=== PATIENT | female | born 1985 | race African-American/Black ===

== ENCOUNTER 2023-04-12 20:31 | Emergency (ER) | payer OTHER ==
[2023-04-12 20:39] VITALS: RESP 20; BMI 45.7
[2023-04-12] MEDS ORDERED: traMADol HCL 50 MG TABLET ONE (21:30)
[2023-04-12] MEDS ORDERED: traMADol HCL 50 MG TABLET PO ONE (21:32)
[2023-04-12] MEDS ORDERED: cloNIDine HCL 0.1 MG TABLET PO ONE (22:06)
[2023-04-12] MEDS ORDERED: cloNIDine HCL 0.1 MG TABLET ONE (22:06)
[2023-04-12 22:11] VITALS: TEMP 99
[2023-04-12 22:56] VITALS: BP 149/95; PULSE 90
== END 2023-04-12 23:47 | disposition home or self-care (01) ==
LOC: JERFT 20:31 → JER 20:31 → JERFT 23:47
DX: K08.89 Other specified disorders of teeth and supporting structures (principal); R60.0 Localized edema; I10 Essential (primary) hypertension
CPT/HCPCS: 99283-25

== ENCOUNTER 2023-06-16 00:32 | Inpatient (IN) | payer OTHER ==
[2023-06-16] MEDS ORDERED: FAMOTIDINE 20 MG/50 ML IVPB 20 MG/50 ML MG IVPB ONE ×2 (01:05→01:14)
[2023-06-16] MEDS ORDERED: ACETAMINOPHEN 1000 MG/100 ML BAG IVPB ONE (01:05)
[2023-06-16] MEDS ORDERED: ONDANSETRON 4 MG/2 ML VIAL IVPUSH ONE (01:05)
[2023-06-16] MEDS ORDERED: SODIUM CHLORIDE 1,000 ML IV STA ×2 (01:05→03:59)
[2023-06-16] MEDS ORDERED: ACETAMINOPHEN INJECTION 100 ML IVPB ONE (01:14)
[2023-06-16] MEDS ORDERED: ONDANSETRON 4 MG/2 ML VIAL ONE (01:14)
[2023-06-16 02:08] LABS: CHLORIDE 107 mmol/L (98-107); POTASSIUM 3.2 mmol/L (3.5-5.1); SODIUM 146 mmol/L (136-145)
[2023-06-16 02:09] LABS: INR 1.09 (0.83-1.09); PROTHROMBIN TIME (PATIENT) 12.6 SEC (9.7-13.0)
[2023-06-16 02:11] LABS: ALBUMIN 1.8 g/dl (3.4-5.0); ANION GAP 16 MMOL/L (8-16); BLOOD UREA NITROGEN 51.2 mg/dL (7-18); CO2 22 mmol/L (21-32); GLUCOSE,RANDOM 371 mg/dL (74-106)
[2023-06-16 02:12] LABS: ACTIVATED PTT 29.8 SECONDS (25.2-36.5); LIPASE 140 U/L (73-393)
[2023-06-16 02:14] LABS: SGOT/AST 54 U/L (15-37); SGPT/ALT 33 U/L (13-61)
[2023-06-16 02:15] LABS: BILIRUBIN,TOTAL 0.3 mg/dL (0.2-1)
[2023-06-16 02:16] LABS: TOT PROT 5.5 g/dl (6.4-8.2)
[2023-06-16 02:17] LABS: ALK PHOS 124 U/L (45-117)
[2023-06-16 03:37] LABS: CREATININE 9.6 mg/dL (0.55-1.3)
[2023-06-16] MEDS ORDERED: levETIRAcetam 500 MG/5 ML INJECTION VIAL IVPB ONE ×2 (04:37→04:59)
[2023-06-16] MEDS ORDERED: LORazepam 2 MG/ML SDV VIAL IM ONE (04:43)
[2023-06-16 06:16] LABS: HEMATOCRIT 35.6 % (32.4-45.2); HEMOGLOBIN 11.4 GM/dL (10.7-15.3); MCH 29.6 pg (25.7-33.7); MCHC 32.1 g/dl (32.0-36.0); MEAN PLT VOLUME 9.1 fl (7.5-11.1); PLATELET COUNT 420 10^3/uL (134-434); RBC 3.87 M/mm3 (3.60-5.2); RDW 13.1 % (11.6-15.6); WHITE BLOOD COUNT 10.5 K/mm3 (4.0-10.0)
[2023-06-16 06:36] LABS: CHLORIDE 109 mmol/L (98-107); POTASSIUM 3.1 mmol/L (3.5-5.1); SODIUM 147 mmol/L (136-145)
[2023-06-16 06:38] LABS: CALCIUM 7.6 mg/dL (8.5-10.1)
[2023-06-16 06:39] LABS: ALBUMIN 1.7 g/dl (3.4-5.0); ANION GAP 17 MMOL/L (8-16); BLOOD UREA NITROGEN 54.6 mg/dL (7-18); CO2 21 mmol/L (21-32); GLUCOSE,RANDOM 359 mg/dL (74-106)
[2023-06-16 06:42] LABS: SGOT/AST 50 U/L (15-37); SGPT/ALT 29 U/L (13-61)
[2023-06-16 06:43] LABS: BILIRUBIN,TOTAL 0.3 mg/dL (0.2-1)
[2023-06-16 06:45] LABS: ALK PHOS 117 U/L (45-117)
[2023-06-16 06:45] LABS: BASO % 0.6 % (0-2.0); LYMPH % 12.4 % (8-40); MCH 29.7 pg (25.7-33.7); MCHC 33.2 g/dl (32.0-36.0); MEAN CELL VOLUME 89.5 fl (80-96); MEAN PLT VOLUME 8.5 fl (7.5-11.1); MONO % 2.7 % (3.8-10.2); NEUT % 84.3 % (42.8-82.8); PLATELET COUNT 392 10^3/uL (134-434); RBC 4.02 M/mm3 (3.60-5.2); RDW 13.3 % (11.6-15.6); WHITE BLOOD COUNT 10.4 K/mm3 (4.0-10.0)
[2023-06-16] MEDS ORDERED: CALCIUM GLUCONATE 10% - 1,000 MG/10 ML VIAL IVPB ONE (06:51)
[2023-06-16] MEDS ORDERED: CALCIUM GLUC IN NACL, ISO-OSM 1 GM/50 ML BAG IVPB ONE (07:18)
[2023-06-16] MEDS ORDERED: KCL 10 MEQ IVPB 20 MEQ/200 ML INFUS.BAG IVPB ONE (07:18)
[2023-06-16 07:24] LABS: CREATININE 9.1 mg/dL (0.55-1.3)
[2023-06-16 07:51] LABS: MAGNESIUM 1.8 mg/dL (1.8-2.4)
[2023-06-16 07:53] LABS: VENOUS BASE EXCESS -7.2 mmol/L (-2-2); VENOUS O2 SATURATION 86.3 % (70-80); VENOUS PCO2 32.5 mmHg (38-52); VENOUS PH 7.348 (7.310-7.410)
[2023-06-16 08:51] LABS: ANISOCYTOSIS 0; HELMET CELLS 0; HOWELL-JOLLY BODIES 0; MACROCYTOSIS 0; OVALOCYTE 0; ROULEAU 0; SICKELED CELLS 0; TARGET CELLS 0; TEAR DROP CELLS 0; TOXIC GRANULATION 0
[2023-06-16] MEDS ORDERED: SODIUM CHLORIDE 0.9%/KCL 20 MEQ/1,000 ML INFUS.BAG IV SCH (09:30)
[2023-06-16] MEDS: KCL 10 MEQ IVPB 10 MEQ/100 ML INFUS.BAG IVPB SCH ×3 (09:49→10:19)
[2023-06-16] MEDS ORDERED: KCL 10 MEQ IVPB 10 MEQ/100 ML INFUS.BAG IVPB ONE (10:21)
[2023-06-16 10:31] LABS: CHLORIDE 112 mmol/L (98-107); POTASSIUM 3.2 mmol/L (3.5-5.1); SODIUM 146 mmol/L (136-145)
[2023-06-16 10:32] LABS: CALCIUM 7.4 mg/dL (8.5-10.1)
[2023-06-16 10:33] LABS: ANION GAP 12 MMOL/L (8-16); CO2 22 mmol/L (21-32); GLUCOSE,RANDOM 324 mg/dL (74-106)
[2023-06-16] MEDS ORDERED: LACTATED RINGERS SOLUTION 1000 ML INFUS.BAG IV ONE (10:35)
[2023-06-16 10:40] LABS: CREATININE 9.3 mg/dL (0.55-1.3)
[2023-06-16] MEDS ORDERED: SODIUM CHLORIDE 0.45% 1,000 ML IV SCH (12:15)
[2023-06-16 12:17] LABS: EPI CELLS 16 /uL (0-25.1); HYALINE CASTS 2 /uL (0-3.1); PH,URINE 6.5 (5.0-8.0); URINE APPEARANCE CLEAR; URINE BACTERIA 43 /uL (0-1359); URINE BILIRUBIN NEGATIVE (NEGATIVE); URINE COLOR YELLOW; URINE GLUCOSE (UA) 3+ (NEGATIVE); URINE KETONE 1+ (NEGATIVE); URINE LEUK ESTERASE NEGATIVE (NEGATIVE); URINE NITRITE NEGATIVE (NEGATIVE); URINE PROTEIN 4+ (NEGATIVE); URINE RBC 47 /uL (0-23.9); URINE UROBILINOGEN 0.2 mg/dL (0.2-1.0); URINE WBC 15 /uL (0-25.8)
[2023-06-16 12:27] LABS: PHENCYCLIDINE,URINE NEGATIVE (NEGATIVE)
[2023-06-16 12:29] LABS: URINE BARBITURATES NEGATIVE (NEGATIVE)
[2023-06-16 12:30] LABS: COCAINE, UR NEGATIVE (NEGATIVE); METHADONE, UR NEGATIVE (NEGATIVE); OPIATES, URI NEGATIVE (NEGATIVE); URINE AMPHETAMINES NEGATIVE (NEGATIVE); URINE BENZODIAZEPINES NEGATIVE (NEGATIVE)
[2023-06-16] MEDS ORDERED: LABETALOL HCL 5 MG/1 ML (100MG/20 ML VIAL) IVPUSH ONE (15:06)
[2023-06-16] MEDS ORDERED: LABETALOL HCL 20 MG/4 ML VIAL IVPUSH ONE (16:00)
[2023-06-16] MEDS ORDERED: POTASSIUM CHLORIDE ORAL LIQUID 20 MEQ/15 ML PO ONE (16:52)
[2023-06-16] MEDS ORDERED: INSULIN (NOVOLOG) ASPART 100 UNITS/ML 10ML VIAL ONE (17:20)
[2023-06-16] MEDS: INSULIN SLIDING SCALE (NOVOLOG) 1 VIAL SQ SCH ×2 (17:21→21:29)
[2023-06-16] MEDS: HEPARIN NA (PORCINE) 5,000 UNITS/ML 1ML VIAL SQ SCH (21:28)
[2023-06-16] MEDS: SODIUM CHLORIDE 0.45% 1,000 ML IV SCH (21:31)
[2023-06-16] MEDS ORDERED: ENOXAPARIN NA (PORCINE) 40 MG/0.4 ML DISP.SYRIN SQ SCH (22:00)
[2023-06-16] MEDS ORDERED: levETIRAcetam 500 MG/5 ML INJECTION VIAL IVPB SCH (22:00)
[2023-06-16 22:01] LABS: CHLORIDE 119 mmol/L (98-107); POTASSIUM 4.6 mmol/L (3.5-5.1); SODIUM 148 mmol/L (136-145)
[2023-06-16 22:02] LABS: CALCIUM 7.5 mg/dL (8.5-10.1)
[2023-06-16 22:04] LABS: ANION GAP 15 MMOL/L (8-16); BLOOD UREA NITROGEN 57.2 mg/dL (7-18); CO2 15 mmol/L (21-32); GLUCOSE,RANDOM 203 mg/dL (74-106); MAGNESIUM 1.9 mg/dL (1.8-2.4)
[2023-06-16 22:12] LABS: CREATININE 9.2 mg/dL (0.55-1.3)
[2023-06-17] MEDS: levETIRAcetam 500 MG/5 ML INJECTION VIAL IVPB SCH ×3 (00:05→22:20)
[2023-06-17] MEDS ORDERED: LIDOCAINE 5% TOPICAL PATCH TP ONE (02:00)
[2023-06-17] MEDS: HEPARIN NA (PORCINE) 5,000 UNITS/ML 1ML VIAL SQ SCH ×3 (06:37→22:19)
[2023-06-17] MEDS: INSULIN SLIDING SCALE (NOVOLOG) 1 VIAL SQ SCH ×4 (06:37→22:22)
[2023-06-17 07:47] LABS: BASO % 1.3 % (0-2.0); EOS % 4.1 % (0-4.5); HEMATOCRIT 30.3 % (32.4-45.2); HEMOGLOBIN 9.6 GM/dL (10.7-15.3); LYMPH % 34.2 % (8-40); MCH 29.3 pg (25.7-33.7); MCHC 31.9 g/dl (32.0-36.0); MEAN PLT VOLUME 8.5 fl (7.5-11.1); MONO % 5.4 % (3.8-10.2); PLATELET COUNT 387 10^3/uL (134-434); RBC 3.29 M/mm3 (3.60-5.2); RDW 13.3 % (11.6-15.6)
[2023-06-17 07:59] LABS: CHLORIDE 114 mmol/L (98-107); POTASSIUM 3.2 mmol/L (3.5-5.1); SODIUM 147 mmol/L (136-145)
[2023-06-17 08:07] LABS: HDL CHOLESTEROL 70 mg/dL (40-60)
[2023-06-17 08:09] LABS: BILIRUBIN,TOTAL 0.3 mg/dL (0.2-1); CALCIUM 7.5 mg/dL (8.5-10.1); LDL CHOLESTEROL (ONLY SJRH) 74 mg/dL (5-100); TOT PROT 4.7 g/dl (6.4-8.2)
[2023-06-17 08:11] LABS: ALBUMIN 1.6 g/dl (3.4-5.0); ALK PHOS 100 U/L (45-117); BLOOD UREA NITROGEN 50.8 mg/dL (7-18)
[2023-06-17 08:12] LABS: ANION GAP 11 MMOL/L (8-16); CHOLESTEROL 164 mg/dL (50-200); CO2 23 mmol/L (21-32); GLUCOSE,RANDOM 104 mg/dL (74-106); MAGNESIUM 1.7 mg/dL (1.8-2.4); PHOSPHOROUS 4.8 mg/dL (2.5-4.9); SGOT/AST 53 U/L (15-37)
[2023-06-17 08:16] LABS: SGPT/ALT 28 U/L (13-61)
[2023-06-17] MEDS: hydrALAZINE HCL 20 MG/ML VIAL IVPUSH PRN (11:45)
[2023-06-17] MEDS ORDERED: amLODIPine BESYLATE 5 MG TABLET (FP) PO ONE (12:00)
[2023-06-17] MEDS ORDERED: LIDOCAINE PATCH REMOVAL MC ONE (14:00)
[2023-06-17] MEDS: SODIUM CHLORIDE 0.45% 1,000 ML IV SCH (19:32)
[2023-06-17] MEDS: POTASSIUM CHLORIDE TABS 20 MEQ TABLET.ER (FP) PO SCH (19:58)
[2023-06-17] MEDS: amLODIPine BESYLATE 5 MG TABLET (FP) PO SCH (22:24)
[2023-06-18] MEDS: HEPARIN NA (PORCINE) 5,000 UNITS/ML 1ML VIAL SQ SCH ×3 (05:50→22:06)
[2023-06-18] MEDS: INSULIN SLIDING SCALE (NOVOLOG) 1 VIAL SQ SCH ×4 (07:20→22:06)
[2023-06-18 07:52] LABS: BASO % 0.8 % (0-2.0); EOS % 5.6 % (0-4.5); HEMATOCRIT 28.7 % (32.4-45.2); HEMOGLOBIN 9.3 GM/dL (10.7-15.3); MCH 29.7 pg (25.7-33.7); MCHC 32.6 g/dl (32.0-36.0); MEAN CELL VOLUME 91.2 fl (80-96); MEAN PLT VOLUME 8.4 fl (7.5-11.1); MONO % 6.4 % (3.8-10.2); NEUT % 56.2 % (42.8-82.8); PLATELET COUNT 308 10^3/uL (134-434); RBC 3.15 M/mm3 (3.60-5.2); RDW 12.9 % (11.6-15.6); WHITE BLOOD COUNT 9.5 K/mm3 (4.0-10.0)
[2023-06-18 08:09] LABS: CHLORIDE 112 mmol/L (98-107); POTASSIUM 3.3 mmol/L (3.5-5.1); SODIUM 144 mmol/L (136-145)
[2023-06-18 08:12] LABS: ALBUMIN 1.4 g/dl (3.4-5.0); ANION GAP 11 MMOL/L (8-16); BLOOD UREA NITROGEN 45.7 mg/dL (7-18); CO2 22 mmol/L (21-32); GLUCOSE,RANDOM 127 mg/dL (74-106); MAGNESIUM 1.5 mg/dL (1.8-2.4)
[2023-06-18 08:15] LABS: SGOT/AST 42 U/L (15-37)
[2023-06-18 08:16] LABS: BILIRUBIN,TOTAL 0.2 mg/dL (0.2-1); PHOSPHOROUS 4.2 mg/dL (2.5-4.9); SGPT/ALT 28 U/L (13-61); TOT PROT 4.2 g/dl (6.4-8.2)
[2023-06-18 08:18] LABS: ALK PHOS 90 U/L (45-117)
[2023-06-18 08:25] LABS: CALCIUM 6.8 mg/dL (8.5-10.1); CREATININE 8.7 mg/dL (0.55-1.3)
[2023-06-18] MEDS ORDERED: MAGNESIUM SULF 50% (8.12 MEQ/2 ML-1 GM VIAL) IVPB ONE (10:00)
[2023-06-18] MEDS ORDERED: amLODIPine BESYLATE 5 MG TABLET (FP) PO SCH (10:00)
[2023-06-18] MEDS ORDERED: POTASSIUM CHLORIDE ORAL LIQUID 20 MEQ/15 ML PO ONE (10:27)
[2023-06-18] MEDS: amLODIPine BESYLATE 5 MG TABLET (FP) PO SCH ×2 (10:42→22:07)
[2023-06-18] MEDS: levETIRAcetam 500 MG/5 ML INJECTION VIAL IVPB SCH ×2 (10:42→22:07)
[2023-06-18] MEDS: MAGNESIUM SULF 50% (8.12 MEQ/2 ML-1 GM VIAL) IVPB SCH ×2 (10:42→13:48)
[2023-06-18] MEDS: POTASSIUM CHLORIDE TABS 20 MEQ TABLET.ER (FP) PO SCH (10:45)
[2023-06-18] MEDS ORDERED: INSULIN (NOVOLOG) ASPART 100 UNITS/ML 10ML VIAL ONE (16:36)
[2023-06-18] MEDS: SODIUM CHLORIDE 0.45% 1,000 ML IV SCH (17:01)
[2023-06-18] MEDS: ESCITALOPRAM OXALATE 10 MG TABLET PO SCH (19:07)
[2023-06-18] MEDS: ATORVASTATIN CA 20 MG TABLET (FP) PO SCH (22:07)
[2023-06-19] MEDS: hydrALAZINE HCL 20 MG/ML VIAL IVPUSH PRN (03:15)
[2023-06-19] MEDS: HEPARIN NA (PORCINE) 5,000 UNITS/ML 1ML VIAL SQ SCH ×3 (05:35→22:10)
[2023-06-19 07:08] LABS: HEMATOCRIT 29.3 % (32.4-45.2); HEMOGLOBIN 9.8 GM/dL (10.7-15.3); MCH 29.7 pg (25.7-33.7); MCHC 33.3 g/dl (32.0-36.0); MEAN CELL VOLUME 89.2 fl (80-96); PLATELET COUNT 291 10^3/uL (134-434); RBC 3.29 M/mm3 (3.60-5.2); RDW 13.1 % (11.6-15.6); WHITE BLOOD COUNT 9.3 K/mm3 (4.0-10.0)
[2023-06-19 07:44] LABS: CHLORIDE 112 mmol/L (98-107); POTASSIUM 3.4 mmol/L (3.5-5.1); SODIUM 143 mmol/L (136-145)
[2023-06-19 07:47] LABS: CALCIUM 7.1 mg/dL (8.5-10.1)
[2023-06-19 07:48] LABS: ALBUMIN 1.5 g/dl (3.4-5.0); ANION GAP 11 MMOL/L (8-16); BLOOD UREA NITROGEN 44.5 mg/dL (7-18); CO2 20 mmol/L (21-32); GLUCOSE,RANDOM 142 mg/dL (74-106); MAGNESIUM 2.3 mg/dL (1.8-2.4)
[2023-06-19 07:52] LABS: PHOSPHOROUS 4.6 mg/dL (2.5-4.9); SGOT/AST 34 U/L (15-37); SGPT/ALT 27 U/L (13-61)
[2023-06-19 07:55] LABS: BILIRUBIN,TOTAL 0.2 mg/dL (0.2-1); TOT PROT 4.4 g/dl (6.4-8.2)
[2023-06-19 07:56] LABS: ALK PHOS 97 U/L (45-117)
[2023-06-19 07:59] LABS: CREATININE 8.9 mg/dL (0.55-1.3)
[2023-06-19] MEDS: amLODIPine BESYLATE 5 MG TABLET (FP) PO SCH (10:01)
[2023-06-19] MEDS: DULoxetine HCL 30 MG CAPSULE.DR PO SCH (10:01)
[2023-06-19] MEDS: ESCITALOPRAM OXALATE 10 MG TABLET PO SCH (10:02)
[2023-06-19] MEDS: levETIRAcetam 500 MG/5 ML INJECTION VIAL IVPB SCH ×2 (10:02→22:10)
[2023-06-19] MEDS: POTASSIUM CHLORIDE TABS 20 MEQ TABLET.ER (FP) PO SCH (10:02)
[2023-06-19] MEDS: INSULIN SLIDING SCALE (NOVOLOG) 1 VIAL SQ SCH ×4 (11:45→22:10)
[2023-06-19] MEDS: SODIUM CHLORIDE 0.45% 1,000 ML IV SCH (14:30)
[2023-06-19] MEDS ORDERED: INSULIN (NOVOLOG) ASPART 100 UNITS/ML 10ML VIAL ONE ×2 (17:01→22:03)
[2023-06-19] MEDS: ATORVASTATIN CA 20 MG TABLET (FP) PO SCH (22:08)
[2023-06-20] MEDS: hydrALAZINE HCL 20 MG/ML VIAL IVPUSH PRN ×4 (02:56→22:09)
[2023-06-20] MEDS: HEPARIN NA (PORCINE) 5,000 UNITS/ML 1ML VIAL SQ SCH (05:26)
[2023-06-20] MEDS: INSULIN SLIDING SCALE (NOVOLOG) 1 VIAL SQ SCH ×3 (06:18→17:36)
[2023-06-20] MEDS: INSULIN (LEVEMIR) 100 UNITS/ML UNITS SQ SCH (06:19)
[2023-06-20] MEDS: DULoxetine HCL 30 MG CAPSULE.DR PO SCH (10:04)
[2023-06-20] MEDS: ESCITALOPRAM OXALATE 10 MG TABLET PO SCH (10:05)
[2023-06-20] MEDS: amLODIPine BESYLATE 5 MG TABLET (FP) PO SCH (10:05)
[2023-06-20] MEDS: levETIRAcetam 500 MG/5 ML INJECTION VIAL IVPB SCH ×4 (10:06→21:39)
[2023-06-20] MEDS ORDERED: PROCHLORPERAZINE MALEATE 5 MG TABLET PO PRN ×2 (11:16→15:49)
[2023-06-20] MEDS ORDERED: hydrALAZINE HCL 10 MG TABLET PO PRN (11:26)
[2023-06-20] MEDS ORDERED: levETIRAcetam 500 MG TABLET (FP) PO SCH ×2 (11:30→12:00)
[2023-06-20] MEDS ORDERED: INSULIN (NOVOLOG) ASPART 100 UNITS/ML 10ML VIAL ONE (11:30)
[2023-06-20] MEDS: POLYETHYLENE GLYCOL (HEALTHYLAX) 3350 17 GM PACKET PO SCH ×2 (12:18→21:44)
[2023-06-20] MEDS: DOCUSATE SODIUM 100 MG CAPSULE (FP) PO SCH (12:18)
[2023-06-20] MEDS: SENNOSIDES 8.6MG TABLET (FP) PO SCH ×2 (12:19→21:43)
[2023-06-20] MEDS: SODIUM CHLORIDE 0.45% 1,000 ML IV SCH (13:22)
[2023-06-20] MEDS ORDERED: TRIMETHOBENZAMIDE HCL 200MG/2ML INJ IM PRN (15:04)
[2023-06-20] MEDS ORDERED: ACETAMINOPHEN 1000 MG/100 ML BAG IVPB ONE (20:17)
[2023-06-20] MEDS ORDERED: ONDANSETRON 4 MG/2 ML VIAL IVPUSH ONE (20:21)
[2023-06-20] MEDS: ATORVASTATIN CA 20 MG TABLET (FP) PO SCH (21:43)
[2023-06-21] MEDS ORDERED: INSULIN (NOVOLOG) ASPART 100 UNITS/ML 10ML VIAL ONE (06:38)
[2023-06-21] MEDS: INSULIN SLIDING SCALE (NOVOLOG) 1 VIAL SQ SCH ×3 (06:39→18:27)
[2023-06-21] MEDS: INSULIN (LEVEMIR) 100 UNITS/ML UNITS SQ SCH (06:52)
[2023-06-21] MEDS ORDERED: PANTOPRAZOLE SODIUM 40 MG VIAL IVPUSH SCH ×2 (07:15→10:00)
[2023-06-21] MEDS ORDERED: SODIUM CHLORIDE 250 ML IV PRN (08:19)
[2023-06-21 08:31] LABS: BASO % 0.3 % (0-2.0); HEMATOCRIT 31.9 % (32.4-45.2); HEMOGLOBIN 10.5 GM/dL (10.7-15.3); LYMPH % 9.5 % (8-40); MCH 29.7 pg (25.7-33.7); MCHC 32.9 g/dl (32.0-36.0); MEAN CELL VOLUME 90.4 fl (80-96); MEAN PLT VOLUME 8.2 fl (7.5-11.1); MONO % 4.9 % (3.8-10.2); NEUT % 85.3 % (42.8-82.8); PLATELET COUNT 397 10^3/uL (134-434); RBC 3.53 M/mm3 (3.60-5.2); RDW 13.1 % (11.6-15.6); WHITE BLOOD COUNT 16.2 K/mm3 (4.0-10.0)
[2023-06-21 08:45] LABS: CHLORIDE 107 mmol/L (98-107); POTASSIUM 4.2 mmol/L (3.5-5.1); SODIUM 140 mmol/L (136-145)
[2023-06-21 08:48] LABS: ANION GAP 17 MMOL/L (8-16); BLOOD UREA NITROGEN 56.3 mg/dL (7-18); CO2 16 mmol/L (21-32); GLUCOSE,RANDOM 280 mg/dL (74-106); MAGNESIUM 2.4 mg/dL (1.8-2.4)
[2023-06-21 08:51] LABS: PHOSPHOROUS 8.2 mg/dL (2.5-4.9); SGOT/AST 31 U/L (15-37); SGPT/ALT 28 U/L (13-61)
[2023-06-21 08:52] LABS: BILIRUBIN,TOTAL 0.3 mg/dL (0.2-1); TOT PROT 5.3 g/dl (6.4-8.2)
[2023-06-21 08:54] LABS: ALK PHOS 110 U/L (45-117)
[2023-06-21 08:57] LABS: ALBUMIN 1.8 g/dl (3.4-5.0); CALCIUM 8.4 mg/dL (8.5-10.1); CREATININE 9.9 mg/dL (0.55-1.3)
[2023-06-21] MEDS ORDERED: ACETAMINOPHEN 1000 MG/100 ML BAG IVPB PRN (09:41)
[2023-06-21] MEDS: DULoxetine HCL 30 MG CAPSULE.DR PO SCH (10:00)
[2023-06-21] MEDS: ESCITALOPRAM OXALATE 10 MG TABLET PO SCH (10:00)
[2023-06-21] MEDS ORDERED: METOCLOPRAMIDE HCL INJECTION 10 MG/2 ML VIAL IVPUSH SCH (10:30)
[2023-06-21] MEDS: SODIUM CHLORIDE 0.45% 1,000 ML IV SCH (11:35)
[2023-06-21] MEDS: POLYETHYLENE GLYCOL (HEALTHYLAX) 3350 17 GM PACKET PO SCH (11:35)
[2023-06-21] MEDS: levETIRAcetam 500 MG/5 ML INJECTION VIAL IVPB SCH (11:36)
[2023-06-21] MEDS: SENNOSIDES 8.6MG TABLET (FP) PO SCH (11:37)
[2023-06-21] MEDS: DOCUSATE SODIUM 100 MG CAPSULE (FP) PO SCH (11:37)
[2023-06-21] MEDS ORDERED: MIDAZOLAM HCL 2 MG/2 ML SINGLE DOSE VIAL ONE (13:15)
[2023-06-21] MEDS ORDERED: PROPOFOL 20 ML ONE (13:15)
[2023-06-21] MEDS ORDERED: ceFAZolin SODIUM 1 GM VIAL IVPB ONE (13:35)
[2023-06-21] MEDS ORDERED: LIDOCAINE HCL 1%, 10 MG/ML (20ML VIAL) INF ONE (13:40)
[2023-06-21] MEDS ORDERED: MAG HYDROX/AL HYDROX/SIMETH 30 ML UNIT-DOSE CUP PO PRN ×2 (13:41→15:55)
[2023-06-21] MEDS ORDERED: ONDANSETRON 4 MG/2 ML VIAL ONE (13:45)
[2023-06-21] MEDS ORDERED: SODIUM CHLORIDE 1,000 ML IV SCH (14:15)
[2023-06-21] MEDS ORDERED: PROCHLORPERAZINE MALEATE 5 MG TABLET PO PRN (15:54)
[2023-06-21] MEDS ORDERED: hydrALAZINE HCL 20 MG/ML VIAL IVPUSH PRN (15:58)
[2023-06-21] MEDS ORDERED: amLODIPine BESYLATE 5 MG TABLET (FP) PO ONE (18:26)
[2023-06-21] MEDS: amLODIPine BESYLATE 5 MG TABLET (FP) PO SCH (18:32)
[2023-06-21 21:06] LABS: ATYPICAL pANCA <1:20 titer (Neg:<1:20); C-ANCA <1:20 titer (Neg:<1:20)
[2023-06-21] MEDS: ATORVASTATIN CA 20 MG TABLET (FP) PO SCH (21:30)
[2023-06-21] MEDS: levETIRAcetam 500 MG TABLET (FP) PO SCH (21:30)
[2023-06-21] MEDS: hydrALAZINE HCL 10 MG TABLET PO SCH (21:30)
[2023-06-21] MEDS: HEPARIN NA (PORCINE) 5,000 UNITS/ML 1ML VIAL SQ SCH (21:30)
[2023-06-21] MEDS: ACETAMINOPHEN 1000 MG/100 ML BAG IVPB PRN (21:31)
[2023-06-21] MEDS ORDERED: levETIRAcetam 500 MG/5 ML INJECTION VIAL IVPB SCH (22:00)
[2023-06-22] MEDS: hydrALAZINE HCL 10 MG TABLET PO SCH ×3 (05:37→22:00)
[2023-06-22] MEDS: HEPARIN NA (PORCINE) 5,000 UNITS/ML 1ML VIAL SQ SCH ×2 (05:37→14:26)
[2023-06-22] MEDS: ACETAMINOPHEN 1000 MG/100 ML BAG IVPB PRN (05:40)
[2023-06-22] MEDS: INSULIN (LEVEMIR) 100 UNITS/ML UNITS SQ SCH (06:43)
[2023-06-22] MEDS: INSULIN SLIDING SCALE (NOVOLOG) 1 VIAL SQ SCH ×3 (06:44→18:03)
[2023-06-22 07:54] LABS: CHLORIDE 107 mmol/L (98-107); POTASSIUM 3.5 mmol/L (3.5-5.1); SODIUM 142 mmol/L (136-145)
[2023-06-22 07:58] LABS: CALCIUM 7.6 mg/dL (8.5-10.1); GLUCOSE,RANDOM 165 mg/dL (74-106)
[2023-06-22 07:59] LABS: ALBUMIN 1.6 g/dl (3.4-5.0); ANION GAP 12 MMOL/L (8-16); BLOOD UREA NITROGEN 47.8 mg/dL (7-18); CO2 24 mmol/L (21-32)
[2023-06-22 08:01] LABS: PHOSPHOROUS 5.4 mg/dL (2.5-4.9); SGPT/ALT 19 U/L (13-61)
[2023-06-22 08:02] LABS: SGOT/AST 23 U/L (15-37)
[2023-06-22 08:03] LABS: BILIRUBIN,TOTAL 0.2 mg/dL (0.2-1); TOT PROT 4.4 g/dl (6.4-8.2)
[2023-06-22 08:04] LABS: ALK PHOS 95 U/L (45-117)
[2023-06-22 08:11] LABS: BASO % 0.4 % (0-2.0); CREATININE 8.1 mg/dL (0.55-1.3); EOS % 0.3 % (0-4.5); HEMATOCRIT 30.3 % (32.4-45.2); HEMOGLOBIN 9.5 GM/dL (10.7-15.3); MCH 29.2 pg (25.7-33.7); MCHC 31.4 g/dl (32.0-36.0); MEAN CELL VOLUME 93.1 fl (80-96); MEAN PLT VOLUME 8.3 fl (7.5-11.1); MONO % 6.9 % (3.8-10.2); NEUT % 76.4 % (42.8-82.8); PLATELET COUNT 317 10^3/uL (134-434); RBC 3.26 M/mm3 (3.60-5.2); WHITE BLOOD COUNT 16.9 K/mm3 (4.0-10.0)
[2023-06-22] MEDS: ESCITALOPRAM OXALATE 10 MG TABLET PO SCH (09:54)
[2023-06-22] MEDS: amLODIPine BESYLATE 5 MG TABLET (FP) PO SCH (09:55)
[2023-06-22] MEDS: levETIRAcetam 500 MG TABLET (FP) PO SCH ×2 (09:55→21:44)
[2023-06-22] MEDS: DULoxetine HCL 30 MG CAPSULE.DR PO SCH (09:55)
[2023-06-22] MEDS ORDERED: PANTOPRAZOLE SODIUM 40 MG VIAL IVPB SCH (10:00)
[2023-06-22] MEDS ORDERED: SODIUM CHLORIDE 250 ML IV PRN (11:12)
[2023-06-22] MEDS ORDERED: INSULIN (NOVOLOG) ASPART 100 UNITS/ML 10ML VIAL ONE ×2 (11:49→11:56)
[2023-06-22] MEDS ORDERED: ACETAMINOPHEN 500 MG TABLET (FP) PO PRN (17:18)
[2023-06-22] MEDS: ATORVASTATIN CA 20 MG TABLET (FP) PO SCH (21:59)
[2023-06-23] MEDS: hydrALAZINE HCL 10 MG TABLET PO SCH ×3 (05:22→21:24)
[2023-06-23] MEDS: INSULIN SLIDING SCALE (NOVOLOG) 1 VIAL SQ SCH ×3 (06:13→17:10)
[2023-06-23] MEDS: INSULIN (LEVEMIR) 100 UNITS/ML UNITS SQ SCH (06:14)
[2023-06-23] MEDS: levETIRAcetam 500 MG TABLET (FP) PO SCH ×2 (09:39→21:24)
[2023-06-23 11:11] LABS: BASO % 0.9 % (0-2.0); EOS % 1.2 % (0-4.5); HEMATOCRIT 26.9 % (32.4-45.2); HEMOGLOBIN 8.9 GM/dL (10.7-15.3); LYMPH % 30.6 % (8-40); MCH 29.6 pg (25.7-33.7); MCHC 33.3 g/dl (32.0-36.0); MONO % 9.4 % (3.8-10.2); NEUT % 57.9 % (42.8-82.8); PLATELET COUNT 288 10^3/uL (134-434); RBC 3.02 M/mm3 (3.60-5.2); RDW 13.3 % (11.6-15.6); WHITE BLOOD COUNT 8.9 K/mm3 (4.0-10.0)
[2023-06-23 11:32] LABS: CHLORIDE 107 mmol/L (98-107); POTASSIUM 3.4 mmol/L (3.5-5.1); SODIUM 141 mmol/L (136-145)
[2023-06-23 11:34] LABS: ALBUMIN 1.4 g/dl (3.4-5.0); CALCIUM 7.1 mg/dL (8.5-10.1)
[2023-06-23 11:35] LABS: ANION GAP 10 MMOL/L (8-16); BLOOD UREA NITROGEN 48.4 mg/dL (7-18); CO2 23 mmol/L (21-32); GLUCOSE,RANDOM 203 mg/dL (74-106); MAGNESIUM 2.1 mg/dL (1.8-2.4)
[2023-06-23 11:37] LABS: SGPT/ALT 14 U/L (13-61)
[2023-06-23 11:38] LABS: PHOSPHOROUS 4.6 mg/dL (2.5-4.9); SGOT/AST 21 U/L (15-37)
[2023-06-23 11:39] LABS: BILIRUBIN,TOTAL 0.1 mg/dL (0.2-1); TOT PROT 4.2 g/dl (6.4-8.2)
[2023-06-23 11:40] LABS: ALK PHOS 95 U/L (45-117)
[2023-06-23 11:43] LABS: CREATININE 8.5 mg/dL (0.55-1.3)
[2023-06-23] MEDS ORDERED: HEPARIN NA (PORCINE) 5,000 UNITS/ML 1ML VIAL SQ SCH (14:00)
[2023-06-23] MEDS: ESCITALOPRAM OXALATE 10 MG TABLET PO SCH (14:13)
[2023-06-23] MEDS: amLODIPine BESYLATE 5 MG TABLET (FP) PO SCH (14:13)
[2023-06-23] MEDS: DULoxetine HCL 30 MG CAPSULE.DR PO SCH (14:13)
[2023-06-23] MEDS: PANTOPRAZOLE 40 MG TABLET PO SCH (14:13)
[2023-06-23] MEDS ORDERED: POTASSIUM CHLORIDE ORAL LIQUID 20 MEQ/15 ML PO ONE (16:01)
[2023-06-23] MEDS ORDERED: INSULIN (NOVOLOG) ASPART 100 UNITS/ML 10ML VIAL ONE (17:08)
[2023-06-23] MEDS ORDERED: MAG HYDROX/AL HYDROX/SIMETH 30 ML UNIT-DOSE CUP PO PRN (19:21)
[2023-06-23] MEDS ORDERED: PROCHLORPERAZINE MALEATE 5 MG TABLET PO PRN (19:21)
[2023-06-23] MEDS: HEPARIN NA (PORCINE) 5,000 UNITS/ML 1ML VIAL SQ SCH (21:24)
[2023-06-23] MEDS: ATORVASTATIN CA 20 MG TABLET (FP) PO SCH (21:24)
[2023-06-23 23:50] VITALS: BMI 52.4
[2023-06-24] MEDS: HEPARIN NA (PORCINE) 5,000 UNITS/ML 1ML VIAL SQ SCH ×3 (06:12→22:27)
[2023-06-24] MEDS: hydrALAZINE HCL 10 MG TABLET PO SCH ×3 (06:12→22:29)
[2023-06-24] MEDS: INSULIN (LEVEMIR) 100 UNITS/ML UNITS SQ SCH (06:14)
[2023-06-24] MEDS: INSULIN SLIDING SCALE (NOVOLOG) 1 VIAL SQ SCH ×3 (06:17→16:47)
[2023-06-24] MEDS: DULoxetine HCL 30 MG CAPSULE.DR PO SCH (09:04)
[2023-06-24] MEDS: PANTOPRAZOLE 40 MG TABLET PO SCH (09:04)
[2023-06-24] MEDS: ESCITALOPRAM OXALATE 10 MG TABLET PO SCH (09:04)
[2023-06-24] MEDS: levETIRAcetam 500 MG TABLET (FP) PO SCH ×2 (09:05→22:28)
[2023-06-24] MEDS ORDERED: amLODIPine BESYLATE 5 MG TABLET (FP) PO SCH (10:00)
[2023-06-24 10:26] LABS: HEMATOCRIT 27.4 % (32.4-45.2); HEMOGLOBIN 9.1 GM/dL (10.7-15.3); MCH 29.7 pg (25.7-33.7); MCHC 33.3 g/dl (32.0-36.0); MEAN CELL VOLUME 89.2 fl (80-96); MEAN PLT VOLUME 7.5 fl (7.5-11.1); MONO % 9.1 % (3.8-10.2); NEUT % 60.1 % (42.8-82.8); PLATELET COUNT 269 10^3/uL (134-434); RBC 3.07 M/mm3 (3.60-5.2); RDW 12.8 % (11.6-15.6)
[2023-06-24 10:27] LABS: BASO % 0.8 % (0-2.0)
[2023-06-24 10:53] LABS: POTASSIUM 3.2 mmol/L (3.5-5.1)
[2023-06-24 10:57] LABS: ALBUMIN 1.4 g/dl (3.4-5.0); CALCIUM 7.4 mg/dL (8.5-10.1)
[2023-06-24 11:00] LABS: CREATININE 6.6 mg/dL (0.55-1.3); PHOSPHOROUS 3.5 mg/dL (2.5-4.9)
[2023-06-24 11:02] LABS: BILIRUBIN,TOTAL 0.3 mg/dL (0.2-1); TOT PROT 4.2 g/dl (6.4-8.2)
[2023-06-24] MEDS ORDERED: POTASSIUM CHLORIDE ORAL LIQUID 20 MEQ/15 ML PO ONE (12:59)
[2023-06-24] MEDS ORDERED: POTASSIUM CHLORIDE TABS 10 MEQ TABLET.ER (FP) PO ONE (13:00)
[2023-06-24] MEDS: ATORVASTATIN CA 20 MG TABLET (FP) PO SCH (22:29)
[2023-06-25] MEDS: hydrALAZINE HCL 10 MG TABLET PO SCH ×3 (06:24→21:59)
[2023-06-25] MEDS: INSULIN (LEVEMIR) 100 UNITS/ML UNITS SQ SCH (06:24)
[2023-06-25] MEDS: HEPARIN NA (PORCINE) 5,000 UNITS/ML 1ML VIAL SQ SCH ×3 (06:24→22:00)
[2023-06-25] MEDS: INSULIN SLIDING SCALE (NOVOLOG) 1 VIAL SQ SCH ×3 (06:32→17:01)
[2023-06-25] MEDS: PANTOPRAZOLE 40 MG TABLET PO SCH (10:11)
[2023-06-25] MEDS: ESCITALOPRAM OXALATE 10 MG TABLET PO SCH (10:11)
[2023-06-25] MEDS: levETIRAcetam 500 MG TABLET (FP) PO SCH ×2 (10:11→21:59)
[2023-06-25] MEDS: amLODIPine BESYLATE 5 MG TABLET (FP) PO SCH (10:11)
[2023-06-25] MEDS: DULoxetine HCL 30 MG CAPSULE.DR PO SCH (10:11)
[2023-06-25 11:10] LABS: POTASSIUM 3.7 mmol/L (3.5-5.1)
[2023-06-25 11:13] LABS: CALCIUM 7.6 mg/dL (8.5-10.1)
[2023-06-25 11:14] LABS: BLOOD UREA NITROGEN 37.3 mg/dL (7-18)
[2023-06-25 11:17] LABS: CREATININE 7.2 mg/dL (0.55-1.3)
[2023-06-25] MEDS: ATORVASTATIN CA 20 MG TABLET (FP) PO SCH (21:59)
[2023-06-26] MEDS: hydrALAZINE HCL 10 MG TABLET PO SCH (06:11)
[2023-06-26] MEDS: HEPARIN NA (PORCINE) 5,000 UNITS/ML 1ML VIAL SQ SCH ×3 (06:11→21:42)
[2023-06-26] MEDS: INSULIN (LEVEMIR) 100 UNITS/ML UNITS SQ SCH (06:17)
[2023-06-26] MEDS: INSULIN SLIDING SCALE (NOVOLOG) 1 VIAL SQ SCH ×3 (06:22→16:50)
[2023-06-26] MEDS ORDERED: SODIUM CHLORIDE 250 ML IV PRN (08:35)
[2023-06-26] MEDS ORDERED: EPOETIN ALFA-EPBX 10,000 UNIT/ML VIAL SQ ONE (09:00)
[2023-06-26] MEDS: amLODIPine BESYLATE 5 MG TABLET (FP) PO SCH (09:07)
[2023-06-26] MEDS: ESCITALOPRAM OXALATE 10 MG TABLET PO SCH (09:07)
[2023-06-26] MEDS: levETIRAcetam 500 MG TABLET (FP) PO SCH ×2 (09:08→21:41)
[2023-06-26] MEDS: DULoxetine HCL 30 MG CAPSULE.DR PO SCH (09:08)
[2023-06-26] MEDS: PANTOPRAZOLE 40 MG TABLET PO SCH (09:08)
[2023-06-26 10:35] LABS: HEMATOCRIT 21.4 % (32.4-45.2); HEMOGLOBIN 7.2 GM/dL (10.7-15.3); MCH 29.9 pg (25.7-33.7); MCHC 33.6 g/dl (32.0-36.0); MEAN CELL VOLUME 89.1 fl (80-96); MEAN PLT VOLUME 7.7 fl (7.5-11.1); PLATELET COUNT 229 10^3/uL (134-434); RBC 2.41 M/mm3 (3.60-5.2); RDW 12.6 % (11.6-15.6); WHITE BLOOD COUNT 6.3 K/mm3 (4.0-10.0)
[2023-06-26 10:52] LABS: CHLORIDE 108 mmol/L (98-107); POTASSIUM 3.1 mmol/L (3.5-5.1)
[2023-06-26 10:54] LABS: BLOOD UREA NITROGEN 30.5 mg/dL (7-18); CO2 28 mmol/L (21-32); GLUCOSE,RANDOM 190 mg/dL (74-106)
[2023-06-26 10:57] LABS: CREATININE 5.5 mg/dL (0.55-1.3); SGOT/AST 22 U/L (15-37); SGPT/ALT 15 U/L (13-61)
[2023-06-26 10:59] LABS: BILIRUBIN,TOTAL 0.2 mg/dL (0.2-1); TOT PROT 3.2 g/dl (6.4-8.2)
[2023-06-26 11:00] LABS: ALK PHOS 72 U/L (45-117)
[2023-06-26 11:50] LABS: ALBUMIN 1.1 g/dl (3.4-5.0); ANION GAP 7 MMOL/L (8-16); CALCIUM 6.9 mg/dL (8.5-10.1); SODIUM 143 mmol/L (136-145)
[2023-06-26] MEDS ORDERED: amLODIPine BESYLATE 5 MG TABLET (FP) PO SCH (13:01)
[2023-06-26] MEDS ORDERED: POTASSIUM CHLORIDE ORAL LIQUID 20 MEQ/15 ML PO ONE (13:15)
[2023-06-26] MEDS: ATORVASTATIN CA 20 MG TABLET (FP) PO SCH (21:41)
[2023-06-27] MEDS: HEPARIN NA (PORCINE) 5,000 UNITS/ML 1ML VIAL SQ SCH (06:07)
[2023-06-27] MEDS: INSULIN (LEVEMIR) 100 UNITS/ML UNITS SQ SCH (06:07)
[2023-06-27] MEDS: INSULIN SLIDING SCALE (NOVOLOG) 1 VIAL SQ SCH ×3 (06:07→17:42)
[2023-06-27] MEDS: ESCITALOPRAM OXALATE 10 MG TABLET PO SCH (11:13)
[2023-06-27] MEDS: DULoxetine HCL 30 MG CAPSULE.DR PO SCH (11:14)
[2023-06-27] MEDS: levETIRAcetam 500 MG TABLET (FP) PO SCH ×2 (11:14→21:26)
[2023-06-27] MEDS: PANTOPRAZOLE 40 MG TABLET PO SCH (11:14)
[2023-06-27] MEDS ORDERED: hydrALAZINE HCL 10 MG TABLET PO ONE (15:26)
[2023-06-27] MEDS: DOCUSATE SODIUM 100 MG CAPSULE (FP) PO SCH (15:50)
[2023-06-27] MEDS ORDERED: PNEUMOC 20-VAL CONJ-DIP CRM/PF 0.5 ML SYRINGE IM ONE (17:00)
[2023-06-27 19:07] LABS: HEMATOCRIT 30.6 % (32.4-45.2); HEMOGLOBIN 10.1 GM/dL (10.7-15.3); MCHC 32.9 g/dl (32.0-36.0); MEAN CELL VOLUME 91.2 fl (80-96); MEAN PLT VOLUME 8.3 fl (7.5-11.1); PLATELET COUNT 308 10^3/uL (134-434); RBC 3.36 M/mm3 (3.60-5.2); RDW 12.9 % (11.6-15.6); WHITE BLOOD COUNT 10.6 K/mm3 (4.0-10.0)
[2023-06-27] MEDS ORDERED: hydrALAZINE HCL 20 MG/ML VIAL IVPUSH PRN (19:16)
[2023-06-27 19:31] LABS: POTASSIUM 3.9 mmol/L (3.5-5.1)
[2023-06-27 19:34] LABS: BLOOD UREA NITROGEN 27.9 mg/dL (7-18); MAGNESIUM 1.9 mg/dL (1.8-2.4)
[2023-06-27 19:38] LABS: TOT PROT 4.8 g/dl (6.4-8.2)
[2023-06-27 19:39] LABS: BILIRUBIN,TOTAL 0.2 mg/dL (0.2-1)
[2023-06-27 19:49] LABS: ALBUMIN 1.8 g/dl (3.4-5.0); CALCIUM 8.4 mg/dL (8.5-10.1); CREATININE 6.1 mg/dL (0.55-1.3)
[2023-06-27] MEDS: ATORVASTATIN CA 20 MG TABLET (FP) PO SCH (21:27)
[2023-06-28] MEDS ORDERED: INSULIN (LEVEMIR) 100 UNITS/ML UNITS SQ ONE (06:29)
[2023-06-28] MEDS: INSULIN (LEVEMIR) 100 UNITS/ML UNITS SQ SCH (07:47)
[2023-06-28] MEDS: INSULIN SLIDING SCALE (NOVOLOG) 1 VIAL SQ SCH ×3 (07:48→18:00)
[2023-06-28] MEDS ORDERED: SODIUM CHLORIDE 250 ML IV PRN (07:50)
[2023-06-28] MEDS: DULoxetine HCL 30 MG CAPSULE.DR PO SCH (09:45)
[2023-06-28] MEDS: amLODIPine BESYLATE 10 MG TABLET (FP) PO SCH (09:45)
[2023-06-28] MEDS: ESCITALOPRAM OXALATE 10 MG TABLET PO SCH (09:45)
[2023-06-28] MEDS: PANTOPRAZOLE 40 MG TABLET PO SCH (09:46)
[2023-06-28] MEDS: levETIRAcetam 500 MG TABLET (FP) PO SCH ×2 (09:46→21:17)
[2023-06-28] MEDS: DOCUSATE SODIUM 100 MG CAPSULE (FP) PO SCH (09:46)
[2023-06-28] MEDS ORDERED: hydrALAZINE HCL 20 MG/ML VIAL IVPB PRN (09:55)
[2023-06-28] MEDS ORDERED: ALPRAZolam 0.25 MG TABLET PO ONE (10:01)
[2023-06-28 13:11] LABS: MAGNESIUM 1.8 mg/dL (1.8-2.4)
[2023-06-28 13:15] LABS: PHOSPHOROUS 3.6 mg/dL (2.5-4.9)
[2023-06-28] MEDS: EPOETIN ALFA-EPBX 10,000 UNIT/ML VIAL IVPUSH ONE ×2 (14:10→15:21)
[2023-06-28] MEDS: ACETAMINOPHEN 500 MG TABLET (FP) PO PRN (15:57)
[2023-06-28 21:12] LABS: HEMATOCRIT 26.1 % (32.4-45.2); HEMOGLOBIN 8.6 GM/dL (10.7-15.3); MCH 29.4 pg (25.7-33.7); MCHC 32.9 g/dl (32.0-36.0); MEAN CELL VOLUME 89.2 fl (80-96); MEAN PLT VOLUME 7.9 fl (7.5-11.1); PLATELET COUNT 249 10^3/uL (134-434); RBC 2.92 M/mm3 (3.60-5.2); RDW 13.1 % (11.6-15.6); WHITE BLOOD COUNT 10.2 K/mm3 (4.0-10.0)
[2023-06-28] MEDS: ATORVASTATIN CA 20 MG TABLET (FP) PO SCH (21:17)
[2023-06-28] MEDS: hydrALAZINE HCL 10 MG TABLET PO SCH (21:17)
[2023-06-28 21:28] LABS: POTASSIUM 3.3 mmol/L (3.5-5.1)
[2023-06-28 21:29] LABS: CALCIUM 7.6 mg/dL (8.5-10.1)
[2023-06-28 21:30] LABS: BLOOD UREA NITROGEN 20.4 mg/dL (7-18)
[2023-06-28 21:33] LABS: CREATININE 5.1 mg/dL (0.55-1.3)
[2023-06-29] MEDS: INSULIN (LEVEMIR) 100 UNITS/ML UNITS SQ SCH (06:10)
[2023-06-29] MEDS: INSULIN SLIDING SCALE (NOVOLOG) 1 VIAL SQ SCH ×3 (06:11→16:53)
[2023-06-29] MEDS: hydrALAZINE HCL 10 MG TABLET PO SCH ×3 (06:22→22:49)
[2023-06-29] MEDS: amLODIPine BESYLATE 10 MG TABLET (FP) PO SCH (09:16)
[2023-06-29] MEDS ORDERED: FENTANYL CITRATE/PF 50 MCG/ML VIAL ONE (09:52)
[2023-06-29] MEDS ORDERED: MIDAZOLAM HCL 2 MG/2 ML SINGLE DOSE VIAL ONE (09:52)
[2023-06-29] MEDS ORDERED: FENTANYL CITRATE/PF 50 MCG/ML VIAL IVPUSH ONE (10:22)
[2023-06-29] MEDS ORDERED: MIDAZOLAM HCL 2 MG/2 ML SINGLE DOSE VIAL IVPUSH ONE (10:23)
[2023-06-29 11:09] LABS: HEMATOCRIT 28.1 % (32.4-45.2); HEMOGLOBIN 9.2 GM/dL (10.7-15.3); MCH 29.7 pg (25.7-33.7); MCHC 32.5 g/dl (32.0-36.0); MEAN CELL VOLUME 91.1 fl (80-96); MEAN PLT VOLUME 7.6 fl (7.5-11.1); PLATELET COUNT 279 10^3/uL (134-434); RBC 3.09 M/mm3 (3.60-5.2); RDW 13.4 % (11.6-15.6); WHITE BLOOD COUNT 7.5 K/mm3 (4.0-10.0)
[2023-06-29] MEDS ORDERED: SODIUM CHLORIDE 500 ML IV ONE (11:15)
[2023-06-29 11:32] LABS: POTASSIUM 3.8 mmol/L (3.5-5.1)
[2023-06-29 11:44] LABS: CALCIUM 7.8 mg/dL (8.5-10.1)
[2023-06-29] MEDS: PANTOPRAZOLE 40 MG TABLET PO SCH (11:44)
[2023-06-29] MEDS: levETIRAcetam 500 MG TABLET (FP) PO SCH ×2 (11:44→22:49)
[2023-06-29] MEDS: ESCITALOPRAM OXALATE 10 MG TABLET PO SCH (11:44)
[2023-06-29] MEDS: DULoxetine HCL 30 MG CAPSULE.DR PO SCH (11:44)
[2023-06-29] MEDS: DOCUSATE SODIUM 100 MG CAPSULE (FP) PO SCH (11:44)
[2023-06-29 11:47] LABS: PHOSPHOROUS 3.8 mg/dL (2.5-4.9)
[2023-06-29 11:48] LABS: CREATININE 5.8 mg/dL (0.55-1.3)
[2023-06-29] MEDS: ACETAMINOPHEN 500 MG TABLET (FP) PO PRN ×3 (11:59→22:51)
[2023-06-29 12:02] LABS: MAGNESIUM 1.8 mg/dL (1.8-2.4)
[2023-06-29] MEDS ORDERED: SODIUM CHLORIDE 250 ML IV PRN (16:08)
[2023-06-29] MEDS: ATORVASTATIN CA 20 MG TABLET (FP) PO SCH (22:49)
[2023-06-30] MEDS: hydrALAZINE HCL 10 MG TABLET PO SCH ×3 (06:32→21:54)
[2023-06-30] MEDS: INSULIN (LEVEMIR) 100 UNITS/ML UNITS SQ SCH (06:32)
[2023-06-30] MEDS: INSULIN SLIDING SCALE (NOVOLOG) 1 VIAL SQ SCH ×3 (06:32→17:28)
[2023-06-30] MEDS: ACETAMINOPHEN 500 MG TABLET (FP) PO PRN (08:36)
[2023-06-30 09:51] LABS: HEMATOCRIT 26.6 % (32.4-45.2); HEMOGLOBIN 8.8 GM/dL (10.7-15.3); MCH 29.8 pg (25.7-33.7); MCHC 33.1 g/dl (32.0-36.0); MEAN CELL VOLUME 89.9 fl (80-96); MEAN PLT VOLUME 7.4 fl (7.5-11.1); PLATELET COUNT 298 10^3/uL (134-434); RBC 2.96 M/mm3 (3.60-5.2); WHITE BLOOD COUNT 7.1 K/mm3 (4.0-10.0)
[2023-06-30] MEDS: DOCUSATE SODIUM 100 MG CAPSULE (FP) PO SCH (10:00)
[2023-06-30 10:08] LABS: POTASSIUM 3.8 mmol/L (3.5-5.1)
[2023-06-30] MEDS ORDERED: EPOETIN ALFA-EPBX 10,000 UNIT/ML VIAL SQ ONE (10:15)
[2023-06-30 10:22] LABS: CALCIUM 7.7 mg/dL (8.5-10.1)
[2023-06-30 10:23] LABS: BLOOD UREA NITROGEN 27.6 mg/dL (7-18); MAGNESIUM 1.7 mg/dL (1.8-2.4)
[2023-06-30 10:26] LABS: CREATININE 6.4 mg/dL (0.55-1.3); PHOSPHOROUS 3.7 mg/dL (2.5-4.9)
[2023-06-30] MEDS: PANTOPRAZOLE 40 MG TABLET PO SCH (13:05)
[2023-06-30] MEDS: ESCITALOPRAM OXALATE 10 MG TABLET PO SCH (13:05)
[2023-06-30] MEDS: amLODIPine BESYLATE 10 MG TABLET (FP) PO SCH (13:06)
[2023-06-30] MEDS: levETIRAcetam 500 MG TABLET (FP) PO SCH ×2 (13:06→21:54)
[2023-06-30] MEDS: DULoxetine HCL 30 MG CAPSULE.DR PO SCH (13:06)
[2023-06-30] MEDS ORDERED: MAGNESIUM SULF 50% (8.12 MEQ/2 ML-1 GM VIAL) IVPB ONE (16:01)
[2023-06-30] MEDS: ATORVASTATIN CA 20 MG TABLET (FP) PO SCH (21:54)
[2023-07-01] MEDS: hydrALAZINE HCL 10 MG TABLET PO SCH ×3 (06:47→21:58)
[2023-07-01] MEDS: INSULIN SLIDING SCALE (NOVOLOG) 1 VIAL SQ SCH ×3 (06:49→17:23)
[2023-07-01] MEDS: INSULIN (LEVEMIR) 100 UNITS/ML UNITS SQ SCH (06:53)
[2023-07-01] MEDS ORDERED: INSULIN (NOVOLOG) ASPART 100 UNITS/ML 10ML VIAL ONE (08:08)
[2023-07-01] MEDS ORDERED: INSULIN (LEVEMIR) 100 UNITS/ML UNITS SQ ONE (08:08)
[2023-07-01] MEDS: PANTOPRAZOLE 40 MG TABLET PO SCH (09:52)
[2023-07-01] MEDS: levETIRAcetam 500 MG TABLET (FP) PO SCH ×2 (09:52→21:58)
[2023-07-01] MEDS: DOCUSATE SODIUM 100 MG CAPSULE (FP) PO SCH (09:52)
[2023-07-01] MEDS: DULoxetine HCL 30 MG CAPSULE.DR PO SCH (09:53)
[2023-07-01] MEDS: ESCITALOPRAM OXALATE 10 MG TABLET PO SCH (09:53)
[2023-07-01] MEDS: amLODIPine BESYLATE 10 MG TABLET (FP) PO SCH (09:53)
[2023-07-01 10:13] LABS: HEMATOCRIT 25.9 % (32.4-45.2); HEMOGLOBIN 8.4 GM/dL (10.7-15.3); MCHC 32.4 g/dl (32.0-36.0); MEAN CELL VOLUME 92.8 fl (80-96); MEAN PLT VOLUME 8.1 fl (7.5-11.1); PLATELET COUNT 161 10^3/uL (134-434); RBC 2.79 M/mm3 (3.60-5.2); WHITE BLOOD COUNT 6.9 K/mm3 (4.0-10.0)
[2023-07-01 10:34] LABS: POTASSIUM 3.5 mmol/L (3.5-5.1)
[2023-07-01 10:46] LABS: BLOOD UREA NITROGEN 24.7 mg/dL (7-18); CALCIUM 7.7 mg/dL (8.5-10.1); MAGNESIUM 1.9 mg/dL (1.8-2.4)
[2023-07-01 10:49] LABS: PHOSPHOROUS 3.4 mg/dL (2.5-4.9)
[2023-07-01 10:53] LABS: CREATININE 5.8 mg/dL (0.55-1.3)
[2023-07-01] MEDS: LIDOCAINE 5% TOPICAL PATCH TP SCH (17:23)
[2023-07-01] MEDS: LIDOCAINE PATCH REMOVAL MC SCH (21:58)
[2023-07-01] MEDS: ATORVASTATIN CA 20 MG TABLET (FP) PO SCH (21:58)
[2023-07-02] MEDS: INSULIN SLIDING SCALE (NOVOLOG) 1 VIAL SQ SCH ×3 (06:08→16:57)
[2023-07-02] MEDS: hydrALAZINE HCL 10 MG TABLET PO SCH ×3 (06:08→21:08)
[2023-07-02] MEDS: INSULIN (LEVEMIR) 100 UNITS/ML UNITS SQ SCH (06:09)
[2023-07-02] MEDS: amLODIPine BESYLATE 10 MG TABLET (FP) PO SCH (10:10)
[2023-07-02] MEDS: levETIRAcetam 500 MG TABLET (FP) PO SCH ×2 (10:10→21:08)
[2023-07-02] MEDS: DOCUSATE SODIUM 100 MG CAPSULE (FP) PO SCH (10:10)
[2023-07-02] MEDS: PANTOPRAZOLE 40 MG TABLET PO SCH (10:10)
[2023-07-02] MEDS: ESCITALOPRAM OXALATE 10 MG TABLET PO SCH (10:10)
[2023-07-02] MEDS: DULoxetine HCL 30 MG CAPSULE.DR PO SCH (10:10)
[2023-07-02] MEDS: LIDOCAINE 5% TOPICAL PATCH TP SCH (10:11)
[2023-07-02 10:18] LABS: HEMATOCRIT 27.4 % (32.4-45.2); HEMOGLOBIN 8.9 GM/dL (10.7-15.3); MCH 29.9 pg (25.7-33.7); MCHC 32.6 g/dl (32.0-36.0); MEAN CELL VOLUME 91.7 fl (80-96); PLATELET COUNT 196 10^3/uL (134-434); RBC 2.98 M/mm3 (3.60-5.2); RDW 12.9 % (11.6-15.6); WHITE BLOOD COUNT 7.2 K/mm3 (4.0-10.0)
[2023-07-02 10:25] LABS: POTASSIUM 4.1 mmol/L (3.5-5.1)
[2023-07-02 10:34] LABS: BLOOD UREA NITROGEN 30.6 mg/dL (7-18)
[2023-07-02 10:37] LABS: CREATININE 6.5 mg/dL (0.55-1.3)
[2023-07-02] MEDS ORDERED: CYCLOBENZAPRINE HCL 5 MG TABLET PO ONE (14:51)
[2023-07-02] MEDS: ACETAMINOPHEN 500 MG TABLET (FP) PO PRN (19:44)
[2023-07-02] MEDS ORDERED: SODIUM CHLORIDE 250 ML IV PRN (20:53)
[2023-07-02] MEDS: ATORVASTATIN CA 20 MG TABLET (FP) PO SCH (21:09)
[2023-07-02] MEDS: LIDOCAINE PATCH REMOVAL MC SCH (22:07)
[2023-07-03] MEDS: INSULIN SLIDING SCALE (NOVOLOG) 1 VIAL SQ SCH ×2 (06:11→12:41)
[2023-07-03] MEDS: INSULIN (LEVEMIR) 100 UNITS/ML UNITS SQ SCH (06:11)
[2023-07-03] MEDS: hydrALAZINE HCL 10 MG TABLET PO SCH ×2 (06:13→15:01)
[2023-07-03] MEDS: ESCITALOPRAM OXALATE 10 MG TABLET PO SCH (12:47)
[2023-07-03] MEDS: DULoxetine HCL 30 MG CAPSULE.DR PO SCH (12:47)
[2023-07-03] MEDS: amLODIPine BESYLATE 10 MG TABLET (FP) PO SCH (12:47)
[2023-07-03] MEDS: PANTOPRAZOLE 40 MG TABLET PO SCH (12:48)
[2023-07-03] MEDS: levETIRAcetam 500 MG TABLET (FP) PO SCH (12:48)
[2023-07-03] MEDS: LIDOCAINE 5% TOPICAL PATCH TP SCH (12:48)
[2023-07-03] MEDS: DOCUSATE SODIUM 100 MG CAPSULE (FP) PO SCH (12:48)
[2023-07-03 14:58] VITALS: BP 144/91; PULSE 77; RESP 16; TEMP 97.6
== END 2023-07-03 15:18 | disposition home or self-care (01) | DRG 53 ==
LOC: JER 00:32 → JERBED 09:27 → J4W 14:26 → J6S 06-23 16:20
PROVIDERS: ADMIT Internal Medicine; ATTEND Internal Medicine
PROC: 05HM33Z Insertion of Infusion Device into Right Internal Jugular Vein, Percutaneous Approach (ICD-10-PCS; principal; 2023-06-21 12:00)
PROC: 5A1D70Z Performance of Urinary Filtration, Intermittent, Less than 6 Hours Per Day (ICD-10-PCS; 2023-06-28)
PROC: 0TB03ZX Excision of Right Kidney, Percutaneous Approach, Diagnostic (ICD-10-PCS; 2023-06-29)
PROC: 5A1D70Z Performance of Urinary Filtration, Intermittent, Less than 6 Hours Per Day (ICD-10-PCS; 2023-06-30)
PROC: 5A1D70Z Performance of Urinary Filtration, Intermittent, Less than 6 Hours Per Day (ICD-10-PCS; 2023-07-03)
DX: G40.909 Epilepsy, unspecified, not intractable, without status epilepticus (principal); I10 Essential (primary) hypertension; E11.9 Type 2 diabetes mellitus without complications; M62.82 Rhabdomyolysis; N18.6 End stage renal disease; E66.01 Morbid (severe) obesity due to excess calories; Z68.43 Body mass index [BMI] 50.0-59.9, adult; N17.9 Acute kidney failure, unspecified; I16.0 Hypertensive urgency; E11.10 Type 2 diabetes mellitus with ketoacidosis without coma; I12.0 Hypertensive chronic kidney disease with stage 5 chronic kidney disease or end stage renal disease; E11.22 Type 2 diabetes mellitus with diabetic chronic kidney disease; E87.0 Hyperosmolality and hypernatremia; R11.2 Nausea with vomiting, unspecified; E87.6 Hypokalemia; E86.0 Dehydration; F81.89 Other developmental disorders of scholastic skills; R11.10 Vomiting, unspecified; E11.43 Type 2 diabetes mellitus with diabetic autonomic (poly)neuropathy; K31.84 Gastroparesis; F31.9 Bipolar disorder, unspecified
CPT/HCPCS: 0241U-QW; 36415; 50200; 70450-TC; 71045-TC-FY; 74176-TC; 76000-TC-FY; 76700-TC; 80048; 80053; 80061; 80177; 80307; 81003; 82010; 82550; 82553; 82803; 82962; 83036; 83516; 83520; 83690; 83735; 83930; 83935; 84100; 84443; 84702; 84703; 85025; 85027; 85610; 85730; 86038; 86140; 86160; 86256; 86704; 86803; 87045; 87046; 87086; 87186; 87324; 87340; 87449; 87517; 88300-TC; 88329; 90677; 93005; 93010; 93306-TC; 94760; 99285-25; C1750; J1644; Q5106

== ENCOUNTER 2023-08-07 10:57 | Inpatient (IN) | payer OTHER ==
[2023-08-07 11:37] VITALS: BMI 50.3
[2023-08-07] MEDS ORDERED: ONDANSETRON 4 MG/2 ML VIAL IVPUSH ONE (12:58)
[2023-08-07] MEDS ORDERED: ACETAMINOPHEN 1000 MG/100 ML BAG IVPB ONE (12:58)
[2023-08-07] MEDS ORDERED: ONDANSETRON 4 MG/2 ML VIAL ONE (13:12)
[2023-08-07] MEDS ORDERED: ACETAMINOPHEN INJECTION 100 ML IVPB ONE (13:12)
[2023-08-07] MEDS ORDERED: levETIRAcetam 500 MG/5 ML INJECTION VIAL IVPB ONE ×2 (13:35→13:47)
[2023-08-07 13:44] LABS: BASO % 1.4 % (0-2.0); HEMATOCRIT 31.4 % (32.4-45.2); LYMPH % 10.4 % (8-40); MCH 29.4 pg (25.7-33.7); MCHC 31.9 g/dl (32.0-36.0); MEAN CELL VOLUME 92.1 fl (80-96); MEAN PLT VOLUME 7.7 fl (7.5-11.1); MONO % 1.8 % (3.8-10.2); NEUT % 86.4 % (42.8-82.8); PLATELET COUNT 332 10^3/uL (134-434); RBC 3.41 M/mm3 (3.60-5.2); RDW 14.4 % (11.6-15.6); WHITE BLOOD COUNT 8.1 K/mm3 (4.0-10.0)
[2023-08-07 13:52] LABS: INR 1.07 (0.83-1.09); PROTHROMBIN TIME (PATIENT) 12.4 SEC (9.7-13.0)
[2023-08-07 13:54] LABS: ACTIVATED PTT 29.4 SECONDS (25.2-36.5)
[2023-08-07 14:01] LABS: PHOSPHOROUS 5.1 mg/dL (2.5-4.9)
[2023-08-07 14:12] LABS: CHLORIDE 107 mmol/L (98-107); POTASSIUM 3.9 mmol/L (3.5-5.1); SODIUM 140 mmol/L (136-145)
[2023-08-07 14:15] LABS: ALBUMIN 2.6 g/dl (3.4-5.0); ANION GAP 15 mmol/L (4-13); BLOOD UREA NITROGEN 36.6 mg/dL (7-18); CO2 18 mmol/L (21-32); GLUCOSE,RANDOM 335 mg/dL (74-106); LACTIC ACID 2.8 mmol/L (0.4-2.0); MAGNESIUM 1.6 mg/dL (1.8-2.4)
[2023-08-07 14:18] LABS: SGOT/AST 29 U/L (15-37); SGPT/ALT 25 U/L (13-61)
[2023-08-07 14:20] LABS: BILIRUBIN,TOTAL 0.4 mg/dL (0.2-1); TOT PROT 6.3 g/dl (6.4-8.2)
[2023-08-07 14:21] LABS: ALK PHOS 137 U/L (45-117)
[2023-08-07 14:29] LABS: CALCIUM 8.4 mg/dL (8.5-10.1); CREATININE 8.4 mg/dL (0.55-1.3)
[2023-08-07] MEDS ORDERED: INSULIN (NOVOLOG) ASPART 100 UNITS/ML 10ML VIAL SQ ONE (14:45)
[2023-08-07] MEDS ORDERED: hydrALAZINE HCL 25 MG TABLET (FP) PO ONE (14:46)
[2023-08-07] MEDS ORDERED: hydrALAZINE HCL 25 MG TABLET (FP) ONE ×2 (15:32→22:19)
[2023-08-07] MEDS ORDERED: HYDROmorphone HCl 2 MG/ML VIAL IVPUSH PRN ×2 (17:41→21:41)
[2023-08-07] MEDS ORDERED: ACETAMINOPHEN 1000 MG/100 ML BAG IVPB PRN (17:43)
[2023-08-07] MEDS ORDERED: LABETALOL HCL 5 MG/1 ML (100MG/20 ML VIAL) IVPUSH ONE (17:49)
[2023-08-07] MEDS ORDERED: HYDROmorphone HCl 2 MG/ML VIAL ONE (17:58)
[2023-08-07] MEDS ORDERED: MAGNESIUM SULF 50% (8.12 MEQ/2 ML-1 GM VIAL) IVPB ONE (18:50)
[2023-08-07] MEDS ORDERED: MAGNESIUM SULFATE IN WATER 2 GM/50 ML IVPB IVPB ONE (18:56)
[2023-08-07] MEDS ORDERED: ATORVASTATIN CA 20 MG TABLET (FP) ONE (22:18)
[2023-08-07] MEDS ORDERED: CARVEDILOL 25 MG TABLET (FP) ONE (22:19)
[2023-08-07] MEDS ORDERED: HEPARIN NA (PORCINE) 5,000 UNITS/ML 1ML VIAL ONE (22:19)
[2023-08-07] MEDS: CARVEDILOL 25 MG TABLET (FP) PO SCH (22:28)
[2023-08-07] MEDS: ATORVASTATIN CA 20 MG TABLET (FP) PO SCH (22:28)
[2023-08-07] MEDS: hydrALAZINE HCL 25 MG TABLET (FP) PO SCH (22:28)
[2023-08-07] MEDS: INSULIN SLIDING SCALE (NOVOLOG) 1 VIAL SQ SCH (22:39)
[2023-08-07] MEDS: HEPARIN NA (PORCINE) 5,000 UNITS/ML 1ML VIAL SQ SCH (22:39)
[2023-08-08] MEDS ORDERED: hydrALAZINE HCL 25 MG TABLET (FP) ONE ×2 (06:24→18:19)
[2023-08-08] MEDS ORDERED: HEPARIN NA (PORCINE) 5,000 UNITS/ML 1ML VIAL ONE ×3 (06:24→22:33)
[2023-08-08] MEDS: HEPARIN NA (PORCINE) 5,000 UNITS/ML 1ML VIAL SQ SCH ×3 (06:33→22:50)
[2023-08-08] MEDS: hydrALAZINE HCL 25 MG TABLET (FP) PO SCH ×3 (06:33→23:26)
[2023-08-08] MEDS ORDERED: SODIUM CHLORIDE 250 ML IV PRN (08:11)
[2023-08-08 08:53] LABS: BASO % 0.9 % (0-2.0); EOS % 1.1 % (0-4.5); HEMATOCRIT 26.3 % (32.4-45.2); HEMOGLOBIN 8.4 GM/dL (10.7-15.3); LYMPH % 18.8 % (8-40); MCH 29.2 pg (25.7-33.7); MEAN CELL VOLUME 91.2 fl (80-96); MEAN PLT VOLUME 7.8 fl (7.5-11.1); MONO % 7.5 % (3.8-10.2); NEUT % 71.7 % (42.8-82.8); PLATELET COUNT 268 10^3/uL (134-434); RBC 2.88 M/mm3 (3.60-5.2); RDW 14.4 % (11.6-15.6); WHITE BLOOD COUNT 8.9 K/mm3 (4.0-10.0)
[2023-08-08 09:09] LABS: CHLORIDE 107 mmol/L (98-107); POTASSIUM 3.5 mmol/L (3.5-5.1); SODIUM 140 mmol/L (136-145)
[2023-08-08 09:18] LABS: CALCIUM 8.2 mg/dL (8.5-10.1)
[2023-08-08 09:19] LABS: ALBUMIN 2.2 g/dl (3.4-5.0); BLOOD UREA NITROGEN 43.9 mg/dL (7-18); MAGNESIUM 2.1 mg/dL (1.8-2.4)
[2023-08-08 09:20] LABS: ANION GAP 9 mmol/L (4-13); CO2 24 mmol/L (21-32); GLUCOSE,RANDOM 210 mg/dL (74-106)
[2023-08-08] MEDS: INSULIN (LEVEMIR) 100 UNITS/ML UNITS SQ SCH (09:20)
[2023-08-08] MEDS: INSULIN SLIDING SCALE (NOVOLOG) 1 VIAL SQ SCH ×4 (09:21→22:50)
[2023-08-08 09:22] LABS: PHOSPHOROUS 4.9 mg/dL (2.5-4.9); SGOT/AST 17 U/L (15-37); SGPT/ALT 21 U/L (13-61)
[2023-08-08] MEDS: levETIRAcetam 500 MG/5 ML ORAL SOLUTION (UNIT-DOSE CUPS) PO SCH ×2 (09:22→23:26)
[2023-08-08 09:23] LABS: TOT PROT 5.3 g/dl (6.4-8.2)
[2023-08-08 09:24] LABS: BILIRUBIN,TOTAL 0.2 mg/dL (0.2-1)
[2023-08-08 09:36] LABS: ALK PHOS 102 U/L (45-117); CREATININE 8.9 mg/dL (0.55-1.3)
[2023-08-08] MEDS ORDERED: LOSARTAN POTASSIUM 50 MG TABLET ONE (14:29)
[2023-08-08] MEDS ORDERED: amLODIPine BESYLATE 5 MG TABLET (FP) ONE (14:29)
[2023-08-08] MEDS ORDERED: CARVEDILOL 25 MG TABLET (FP) ONE ×2 (14:29→22:32)
[2023-08-08] MEDS ORDERED: ACETAMINOPHEN 325 MG TABLET (FP) PO PRN ×2 (14:31→16:26)
[2023-08-08] MEDS ORDERED: ACETAMINOPHEN WITH CODEINE 300MG/30MG TABLET PO PRN (14:40)
[2023-08-08] MEDS ORDERED: KETOROLAC TROMETHAMINE 15 MG/ML VIAL IVPUSH PRN (14:41)
[2023-08-08] MEDS: LOSARTAN POTASSIUM 50 MG TABLET PO SCH (17:41)
[2023-08-08] MEDS: CARVEDILOL 25 MG TABLET (FP) PO SCH ×2 (17:41→23:26)
[2023-08-08] MEDS: amLODIPine BESYLATE 10 MG TABLET (FP) PO SCH (17:41)
[2023-08-08] MEDS ORDERED: GABAPENTIN 100 MG CAPSULE ONE ×2 (18:20→22:32)
[2023-08-08] MEDS ORDERED: LIDOCAINE 4% PATCH TP ONE ×2 (18:20→22:32)
[2023-08-08] MEDS: LIDOCAINE 4% PATCH TP SCH (18:41)
[2023-08-08] MEDS: GABAPENTIN 100 MG CAPSULE PO SCH ×2 (18:42→23:26)
[2023-08-08] MEDS ORDERED: KETOROLAC TROMETHAMINE 15 MG/ML VIAL ONE (20:32)
[2023-08-08] MEDS ORDERED: LIDOCAINE PATCH REMOVAL MC SCH (22:00)
[2023-08-08] MEDS ORDERED: ATORVASTATIN CA 20 MG TABLET (FP) ONE (22:32)
[2023-08-08] MEDS: ATORVASTATIN CA 20 MG TABLET (FP) PO SCH (23:26)
[2023-08-09] MEDS ORDERED: HEPARIN NA (PORCINE) 5,000 UNITS/ML 1ML VIAL ONE ×2 (06:07→15:26)
[2023-08-09] MEDS ORDERED: GABAPENTIN 100 MG CAPSULE ONE ×2 (06:07→15:26)
[2023-08-09] MEDS: HEPARIN NA (PORCINE) 5,000 UNITS/ML 1ML VIAL SQ SCH ×2 (06:20→15:32)
[2023-08-09] MEDS: GABAPENTIN 100 MG CAPSULE PO SCH ×2 (06:20→15:32)
[2023-08-09] MEDS: hydrALAZINE HCL 25 MG TABLET (FP) PO SCH ×2 (06:20→15:25)
[2023-08-09] MEDS: INSULIN SLIDING SCALE (NOVOLOG) 1 VIAL SQ SCH ×2 (07:23→12:57)
[2023-08-09] MEDS ORDERED: CARVEDILOL 25 MG TABLET (FP) ONE (10:25)
[2023-08-09] MEDS ORDERED: LOSARTAN POTASSIUM 50 MG TABLET ONE (10:25)
[2023-08-09] MEDS ORDERED: LIDOCAINE 4% PATCH TP ONE (10:25)
[2023-08-09] MEDS ORDERED: amLODIPine BESYLATE 5 MG TABLET (FP) ONE (10:26)
[2023-08-09] MEDS: levETIRAcetam 500 MG/5 ML ORAL SOLUTION (UNIT-DOSE CUPS) PO SCH (10:35)
[2023-08-09] MEDS: amLODIPine BESYLATE 10 MG TABLET (FP) PO SCH (10:35)
[2023-08-09] MEDS: LOSARTAN POTASSIUM 50 MG TABLET PO SCH (10:35)
[2023-08-09] MEDS: LIDOCAINE 4% PATCH TP SCH (10:35)
[2023-08-09] MEDS: CARVEDILOL 25 MG TABLET (FP) PO SCH (10:35)
[2023-08-09] MEDS: INSULIN (LEVEMIR) 100 UNITS/ML UNITS SQ SCH (10:50)
[2023-08-09 11:11] VITALS: RESP 18
[2023-08-09 11:16] VITALS: BP 150/87
[2023-08-09 15:11] VITALS: PULSE 81; TEMP 98.7
== END 2023-08-09 15:54 | disposition home or self-care (01) | DRG 53 ==
LOC: JER 10:57 → JERBED 16:03
PROVIDERS: ADMIT Internal Medicine
PROC: 5A1D70Z Performance of Urinary Filtration, Intermittent, Less than 6 Hours Per Day (ICD-10-PCS; principal; 2023-08-08)
DX: G40.89 Other seizures (principal); E11.43 Type 2 diabetes mellitus with diabetic autonomic (poly)neuropathy; D63.1 Anemia in chronic kidney disease; N18.6 End stage renal disease; Z68.43 Body mass index [BMI] 50.0-59.9, adult; I12.0 Hypertensive chronic kidney disease with stage 5 chronic kidney disease or end stage renal disease; E66.01 Morbid (severe) obesity due to excess calories; I16.0 Hypertensive urgency; R11.10 Vomiting, unspecified; K31.84 Gastroparesis
CPT/HCPCS: 36415; 70450-TC; 71045-TC-FY; 72131-TC; 80053; 80177; 82550; 82553; 82962; 83605; 83735; 84100; 84439; 84443; 84484; 84703; 85025; 85610; 85730; 86803; 87340; 93005; 93010; 99285-25; J1644

== ENCOUNTER 2023-08-24 02:06 | Inpatient (IN) | payer OTHER ==
[2023-08-24 02:23] VITALS: BMI 47.5
[2023-08-24] MEDS ORDERED: ONDANSETRON 4 MG/2 ML VIAL IVPUSH ONE (02:27)
[2023-08-24] MEDS ORDERED: ONDANSETRON 4 MG/2 ML VIAL ONE (02:34)
[2023-08-24 03:00] LABS: BASO % 0.7 % (0-2.0); HEMATOCRIT 37.6 % (32.4-45.2); HEMOGLOBIN 12.2 GM/dL (10.7-15.3); LYMPH % 15.5 % (8-40); MCH 29.4 pg (25.7-33.7); MCHC 32.4 g/dl (32.0-36.0); MEAN CELL VOLUME 90.6 fl (80-96); MEAN PLT VOLUME 8.1 fl (7.5-11.1); NEUT % 77.8 % (42.8-82.8); PLATELET COUNT 256 10^3/uL (134-434); RBC 4.15 M/mm3 (3.60-5.2); RDW 15.7 % (11.6-15.6); WHITE BLOOD COUNT 11.9 K/mm3 (4.0-10.0)
[2023-08-24 03:12] LABS: VENOUS BASE EXCESS -1.3 mmol/L (-2-2); VENOUS O2 SATURATION 48.9 % (70-80); VENOUS PCO2 48.9 mmHg (38-52); VENOUS PH 7.329 (7.310-7.410)
[2023-08-24 03:25] LABS: CHLORIDE 114 mmol/L (98-107); POTASSIUM 3.9 mmol/L (3.5-5.1); SODIUM 146 mmol/L (136-145)
[2023-08-24 03:26] LABS: MAGNESIUM 1.9 mg/dL (1.8-2.4)
[2023-08-24 03:27] LABS: ALBUMIN 2.8 g/dl (3.4-5.0); ANION GAP 8 mmol/L (4-13); BLOOD UREA NITROGEN 27.4 mg/dL (7-18); CALCIUM 8.8 mg/dL (8.5-10.1); CO2 25 mmol/L (21-32); GLUCOSE,RANDOM 254 mg/dL (74-106)
[2023-08-24 03:30] LABS: SGOT/AST 26 U/L (15-37); SGPT/ALT 22 U/L (13-61)
[2023-08-24 03:32] LABS: BILIRUBIN,TOTAL 0.6 mg/dL (0.2-1); PHOSPHOROUS 3.9 mg/dL (2.5-4.9); TOT PROT 6.4 g/dl (6.4-8.2)
[2023-08-24 03:34] LABS: ALK PHOS 129 U/L (45-117)
[2023-08-24 03:48] LABS: CREATININE 10.2 mg/dL (0.55-1.3)
[2023-08-24 05:37] LABS: INR 1.02 (0.83-1.09); PROTHROMBIN TIME (PATIENT) 11.8 SEC (9.7-13.0)
[2023-08-24] MEDS ORDERED: hydrALAZINE HCL 20 MG/ML VIAL IVPUSH ONE (08:00)
[2023-08-24] MEDS ORDERED: hydrALAZINE HCL 20 MG/ML VIAL ONE (08:00)
[2023-08-24] MEDS ORDERED: HEPARIN NA (PORCINE) 5,000 UNITS/ML 1ML VIAL ONE ×2 (08:00→13:44)
[2023-08-24] MEDS: HEPARIN NA (PORCINE) 5,000 UNITS/ML 1ML VIAL SQ SCH ×3 (08:01→21:48)
[2023-08-24] MEDS ORDERED: SODIUM CHLORIDE 250 ML IV PRN ×2 (08:08→08:09)
[2023-08-24] MEDS ORDERED: HEPARIN NA (PORCINE) 5,000 UNITS/ML 1ML VIAL IVPUSH ONE (09:00)
[2023-08-24] MEDS ORDERED: PANTOPRAZOLE 40 MG TABLET PO ONE (09:37)
[2023-08-24] MEDS ORDERED: amLODIPine BESYLATE 5 MG TABLET (FP) ONE (09:38)
[2023-08-24] MEDS ORDERED: LOSARTAN POTASSIUM 50 MG TABLET ONE ×2 (09:38→13:14)
[2023-08-24] MEDS: amLODIPine BESYLATE 10 MG TABLET (FP) PO SCH (09:39)
[2023-08-24] MEDS: PANTOPRAZOLE 40 MG TABLET PO SCH (09:39)
[2023-08-24] MEDS: LOSARTAN POTASSIUM 50 MG TABLET PO SCH (09:39)
[2023-08-24] MEDS ORDERED: ZINC SULFATE 220 MG CAPSULE (FP) ONE (09:52)
[2023-08-24] MEDS ORDERED: CHOLECALCIFEROL (VIT D3) 1,000 UNIT (25 MCG) TABLET ONE (09:52)
[2023-08-24] MEDS ORDERED: ASCORBIC ACID 500 MG TABLET (FP) ONE (09:52)
[2023-08-24] MEDS ORDERED: levETIRAcetam 500 MG TABLET (FP) PO ONE (09:53)
[2023-08-24] MEDS: levETIRAcetam 500 MG TABLET (FP) PO SCH ×2 (09:53→21:48)
[2023-08-24] MEDS: ASCORBIC ACID 500 MG TABLET (FP) PO SCH ×2 (09:54→21:48)
[2023-08-24] MEDS: CHOLECALCIFEROL (VIT D3) 1,000 UNIT (25 MCG) TABLET PO SCH (09:54)
[2023-08-24] MEDS ORDERED: ACETAMINOPHEN INJECTION 100 ML IVPB ONE (09:56)
[2023-08-24] MEDS ORDERED: ZINC SULFATE 220 MG TABLET PO SCH ×2 (10:00)
[2023-08-24] MEDS: ACETAMINOPHEN 1000 MG/100 ML BAG IVPB PRN ×2 (10:04→20:35)
[2023-08-24] MEDS: ZINC SULFATE 220 MG CAPSULE (FP) PO SCH (10:05)
[2023-08-24] MEDS ORDERED: LABETALOL HCL 20 MG/4 ML VIAL IVPUSH ONE ×2 (11:15→13:15)
[2023-08-24] MEDS ORDERED: LABETALOL HCL 20 MG/4 ML VIAL ONE ×2 (11:18→13:01)
[2023-08-24] MEDS ORDERED: LOSARTAN POTASSIUM 50 MG TABLET PO ONE (12:59)
[2023-08-24] MEDS ORDERED: hydrALAZINE HCL 50 MG TABLET (FP) ONE (13:14)
[2023-08-24] MEDS ORDERED: FUROSEMIDE 40 MG TABLET (FP) PO ONE (13:30)
[2023-08-24] MEDS: hydrALAZINE HCL 50 MG TABLET (FP) PO SCH ×2 (13:44→21:48)
[2023-08-24] MEDS ORDERED: hydrALAZINE HCL 25 MG TABLET (FP) PO SCH (14:00)
[2023-08-24] MEDS ORDERED: REMDESIVIR 200 MG in SODIUM CHLORIDE 250 ML IVPB ONE (14:00)
[2023-08-24] MEDS: HEPARIN NA (PORCINE) 5,000 UNITS/ML 1ML VIAL IVPUSH SCH ×3 (17:39→20:45)
[2023-08-24] MEDS: ONDANSETRON 4 MG/2 ML VIAL IVPUSH PRN (20:35)
[2023-08-24] MEDS: ATORVASTATIN CA 20 MG TABLET (FP) PO SCH (21:48)
[2023-08-25] MEDS: hydrALAZINE HCL 50 MG TABLET (FP) PO SCH ×3 (06:40→21:50)
[2023-08-25] MEDS: HEPARIN NA (PORCINE) 5,000 UNITS/ML 1ML VIAL SQ SCH ×3 (06:40→21:50)
[2023-08-25] MEDS: amLODIPine BESYLATE 10 MG TABLET (FP) PO SCH (09:19)
[2023-08-25] MEDS: ASCORBIC ACID 500 MG TABLET (FP) PO SCH ×2 (09:19→21:50)
[2023-08-25] MEDS: levETIRAcetam 500 MG TABLET (FP) PO SCH ×2 (09:20→21:50)
[2023-08-25] MEDS: CHOLECALCIFEROL (VIT D3) 1,000 UNIT (25 MCG) TABLET PO SCH (09:20)
[2023-08-25] MEDS: ZINC SULFATE 220 MG CAPSULE (FP) PO SCH (09:21)
[2023-08-25] MEDS: PANTOPRAZOLE 40 MG TABLET PO SCH (09:21)
[2023-08-25] MEDS: LOSARTAN POTASSIUM 50 MG TABLET PO SCH (09:21)
[2023-08-25] MEDS ORDERED: LOSARTAN POTASSIUM 50 MG TABLET PO SCH (09:24)
[2023-08-25] MEDS: ACETAMINOPHEN 1000 MG/100 ML BAG IVPB PRN (09:30)
[2023-08-25] MEDS: ONDANSETRON 4 MG/2 ML VIAL IVPUSH PRN (09:59)
[2023-08-25] MEDS ORDERED: ACETAMINOPHEN 1000 MG/100 ML BAG IVPB PRN ×2 (10:13→14:53)
[2023-08-25] MEDS ORDERED: LOSARTAN POTASSIUM 50 MG TABLET PO ONE (10:57)
[2023-08-25] MEDS: INSULIN (LEVEMIR) 100 UNITS/ML UNITS SQ SCH (11:31)
[2023-08-25] MEDS ORDERED: SODIUM CHLORIDE 250 ML IV PRN (12:19)
[2023-08-25 13:39] LABS: BASO % 0.9 % (0-2.0); EOS % 1.5 % (0-4.5); HEMOGLOBIN 10.1 GM/dL (10.7-15.3); MCH 29.4 pg (25.7-33.7); MCHC 32.5 g/dl (32.0-36.0); MEAN CELL VOLUME 90.6 fl (80-96); MEAN PLT VOLUME 7.9 fl (7.5-11.1); MONO % 6.7 % (3.8-10.2); NEUT % 66.9 % (42.8-82.8); PLATELET COUNT 144 10^3/uL (134-434); RBC 3.43 M/mm3 (3.60-5.2); RDW 15.5 % (11.6-15.6); WHITE BLOOD COUNT 8.4 K/mm3 (4.0-10.0)
[2023-08-25] MEDS: REMDESIVIR 100 MG in SODIUM CHLORIDE 250 ML IVPB SCH (13:51)
[2023-08-25] MEDS ORDERED: oxyCODONE HCL 5 MG TABLET PO PRN (14:53)
[2023-08-25] MEDS ORDERED: BISACODYL 5 MG TABLET.DR (FP) PO ONE (15:54)
[2023-08-25] MEDS ORDERED: INSULIN SLIDING SCALE (NOVOLOG) 1 VIAL SQ ONE (16:05)
[2023-08-25] MEDS: INSULIN SLIDING SCALE (NOVOLOG) 1 VIAL SQ SCH ×2 (16:27→21:54)
[2023-08-25] MEDS: POLYETHYLENE GLYCOL (HEALTHYLAX) 3350 17 GM PACKET PO SCH ×2 (16:29→21:50)
[2023-08-25] MEDS: ATORVASTATIN CA 20 MG TABLET (FP) PO SCH (21:50)
[2023-08-26] MEDS: HEPARIN NA (PORCINE) 5,000 UNITS/ML 1ML VIAL SQ SCH ×3 (06:29→22:52)
[2023-08-26] MEDS: INSULIN SLIDING SCALE (NOVOLOG) 1 VIAL SQ SCH ×4 (06:29→22:58)
[2023-08-26] MEDS: hydrALAZINE HCL 50 MG TABLET (FP) PO SCH ×3 (06:29→22:52)
[2023-08-26] MEDS: INSULIN (LEVEMIR) 100 UNITS/ML UNITS SQ SCH (06:29)
[2023-08-26 07:55] LABS: BASO % 0.6 % (0-2.0); EOS % 2.4 % (0-4.5); HEMATOCRIT 29.4 % (32.4-45.2); HEMOGLOBIN 9.6 GM/dL (10.7-15.3); LYMPH % 29.3 % (8-40); MCH 30.1 pg (25.7-33.7); MCHC 32.5 g/dl (32.0-36.0); MEAN CELL VOLUME 92.4 fl (80-96); MEAN PLT VOLUME 8.3 fl (7.5-11.1); MONO % 8.4 % (3.8-10.2); NEUT % 59.3 % (42.8-82.8); PLATELET COUNT 143 10^3/uL (134-434); RBC 3.18 M/mm3 (3.60-5.2); RDW 15.2 % (11.6-15.6); WHITE BLOOD COUNT 8.7 K/mm3 (4.0-10.0)
[2023-08-26] MEDS: LOSARTAN POTASSIUM 50 MG TABLET PO SCH (10:35)
[2023-08-26] MEDS: ZINC SULFATE 220 MG CAPSULE (FP) PO SCH (10:35)
[2023-08-26] MEDS: POLYETHYLENE GLYCOL (HEALTHYLAX) 3350 17 GM PACKET PO SCH ×3 (10:36→22:51)
[2023-08-26] MEDS: amLODIPine BESYLATE 10 MG TABLET (FP) PO SCH (10:36)
[2023-08-26] MEDS: levETIRAcetam 500 MG TABLET (FP) PO SCH ×2 (10:36→22:52)
[2023-08-26] MEDS: PANTOPRAZOLE 40 MG TABLET PO SCH (10:36)
[2023-08-26] MEDS: CHOLECALCIFEROL (VIT D3) 1,000 UNIT (25 MCG) TABLET PO SCH (10:36)
[2023-08-26] MEDS: ASCORBIC ACID 500 MG TABLET (FP) PO SCH ×2 (10:36→22:52)
[2023-08-26] MEDS ORDERED: LORazepam 2 MG/ML SDV VIAL IVPB ONE (12:30)
[2023-08-26] MEDS ORDERED: LORazepam 2 MG/ML SDV VIAL IVPUSH ONE (12:44)
[2023-08-26] MEDS: REMDESIVIR 100 MG in SODIUM CHLORIDE 250 ML IVPB SCH (17:48)
[2023-08-26] MEDS: DOCUSATE SODIUM 100 MG CAPSULE (FP) PO SCH (22:51)
[2023-08-26] MEDS: ATORVASTATIN CA 20 MG TABLET (FP) PO SCH (22:52)
[2023-08-26] MEDS: SENNOSIDES 8.6MG TABLET (FP) PO SCH (22:52)
[2023-08-27] MEDS: HEPARIN NA (PORCINE) 5,000 UNITS/ML 1ML VIAL SQ SCH ×3 (06:47→22:46)
[2023-08-27] MEDS: hydrALAZINE HCL 50 MG TABLET (FP) PO SCH ×3 (06:47→22:45)
[2023-08-27] MEDS: INSULIN SLIDING SCALE (NOVOLOG) 1 VIAL SQ SCH ×4 (06:53→23:00)
[2023-08-27] MEDS: INSULIN (LEVEMIR) 100 UNITS/ML UNITS SQ SCH (06:54)
[2023-08-27 08:11] LABS: CHLORIDE 102 mmol/L (98-107); POTASSIUM 3.6 mmol/L (3.5-5.1); SODIUM 138 mmol/L (136-145)
[2023-08-27 08:18] LABS: CALCIUM 7.9 mg/dL (8.5-10.1)
[2023-08-27 08:19] LABS: ANION GAP 7 mmol/L (4-13); BLOOD UREA NITROGEN 25.4 mg/dL (7-18); CO2 28 mmol/L (21-32); GLUCOSE,RANDOM 151 mg/dL (74-106); MAGNESIUM 1.8 mg/dL (1.8-2.4)
[2023-08-27 08:21] LABS: BASO % 0.5 % (0-2.0); EOS % 2.9 % (0-4.5); HEMATOCRIT 29.2 % (32.4-45.2); HEMOGLOBIN 9.3 GM/dL (10.7-15.3); MCH 29.4 pg (25.7-33.7); MCHC 31.8 g/dl (32.0-36.0); MEAN CELL VOLUME 92.6 fl (80-96); MEAN PLT VOLUME 8.4 fl (7.5-11.1); MONO % 8.9 % (3.8-10.2); NEUT % 60.7 % (42.8-82.8); PLATELET COUNT 92 10^3/uL (134-434); RBC 3.16 M/mm3 (3.60-5.2); RDW 15.1 % (11.6-15.6); WHITE BLOOD COUNT 7.3 K/mm3 (4.0-10.0)
[2023-08-27 08:22] LABS: SGOT/AST 23 U/L (15-37); SGPT/ALT 20 U/L (13-61)
[2023-08-27 08:23] LABS: BILIRUBIN,TOTAL 0.3 mg/dL (0.2-1); TOT PROT 4.8 g/dl (6.4-8.2)
[2023-08-27 09:10] LABS: ALBUMIN 2.1 g/dl (3.4-5.0); ALK PHOS 87 U/L (45-117); CREATININE 7.9 mg/dL (0.55-1.3)
[2023-08-27] MEDS: CHOLECALCIFEROL (VIT D3) 1,000 UNIT (25 MCG) TABLET PO SCH (10:18)
[2023-08-27] MEDS: ASCORBIC ACID 500 MG TABLET (FP) PO SCH ×2 (10:18→22:46)
[2023-08-27] MEDS: PANTOPRAZOLE 40 MG TABLET PO SCH (10:18)
[2023-08-27] MEDS: amLODIPine BESYLATE 10 MG TABLET (FP) PO SCH (10:18)
[2023-08-27] MEDS: ZINC SULFATE 220 MG CAPSULE (FP) PO SCH (10:18)
[2023-08-27] MEDS: levETIRAcetam 500 MG TABLET (FP) PO SCH ×2 (10:19→22:46)
[2023-08-27] MEDS: POLYETHYLENE GLYCOL (HEALTHYLAX) 3350 17 GM PACKET PO SCH ×2 (10:19→22:46)
[2023-08-27] MEDS: LOSARTAN POTASSIUM 50 MG TABLET PO SCH (10:19)
[2023-08-27] MEDS: DULoxetine HCL 30 MG CAPSULE.DR PO SCH (13:41)
[2023-08-27] MEDS: BENZTROPINE MESYLATE 1 MG TABLET PO SCH (13:41)
[2023-08-27] MEDS: ESCITALOPRAM OXALATE 10 MG TABLET PO SCH (13:41)
[2023-08-27] MEDS: DOCUSATE SODIUM 100 MG CAPSULE (FP) PO SCH (22:45)
[2023-08-27] MEDS: SENNOSIDES 8.6MG TABLET (FP) PO SCH (22:45)
[2023-08-27] MEDS: ATORVASTATIN CA 20 MG TABLET (FP) PO SCH (22:46)
[2023-08-28] MEDS: HEPARIN NA (PORCINE) 5,000 UNITS/ML 1ML VIAL SQ SCH ×3 (06:43→21:45)
[2023-08-28] MEDS: INSULIN (LEVEMIR) 100 UNITS/ML UNITS SQ SCH (06:43)
[2023-08-28] MEDS: hydrALAZINE HCL 50 MG TABLET (FP) PO SCH ×3 (06:43→21:45)
[2023-08-28] MEDS: INSULIN SLIDING SCALE (NOVOLOG) 1 VIAL SQ SCH ×4 (06:53→21:45)
[2023-08-28 08:46] LABS: BASO % 0.9 % (0-2.0); EOS % 2.6 % (0-4.5); HEMATOCRIT 28.7 % (32.4-45.2); HEMOGLOBIN 9.4 GM/dL (10.7-15.3); MCH 29.8 pg (25.7-33.7); MEAN CELL VOLUME 90.3 fl (80-96); MEAN PLT VOLUME 8.5 fl (7.5-11.1); MONO % 9.1 % (3.8-10.2); NEUT % 63.4 % (42.8-82.8); PLATELET COUNT 99 10^3/uL (134-434); RBC 3.17 M/mm3 (3.60-5.2); RDW 15.7 % (11.6-15.6); WHITE BLOOD COUNT 6.8 K/mm3 (4.0-10.0)
[2023-08-28 09:00] LABS: CHLORIDE 102 mmol/L (98-107); SODIUM 138 mmol/L (136-145)
[2023-08-28 09:11] LABS: ALBUMIN 2.1 g/dl (3.4-5.0); ANION GAP 8 mmol/L (4-13); BLOOD UREA NITROGEN 37.7 mg/dL (7-18); CALCIUM 7.8 mg/dL (8.5-10.1); CO2 27 mmol/L (21-32); GLUCOSE,RANDOM 147 mg/dL (74-106); MAGNESIUM 1.9 mg/dL (1.8-2.4)
[2023-08-28 09:14] LABS: PHOSPHOROUS 4.4 mg/dL (2.5-4.9); SGOT/AST 23 U/L (15-37); SGPT/ALT 27 U/L (13-61)
[2023-08-28 09:16] LABS: BILIRUBIN,TOTAL 0.3 mg/dL (0.2-1); TOT PROT 4.9 g/dl (6.4-8.2)
[2023-08-28 09:17] LABS: ALK PHOS 88 U/L (45-117)
[2023-08-28 09:18] LABS: CREATININE 9.9 mg/dL (0.55-1.3)
[2023-08-28] MEDS: amLODIPine BESYLATE 10 MG TABLET (FP) PO SCH (11:21)
[2023-08-28] MEDS: CHOLECALCIFEROL (VIT D3) 1,000 UNIT (25 MCG) TABLET PO SCH (11:21)
[2023-08-28] MEDS: levETIRAcetam 500 MG TABLET (FP) PO SCH ×2 (11:21→21:45)
[2023-08-28] MEDS: ZINC SULFATE 220 MG CAPSULE (FP) PO SCH (11:21)
[2023-08-28] MEDS: BENZTROPINE MESYLATE 1 MG TABLET PO SCH (11:21)
[2023-08-28] MEDS: ASCORBIC ACID 500 MG TABLET (FP) PO SCH ×2 (11:21→21:45)
[2023-08-28] MEDS: DULoxetine HCL 30 MG CAPSULE.DR PO SCH (11:21)
[2023-08-28] MEDS: ESCITALOPRAM OXALATE 10 MG TABLET PO SCH (11:21)
[2023-08-28] MEDS: LOSARTAN POTASSIUM 50 MG TABLET PO SCH (11:21)
[2023-08-28] MEDS: PANTOPRAZOLE 40 MG TABLET PO SCH (11:22)
[2023-08-28] MEDS: POLYETHYLENE GLYCOL (HEALTHYLAX) 3350 17 GM PACKET PO SCH ×2 (11:53→21:45)
[2023-08-28] MEDS ORDERED: SODIUM CHLORIDE 250 ML IV PRN (13:43)
[2023-08-28 18:34] VITALS: RESP 18
[2023-08-28] MEDS: ATORVASTATIN CA 20 MG TABLET (FP) PO SCH (21:45)
[2023-08-28] MEDS: DOCUSATE SODIUM 100 MG CAPSULE (FP) PO SCH (21:45)
[2023-08-28] MEDS: SENNOSIDES 8.6MG TABLET (FP) PO SCH (21:45)
[2023-08-29] MEDS: INSULIN (LEVEMIR) 100 UNITS/ML UNITS SQ SCH (06:19)
[2023-08-29] MEDS: hydrALAZINE HCL 50 MG TABLET (FP) PO SCH ×2 (06:19→17:17)
[2023-08-29] MEDS: HEPARIN NA (PORCINE) 5,000 UNITS/ML 1ML VIAL SQ SCH ×2 (06:19→15:27)
[2023-08-29] MEDS: INSULIN SLIDING SCALE (NOVOLOG) 1 VIAL SQ SCH ×3 (06:23→17:17)
[2023-08-29 08:38] LABS: BASO % 0.7 % (0-2.0); EOS % 2.4 % (0-4.5); HEMATOCRIT 29.9 % (32.4-45.2); HEMOGLOBIN 9.5 GM/dL (10.7-15.3); MCH 29.5 pg (25.7-33.7); MCHC 31.7 g/dl (32.0-36.0); MEAN PLT VOLUME 8.8 fl (7.5-11.1); MONO % 7.9 % (3.8-10.2); PLATELET COUNT 126 10^3/uL (134-434); RBC 3.22 M/mm3 (3.60-5.2); RDW 16.4 % (11.6-15.6); WHITE BLOOD COUNT 6.8 K/mm3 (4.0-10.0)
[2023-08-29 08:52] LABS: CHLORIDE 102 mmol/L (98-107); POTASSIUM 4.1 mmol/L (3.5-5.1); SODIUM 136 mmol/L (136-145)
[2023-08-29 09:02] LABS: ALBUMIN 2.2 g/dl (3.4-5.0); ANION GAP 11 mmol/L (4-13); BLOOD UREA NITROGEN 47.6 mg/dL (7-18); CALCIUM 8.2 mg/dL (8.5-10.1); CO2 23 mmol/L (21-32); GLUCOSE,RANDOM 175 mg/dL (74-106)
[2023-08-29 09:03] LABS: SGPT/ALT 31 U/L (13-61)
[2023-08-29 09:06] LABS: SGOT/AST 32 U/L (15-37)
[2023-08-29 09:07] LABS: BILIRUBIN,TOTAL 0.5 mg/dL (0.2-1)
[2023-08-29 09:08] LABS: ALK PHOS 90 U/L (45-117)
[2023-08-29 09:12] LABS: CREATININE 11.1 mg/dL (0.55-1.3)
[2023-08-29] MEDS: levETIRAcetam 500 MG TABLET (FP) PO SCH (10:43)
[2023-08-29] MEDS: ZINC SULFATE 220 MG CAPSULE (FP) PO SCH (10:43)
[2023-08-29] MEDS: ESCITALOPRAM OXALATE 10 MG TABLET PO SCH (10:43)
[2023-08-29] MEDS: PANTOPRAZOLE 40 MG TABLET PO SCH (10:43)
[2023-08-29] MEDS: amLODIPine BESYLATE 10 MG TABLET (FP) PO SCH (10:43)
[2023-08-29] MEDS: ASCORBIC ACID 500 MG TABLET (FP) PO SCH (10:43)
[2023-08-29] MEDS: DULoxetine HCL 30 MG CAPSULE.DR PO SCH (10:43)
[2023-08-29] MEDS: LOSARTAN POTASSIUM 50 MG TABLET PO SCH (10:43)
[2023-08-29] MEDS: CHOLECALCIFEROL (VIT D3) 1,000 UNIT (25 MCG) TABLET PO SCH (10:44)
[2023-08-29] MEDS: POLYETHYLENE GLYCOL (HEALTHYLAX) 3350 17 GM PACKET PO SCH (10:44)
[2023-08-29] MEDS: BENZTROPINE MESYLATE 1 MG TABLET PO SCH (10:44)
[2023-08-29 14:09] VITALS: TEMP 98.8
[2023-08-29] MEDS ORDERED: EPOETIN ALFA-EPBX 10,000 UNIT/ML VIAL IVPUSH ONE (14:15)
[2023-08-29 17:06] VITALS: BP 155/107; PULSE 83
== END 2023-08-29 18:25 | disposition home or self-care (01) | DRG 137 ==
LOC: JER 02:06 → JERBED 03:41 → J4S 16:55
PROVIDERS: ADMIT Internal Medicine; ATTEND Internal Medicine
PROC: XW033E5 Introduction of Remdesivir Anti-infective into Peripheral Vein, Percutaneous Approach, New Technology Group 5 (ICD-10-PCS; 2023-08-24)
PROC: 5A1D70Z Performance of Urinary Filtration, Intermittent, Less than 6 Hours Per Day (ICD-10-PCS; principal; 2023-08-29)
DX: U07.1 COVID-19 (principal); J12.82 Pneumonia due to coronavirus disease 2019; E11.22 Type 2 diabetes mellitus with diabetic chronic kidney disease; M62.82 Rhabdomyolysis; N18.6 End stage renal disease; Z68.42 Body mass index [BMI] 45.0-49.9, adult; I12.0 Hypertensive chronic kidney disease with stage 5 chronic kidney disease or end stage renal disease; E66.01 Morbid (severe) obesity due to excess calories; F12.90 Cannabis use, unspecified, uncomplicated; F31.9 Bipolar disorder, unspecified; G40.909 Epilepsy, unspecified, not intractable, without status epilepticus; I16.0 Hypertensive urgency; J45.909 Unspecified asthma, uncomplicated; K21.9 Gastro-esophageal reflux disease without esophagitis; Z99.2 Dependence on renal dialysis
CPT/HCPCS: 0241U-QW; 36415; 71045-TC-FY; 80053; 82010; 82550; 82553; 82803; 82962; 83605; 83735; 84100; 84484; 84703; 85025; 85379; 85610; 85730; 86140; 86850; 86900; 86901; 87040; 93005; 93010; 97116-GP; 97161-GP; 99285-25; J0248; J1644; Q5106

== ENCOUNTER 2023-09-20 12:46 | Inpatient (IN) | payer OTHER ==
[2023-09-20] MEDS ORDERED: LORazepam 2 MG/ML SDV VIAL IM ONE (13:42)
[2023-09-20] MEDS ORDERED: levETIRAcetam 500 MG/5 ML INJECTION VIAL IVPB ONE ×4 (13:46→23:28)
[2023-09-20] MEDS ORDERED: LORazepam 2 MG/ML SDV VIAL IVPUSH ONE (14:05)
[2023-09-20 14:11] LABS: BASO % 0.9 % (0-2.0); EOS % 0.3 % (0-4.5); HEMATOCRIT 36.2 % (32.4-45.2); HEMOGLOBIN 11.4 GM/dL (10.7-15.3); LYMPH % 19.5 % (8-40); MCH 29.4 pg (25.7-33.7); MCHC 31.4 g/dl (32.0-36.0); MEAN CELL VOLUME 93.6 fl (80-96); MEAN PLT VOLUME 8.7 fl (7.5-11.1); MONO % 4.4 % (3.8-10.2); NEUT % 74.9 % (42.8-82.8); PLATELET COUNT 304 10^3/uL (134-434); RBC 3.87 M/mm3 (3.60-5.2); RDW 15.5 % (11.6-15.6); WHITE BLOOD COUNT 6.8 K/mm3 (4.0-10.0)
[2023-09-20 14:17] LABS: INR 1.03 (0.83-1.09)
[2023-09-20 14:47] LABS: CHLORIDE 109 mmol/L (98-107); SODIUM 144 mmol/L (136-145)
[2023-09-20 14:49] LABS: GLUCOSE,RANDOM 239 mg/dL (74-106)
[2023-09-20 14:50] LABS: ANION GAP 10 mmol/L (4-13); BLOOD UREA NITROGEN 44.4 mg/dL (7-18); CO2 25 mmol/L (21-32); LIPASE 201 U/L (73-393); MAGNESIUM 2.2 mg/dL (1.8-2.4)
[2023-09-20 14:52] LABS: SGPT/ALT 25 U/L (13-61)
[2023-09-20 14:53] LABS: PHOSPHOROUS 5.5 mg/dL (2.5-4.9); SGOT/AST 21 U/L (15-37)
[2023-09-20 14:54] LABS: BILIRUBIN,TOTAL 0.4 mg/dL (0.2-1); TOT PROT 6.7 g/dl (6.4-8.2)
[2023-09-20 15:02] LABS: ALK PHOS 108 U/L (45-117)
[2023-09-20 15:05] LABS: CREATININE 11.3 mg/dL (0.55-1.3)
[2023-09-20] MEDS ORDERED: ONDANSETRON 4 MG/2 ML VIAL IVPUSH ONE (18:29)
[2023-09-20] MEDS ORDERED: ACETAMINOPHEN 1000 MG/100 ML BAG IVPB ONE (18:29)
[2023-09-20] MEDS ORDERED: TAMSULOSIN HCL 0.4 MG CAP PO SCH (19:45)
[2023-09-20] MEDS ORDERED: ACETAMINOPHEN INJECTION 100 ML IVPB ONE (20:01)
[2023-09-20] MEDS ORDERED: TAMSULOSIN HCL 0.4 MG CAP ONE (20:02)
[2023-09-20] MEDS ORDERED: ARIPiprazole 5 MG TABLET ONE (20:02)
[2023-09-20] MEDS ORDERED: amLODIPine BESYLATE 10 MG TABLET (FP) ONE (20:02)
[2023-09-20] MEDS ORDERED: LOSARTAN POTASSIUM 50 MG TABLET ONE (20:02)
[2023-09-20] MEDS: ARIPiprazole 10 MG TABLET PO SCH (20:09)
[2023-09-20] MEDS ORDERED: TRIMETHOBENZAMIDE HCL 200MG/2ML INJ IM PRN (20:34)
[2023-09-20 20:42] LABS: CHLORIDE 110 mmol/L (98-107); POTASSIUM 5.1 mmol/L (3.5-5.1); SODIUM 143 mmol/L (136-145)
[2023-09-20 20:45] LABS: ANION GAP 10 mmol/L (4-13); CO2 23 mmol/L (21-32); GLUCOSE,RANDOM 266 mg/dL (74-106)
[2023-09-20 21:26] LABS: CREATININE 12.2 mg/dL (0.55-1.3)
[2023-09-20] MEDS ORDERED: levETIRAcetam 500 MG TABLET (FP) PO SCH (22:00)
[2023-09-20] MEDS ORDERED: ONDANSETRON 4 MG/2 ML VIAL ONE (22:05)
[2023-09-20] MEDS: LOSARTAN POTASSIUM 50 MG TABLET PO SCH (23:25)
[2023-09-20] MEDS: amLODIPine BESYLATE 10 MG TABLET (FP) PO SCH (23:25)
[2023-09-20] MEDS ORDERED: GABAPENTIN 300 MG CAPSULE ONE (23:28)
[2023-09-20] MEDS ORDERED: ATORVASTATIN CA 20 MG TABLET (FP) ONE (23:28)
[2023-09-20] MEDS ORDERED: HEPARIN NA (PORCINE) 5,000 UNITS/ML 1ML VIAL ONE (23:29)
[2023-09-20] MEDS ORDERED: hydrALAZINE HCL 50 MG TABLET (FP) ONE (23:29)
[2023-09-20] MEDS: GABAPENTIN 300 MG CAPSULE PO SCH (23:42)
[2023-09-20] MEDS: ATORVASTATIN CA 20 MG TABLET (FP) PO SCH (23:42)
[2023-09-20] MEDS: HEPARIN NA (PORCINE) 5,000 UNITS/ML 1ML VIAL SQ SCH (23:42)
[2023-09-20] MEDS: levETIRAcetam 500 MG/5 ML INJECTION VIAL IVPB SCH (23:42)
[2023-09-20] MEDS: hydrALAZINE HCL 50 MG TABLET (FP) PO SCH (23:42)
[2023-09-20] MEDS: INSULIN SLIDING SCALE (NOVOLOG) 1 VIAL SQ SCH (23:44)
[2023-09-21] MEDS ORDERED: TRIMETHOBENZAMIDE HCL 200MG/2ML INJ IM PRN
[2023-09-21 00:20] VITALS: BMI 86.5
[2023-09-21] MEDS ORDERED: hydrALAZINE HCL 20 MG/ML VIAL IVPUSH ONE (04:57)
[2023-09-21] MEDS ORDERED: LOSARTAN POTASSIUM 50 MG TABLET PO ONE (05:33)
[2023-09-21] MEDS ORDERED: amLODIPine BESYLATE 10 MG TABLET (FP) PO ONE (05:33)
[2023-09-21] MEDS: POLYETHYLENE GLYCOL (HEALTHYLAX) 3350 17 GM PACKET PO SCH ×3 (05:40→22:13)
[2023-09-21] MEDS: GABAPENTIN 300 MG CAPSULE PO SCH ×3 (05:40→22:12)
[2023-09-21] MEDS ORDERED: INSULIN (NOVOLOG) ASPART 100 UNITS/ML 10ML VIAL SQ ONE (06:03)
[2023-09-21] MEDS: hydrALAZINE HCL 50 MG TABLET (FP) PO SCH ×3 (06:19→22:12)
[2023-09-21] MEDS: INSULIN SLIDING SCALE (NOVOLOG) 1 VIAL SQ SCH ×4 (06:26→22:13)
[2023-09-21] MEDS ORDERED: INSULIN (LEVEMIR) 100 UNITS/ML UNITS SQ SCH (07:00)
[2023-09-21] MEDS ORDERED: SODIUM CHLORIDE 250 ML IV PRN ×2 (07:24→16:31)
[2023-09-21 07:35] LABS: HEMATOCRIT 35.4 % (32.4-45.2); HEMOGLOBIN 11.2 GM/dL (10.7-15.3); MCH 29.3 pg (25.7-33.7); MCHC 31.6 g/dl (32.0-36.0); MEAN CELL VOLUME 92.6 fl (80-96); MEAN PLT VOLUME 8.1 fl (7.5-11.1); PLATELET COUNT 211 10^3/uL (134-434); RBC 3.83 M/mm3 (3.60-5.2); RDW 15.8 % (11.6-15.6); WHITE BLOOD COUNT 8.4 K/mm3 (4.0-10.0)
[2023-09-21 08:15] LABS: ALBUMIN 2.5 g/dl (3.4-5.0); CALCIUM 8.3 mg/dL (8.5-10.1); CO2 23 mmol/L (21-32); GLUCOSE,RANDOM 256 mg/dL (74-106)
[2023-09-21 08:16] LABS: BLOOD UREA NITROGEN 52.9 mg/dL (7-18)
[2023-09-21 08:18] LABS: SGPT/ALT 16 U/L (13-61)
[2023-09-21 08:19] LABS: SGOT/AST 16 U/L (15-37)
[2023-09-21 08:20] LABS: BILIRUBIN,TOTAL 0.5 mg/dL (0.2-1); TOT PROT 5.3 g/dl (6.4-8.2)
[2023-09-21 08:21] LABS: ALK PHOS 92 U/L (45-117)
[2023-09-21 09:14] LABS: ANION GAP 13 mmol/L (4-13); CHLORIDE 110 mmol/L (98-107); POTASSIUM 4.6 mmol/L (3.5-5.1); SODIUM 145 mmol/L (136-145)
[2023-09-21] MEDS: LOSARTAN POTASSIUM 50 MG TABLET PO SCH (12:05)
[2023-09-21] MEDS: ARIPiprazole 10 MG TABLET PO SCH (12:05)
[2023-09-21] MEDS: PANTOPRAZOLE 40 MG TABLET PO SCH (12:06)
[2023-09-21] MEDS: amLODIPine BESYLATE 10 MG TABLET (FP) PO SCH (12:06)
[2023-09-21] MEDS: ESCITALOPRAM OXALATE 10 MG TABLET PO SCH (12:06)
[2023-09-21] MEDS: HEPARIN NA (PORCINE) 5,000 UNITS/ML 1ML VIAL SQ SCH ×2 (12:12→22:11)
[2023-09-21] MEDS: levETIRAcetam 500 MG/5 ML INJECTION VIAL IVPB SCH ×2 (12:13→22:12)
[2023-09-21] MEDS: ATORVASTATIN CA 20 MG TABLET (FP) PO SCH (22:12)
[2023-09-22] MEDS: POLYETHYLENE GLYCOL (HEALTHYLAX) 3350 17 GM PACKET PO SCH ×2 (06:33→13:28)
[2023-09-22] MEDS: hydrALAZINE HCL 50 MG TABLET (FP) PO SCH ×2 (06:33→13:26)
[2023-09-22] MEDS: INSULIN SLIDING SCALE (NOVOLOG) 1 VIAL SQ SCH ×3 (06:33→17:27)
[2023-09-22] MEDS: GABAPENTIN 300 MG CAPSULE PO SCH ×2 (06:33→13:26)
[2023-09-22 08:52] VITALS: RESP 18
[2023-09-22 09:16] LABS: BASO % 0.6 % (0-2.0); EOS % 1.5 % (0-4.5); HEMATOCRIT 30.6 % (32.4-45.2); HEMOGLOBIN 10.2 GM/dL (10.7-15.3); LYMPH % 40.2 % (8-40); MCHC 33.4 g/dl (32.0-36.0); MEAN CELL VOLUME 89.9 fl (80-96); MONO % 9.7 % (3.8-10.2); PLATELET COUNT 137 10^3/uL (134-434); RDW 15.2 % (11.6-15.6)
[2023-09-22 09:27] LABS: CHLORIDE 104 mmol/L (98-107); POTASSIUM 3.6 mmol/L (3.5-5.1); SODIUM 141 mmol/L (136-145)
[2023-09-22 09:29] LABS: ALBUMIN 2.4 g/dl (3.4-5.0); ANION GAP 8 mmol/L (4-13); CALCIUM 7.9 mg/dL (8.5-10.1); CO2 29 mmol/L (21-32); GLUCOSE,RANDOM 95 mg/dL (74-106); MAGNESIUM 1.8 mg/dL (1.8-2.4)
[2023-09-22 09:30] LABS: BLOOD UREA NITROGEN 29.9 mg/dL (7-18)
[2023-09-22 09:32] LABS: PHOSPHOROUS 3.6 mg/dL (2.5-4.9); SGPT/ALT 16 U/L (13-61)
[2023-09-22 09:33] LABS: SGOT/AST 17 U/L (15-37)
[2023-09-22 09:34] LABS: BILIRUBIN,TOTAL 0.4 mg/dL (0.2-1)
[2023-09-22 09:35] LABS: ALK PHOS 79 U/L (45-117)
[2023-09-22 09:42] LABS: CREATININE 9.5 mg/dL (0.55-1.3)
[2023-09-22] MEDS ORDERED: levETIRAcetam 500 MG TABLET (FP) PO SCH (10:00)
[2023-09-22] MEDS: ARIPiprazole 10 MG TABLET PO SCH (13:18)
[2023-09-22] MEDS: LOSARTAN POTASSIUM 50 MG TABLET PO SCH (13:19)
[2023-09-22] MEDS: ESCITALOPRAM OXALATE 10 MG TABLET PO SCH (13:20)
[2023-09-22] MEDS: HEPARIN NA (PORCINE) 5,000 UNITS/ML 1ML VIAL SQ SCH (13:20)
[2023-09-22] MEDS: PANTOPRAZOLE 40 MG TABLET PO SCH (13:20)
[2023-09-22] MEDS: amLODIPine BESYLATE 10 MG TABLET (FP) PO SCH (13:20)
[2023-09-22 14:57] VITALS: BP 139/68; PULSE 101; TEMP 98
== END 2023-09-22 18:31 | disposition home or self-care (01) | DRG 53 ==
LOC: JER 12:46 → JERBED 19:56 → OBSVTOIN 20:13 → J4S 23:58
PROVIDERS: ADMIT Internal Medicine; ATTEND Internal Medicine
PROC: 5A1D70Z Performance of Urinary Filtration, Intermittent, Less than 6 Hours Per Day (ICD-10-PCS; principal; 2023-09-21)
PROC: 5A1D70Z Performance of Urinary Filtration, Intermittent, Less than 6 Hours Per Day (ICD-10-PCS; 2023-09-22)
DX: G40.909 Epilepsy, unspecified, not intractable, without status epilepticus (principal); I12.0 Hypertensive chronic kidney disease with stage 5 chronic kidney disease or end stage renal disease; E11.22 Type 2 diabetes mellitus with diabetic chronic kidney disease; N18.6 End stage renal disease; Z99.2 Dependence on renal dialysis; K21.9 Gastro-esophageal reflux disease without esophagitis; E78.5 Hyperlipidemia, unspecified; E66.01 Morbid (severe) obesity due to excess calories; Z68.41 Body mass index [BMI] 40.0-44.9, adult; E11.65 Type 2 diabetes mellitus with hyperglycemia; K59.00 Constipation, unspecified; E11.43 Type 2 diabetes mellitus with diabetic autonomic (poly)neuropathy; K31.84 Gastroparesis; E11.42 Type 2 diabetes mellitus with diabetic polyneuropathy; F31.9 Bipolar disorder, unspecified; I16.0 Hypertensive urgency; K80.20 Calculus of gallbladder without cholecystitis without obstruction; R16.0 Hepatomegaly, not elsewhere classified; R00.0 Tachycardia, unspecified; Z87.11 Personal history of peptic ulcer disease
CPT/HCPCS: 0241U-QW; 36415; 70450-TC; 71045-TC-FY; 74176-TC; 76705-TC; 80048; 80053; 80177; 82140; 82962; 83605; 83690; 83735; 84100; 84484; 84703; 85025; 85027; 85610; 86704; 86803; 86850; 86900; 86901; 87040; 87340; 87517; 93005; 93010; 99285-25; G0378; J1644

== ENCOUNTER 2023-10-22 15:06 | Inpatient (IN) | payer OTHER ==
[2023-10-22 15:40] VITALS: BMI 45.7
[2023-10-22] MEDS ORDERED: ONDANSETRON 4 MG/2 ML VIAL ONE (15:54)
[2023-10-22] MEDS ORDERED: ONDANSETRON 4 MG/2 ML VIAL IVPUSH ONE (15:59)
[2023-10-22 16:09] LABS: BASO % 1.3 % (0-2.0); EOS % 1.6 % (0-4.5); HEMATOCRIT 38.1 % (32.4-45.2); HEMOGLOBIN 12.6 GM/dL (10.7-15.3); LYMPH % 23.8 % (8-40); MEAN PLT VOLUME 7.8 fl (7.5-11.1); MONO % 5.8 % (3.8-10.2); NEUT % 67.5 % (42.8-82.8); PLATELET COUNT 229 10^3/uL (134-434); RBC 4.19 M/mm3 (3.60-5.2); RDW 16.5 % (11.6-15.6); WHITE BLOOD COUNT 7.7 K/mm3 (4.0-10.0)
[2023-10-22 16:16] LABS: INR 0.97 (0.83-1.09); PROTHROMBIN TIME (PATIENT) 11.2 SEC (9.7-13.0)
[2023-10-22 16:19] LABS: ACTIVATED PTT 31.8 SECONDS (25.2-36.5)
[2023-10-22 16:21] LABS: CHLORIDE 104 mmol/L (98-107); POTASSIUM 3.8 mmol/L (3.5-5.1); SODIUM 142 mmol/L (136-145)
[2023-10-22 16:23] LABS: ALBUMIN 3.5 g/dl (3.4-5.0); ANION GAP 12 mmol/L (4-13); CALCIUM 8.8 mg/dL (8.5-10.1); CO2 26 mmol/L (21-32); GLUCOSE,RANDOM 214 mg/dL (74-106)
[2023-10-22 16:26] LABS: PHOSPHOROUS 4.5 mg/dL (2.5-4.9); SGPT/ALT 20 U/L (13-61)
[2023-10-22 16:27] LABS: SGOT/AST 21 U/L (15-37)
[2023-10-22 16:28] LABS: BILIRUBIN,TOTAL 0.5 mg/dL (0.2-1); TOT PROT 7.5 g/dl (6.4-8.2)
[2023-10-22 16:29] LABS: ALK PHOS 105 U/L (45-117)
[2023-10-22 16:30] LABS: MAGNESIUM 2.1 mg/dL (1.8-2.4)
[2023-10-22 16:36] LABS: CREATININE 11.6 mg/dL (0.55-1.3)
[2023-10-22] MEDS ORDERED: NITROGLYCERIN 2% OINTMENT - 1GM PACKET TD ONE ×2 (17:48→18:00)
[2023-10-22] MEDS ORDERED: SODIUM CHLORIDE 250 ML IV PRN (18:07)
[2023-10-22] MEDS ORDERED: LABETALOL HCL 5 MG/1 ML (100MG/20 ML VIAL) IVPUSH ONE (19:11)
[2023-10-22] MEDS ORDERED: LABETALOL HCL 5 MG/1 ML (100MG/20 ML VIAL) ONE (19:25)
[2023-10-22] MEDS ORDERED: levETIRAcetam 500 MG/5 ML INJECTION VIAL IVPB ONE ×2 (19:27→19:29)
[2023-10-22] MEDS ORDERED: hydrALAZINE HCL 20 MG/ML VIAL IVPUSH PRN ×2 (19:48→20:07)
[2023-10-22] MEDS: hydrALAZINE HCL 20 MG/ML VIAL IVPUSH PRN (21:14)
[2023-10-23] MEDS ORDERED: HEPARIN NA (PORCINE) 5,000 UNITS/ML 1ML VIAL ONE ×2 (00:50→06:14)
[2023-10-23] MEDS: INSULIN ASPART SLIDING SCALE (NOVOLOG) 1 VIAL SQ SCH ×5 (00:55→23:00)
[2023-10-23] MEDS: HEPARIN NA (PORCINE) 5,000 UNITS/ML 1ML VIAL SQ SCH ×4 (00:55→21:50)
[2023-10-23] MEDS ORDERED: ONDANSETRON 4 MG TABLET PO PRN (01:19)
[2023-10-23] MEDS: hydrALAZINE HCL 20 MG/ML VIAL IVPUSH PRN ×2 (03:29→06:25)
[2023-10-23] MEDS ORDERED: levETIRAcetam 500 MG TABLET (FP) PO ONE ×2 (06:13→19:00)
[2023-10-23] MEDS ORDERED: hydrALAZINE HCL 50 MG TABLET (FP) ONE (06:13)
[2023-10-23] MEDS ORDERED: GABAPENTIN 300 MG CAPSULE ONE (06:13)
[2023-10-23] MEDS: hydrALAZINE HCL 50 MG TABLET (FP) PO SCH ×3 (06:25→22:57)
[2023-10-23] MEDS: levETIRAcetam 500 MG TABLET (FP) PO SCH (06:25)
[2023-10-23] MEDS: GABAPENTIN 300 MG CAPSULE PO SCH ×3 (06:25→21:53)
[2023-10-23] MEDS ORDERED: hydrALAZINE HCL 20 MG/ML VIAL IVPUSH PRN (07:49)
[2023-10-23] MEDS: ARIPiprazole 10 MG TABLET PO SCH (09:12)
[2023-10-23] MEDS: TAMSULOSIN HCL 0.4 MG CAP PO SCH (09:12)
[2023-10-23] MEDS: LOSARTAN POTASSIUM 50 MG TABLET PO SCH (09:12)
[2023-10-23] MEDS: ESCITALOPRAM OXALATE 10 MG TABLET PO SCH (09:12)
[2023-10-23] MEDS: amLODIPine BESYLATE 10 MG TABLET (FP) PO SCH (09:13)
[2023-10-23] MEDS: PANTOPRAZOLE 40 MG TABLET PO SCH (09:13)
[2023-10-23] MEDS ORDERED: ONDANSETRON 4 MG/2 ML VIAL IVPUSH PRN (09:28)
[2023-10-23] MEDS ORDERED: TRIMETHOBENZAMIDE HCL 200MG/2ML INJ IM PRN (09:29)
[2023-10-23] MEDS ORDERED: TRIMETHOBENZAMIDE HCL 200MG/2ML INJ IM ONE (09:42)
[2023-10-23 11:39] LABS: HEMATOCRIT 34.5 % (32.4-45.2); HEMOGLOBIN 11.2 GM/dL (10.7-15.3); MCH 29.8 pg (25.7-33.7); MCHC 32.4 g/dl (32.0-36.0); MEAN CELL VOLUME 91.8 fl (80-96); MEAN PLT VOLUME 8.2 fl (7.5-11.1); PLATELET COUNT 167 10^3/uL (134-434); RBC 3.76 M/mm3 (3.60-5.2); WHITE BLOOD COUNT 10.5 K/mm3 (4.0-10.0)
[2023-10-23 11:53] LABS: CHLORIDE 104 mmol/L (98-107); POTASSIUM 4.2 mmol/L (3.5-5.1); SODIUM 141 mmol/L (136-145)
[2023-10-23 11:59] LABS: CALCIUM 8.8 mg/dL (8.5-10.1)
[2023-10-23 12:00] LABS: ALBUMIN 2.9 g/dl (3.4-5.0); ANION GAP 14 mmol/L (4-13); BLOOD UREA NITROGEN 80.2 mg/dL (7-18); CO2 23 mmol/L (21-32); GLUCOSE,RANDOM 291 mg/dL (74-106)
[2023-10-23 12:03] LABS: SGOT/AST 18 U/L (15-37); SGPT/ALT 15 U/L (13-61)
[2023-10-23 12:04] LABS: TOT PROT 6.3 g/dl (6.4-8.2)
[2023-10-23 12:05] LABS: BILIRUBIN,TOTAL 0.4 mg/dL (0.2-1)
[2023-10-23 12:09] LABS: ALK PHOS 92 U/L (45-117)
[2023-10-23 12:10] LABS: CREATININE 13.1 mg/dL (0.55-1.3)
[2023-10-23] MEDS ORDERED: INSULIN (NOVOLOG) ASPART 100 UNITS/ML 10ML VIAL ONE (12:38)
[2023-10-23] MEDS ORDERED: INSULIN (LEVEMIR) 100 UNITS/ML UNITS SQ ONE (12:38)
[2023-10-23] MEDS: INSULIN (LEVEMIR) 100 UNITS/ML UNITS SQ SCH (12:46)
[2023-10-23] MEDS ORDERED: levETIRAcetam 500 MG/5 ML INJECTION VIAL IVPB ONE (18:13)
[2023-10-23] MEDS: ACETAMINOPHEN 500 MG TABLET (FP) PO PRN (18:15)
[2023-10-23] MEDS ORDERED: ATORVASTATIN CA 20 MG TABLET (FP) PO SCH (22:00)
[2023-10-24] MEDS: INSULIN ASPART SLIDING SCALE (NOVOLOG) 1 VIAL SQ SCH ×2 (06:03→10:28)
[2023-10-24] MEDS: levETIRAcetam 500 MG TABLET (FP) PO SCH (06:14)
[2023-10-24] MEDS: hydrALAZINE HCL 50 MG TABLET (FP) PO SCH ×2 (06:14→13:32)
[2023-10-24] MEDS: INSULIN (LEVEMIR) 100 UNITS/ML UNITS SQ SCH (06:14)
[2023-10-24] MEDS: HEPARIN NA (PORCINE) 5,000 UNITS/ML 1ML VIAL SQ SCH ×2 (06:14→13:32)
[2023-10-24] MEDS: GABAPENTIN 300 MG CAPSULE PO SCH ×2 (06:14→13:32)
[2023-10-24 07:38] LABS: CHLORIDE 102 mmol/L (98-107); POTASSIUM 3.6 mmol/L (3.5-5.1); SODIUM 140 mmol/L (136-145)
[2023-10-24 07:40] LABS: ANION GAP 9 mmol/L (4-13); CALCIUM 8.1 mg/dL (8.5-10.1); CO2 29 mmol/L (21-32)
[2023-10-24 07:41] LABS: GLUCOSE,RANDOM 112 mg/dL (74-106); MAGNESIUM 1.9 mg/dL (1.8-2.4)
[2023-10-24 07:44] LABS: PHOSPHOROUS 4.4 mg/dL (2.5-4.9)
[2023-10-24 07:47] LABS: BLOOD UREA NITROGEN 37.7 mg/dL (7-18); CREATININE 9.1 mg/dL (0.55-1.3)
[2023-10-24 08:04] LABS: BASO % 0.6 % (0-2.0); EOS % 1.7 % (0-4.5); HEMATOCRIT 31.3 % (32.4-45.2); HEMOGLOBIN 10.1 GM/dL (10.7-15.3); LYMPH % 35.8 % (8-40); MCH 29.5 pg (25.7-33.7); MCHC 32.4 g/dl (32.0-36.0); MEAN CELL VOLUME 91.2 fl (80-96); MEAN PLT VOLUME 8.4 fl (7.5-11.1); MONO % 7.5 % (3.8-10.2); NEUT % 54.4 % (42.8-82.8); PLATELET COUNT 148 10^3/uL (134-434); RBC 3.43 M/mm3 (3.60-5.2); RDW 16.2 % (11.6-15.6); WHITE BLOOD COUNT 8.6 K/mm3 (4.0-10.0)
[2023-10-24] MEDS: TAMSULOSIN HCL 0.4 MG CAP PO SCH (08:33)
[2023-10-24] MEDS: ACETAMINOPHEN 500 MG TABLET (FP) PO PRN (10:04)
[2023-10-24] MEDS: amLODIPine BESYLATE 10 MG TABLET (FP) PO SCH (10:06)
[2023-10-24] MEDS: PANTOPRAZOLE 40 MG TABLET PO SCH (10:06)
[2023-10-24] MEDS: LOSARTAN POTASSIUM 50 MG TABLET PO SCH (10:06)
[2023-10-24] MEDS: ARIPiprazole 10 MG TABLET PO SCH (10:12)
[2023-10-24] MEDS: ESCITALOPRAM OXALATE 10 MG TABLET PO SCH (10:12)
[2023-10-24 10:34] VITALS: RESP 18
[2023-10-24 15:10] VITALS: BP 123/68; PULSE 84; TEMP 98.2
== END 2023-10-24 16:31 | disposition home or self-care (01) | DRG 425 ==
LOC: JER 15:06 → JERBED 16:43 → J4W 10-23 18:32
PROVIDERS: ADMIT Internal Medicine; ATTEND Internal Medicine
PROC: 5A1D70Z Performance of Urinary Filtration, Intermittent, Less than 6 Hours Per Day (ICD-10-PCS; principal; 2023-10-23)
DX: E87.70 Fluid overload, unspecified (principal); G40.909 Epilepsy, unspecified, not intractable, without status epilepticus; E78.5 Hyperlipidemia, unspecified; J45.909 Unspecified asthma, uncomplicated; G47.30 Sleep apnea, unspecified; I12.0 Hypertensive chronic kidney disease with stage 5 chronic kidney disease or end stage renal disease; E11.22 Type 2 diabetes mellitus with diabetic chronic kidney disease; N18.6 End stage renal disease; I16.0 Hypertensive urgency; K21.9 Gastro-esophageal reflux disease without esophagitis; R11.2 Nausea with vomiting, unspecified; E66.01 Morbid (severe) obesity due to excess calories; Z68.42 Body mass index [BMI] 45.0-49.9, adult; Z99.2 Dependence on renal dialysis
CPT/HCPCS: 0241U-QW; 36415; 70450-TC; 71045-TC-FY; 80048; 80053; 80177; 82962; 83036; 83605; 83690; 83735; 84100; 84484; 84703; 85025; 85027; 85610; 85730; 86704; 86803; 87340; 99285-25; J1644

== ENCOUNTER 2023-10-30 14:47 | Inpatient (IN) | payer OTHER ==
[2023-10-30] MEDS ORDERED: levETIRAcetam 500 MG/5 ML INJECTION VIAL IVPB ONE ×2 (15:08→15:20)
[2023-10-30 15:37] LABS: BASO % 0.8 % (0-2.0); EOS % 0.1 % (0-4.5); HEMATOCRIT 39.8 % (32.4-45.2); HEMOGLOBIN 12.8 GM/dL (10.7-15.3); LYMPH % 10.1 % (8-40); MCH 29.8 pg (25.7-33.7); MCHC 32.1 g/dl (32.0-36.0); MEAN CELL VOLUME 92.9 fl (80-96); MEAN PLT VOLUME 8.6 fl (7.5-11.1); MONO % 2.3 % (3.8-10.2); NEUT % 86.7 % (42.8-82.8); PLATELET COUNT 317 10^3/uL (134-434); RBC 4.29 M/mm3 (3.60-5.2); RDW 15.9 % (11.6-15.6); WHITE BLOOD COUNT 9.6 K/mm3 (4.0-10.0)
[2023-10-30 15:46] LABS: INR 0.97 (0.83-1.09); PROTHROMBIN TIME (PATIENT) 11.3 SEC (9.7-13.0)
[2023-10-30 15:48] LABS: VENOUS BASE EXCESS -5.4 mmol/L (-2-2); VENOUS O2 SATURATION 80.5 % (70-80); VENOUS PCO2 41.3 mmHg (38-52); VENOUS PH 7.313 (7.310-7.410)
[2023-10-30 15:48] LABS: CHLORIDE 103 mmol/L (98-107); SODIUM 136 mmol/L (136-145)
[2023-10-30 15:49] LABS: CALCIUM 8.4 mg/dL (8.5-10.1)
[2023-10-30 15:50] LABS: BLOOD UREA NITROGEN 56.5 mg/dL (7-18); CO2 21 mmol/L (21-32); GLUCOSE,RANDOM 360 mg/dL (74-106)
[2023-10-30 15:53] LABS: SGOT/AST 52 U/L (15-37); SGPT/ALT 33 U/L (13-61)
[2023-10-30 15:55] LABS: BILIRUBIN,TOTAL 0.4 mg/dL (0.2-1)
[2023-10-30 15:56] LABS: ALK PHOS 120 U/L (45-117)
[2023-10-30 15:57] LABS: ALBUMIN 3.5 g/dl (3.4-5.0); ANION GAP 12 mmol/L (4-13); CREATININE 11.3 mg/dL (0.55-1.3); POTASSIUM 6.4 mmol/L (3.5-5.1)
[2023-10-30] MEDS ORDERED: hydrALAZINE HCL 50 MG TABLET (FP) PO ONE (16:48)
[2023-10-30] MEDS ORDERED: LOSARTAN POTASSIUM 50 MG TABLET PO ONE (16:48)
[2023-10-30] MEDS ORDERED: amLODIPine BESYLATE 10 MG TABLET (FP) PO ONE (16:49)
[2023-10-30] MEDS ORDERED: SODIUM CHLORIDE 250 ML IV PRN (17:15)
[2023-10-30] MEDS ORDERED: LOSARTAN POTASSIUM 50 MG TABLET ONE (17:32)
[2023-10-30] MEDS ORDERED: amLODIPine BESYLATE 10 MG TABLET (FP) ONE (17:32)
[2023-10-30] MEDS ORDERED: hydrALAZINE HCL 50 MG TABLET (FP) ONE (17:33)
[2023-10-30] MEDS ORDERED: hydrALAZINE HCL 20 MG/ML VIAL IVPUSH ONE ×2 (19:27→20:24)
[2023-10-30] MEDS: hydrALAZINE HCL 20 MG/ML VIAL IVPUSH PRN (20:30)
[2023-10-30] MEDS ORDERED: ONDANSETRON 4 MG/2 ML VIAL IVPUSH ONE (22:03)
[2023-10-30] MEDS ORDERED: niCARdipine HCL 25 MG/10 ML AMPUL IVPB ONE (22:23)
[2023-10-30] MEDS: NICARDIPINE 25 MG in DEXTROSE 5%-WATER - 240 ML IVPB SCH (23:40)
[2023-10-31] MEDS: levETIRAcetam 500 MG/5 ML INJECTION VIAL IVPB SCH ×3 (00:42→21:33)
[2023-10-31] MEDS: MUPIROCIN 2% TOPICAL OINTMENT FOR DECOLONIZATION NS SCH ×3 (00:42→21:19)
[2023-10-31] MEDS: PANTOPRAZOLE SODIUM 40 MG VIAL IVPUSH SCH ×2 (02:00→09:24)
[2023-10-31] MEDS: ONDANSETRON 4 MG/2 ML VIAL IVPUSH PRN ×2 (06:54→16:16)
[2023-10-31] MEDS: INSULIN ASPART SLIDING SCALE (NOVOLOG) 1 VIAL SQ SCH ×4 (06:55→21:55)
[2023-10-31] MEDS: HEPARIN NA (PORCINE) 5,000 UNITS/ML 1ML VIAL SQ SCH ×3 (06:55→21:10)
[2023-10-31 07:27] LABS: BASO % 0.2 % (0-2.0); HEMATOCRIT 29.9 % (32.4-45.2); HEMOGLOBIN 9.7 GM/dL (10.7-15.3); LYMPH % 10.8 % (8-40); MCH 29.8 pg (25.7-33.7); MCHC 32.3 g/dl (32.0-36.0); MEAN CELL VOLUME 92.3 fl (80-96); MEAN PLT VOLUME 8.7 fl (7.5-11.1); MONO % 6.2 % (3.8-10.2); NEUT % 82.8 % (42.8-82.8); PLATELET COUNT 130 10^3/uL (134-434); RBC 3.24 M/mm3 (3.60-5.2); RDW 16.1 % (11.6-15.6)
[2023-10-31 07:31] LABS: INR 1.16 (0.83-1.09); PROTHROMBIN TIME (PATIENT) 13.4 SEC (9.7-13.0)
[2023-10-31 07:43] LABS: CHLORIDE 101 mmol/L (98-107); POTASSIUM 3.8 mmol/L (3.5-5.1); SODIUM 139 mmol/L (136-145)
[2023-10-31 07:47] LABS: CALCIUM 7.8 mg/dL (8.5-10.1)
[2023-10-31 07:48] LABS: ALBUMIN 2.9 g/dl (3.4-5.0); ANION GAP 11 mmol/L (4-13); BLOOD UREA NITROGEN 41.5 mg/dL (7-18); CO2 27 mmol/L (21-32); GLUCOSE,RANDOM 337 mg/dL (74-106)
[2023-10-31 07:50] LABS: PHOSPHOROUS 4.1 mg/dL (2.5-4.9); SGPT/ALT 21 U/L (13-61)
[2023-10-31 07:51] LABS: SGOT/AST 17 U/L (15-37)
[2023-10-31 07:52] LABS: BILIRUBIN,TOTAL 0.8 mg/dL (0.2-1)
[2023-10-31 07:57] LABS: ALK PHOS 85 U/L (45-117); CREATININE 8.7 mg/dL (0.55-1.3)
[2023-10-31] MEDS ORDERED: PANTOPRAZOLE SODIUM 40 MG VIAL IVPUSH SCH (10:00)
[2023-10-31] MEDS ORDERED: SODIUM CHLORIDE 250 ML IV PRN (15:59)
[2023-10-31] MEDS ORDERED: LANCETS MC SCH (16:30)
[2023-10-31] MEDS: hydrALAZINE HCL 20 MG/ML VIAL IVPUSH PRN (17:27)
[2023-10-31] MEDS ORDERED: MAG HYDROX/AL HYDROX/SIMETH 30 ML UNIT-DOSE CUP PO PRN (20:06)
[2023-10-31] MEDS ORDERED: LIDOCAINE VISCOUS 2% ORAL/TOP 15 ML UNIT-DOSE CUP MM ONE (20:07)
[2023-10-31] MEDS: CHLORHEXIDINE GLUCONATE 4% CLEANSER FOR DECOLONIZATION TP SCH (21:19)
[2023-10-31] MEDS: DOCUSATE SODIUM 100 MG CAPSULE (FP) PO PRN (21:34)
[2023-10-31] MEDS: ATORVASTATIN CA 20 MG TABLET (FP) PO SCH (21:34)
[2023-10-31] MEDS: NICARDIPINE 25 MG in DEXTROSE 5%-WATER - 240 ML IVPB SCH (21:57)
[2023-10-31] MEDS ORDERED: GABAPENTIN 300 MG CAPSULE PO SCH (22:00)
[2023-11-01] MEDS: HEPARIN NA (PORCINE) 5,000 UNITS/ML 1ML VIAL SQ SCH ×3 (05:09→21:09)
[2023-11-01] MEDS ORDERED: niCARdipine HCL 25 MG/10 ML AMPUL IVPB ONE (05:30)
[2023-11-01 06:29] LABS: BASO % 0.7 % (0-2.0); HEMATOCRIT 30.5 % (32.4-45.2); HEMOGLOBIN 9.9 GM/dL (10.7-15.3); LYMPH % 28.9 % (8-40); MCH 29.8 pg (25.7-33.7); MCHC 32.5 g/dl (32.0-36.0); MEAN CELL VOLUME 91.7 fl (80-96); MEAN PLT VOLUME 8.3 fl (7.5-11.1); MONO % 6.9 % (3.8-10.2); NEUT % 62.5 % (42.8-82.8); PLATELET COUNT 147 10^3/uL (134-434); RBC 3.32 M/mm3 (3.60-5.2); WHITE BLOOD COUNT 10.6 K/mm3 (4.0-10.0)
[2023-11-01 06:45] LABS: CHLORIDE 102 mmol/L (98-107); POTASSIUM 3.9 mmol/L (3.5-5.1); SODIUM 139 mmol/L (136-145)
[2023-11-01 06:48] LABS: ALBUMIN 2.6 g/dl (3.4-5.0); ANION GAP 10 mmol/L (4-13); CALCIUM 7.9 mg/dL (8.5-10.1); CO2 27 mmol/L (21-32); GLUCOSE,RANDOM 114 mg/dL (74-106); MAGNESIUM 1.9 mg/dL (1.8-2.4)
[2023-11-01 06:51] LABS: PHOSPHOROUS 4.3 mg/dL (2.5-4.9); SGOT/AST 14 U/L (15-37); SGPT/ALT 16 U/L (13-61)
[2023-11-01 06:53] LABS: BILIRUBIN,TOTAL 0.3 mg/dL (0.2-1); TOT PROT 5.7 g/dl (6.4-8.2)
[2023-11-01 06:54] LABS: ALK PHOS 80 U/L (45-117); CHOLESTEROL 137 mg/dL (50-200)
[2023-11-01] MEDS: INSULIN ASPART SLIDING SCALE (NOVOLOG) 1 VIAL SQ SCH ×4 (06:54→21:02)
[2023-11-01 06:55] LABS: LDL CHOLESTEROL (ONLY SJRH) 63 mg/dL (5-100)
[2023-11-01 06:57] LABS: HDL CHOLESTEROL 50 mg/dL (40-60)
[2023-11-01 06:59] LABS: CREATININE 10.9 mg/dL (0.55-1.3)
[2023-11-01] MEDS: PANTOPRAZOLE SODIUM 40 MG VIAL IVPUSH SCH (09:11)
[2023-11-01] MEDS: levETIRAcetam 500 MG/5 ML INJECTION VIAL IVPB SCH ×2 (09:11→21:07)
[2023-11-01] MEDS: MUPIROCIN 2% TOPICAL OINTMENT FOR DECOLONIZATION NS SCH ×2 (09:12→21:10)
[2023-11-01] MEDS ORDERED: ACETAMINOPHEN 1000 MG/100 ML BAG IVPB PRN (10:13)
[2023-11-01] MEDS: LOSARTAN POTASSIUM 50 MG TABLET PO SCH (11:09)
[2023-11-01] MEDS ORDERED: INSULIN (NOVOLOG) ASPART 100 UNITS/ML 10ML VIAL ONE ×2 (11:55→16:08)
[2023-11-01] MEDS ORDERED: LABETALOL HCL 5 MG/1 ML (100MG/20 ML VIAL) IVPUSH PRN ×2 (12:00→12:39)
[2023-11-01] MEDS: hydrALAZINE HCL 50 MG TABLET (FP) PO SCH ×2 (13:30→21:06)
[2023-11-01] MEDS: hydrALAZINE HCL 20 MG/ML VIAL IVPUSH PRN (20:14)
[2023-11-01] MEDS: DOCUSATE SODIUM 100 MG CAPSULE (FP) PO PRN (20:15)
[2023-11-01] MEDS: CHLORHEXIDINE GLUCONATE 4% CLEANSER FOR DECOLONIZATION TP SCH (21:06)
[2023-11-01] MEDS: ATORVASTATIN CA 20 MG TABLET (FP) PO SCH (21:06)
[2023-11-01] MEDS ORDERED: SIMETHICONE 80 MG TAB.CHEW (FP) PO PRN (21:54)
[2023-11-01] MEDS: NICARDIPINE 25 MG in DEXTROSE 5%-WATER - 240 ML IVPB SCH (21:56)
[2023-11-01] MEDS: POLYETHYLENE GLYCOL (HEALTHYLAX) 3350 17 GM PACKET PO SCH (22:11)
[2023-11-02] MEDS: MELATONIN 5 MG TABLETS PO PRN ×2 (01:04→21:24)
[2023-11-02] MEDS: hydrALAZINE HCL 50 MG TABLET (FP) PO SCH ×3 (05:44→21:22)
[2023-11-02] MEDS: HEPARIN NA (PORCINE) 5,000 UNITS/ML 1ML VIAL SQ SCH ×3 (05:44→21:22)
[2023-11-02] MEDS ORDERED: BISACODYL 10 MG SUPP.RECT PR ONE (06:00)
[2023-11-02] MEDS: INSULIN ASPART SLIDING SCALE (NOVOLOG) 1 VIAL SQ SCH ×4 (06:32→21:32)
[2023-11-02 07:46] LABS: CHLORIDE 100 mmol/L (98-107); POTASSIUM 3.7 mmol/L (3.5-5.1); SODIUM 138 mmol/L (136-145)
[2023-11-02 07:47] LABS: BASO % 0.6 % (0-2.0); EOS % 1.7 % (0-4.5); HEMATOCRIT 32.5 % (32.4-45.2); HEMOGLOBIN 10.5 GM/dL (10.7-15.3); LYMPH % 30.5 % (8-40); MCH 29.6 pg (25.7-33.7); MCHC 32.3 g/dl (32.0-36.0); MEAN CELL VOLUME 91.7 fl (80-96); MEAN PLT VOLUME 8.5 fl (7.5-11.1); MONO % 8.9 % (3.8-10.2); NEUT % 58.3 % (42.8-82.8); PLATELET COUNT 134 10^3/uL (134-434); RBC 3.55 M/mm3 (3.60-5.2); RDW 16.2 % (11.6-15.6); WHITE BLOOD COUNT 8.5 K/mm3 (4.0-10.0)
[2023-11-02 07:53] LABS: CALCIUM 7.8 mg/dL (8.5-10.1)
[2023-11-02 07:54] LABS: ALBUMIN 2.7 g/dl (3.4-5.0); ANION GAP 7 mmol/L (4-13); CO2 31 mmol/L (21-32); GLUCOSE,RANDOM 105 mg/dL (74-106); MAGNESIUM 1.9 mg/dL (1.8-2.4)
[2023-11-02] MEDS: amLODIPine BESYLATE 10 MG TABLET (FP) PO SCH ×2 (07:54→09:17)
[2023-11-02 07:57] LABS: PHOSPHOROUS 3.9 mg/dL (2.5-4.9); SGOT/AST 16 U/L (15-37); SGPT/ALT 16 U/L (13-61); TOT PROT 5.8 g/dl (6.4-8.2)
[2023-11-02 07:58] LABS: BILIRUBIN,TOTAL 0.3 mg/dL (0.2-1)
[2023-11-02 07:59] LABS: ALK PHOS 82 U/L (45-117)
[2023-11-02 08:00] LABS: CREATININE 8.3 mg/dL (0.55-1.3)
[2023-11-02] MEDS: levETIRAcetam 500 MG/5 ML INJECTION VIAL IVPB SCH ×2 (09:23→21:22)
[2023-11-02] MEDS: POLYETHYLENE GLYCOL (HEALTHYLAX) 3350 17 GM PACKET PO SCH ×2 (09:23→21:29)
[2023-11-02] MEDS: LOSARTAN POTASSIUM 50 MG TABLET PO SCH (09:23)
[2023-11-02] MEDS: PANTOPRAZOLE SODIUM 40 MG VIAL IVPUSH SCH (09:23)
[2023-11-02] MEDS: MUPIROCIN 2% TOPICAL OINTMENT FOR DECOLONIZATION NS SCH ×2 (09:23→21:32)
[2023-11-02] MEDS ORDERED: SODIUM CHLORIDE 250 ML IV PRN (15:39)
[2023-11-02] MEDS: ATORVASTATIN CA 20 MG TABLET (FP) PO SCH (21:22)
[2023-11-02] MEDS: CHLORHEXIDINE GLUCONATE 4% CLEANSER FOR DECOLONIZATION TP SCH (21:32)
[2023-11-03 03:38] VITALS: RESP 18
[2023-11-03] MEDS: hydrALAZINE HCL 50 MG TABLET (FP) PO SCH (06:44)
[2023-11-03] MEDS: INSULIN ASPART SLIDING SCALE (NOVOLOG) 1 VIAL SQ SCH ×2 (06:44→13:42)
[2023-11-03] MEDS: HEPARIN NA (PORCINE) 5,000 UNITS/ML 1ML VIAL SQ SCH (06:44)
[2023-11-03 07:17] LABS: BASO % 0.6 % (0-2.0); EOS % 2.2 % (0-4.5); HEMATOCRIT 30.1 % (32.4-45.2); HEMOGLOBIN 9.8 GM/dL (10.7-15.3); LYMPH % 26.9 % (8-40); MCHC 32.5 g/dl (32.0-36.0); MEAN CELL VOLUME 92.2 fl (80-96); MEAN PLT VOLUME 8.4 fl (7.5-11.1); MONO % 9.1 % (3.8-10.2); NEUT % 61.2 % (42.8-82.8); PLATELET COUNT 147 10^3/uL (134-434); RBC 3.26 M/mm3 (3.60-5.2); RDW 15.9 % (11.6-15.6); WHITE BLOOD COUNT 7.6 K/mm3 (4.0-10.0)
[2023-11-03 07:31] LABS: CHLORIDE 98 mmol/L (98-107); SODIUM 135 mmol/L (136-145)
[2023-11-03 07:46] LABS: ALBUMIN 2.7 g/dl (3.4-5.0); ANION GAP 10 mmol/L (4-13); CO2 28 mmol/L (21-32); GLUCOSE,RANDOM 118 mg/dL (74-106)
[2023-11-03 07:47] LABS: CALCIUM 8.3 mg/dL (8.5-10.1); MAGNESIUM 1.8 mg/dL (1.8-2.4)
[2023-11-03 07:49] LABS: PHOSPHOROUS 5.3 mg/dL (2.5-4.9); SGPT/ALT 12 U/L (13-61)
[2023-11-03 07:50] LABS: SGOT/AST 13 U/L (15-37)
[2023-11-03 07:51] LABS: BILIRUBIN,TOTAL 0.3 mg/dL (0.2-1); TOT PROT 5.6 g/dl (6.4-8.2)
[2023-11-03 07:52] LABS: ALK PHOS 82 U/L (45-117)
[2023-11-03 07:57] LABS: CREATININE 10.6 mg/dL (0.55-1.3)
[2023-11-03] MEDS: LOSARTAN POTASSIUM 50 MG TABLET PO SCH (09:53)
[2023-11-03] MEDS: POLYETHYLENE GLYCOL (HEALTHYLAX) 3350 17 GM PACKET PO SCH (09:54)
[2023-11-03] MEDS: levETIRAcetam 500 MG/5 ML INJECTION VIAL IVPB SCH (09:54)
[2023-11-03] MEDS: amLODIPine BESYLATE 10 MG TABLET (FP) PO SCH (09:58)
[2023-11-03] MEDS: MUPIROCIN 2% TOPICAL OINTMENT FOR DECOLONIZATION NS SCH (09:58)
[2023-11-03] MEDS ORDERED: ARIPiprazole 10 MG TABLET PO SCH (10:00)
[2023-11-03] MEDS ORDERED: PANTOPRAZOLE 40 MG TABLET PO SCH (10:00)
[2023-11-03] MEDS ORDERED: LABETALOL HCL 5 MG/1 ML (100MG/20 ML VIAL) IVPUSH PRN (12:24)
[2023-11-03] MEDS ORDERED: MAG HYDROX/AL HYDROX/SIMETH 30 ML UNIT-DOSE CUP PO PRN (12:24)
[2023-11-03] MEDS ORDERED: MELATONIN 5 MG TABLETS PO PRN (12:24)
[2023-11-03] MEDS ORDERED: SIMETHICONE 80 MG TAB.CHEW (FP) PO PRN (12:24)
[2023-11-03] MEDS ORDERED: ONDANSETRON 4 MG/2 ML VIAL IVPUSH PRN (12:24)
[2023-11-03] MEDS ORDERED: DOCUSATE SODIUM 100 MG CAPSULE (FP) PO PRN (12:24)
[2023-11-03] MEDS ORDERED: hydrALAZINE HCL 50 MG TABLET (FP) PO SCH (14:00)
[2023-11-03] MEDS ORDERED: HEPARIN NA (PORCINE) 5,000 UNITS/ML 1ML VIAL SQ SCH (14:00)
[2023-11-03] MEDS ORDERED: levETIRAcetam 500 MG TABLET (FP) PO SCH (15:00)
[2023-11-03 16:05] VITALS: TEMP 98.2
[2023-11-03] MEDS ORDERED: INSULIN ASPART SLIDING SCALE (NOVOLOG) 1 VIAL SQ SCH (16:30)
[2023-11-03 18:35] VITALS: BP 158/105; PULSE 80
[2023-11-03] MEDS ORDERED: POLYETHYLENE GLYCOL (HEALTHYLAX) 3350 17 GM PACKET PO SCH (22:00)
[2023-11-03] MEDS ORDERED: ATORVASTATIN CA 20 MG TABLET (FP) PO SCH (22:00)
[2023-11-03] MEDS ORDERED: levETIRAcetam 500 MG/5 ML INJECTION VIAL IVPB SCH (22:00)
[2023-11-03 23:27] VITALS: BMI 44.0
[2023-11-04] MEDS ORDERED: amLODIPine BESYLATE 10 MG TABLET (FP) PO SCH (10:00)
[2023-11-04] MEDS ORDERED: LOSARTAN POTASSIUM 50 MG TABLET PO SCH (10:00)
== END 2023-11-03 21:40 | disposition home or self-care (01) | DRG 199 ==
LOC: JER 14:47 → JERBED 16:17 → JICU 22:10 → J4W 11-02 14:25
PROVIDERS: ADMIT Internal Medicine Pulmonary Disease; ATTEND Internal Medicine
PROC: 5A1D70Z Performance of Urinary Filtration, Intermittent, Less than 6 Hours Per Day (ICD-10-PCS; principal; 2023-10-30)
PROC: 5A1D70Z Performance of Urinary Filtration, Intermittent, Less than 6 Hours Per Day (ICD-10-PCS; 2023-11-01)
PROC: 5A1D70Z Performance of Urinary Filtration, Intermittent, Less than 6 Hours Per Day (ICD-10-PCS; 2023-11-03)
DX: I16.1 Hypertensive emergency (principal); G40.909 Epilepsy, unspecified, not intractable, without status epilepticus; E78.00 Pure hypercholesterolemia, unspecified; I12.0 Hypertensive chronic kidney disease with stage 5 chronic kidney disease or end stage renal disease; E11.22 Type 2 diabetes mellitus with diabetic chronic kidney disease; N18.6 End stage renal disease; K21.9 Gastro-esophageal reflux disease without esophagitis; G47.33 Obstructive sleep apnea (adult) (pediatric); F31.9 Bipolar disorder, unspecified; E66.01 Morbid (severe) obesity due to excess calories; Z68.41 Body mass index [BMI] 40.0-44.9, adult; Z87.11 Personal history of peptic ulcer disease; Z99.2 Dependence on renal dialysis
CPT/HCPCS: 36415; 70450-TC; 71045-TC-FY; 74018-TC-FY; 80053; 80061; 80177; 82010; 82803; 82962; 83690; 83735; 84100; 84132; 84703; 85025; 85610; 87635; 93005; 93010; 93971; 94660; 99285-25; J1644

== ENCOUNTER 2023-12-21 17:42 | Inpatient (IN) | payer OTHER ==
[2023-12-21] MEDS ORDERED: levETIRAcetam 500 MG/5 ML INJECTION VIAL IVPB ONE (18:17)
[2023-12-21] MEDS: levETIRAcetam 500 MG/5 ML INJECTION VIAL IVPB ONE (18:28)
[2023-12-21 18:35] LABS: VENOUS BASE EXCESS -3.6 mmol/L (-2-2); VENOUS O2 SATURATION 22.3 % (70-80); VENOUS PCO2 46.1 mmHg (38-52); VENOUS PH 7.311 (7.310-7.410)
[2023-12-21 18:40] VITALS: BMI 38.7
[2023-12-21 18:40] LABS: BASO % 0.5 % (0-2.0); EOS % 0.5 % (0-4.5); HEMATOCRIT 39.4 % (32.4-45.2); HEMOGLOBIN 12.6 GM/dL (10.7-15.3); LYMPH % 11.5 % (8-40); MCH 30.2 pg (25.7-33.7); MCHC 31.9 g/dl (32.0-36.0); MEAN CELL VOLUME 94.7 fl (80-96); MEAN PLT VOLUME 8.5 fl (7.5-11.1); MONO % 5.2 % (3.8-10.2); NEUT % 82.3 % (42.8-82.8); PLATELET COUNT 255 10^3/uL (134-434); RBC 4.16 M/mm3 (3.60-5.2); RDW 19.2 % (11.6-15.6); WHITE BLOOD COUNT 8.4 K/mm3 (4.0-10.0)
[2023-12-21] MEDS ORDERED: LABETALOL HCL 5 MG/1 ML (100MG/20 ML VIAL) ONE (18:41)
[2023-12-21 18:56] LABS: INR 0.97 (0.83-1.09); PROTHROMBIN TIME (PATIENT) 11.3 SEC (9.7-13.0)
[2023-12-21] MEDS: LABETALOL HCL 5 MG/1 ML (100MG/20 ML VIAL) IVPUSH ONE (18:56)
[2023-12-21 18:59] LABS: ACTIVATED PTT 29.1 SECONDS (25.2-36.5); CHLORIDE 107 mmol/L (98-107); SODIUM 139 mmol/L (136-145)
[2023-12-21] MEDS ORDERED: NICARDIPINE 25 MG in DEXTROSE 5%-WATER - 240 ML IVPB SCH (19:00)
[2023-12-21 19:01] LABS: CALCIUM 7.8 mg/dL (8.5-10.1)
[2023-12-21 19:02] LABS: ALBUMIN 3.3 g/dl (3.4-5.0); BLOOD UREA NITROGEN 37.4 mg/dL (7-18); CO2 24 mmol/L (21-32); GLUCOSE,RANDOM 304 mg/dL (74-106)
[2023-12-21 19:05] LABS: PHOSPHOROUS 5.5 mg/dL (2.5-4.9); SGOT/AST 69 U/L (15-37); SGPT/ALT 46 U/L (13-61)
[2023-12-21 19:06] LABS: TOT PROT 7.5 g/dl (6.4-8.2)
[2023-12-21 19:07] LABS: BILIRUBIN,TOTAL 0.7 mg/dL (0.2-1)
[2023-12-21 19:08] LABS: ALK PHOS 129 U/L (45-117)
[2023-12-21 19:26] LABS: ANION GAP 8 mmol/L (4-13); POTASSIUM 6.2 mmol/L (3.5-5.1)
[2023-12-21] MEDS: ONDANSETRON 4 MG/2 ML VIAL IVPUSH ONE (19:54)
[2023-12-21] MEDS: FAMOTIDINE 20 MG/50 ML IVPB 20 MG/50 ML MG IVPB ONE (19:54)
[2023-12-21] MEDS ORDERED: FAMOTIDINE 20 MG/50 ML IVPB 20 MG/50 ML MG IVPB ONE (19:56)
[2023-12-21] MEDS ORDERED: ONDANSETRON 4 MG/2 ML VIAL ONE (19:56)
[2023-12-21 20:27] LABS: CHLORIDE 108 mmol/L (98-107); POTASSIUM 5.2 mmol/L (3.5-5.1); SODIUM 140 mmol/L (136-145)
[2023-12-21 20:29] LABS: ANION GAP 10 mmol/L (4-13); BLOOD UREA NITROGEN 37.4 mg/dL (7-18); CALCIUM 7.9 mg/dL (8.5-10.1); CO2 22 mmol/L (21-32); GLUCOSE,RANDOM 309 mg/dL (74-106)
[2023-12-21 20:31] LABS: CHLORIDE 106 mmol/L (98-107); POTASSIUM 4.3 mmol/L (3.5-5.1); SODIUM 140 mmol/L (136-145)
[2023-12-21 20:34] LABS: CREATININE 8.8 mg/dL (0.55-1.3)
[2023-12-21 20:34] LABS: ALBUMIN 3.5 g/dl (3.4-5.0); ANION GAP 11 mmol/L (4-13); CALCIUM 7.9 mg/dL (8.5-10.1); CO2 22 mmol/L (21-32); GLUCOSE,RANDOM 309 mg/dL (74-106)
[2023-12-21 20:35] LABS: BLOOD UREA NITROGEN 36.3 mg/dL (7-18)
[2023-12-21 20:37] LABS: SGPT/ALT 44 U/L (13-61)
[2023-12-21 20:38] LABS: SGOT/AST 26 U/L (15-37)
[2023-12-21 20:39] LABS: BILIRUBIN,TOTAL 0.6 mg/dL (0.2-1); TOT PROT 7.6 g/dl (6.4-8.2)
[2023-12-21 20:40] LABS: ALK PHOS 138 U/L (45-117)
[2023-12-21 21:05] LABS: CREATININE 8.9 mg/dL (0.55-1.3)
[2023-12-21] MEDS: LORazepam 2 MG/ML SDV VIAL IVPUSH ONE (21:40)
[2023-12-21] MEDS ORDERED: ACETAMINOPHEN INJECTION 100 ML IVPB ONE (23:20)
[2023-12-21] MEDS: ACETAMINOPHEN 1000 MG/100 ML BAG IVPB ONE (23:25)
[2023-12-22] MEDS: LABETALOL HCL 5 MG/1 ML (100MG/20 ML VIAL) IVPUSH ONE (01:15)
[2023-12-22] MEDS ORDERED: levETIRAcetam 500 MG/5 ML INJECTION VIAL IVPB ONE (01:21)
[2023-12-22] MEDS: levETIRAcetam 500 MG/5 ML INJECTION VIAL IVPB SCH ×3 (02:51→22:14)
[2023-12-22] MEDS: levETIRAcetam 500 MG TABLET (FP) PO SCH (03:20)
[2023-12-22] MEDS: INSULIN REGULAR HUMAN 100 UNITS/ML *VIAL IVPUSH ONE (05:31)
[2023-12-22] MEDS ORDERED: HEPARIN NA (PORCINE) 5,000 UNITS/ML 1ML VIAL ONE (06:03)
[2023-12-22] MEDS ORDERED: hydrALAZINE HCL 50 MG TABLET (FP) ONE (06:03)
[2023-12-22] MEDS: hydrALAZINE HCL 50 MG TABLET (FP) PO SCH (06:07)
[2023-12-22] MEDS: HEPARIN NA (PORCINE) 5,000 UNITS/ML 1ML VIAL SQ SCH (06:16)
[2023-12-22] MEDS ORDERED: TAMSULOSIN HCL 0.4 MG CAP ONE (07:34)
[2023-12-22] MEDS ORDERED: INSULIN (LEVEMIR) 100 UNITS/ML UNITS SQ ONE (07:34)
[2023-12-22] MEDS: INSULIN ASPART SLIDING SCALE (NOVOLOG) 1 VIAL SQ SCH (07:37)
[2023-12-22] MEDS: INSULIN (LEVEMIR) 100 UNITS/ML UNITS SQ SCH (07:38)
[2023-12-22] MEDS: TAMSULOSIN HCL 0.4 MG CAP PO SCH (07:38)
[2023-12-22 08:16] LABS: HEMATOCRIT 37.1 % (32.4-45.2); HEMOGLOBIN 11.8 GM/dL (10.7-15.3); MCH 30.5 pg (25.7-33.7); MCHC 31.9 g/dl (32.0-36.0); MEAN CELL VOLUME 95.7 fl (80-96); MEAN PLT VOLUME 8.3 fl (7.5-11.1); PLATELET COUNT 220 10^3/uL (134-434); RBC 3.87 M/mm3 (3.60-5.2); RDW 19.1 % (11.6-15.6); WHITE BLOOD COUNT 10.8 K/mm3 (4.0-10.0)
[2023-12-22 08:41] LABS: CHLORIDE 108 mmol/L (98-107); POTASSIUM 4.3 mmol/L (3.5-5.1); SODIUM 142 mmol/L (136-145)
[2023-12-22 08:44] LABS: ALBUMIN 3.1 g/dl (3.4-5.0); CALCIUM 7.9 mg/dL (8.5-10.1)
[2023-12-22 08:45] LABS: ANION GAP 12 mmol/L (4-13); BLOOD UREA NITROGEN 49.9 mg/dL (7-18); CO2 22 mmol/L (21-32); GLUCOSE,RANDOM 259 mg/dL (74-106); MAGNESIUM 1.9 mg/dL (1.8-2.4)
[2023-12-22 08:47] LABS: PHOSPHOROUS 6.1 mg/dL (2.5-4.9)
[2023-12-22 08:48] LABS: SGOT/AST 20 U/L (15-37); SGPT/ALT 31 U/L (13-61)
[2023-12-22 08:49] LABS: BILIRUBIN,TOTAL 0.7 mg/dL (0.2-1); TOT PROT 6.7 g/dl (6.4-8.2)
[2023-12-22 08:50] LABS: ALK PHOS 115 U/L (45-117)
[2023-12-22 08:52] LABS: CREATININE 10.1 mg/dL (0.55-1.3)
[2023-12-22] MEDS ORDERED: levETIRAcetam 500 MG/5 ML INJECTION VIAL IVPB SCH (10:00)
[2023-12-22] MEDS: ESCITALOPRAM OXALATE 10 MG TABLET PO SCH (10:38)
[2023-12-22] MEDS: amLODIPine BESYLATE 10 MG TABLET (FP) PO SCH (10:38)
[2023-12-22] MEDS: LOSARTAN POTASSIUM 50 MG TABLET PO SCH (10:38)
[2023-12-22] MEDS: ARIPiprazole 10 MG TABLET PO SCH (10:38)
[2023-12-22] MEDS ORDERED: SODIUM CHLORIDE 250 ML IV PRN (13:28)
[2023-12-22] MEDS ORDERED: ATORVASTATIN CA 20 MG TABLET (FP) PO SCH (22:00)
[2023-12-22] MEDS ORDERED: levETIRAcetam 500 MG TABLET (FP) PO SCH (22:00)
[2023-12-23] MEDS: ONDANSETRON 4 MG/2 ML VIAL IVPUSH PRN ×2 (08:02→16:40)
[2023-12-23] MEDS ORDERED: LABETALOL HCL 20 MG/4 ML VIAL ONE (08:49)
[2023-12-23] MEDS: LABETALOL HCL 20 MG/4 ML VIAL IVPUSH ONE ×2 (08:56→12:26)
[2023-12-23] MEDS: ONDANSETRON 4 MG/2 ML VIAL IVPUSH ONE ×2 (09:58→22:05)
[2023-12-23 10:20] LABS: HEMATOCRIT 37.2 % (32.4-45.2); HEMOGLOBIN 11.8 GM/dL (10.7-15.3); MCH 30.2 pg (25.7-33.7); MCHC 31.7 g/dl (32.0-36.0); MEAN CELL VOLUME 95.2 fl (80-96); MEAN PLT VOLUME 8.5 fl (7.5-11.1); PLATELET COUNT 191 10^3/uL (134-434); RBC 3.91 M/mm3 (3.60-5.2); RDW 18.9 % (11.6-15.6); WHITE BLOOD COUNT 12.5 K/mm3 (4.0-10.0)
[2023-12-23 10:27] LABS: CHLORIDE 102 mmol/L (98-107); POTASSIUM 3.7 mmol/L (3.5-5.1); SODIUM 142 mmol/L (136-145)
[2023-12-23 10:29] LABS: BLOOD UREA NITROGEN 37.7 mg/dL (7-18)
[2023-12-23 10:30] LABS: ANION GAP 13 mmol/L (4-13); CO2 27 mmol/L (21-32); MAGNESIUM 1.8 mg/dL (1.8-2.4)
[2023-12-23 10:32] LABS: PHOSPHOROUS 4.8 mg/dL (2.5-4.9)
[2023-12-23 10:38] LABS: CREATININE 9.2 mg/dL (0.55-1.3); GLUCOSE,RANDOM 256 mg/dL (74-106)
[2023-12-23] MEDS ORDERED: NICARDIPINE 25 MG in DEXTROSE 5%-WATER - 240 ML IVPB SCH (11:15)
[2023-12-23] MEDS: cloNIDine-TTS 0.1 MG/24 HRS PATCH.TDWK TD SCH (13:09)
[2023-12-23] MEDS ORDERED: LIDOCAINE 5% TOPICAL PATCH TP SCH (16:00)
[2023-12-23] MEDS ORDERED: LIDOCAINE 4% PATCH TP SCH (16:21)
[2023-12-23] MEDS: LIDOCAINE 4% PATCH TP SCH (16:37)
[2023-12-23] MEDS: ACETAMINOPHEN 1000 MG/100 ML BAG IVPB ONE (19:48)
[2023-12-23 21:52] LABS: HEMATOCRIT 36.1 % (32.4-45.2); HEMOGLOBIN 11.6 GM/dL (10.7-15.3); MCHC 32.2 g/dl (32.0-36.0); MEAN CELL VOLUME 93.1 fl (80-96); MEAN PLT VOLUME 8.2 fl (7.5-11.1); PLATELET COUNT 200 10^3/uL (134-434); RBC 3.87 M/mm3 (3.60-5.2); RDW 18.4 % (11.6-15.6); WHITE BLOOD COUNT 14.1 K/mm3 (4.0-10.0)
[2023-12-23] MEDS: MAGNESIUM SULFATE IN WATER 2 GM/50 ML IVPB IVPB ONE (22:03)
[2023-12-23] MEDS: PANTOPRAZOLE SODIUM 40 MG VIAL IVPUSH SCH (22:05)
[2023-12-23 22:17] LABS: CHLORIDE 98 mmol/L (98-107); POTASSIUM 3.7 mmol/L (3.5-5.1); SODIUM 139 mmol/L (136-145)
[2023-12-23 22:19] LABS: ANION GAP 12 mmol/L (4-13); CO2 29 mmol/L (21-32); GLUCOSE,RANDOM 273 mg/dL (74-106)
[2023-12-23 22:20] LABS: ALBUMIN 3.3 g/dl (3.4-5.0)
[2023-12-23 22:23] LABS: BILIRUBIN,DIRECT 0.2 mg/dL (0.0-0.2)
[2023-12-23 22:25] LABS: BILIRUBIN,TOTAL 0.7 mg/dL (0.2-1); TOT PROT 6.9 g/dl (6.4-8.2)
[2023-12-23 22:35] LABS: CREATININE 10.6 mg/dL (0.55-1.3)
[2023-12-23] MEDS: LIDOCAINE PATCH REMOVAL MC SCH (22:35)
[2023-12-23 22:43] LABS: ANISOCYTOSIS 1+; MACROCYTOSIS 0
[2023-12-24 01:56] LABS: METHADONE, UR NEGATIVE (NEGATIVE); URINE AMPHETAMINES NEGATIVE (NEGATIVE)
[2023-12-24 01:57] LABS: COCAINE, UR NEGATIVE (NEGATIVE); OPIATES, URI NEGATIVE (NEGATIVE); PHENCYCLIDINE,URINE NEGATIVE (NEGATIVE); URINE BARBITURATES NEGATIVE (NEGATIVE)
[2023-12-24 02:00] LABS: EPI CELLS 27 /uL (0-25.1); HYALINE CASTS 0 /uL (0-3.1); URINE APPEARANCE Error; URINE BACTERIA 48 /uL (0-1359); URINE BILIRUBIN NEGATIVE (NEGATIVE); URINE COLOR YELLOW; URINE GLUCOSE (UA) 2+ (NEGATIVE); URINE KETONE NEGATIVE (NEGATIVE); URINE LEUK ESTERASE NEGATIVE (NEGATIVE); URINE NITRITE NEGATIVE (NEGATIVE); URINE PROTEIN 4+ (NEGATIVE); URINE RBC 64 /uL (0-23.9); URINE UROBILINOGEN 0.2 mg/dL (0.2-1.0)
[2023-12-24 02:13] LABS: URINE BENZODIAZEPINES NEGATIVE (NEGATIVE)
[2023-12-24 08:39] LABS: URINE WBC 80 /uL (0-25.8)
[2023-12-24 09:59] LABS: BASO % 0.3 % (0-2.0); EOS % 0.1 % (0-4.5); HEMATOCRIT 36.9 % (32.4-45.2); LYMPH % 11.6 % (8-40); MCH 30.6 pg (25.7-33.7); MCHC 32.5 g/dl (32.0-36.0); MEAN CELL VOLUME 94.3 fl (80-96); MEAN PLT VOLUME 8.7 fl (7.5-11.1); MONO % 7.2 % (3.8-10.2); NEUT % 80.8 % (42.8-82.8); PLATELET COUNT 206 10^3/uL (134-434); RBC 3.92 M/mm3 (3.60-5.2); RDW 18.7 % (11.6-15.6); WHITE BLOOD COUNT 14.8 K/mm3 (4.0-10.0)
[2023-12-24 10:19] LABS: CHLORIDE 96 mmol/L (98-107); POTASSIUM 3.9 mmol/L (3.5-5.1); SODIUM 139 mmol/L (136-145)
[2023-12-24 10:23] LABS: ALBUMIN 3.2 g/dl (3.4-5.0); ANION GAP 12 mmol/L (4-13); BLOOD UREA NITROGEN 51.1 mg/dL (7-18); CALCIUM 8.2 mg/dL (8.5-10.1); CO2 31 mmol/L (21-32); GLUCOSE,RANDOM 189 mg/dL (74-106); MAGNESIUM 2.6 mg/dL (1.8-2.4)
[2023-12-24 10:26] LABS: SGOT/AST 12 U/L (15-37); SGPT/ALT 22 U/L (13-61)
[2023-12-24 10:27] LABS: PHOSPHOROUS 6.3 mg/dL (2.5-4.9)
[2023-12-24 10:28] LABS: BILIRUBIN,TOTAL 0.6 mg/dL (0.2-1)
[2023-12-24 10:29] LABS: ALK PHOS 110 U/L (45-117)
[2023-12-24 10:32] LABS: CREATININE 11.5 mg/dL (0.55-1.3)
[2023-12-24] MEDS: INSULIN (LEVEMIR) 100 UNITS/ML UNITS SQ SCH (10:58)
[2023-12-24] MEDS ORDERED: SODIUM CHLORIDE 250 ML IV PRN (12:46)
[2023-12-24] MEDS: oxyCODONE HCL 5 MG TABLET PO PRN (14:11)
[2023-12-24] MEDS: TOPIRAMATE 25 MG TABLET PO SCH (21:45)
[2023-12-25 09:16] LABS: HEMATOCRIT 29.6 % (32.4-45.2); HEMOGLOBIN 10.1 GM/dL (10.7-15.3); MCH 31.6 pg (25.7-33.7); MEAN CELL VOLUME 92.8 fl (80-96); MEAN PLT VOLUME 8.7 fl (7.5-11.1); PLATELET COUNT 174 10^3/uL (134-434); RBC 3.19 M/mm3 (3.60-5.2); RDW 18.3 % (11.6-15.6); WHITE BLOOD COUNT 9.1 K/mm3 (4.0-10.0)
[2023-12-25 09:24] LABS: CHLORIDE 95 mmol/L (98-107); POTASSIUM 3.6 mmol/L (3.5-5.1); SODIUM 135 mmol/L (136-145)
[2023-12-25 09:40] LABS: GLUCOSE,RANDOM 129 mg/dL (74-106)
[2023-12-25 09:43] LABS: ANION GAP 14 mmol/L (4-13); BLOOD UREA NITROGEN 60.4 mg/dL (7-18); CO2 25 mmol/L (21-32); MAGNESIUM 2.3 mg/dL (1.8-2.4)
[2023-12-25 09:46] LABS: PHOSPHOROUS 6.8 mg/dL (2.5-4.9)
[2023-12-25 09:48] LABS: CALCIUM 6.8 mg/dL (8.5-10.1)
[2023-12-25] MEDS: PANTOPRAZOLE 40 MG TABLET PO SCH (12:43)
[2023-12-25] MEDS: ARIPiprazole 15 MG TABLET PO SCH (12:45)
[2023-12-26 06:45] LABS: HEMATOCRIT 32.6 % (32.4-45.2); HEMOGLOBIN 10.5 GM/dL (10.7-15.3); MCH 30.4 pg (25.7-33.7); MCHC 32.1 g/dl (32.0-36.0); MEAN CELL VOLUME 94.8 fl (80-96); MEAN PLT VOLUME 8.6 fl (7.5-11.1); PLATELET COUNT 190 10^3/uL (134-434); RBC 3.45 M/mm3 (3.60-5.2); RDW 17.9 % (11.6-15.6); WHITE BLOOD COUNT 6.8 K/mm3 (4.0-10.0)
[2023-12-26 06:55] LABS: CHLORIDE 97 mmol/L (98-107); POTASSIUM 4.1 mmol/L (3.5-5.1); SODIUM 138 mmol/L (136-145)
[2023-12-26 07:03] LABS: ANION GAP 11 mmol/L (4-13); BLOOD UREA NITROGEN 56.7 mg/dL (7-18); CALCIUM 7.3 mg/dL (8.5-10.1); CO2 30 mmol/L (21-32); GLUCOSE,RANDOM 158 mg/dL (74-106); MAGNESIUM 2.4 mg/dL (1.8-2.4)
[2023-12-26 07:05] LABS: PHOSPHOROUS 5.9 mg/dL (2.5-4.9)
[2023-12-26 07:06] LABS: SGOT/AST 10 U/L (15-37); SGPT/ALT 16 U/L (13-61)
[2023-12-26 07:07] LABS: BILIRUBIN,TOTAL 0.2 mg/dL (0.2-1); TOT PROT 5.6 g/dl (6.4-8.2)
[2023-12-26 07:08] LABS: ALK PHOS 86 U/L (45-117)
[2023-12-26 07:17] LABS: ALBUMIN 2.5 g/dl (3.4-5.0); CREATININE 12.6 mg/dL (0.55-1.3)
[2023-12-27] MEDS: MELATONIN 5 MG TABLETS PO PRN (03:28)
[2023-12-27 06:41] LABS: HEMATOCRIT 30.1 % (32.4-45.2); HEMOGLOBIN 9.8 GM/dL (10.7-15.3); MCH 30.5 pg (25.7-33.7); MCHC 32.5 g/dl (32.0-36.0); MEAN CELL VOLUME 93.8 fl (80-96); MEAN PLT VOLUME 8.8 fl (7.5-11.1); PLATELET COUNT 190 10^3/uL (134-434); RDW 17.3 % (11.6-15.6); WHITE BLOOD COUNT 4.6 K/mm3 (4.0-10.0)
[2023-12-27 07:03] LABS: CHLORIDE 97 mmol/L (98-107); SODIUM 135 mmol/L (136-145)
[2023-12-27 07:13] LABS: ALBUMIN 2.5 g/dl (3.4-5.0); ANION GAP 12 mmol/L (4-13); BLOOD UREA NITROGEN 71.7 mg/dL (7-18); CO2 26 mmol/L (21-32); GLUCOSE,RANDOM 189 mg/dL (74-106); SGPT/ALT 17 U/L (13-61)
[2023-12-27 07:15] LABS: BILIRUBIN,TOTAL 0.2 mg/dL (0.2-1); TOT PROT 5.3 g/dl (6.4-8.2)
[2023-12-27 07:16] LABS: ALK PHOS 81 U/L (45-117)
[2023-12-27 07:19] LABS: SGOT/AST 15 U/L (15-37)
[2023-12-27 07:29] LABS: CALCIUM 6.9 mg/dL (8.5-10.1); CREATININE 14.7 mg/dL (0.55-1.3)
[2023-12-27] MEDS ORDERED: SODIUM CHLORIDE 250 ML IV PRN ×2 (12:27→16:48)
[2023-12-27] MEDS ORDERED: LIDOCAINE HCL 1%, 10 MG/ML (20ML VIAL) ONE (13:18)
[2023-12-27] MEDS ORDERED: HEPARIN NA (PORCINE) 5,000 UNITS/ML 1ML VIAL ONE (13:18)
[2023-12-27] MEDS ORDERED: PROPOFOL 20 ML ONE (15:41)
[2023-12-27] MEDS ORDERED: LIDOCAINE HCL/PF 2% SDV 5ML VIAL ONE (15:42)
[2023-12-27] MEDS: ceFAZolin SODIUM 1 GM VIAL IVPB ONE (16:08)
[2023-12-27] MEDS: HEPARIN NA (PORCINE) 5,000 UNITS/ML 1ML VIAL SQ ONE ×2 (16:13)
[2023-12-27] MEDS: HEPARIN NA (PORCINE) 1,000 UNITS/ML 10ML M-D VIAL SQ ONE ×2 (16:13)
[2023-12-27] MEDS: LIDOCAINE HCL 1%, 10 MG/ML (20ML VIAL) INF ONE ×2 (16:13)
[2023-12-27] MEDS ORDERED: ONDANSETRON 4 MG/2 ML VIAL IVPUSH PRN (16:34)
[2023-12-27] MEDS ORDERED: LACTATED RINGERS SOLUTION 1,000 ML IV SCH (16:45)
[2023-12-27] MEDS ORDERED: MELATONIN 5 MG TABLETS PO PRN (16:48)
[2023-12-27 17:53] VITALS: RESP 18
[2023-12-27] MEDS: LIDOCAINE PATCH REMOVAL MC SCH (22:06)
[2023-12-27] MEDS: TOPIRAMATE 25 MG TABLET PO SCH (22:06)
[2023-12-27] MEDS: hydrALAZINE HCL 50 MG TABLET (FP) PO SCH (22:06)
[2023-12-28] MEDS: INSULIN (LEVEMIR) 100 UNITS/ML UNITS SQ SCH (06:23)
[2023-12-28] MEDS: INSULIN ASPART SLIDING SCALE (NOVOLOG) 1 VIAL SQ SCH (06:23)
[2023-12-28 08:48] VITALS: TEMP 98.1
[2023-12-28] MEDS: TAMSULOSIN HCL 0.4 MG CAP PO SCH (08:49)
[2023-12-28] MEDS: LIDOCAINE 4% PATCH TP SCH (09:42)
[2023-12-28] MEDS: oxyCODONE HCL 5 MG TABLET PO PRN (09:42)
[2023-12-28] MEDS ORDERED: HEPARIN NA (PORCINE) 5,000 UNITS/ML 1ML VIAL IVPUSH ONE ×2 (12:27→14:00)
[2023-12-28] MEDS ORDERED: EPOETIN ALFA-EPBX 10,000 UNIT/ML VIAL IVPUSH ONE (12:27)
[2023-12-28 13:55] LABS: HEMATOCRIT 30.8 % (32.4-45.2); HEMOGLOBIN 9.9 GM/dL (10.7-15.3); MCH 30.3 pg (25.7-33.7); MCHC 32.2 g/dl (32.0-36.0); MEAN CELL VOLUME 94.3 fl (80-96); MEAN PLT VOLUME 8.5 fl (7.5-11.1); PLATELET COUNT 216 10^3/uL (134-434); RBC 3.27 M/mm3 (3.60-5.2); RDW 17.7 % (11.6-15.6); WHITE BLOOD COUNT 5.2 K/mm3 (4.0-10.0)
[2023-12-28 14:05] LABS: CHLORIDE 96 mmol/L (98-107); SODIUM 132 mmol/L (136-145)
[2023-12-28 14:07] LABS: BLOOD UREA NITROGEN 83.3 mg/dL (7-18); GLUCOSE,RANDOM 197 mg/dL (74-106)
[2023-12-28 14:08] LABS: ANION GAP 13 mmol/L (4-13); CALCIUM 7.1 mg/dL (8.5-10.1); CO2 23 mmol/L (21-32)
[2023-12-28 14:11] LABS: CREATININE 15.7 mg/dL (0.55-1.3)
[2023-12-28] MEDS: EPOETIN ALFA-EPBX 10,000 UNIT/ML VIAL IVPUSH ONE (15:04)
[2023-12-28] MEDS: ARIPiprazole 15 MG TABLET PO SCH (16:30)
[2023-12-28] MEDS: PANTOPRAZOLE 40 MG TABLET PO SCH (16:31)
[2023-12-28] MEDS: LOSARTAN POTASSIUM 50 MG TABLET PO SCH (16:31)
[2023-12-28] MEDS: ESCITALOPRAM OXALATE 10 MG TABLET PO SCH (16:32)
[2023-12-28] MEDS: amLODIPine BESYLATE 10 MG TABLET (FP) PO SCH (16:32)
[2023-12-28 17:45] VITALS: BP 171/105; PULSE 72
[2023-12-29] MEDS ORDERED: levETIRAcetam 500 MG/5 ML INJECTION VIAL IVPB SCH (12:00)
[2023-12-30] MEDS ORDERED: cloNIDine-TTS 0.1 MG/24 HRS PATCH.TDWK TD SCH ×2 (10:00→13:00)
== END 2023-12-28 17:37 | disposition home or self-care (01) | DRG 951 ==
LOC: JER 17:42 → OBSVTOIN 22:30 → JERBED 22:30 → J4W 12-22 18:46
PROVIDERS: ADMIT Internal Medicine; ATTEND Internal Medicine
PROC: 05PY33Z Removal of Infusion Device from Upper Vein, Percutaneous Approach (ICD-10-PCS; 2023-12-27)
PROC: 05HY33Z Insertion of Infusion Device into Upper Vein, Percutaneous Approach (ICD-10-PCS; principal; 2023-12-27 15:30)
PROC: 5A1D70Z Performance of Urinary Filtration, Intermittent, Less than 6 Hours Per Day (ICD-10-PCS; 2023-12-28)
DX: G40.909 Epilepsy, unspecified, not intractable, without status epilepticus (principal); I47.20 Ventricular tachycardia, unspecified; T82.868A Thrombosis due to vascular prosthetic devices, implants and grafts, initial encounter; K52.9 Noninfective gastroenteritis and colitis, unspecified; Y83.9 Surgical procedure, unspecified as the cause of abnormal reaction of the patient, or of later complication, without mention of misadventure at the time of the procedure; I31.39 Other pericardial effusion (noninflammatory); E11.22 Type 2 diabetes mellitus with diabetic chronic kidney disease; N18.6 End stage renal disease; I12.0 Hypertensive chronic kidney disease with stage 5 chronic kidney disease or end stage renal disease; E83.39 Other disorders of phosphorus metabolism; E87.5 Hyperkalemia; E78.5 Hyperlipidemia, unspecified; I16.1 Hypertensive emergency; Z99.2 Dependence on renal dialysis; I16.0 Hypertensive urgency; E66.01 Morbid (severe) obesity due to excess calories; Z68.42 Body mass index [BMI] 45.0-49.9, adult; K21.9 Gastro-esophageal reflux disease without esophagitis; N17.9 Acute kidney failure, unspecified; E11.42 Type 2 diabetes mellitus with diabetic polyneuropathy; E11.65 Type 2 diabetes mellitus with hyperglycemia; G20.C Parkinsonism, unspecified; F17.210 Nicotine dependence, cigarettes, uncomplicated; F31.9 Bipolar disorder, unspecified; F32.A Depression, unspecified; G43.909 Migraine, unspecified, not intractable, without status migrainosus; J45.909 Unspecified asthma, uncomplicated
CPT/HCPCS: 0241U-QW; 36415; 70450-TC; 71045-TC-FY; 71111-TC-FY; 72125-TC; 73030-TC-LT-FY; 73030-TC-RT-FY; 74019-TC-FY; 74176-TC; 76000-TC-FY; 76705-TC; 80048; 80053; 80076; 80177; 80307; 81003; 82010; 82550; 82553; 82803; 82962; 83036; 83605; 83690; 83735; 84100; 84443; 84484; 84703; 85025; 85027; 85610; 85730; 87086; 87340; 93005; 93010; 93306-TC; 94760; 97116-GP; 97161-GP; 99285-25; C1750; J0131; J1644; Q5106

== ENCOUNTER 2024-01-01 20:45 | Inpatient (IN) | payer OTHER ==
[2024-01-01 21:10] VITALS: BMI 36.6
[2024-01-02] MEDS ORDERED: levETIRAcetam 500 MG TABLET (FP) PO PRN (05:30)
[2024-01-02] MEDS: LOSARTAN POTASSIUM 50 MG TABLET PO ONE (05:40)
[2024-01-02] MEDS: INSULIN ASPART SLIDING SCALE (NOVOLOG) 1 VIAL SQ SCH (07:20)
[2024-01-02 08:54] LABS: BASO % 0.2 % (0-2.0); EOS % 4.1 % (0-4.5); HEMATOCRIT 34.9 % (32.4-45.2); LYMPH % 20.1 % (8-40); MCH 29.8 pg (25.7-33.7); MCHC 31.6 g/dl (32.0-36.0); MEAN CELL VOLUME 94.2 fl (80-96); MEAN PLT VOLUME 7.9 fl (7.5-11.1); NEUT % 69.6 % (42.8-82.8); PLATELET COUNT 345 10^3/uL (134-434); RDW 17.1 % (11.6-15.6); WHITE BLOOD COUNT 8.2 K/mm3 (4.0-10.0)
[2024-01-02 08:58] LABS: INR 0.98 (0.83-1.09); PROTHROMBIN TIME (PATIENT) 11.4 SEC (9.7-13.0)
[2024-01-02 09:01] LABS: ACTIVATED PTT 28.7 SECONDS (25.2-36.5)
[2024-01-02] MEDS: amLODIPine BESYLATE 10 MG TABLET (FP) PO SCH (09:08)
[2024-01-02] MEDS: levETIRAcetam 500 MG TABLET (FP) PO SCH (09:09)
[2024-01-02] MEDS: LOSARTAN POTASSIUM 50 MG TABLET PO SCH (09:09)
[2024-01-02 09:11] LABS: CHLORIDE 107 mmol/L (98-107); POTASSIUM 4.9 mmol/L (3.5-5.1); SODIUM 141 mmol/L (136-145)
[2024-01-02 09:17] LABS: ALBUMIN 3.1 g/dl (3.4-5.0); ANION GAP 12 mmol/L (4-13); CALCIUM 8.5 mg/dL (8.5-10.1); CO2 22 mmol/L (21-32); GLUCOSE,RANDOM 137 mg/dL (74-106); MAGNESIUM 2.4 mg/dL (1.8-2.4)
[2024-01-02 09:19] LABS: SGPT/ALT 8 U/L (13-61)
[2024-01-02 09:20] LABS: SGOT/AST 12 U/L (15-37)
[2024-01-02 09:21] LABS: BILIRUBIN,TOTAL 0.3 mg/dL (0.2-1); TOT PROT 6.8 g/dl (6.4-8.2)
[2024-01-02 09:22] LABS: ALK PHOS 94 U/L (45-117); CREATININE 17.7 mg/dL (0.55-1.3)
[2024-01-02] MEDS: cloNIDine-TTS 0.1 MG/24 HRS PATCH.TDWK TD SCH (12:25)
[2024-01-02] MEDS: hydrALAZINE HCL 50 MG TABLET (FP) PO SCH (13:57)
[2024-01-02] MEDS ORDERED: FENTANYL CITRATE/PF 50 MCG/ML VIAL ONE (15:18)
[2024-01-02] MEDS: FENTANYL CITRATE/PF 50 MCG/ML VIAL IVPUSH ONE (15:24)
[2024-01-02] MEDS: hydrALAZINE HCL 50 MG TABLET (FP) PO ONE (17:33)
[2024-01-02] MEDS ORDERED: SODIUM CHLORIDE 250 ML IV PRN (17:47)
[2024-01-02] MEDS: HEPARIN NA (PORCINE) 5,000 UNITS/ML 1ML VIAL IVPUSH ONE (18:00)
[2024-01-02] MEDS: ATORVASTATIN CA 20 MG TABLET (FP) PO SCH (22:08)
[2024-01-03] MEDS: INSULIN (LEVEMIR) 100 UNITS/ML UNITS SQ SCH (06:13)
[2024-01-03 08:10] VITALS: BP 169/96; PULSE 89; RESP 16; TEMP 98.2
[2024-01-03 10:20] LABS: HEMOGLOBIN 10.8 GM/dL (10.7-15.3); MCHC 31.7 g/dl (32.0-36.0); MEAN CELL VOLUME 94.7 fl (80-96); MEAN PLT VOLUME 7.5 fl (7.5-11.1); PLATELET COUNT 132 10^3/uL (134-434); RBC 3.59 M/mm3 (3.60-5.2); RDW 17.5 % (11.6-15.6); WHITE BLOOD COUNT 9.1 K/mm3 (4.0-10.0)
[2024-01-03 10:27] LABS: CHLORIDE 102 mmol/L (98-107); POTASSIUM 4.7 mmol/L (3.5-5.1); SODIUM 140 mmol/L (136-145)
[2024-01-03 10:31] LABS: ALBUMIN 2.7 g/dl (3.4-5.0); ANION GAP 8 mmol/L (4-13); CALCIUM 7.7 mg/dL (8.5-10.1); CO2 30 mmol/L (21-32); GLUCOSE,RANDOM 163 mg/dL (74-106); MAGNESIUM 2.1 mg/dL (1.8-2.4)
[2024-01-03 10:34] LABS: SGOT/AST 7 U/L (15-37)
[2024-01-03 10:35] LABS: SGPT/ALT < 6 U/L (13-61)
[2024-01-03 10:36] LABS: BILIRUBIN,TOTAL 0.3 mg/dL (0.2-1); TOT PROT 6.1 g/dl (6.4-8.2)
[2024-01-03 10:37] LABS: ALK PHOS 82 U/L (45-117)
[2024-01-03 10:38] LABS: BLOOD UREA NITROGEN 45.7 mg/dL (7-18); CREATININE 12.8 mg/dL (0.55-1.3)
== END 2024-01-03 11:51 | disposition home or self-care (01) | DRG 466 ==
LOC: JER 20:45 → JERBED 21:32 → J6S 01-02 02:56
PROVIDERS: ADMIT Internal Medicine; ATTEND Internal Medicine
PROC: 0JH63XZ Insertion of Tunneled Vascular Access Device into Chest Subcutaneous Tissue and Fascia, Percutaneous Approach (ICD-10-PCS; principal; 2024-01-02)
PROC: 05HM33Z Insertion of Infusion Device into Right Internal Jugular Vein, Percutaneous Approach (ICD-10-PCS; 2024-01-02)
PROC: B513ZZA Fluoroscopy of Right Jugular Veins, Guidance (ICD-10-PCS; 2024-01-02)
PROC: 0JPT3XZ Removal of Tunneled Vascular Access Device from Trunk Subcutaneous Tissue and Fascia, Percutaneous Approach (ICD-10-PCS; 2024-01-02)
PROC: 5A1D70Z Performance of Urinary Filtration, Intermittent, Less than 6 Hours Per Day (ICD-10-PCS; 2024-01-02)
DX: T82.898A Other specified complication of vascular prosthetic devices, implants and grafts, initial encounter (principal); I12.0 Hypertensive chronic kidney disease with stage 5 chronic kidney disease or end stage renal disease; E11.22 Type 2 diabetes mellitus with diabetic chronic kidney disease; G40.909 Epilepsy, unspecified, not intractable, without status epilepticus; I16.0 Hypertensive urgency; N18.6 End stage renal disease; Z99.2 Dependence on renal dialysis; E11.65 Type 2 diabetes mellitus with hyperglycemia; F31.9 Bipolar disorder, unspecified; K21.9 Gastro-esophageal reflux disease without esophagitis; E66.9 Obesity, unspecified; Z68.36 Body mass index [BMI] 36.0-36.9, adult; Y83.8 Other surgical procedures as the cause of abnormal reaction of the patient, or of later complication, without mention of misadventure at the time of the procedure
CPT/HCPCS: 36415; 36558; 71045-TC-FY; 76937; 80053; 82962; 83735; 84100; 84703; 85025; 85027; 85610; 85730; 86850; 86900; 86901; 93005; 93010; 99283-25; 99285-25; J1644

== ENCOUNTER 2024-01-07 14:01 | Emergency (ER) | payer OTHER ==
[2024-01-07 14:27] VITALS: RESP 19; TEMP 98.5; BMI 43.1
[2024-01-07] MEDS ORDERED: ALBUTEROL SO4 2.5/IPRATROPIUM 0.5 INH SOL 3 ML VIAL.NEB. NEB ONE (15:09)
[2024-01-07] MEDS ORDERED: ACETAMINOPHEN 325 MG TABLET (FP) ONE (15:10)
[2024-01-07] MEDS: ACETAMINOPHEN 325 MG TABLET (FP) PO ONE (15:36)
[2024-01-07] MEDS: ALBUTEROL SO4 2.5/IPRATROPIUM 0.5 INH SOL 3 ML VIAL.NEB. NEB ONE (15:37)
[2024-01-07 15:57] LABS: BASO % 0.6 % (0-2.0); EOS % 4.3 % (0-4.5); HEMATOCRIT 31.2 % (32.4-45.2); HEMOGLOBIN 9.9 GM/dL (10.7-15.3); MCH 30.5 pg (25.7-33.7); MCHC 31.8 g/dl (32.0-36.0); MEAN CELL VOLUME 95.8 fl (80-96); MEAN PLT VOLUME 7.5 fl (7.5-11.1); MONO % 9.7 % (3.8-10.2); NEUT % 67.4 % (42.8-82.8); PLATELET COUNT 172 10^3/uL (134-434); RBC 3.25 M/mm3 (3.60-5.2); RDW 18.4 % (11.6-15.6); WHITE BLOOD COUNT 6.3 K/mm3 (4.0-10.0)
[2024-01-07 16:03] LABS: CHLORIDE 110 mmol/L (98-107); POTASSIUM 5.7 mmol/L (3.5-5.1); SODIUM 140 mmol/L (136-145)
[2024-01-07 16:05] LABS: CALCIUM 8.3 mg/dL (8.5-10.1)
[2024-01-07 16:06] LABS: ALBUMIN 2.8 g/dl (3.4-5.0); ANION GAP 8 mmol/L (4-13); BLOOD UREA NITROGEN 52.1 mg/dL (7-18); CO2 23 mmol/L (21-32); GLUCOSE,RANDOM 199 mg/dL (74-106)
[2024-01-07 16:10] LABS: SGOT/AST 23 U/L (15-37); SGPT/ALT 13 U/L (13-61)
[2024-01-07 16:11] LABS: BILIRUBIN,TOTAL 0.4 mg/dL (0.2-1); TOT PROT 6.6 g/dl (6.4-8.2)
[2024-01-07 16:12] LABS: ALK PHOS 91 U/L (45-117)
[2024-01-07 16:18] LABS: CREATININE 12.8 mg/dL (0.55-1.3)
[2024-01-07 19:17] VITALS: BP 133/78; PULSE 75
== END 2024-01-07 19:00 | disposition home or self-care (01) ==
LOC: JER 14:01
PROC: 3E0F7GC Introduction of Other Therapeutic Substance into Respiratory Tract, Via Natural or Artificial Opening (ICD-10-PCS; principal; 2024-01-07)
DX: R05.9 Cough, unspecified (principal); M79.10 Myalgia, unspecified site; R11.0 Nausea; R53.81 Other malaise; J45.21 Mild intermittent asthma with (acute) exacerbation; Z20.822 Contact with and (suspected) exposure to COVID-19
CPT/HCPCS: 0241U-QW; 36415; 71046-TC-FY; 80053; 83735; 84703; 85025; 93005; 93010; 99285-25

== ENCOUNTER 2024-01-11 17:07 | Inpatient (IN) | payer OTHER ==
[2024-01-11 18:46] LABS: INR 1.01 (0.83-1.09); PROTHROMBIN TIME (PATIENT) 11.7 SEC (9.7-13.0)
[2024-01-11 18:48] LABS: ACTIVATED PTT 29.4 SECONDS (25.2-36.5)
[2024-01-11 18:49] LABS: BASO % 0.6 % (0-2.0); EOS % 6.6 % (0-4.5); HEMATOCRIT 32.5 % (32.4-45.2); HEMOGLOBIN 10.6 GM/dL (10.7-15.3); MCH 30.7 pg (25.7-33.7); MCHC 32.7 g/dl (32.0-36.0); MEAN PLT VOLUME 7.8 fl (7.5-11.1); MONO % 8.3 % (3.8-10.2); NEUT % 53.5 % (42.8-82.8); PLATELET COUNT 272 10^3/uL (134-434); RBC 3.46 M/mm3 (3.60-5.2); WHITE BLOOD COUNT 4.8 K/mm3 (4.0-10.0)
[2024-01-11 18:59] LABS: CHLORIDE 108 mmol/L (98-107); POTASSIUM 4.8 mmol/L (3.5-5.1); SODIUM 140 mmol/L (136-145)
[2024-01-11 19:01] LABS: CALCIUM 7.9 mg/dL (8.5-10.1)
[2024-01-11 19:02] LABS: ANION GAP 9 mmol/L (4-13); BLOOD UREA NITROGEN 47.5 mg/dL (7-18); CO2 24 mmol/L (21-32); GLUCOSE,RANDOM 157 mg/dL (74-106)
[2024-01-11 19:05] LABS: SGOT/AST 19 U/L (15-37); SGPT/ALT 21 U/L (13-61)
[2024-01-11 19:06] LABS: BILIRUBIN,TOTAL 0.3 mg/dL (0.2-1); TOT PROT 6.8 g/dl (6.4-8.2)
[2024-01-11 19:08] LABS: ALK PHOS 100 U/L (45-117)
[2024-01-11 19:18] LABS: VENOUS BASE EXCESS -2.4 mmol/L (-2-2); VENOUS O2 SATURATION 78.7 % (70-80); VENOUS PH 7.378 (7.310-7.410)
[2024-01-11 19:18] LABS: CREATININE 12.4 mg/dL (0.55-1.3)
[2024-01-11] MEDS ORDERED: hydrALAZINE HCL 50 MG TABLET (FP) ONE (19:40)
[2024-01-11] MEDS: hydrALAZINE HCL 50 MG TABLET (FP) PO ONE (19:47)
[2024-01-12] MEDS ORDERED: ALBUTEROL SO4 2.5/IPRATROPIUM 0.5 INH SOL 3 ML VIAL.NEB. NEB ONE (01:37)
[2024-01-12] MEDS ORDERED: levETIRAcetam 500 MG TABLET (FP) PO SCH (02:15)
[2024-01-12] MEDS ORDERED: CLONIDINE TD SCH (02:15)
[2024-01-12 02:32] LABS: ARTERIAL BLD GAS O2 SATURATION 98.1 % (95-98); ARTERIAL BLOOD GAS BASE EXCESS -3.2 mmol/L (-2-2); ARTERIAL BLOOD GAS PO2 107.1 mmHg (80-100); ARTERIAL BLOOD GAS pH 7.423 (7.350-7.450)
[2024-01-12] MEDS ORDERED: methylPREDNISolone NA SUCC 125 MG/2 ML VIAL ONE (02:33)
[2024-01-12] MEDS: methylPREDNISolone NA SUCC 125 MG/2 ML VIAL IVPUSH ONE (02:52)
[2024-01-12] MEDS: levETIRAcetam 500 MG TABLET (FP) PO ONE (02:52)
[2024-01-12] MEDS: BUDESONIDE/FORMETEROL FUMARATE 160/4.5 mcg INHALER IH ONE ×2 (03:05→19:52)
[2024-01-12] MEDS: methylPREDNISolone NA SUCC 125 MG/2 ML VIAL IM ONE (03:06)
[2024-01-12] MEDS ORDERED: hydrALAZINE HCL 50 MG TABLET (FP) ONE (06:11)
[2024-01-12] MEDS ORDERED: HEPARIN NA (PORCINE) 5,000 UNITS/ML 1ML VIAL ONE (06:12)
[2024-01-12] MEDS: HEPARIN NA (PORCINE) 5,000 UNITS/ML 1ML VIAL SQ SCH (06:25)
[2024-01-12] MEDS: hydrALAZINE HCL 50 MG TABLET (FP) PO SCH (06:25)
[2024-01-12 07:40] LABS: BASO % 0.5 % (0-2.0); EOS % 0.3 % (0-4.5); HEMATOCRIT 33.4 % (32.4-45.2); HEMOGLOBIN 10.6 GM/dL (10.7-15.3); LYMPH % 11.1 % (8-40); MCH 30.2 pg (25.7-33.7); MCHC 31.8 g/dl (32.0-36.0); MEAN CELL VOLUME 94.9 fl (80-96); MEAN PLT VOLUME 7.9 fl (7.5-11.1); MONO % 1.6 % (3.8-10.2); NEUT % 86.5 % (42.8-82.8); PLATELET COUNT 305 10^3/uL (134-434); RBC 3.52 M/mm3 (3.60-5.2); RDW 18.3 % (11.6-15.6); WHITE BLOOD COUNT 5.5 K/mm3 (4.0-10.0)
[2024-01-12] MEDS ORDERED: ALBUTEROL SO4 2.5/IPRATROPIUM 0.5 INH SOL 3 ML VIAL.NEB. NEB SCH (08:00)
[2024-01-12 08:01] LABS: CHLORIDE 108 mmol/L (98-107); POTASSIUM 5.1 mmol/L (3.5-5.1); SODIUM 139 mmol/L (136-145)
[2024-01-12 08:02] LABS: CALCIUM 7.9 mg/dL (8.5-10.1)
[2024-01-12 08:03] LABS: ANION GAP 12 mmol/L (4-13); CO2 19 mmol/L (21-32); GLUCOSE,RANDOM 211 mg/dL (74-106); MAGNESIUM 1.9 mg/dL (1.8-2.4)
[2024-01-12 08:05] LABS: SGOT/AST 17 U/L (15-37); SGPT/ALT 18 U/L (13-61)
[2024-01-12 08:06] LABS: PHOSPHOROUS 4.8 mg/dL (2.5-4.9)
[2024-01-12 08:07] LABS: BILIRUBIN,TOTAL 0.4 mg/dL (0.2-1); TOT PROT 6.7 g/dl (6.4-8.2)
[2024-01-12 08:08] LABS: ALK PHOS 93 U/L (45-117)
[2024-01-12] MEDS: INSULIN ASPART SLIDING SCALE (NOVOLOG) 1 VIAL SQ SCH (08:33)
[2024-01-12] MEDS: TAMSULOSIN HCL 0.4 MG CAP PO SCH (08:36)
[2024-01-12] MEDS: PANTOPRAZOLE 40 MG TABLET PO SCH (09:00)
[2024-01-12] MEDS: TOPIRAMATE 25 MG TABLET PO SCH (09:00)
[2024-01-12] MEDS: ARIPiprazole 15 MG TABLET PO SCH (09:00)
[2024-01-12] MEDS: methylPREDNISolone NA SUCC 40 MG/1 ML VIAL IVPUSH SCH ×2 (09:00→21:15)
[2024-01-12] MEDS: ESCITALOPRAM OXALATE 10 MG TABLET PO SCH (09:00)
[2024-01-12] MEDS: levETIRAcetam 500 MG TABLET (FP) PO SCH (09:00)
[2024-01-12] MEDS: ALBUTEROL SO4 2.5/IPRATROPIUM 0.5 INH SOL 3 ML VIAL.NEB. NEB SCH (09:00)
[2024-01-12] MEDS: amLODIPine BESYLATE 10 MG TABLET (FP) PO SCH (09:00)
[2024-01-12] MEDS: LOSARTAN POTASSIUM 50 MG TABLET PO SCH (09:00)
[2024-01-12] MEDS ORDERED: ALBUTEROL SO4 2.5/IPRATROPIUM 0.5 INH SOL 3 ML VIAL.NEB. NEB PRN (15:03)
[2024-01-12] MEDS: ATORVASTATIN CA 20 MG TABLET (FP) PO SCH (21:15)
[2024-01-12] MEDS: MONTELUKAST NA 10 MG TABLET PO SCH (21:15)
[2024-01-13 07:25] LABS: BASO % 0.2 % (0-2.0); EOS % 0.2 % (0-4.5); HEMATOCRIT 31.6 % (32.4-45.2); HEMOGLOBIN 10.1 GM/dL (10.7-15.3); LYMPH % 18.7 % (8-40); MCH 30.3 pg (25.7-33.7); MCHC 31.9 g/dl (32.0-36.0); MEAN CELL VOLUME 95.1 fl (80-96); MEAN PLT VOLUME 8.4 fl (7.5-11.1); MONO % 4.7 % (3.8-10.2); NEUT % 76.2 % (42.8-82.8); PLATELET COUNT 173 10^3/uL (134-434); RBC 3.33 M/mm3 (3.60-5.2); RDW 18.5 % (11.6-15.6); WHITE BLOOD COUNT 6.6 K/mm3 (4.0-10.0)
[2024-01-13 07:39] LABS: CHLORIDE 99 mmol/L (98-107); SODIUM 136 mmol/L (136-145)
[2024-01-13 07:46] LABS: ANION GAP 14 mmol/L (4-13); BLOOD UREA NITROGEN 53.7 mg/dL (7-18); CALCIUM 7.7 mg/dL (8.5-10.1); CO2 23 mmol/L (21-32); GLUCOSE,RANDOM 357 mg/dL (74-106); MAGNESIUM 1.9 mg/dL (1.8-2.4)
[2024-01-13 07:47] LABS: ALBUMIN 2.8 g/dl (3.4-5.0)
[2024-01-13 07:50] LABS: SGOT/AST 18 U/L (15-37)
[2024-01-13 07:51] LABS: BILIRUBIN,TOTAL 0.3 mg/dL (0.2-1); SGPT/ALT 18 U/L (13-61)
[2024-01-13 07:52] LABS: TOT PROT 6.3 g/dl (6.4-8.2)
[2024-01-13 07:53] LABS: ALK PHOS 88 U/L (45-117); CREATININE 10.9 mg/dL (0.55-1.3)
[2024-01-13] MEDS: SODIUM ZIRCONIUM CYCLOSILICATE (LOKELMA) 5 GM PACKET PO ONE (08:43)
[2024-01-13] MEDS: predniSONE 20 MG TABLET (UD) PO SCH (09:07)
[2024-01-13] MEDS: LORATADINE 10 MG TABLET PO SCH (09:09)
[2024-01-13] MEDS: ALBUTEROL SO4 2.5/IPRATROPIUM 0.5 INH SOL 3 ML VIAL.NEB. NEB SCH (11:53)
[2024-01-13] MEDS: guaiFENesin/D-METHORPHAN HB 10 ML UNIT-DOSE CUPS PO PRN (14:58)
[2024-01-13] MEDS: TRIMETHOBENZAMIDE HCL 200MG/2ML INJ IM PRN (15:00)
[2024-01-13] MEDS: BUDESONIDE/FORMETEROL FUMARATE 160/4.5 mcg INHALER IH ONE (18:00)
[2024-01-13] MEDS: ONDANSETRON 4 MG/2 ML VIAL IVPUSH ONE (18:15)
[2024-01-13] MEDS: hydrALAZINE HCL 20 MG/ML VIAL IVPB PRN (19:30)
[2024-01-13] MEDS: INSULIN (LEVEMIR) 100 UNITS/ML UNITS SQ SCH (21:50)
[2024-01-14] MEDS: METOCLOPRAMIDE HCL INJECTION 10 MG/2 ML VIAL IVPUSH ONE (03:23)
[2024-01-14] MEDS: PROCHLORPERAZINE INJECTION 10 MG/2 ML VIAL IVPB ONE (05:06)
[2024-01-14] MEDS ORDERED: METOCLOPRAMIDE HCL INJECTION 10 MG/2 ML VIAL IVPUSH PRN ×2 (07:42→07:45)
[2024-01-14 09:53] LABS: BASO % 0.4 % (0-2.0); HEMATOCRIT 31.1 % (32.4-45.2); HEMOGLOBIN 10.2 GM/dL (10.7-15.3); LYMPH % 14.7 % (8-40); MCH 30.7 pg (25.7-33.7); MCHC 32.8 g/dl (32.0-36.0); MEAN CELL VOLUME 93.5 fl (80-96); MEAN PLT VOLUME 7.8 fl (7.5-11.1); MONO % 7.7 % (3.8-10.2); NEUT % 77.2 % (42.8-82.8); PLATELET COUNT 233 10^3/uL (134-434); RBC 3.33 M/mm3 (3.60-5.2); RDW 18.8 % (11.6-15.6); WHITE BLOOD COUNT 8.8 K/mm3 (4.0-10.0)
[2024-01-14 09:57] LABS: CHLORIDE 102 mmol/L (98-107); POTASSIUM 4.9 mmol/L (3.5-5.1); SODIUM 138 mmol/L (136-145)
[2024-01-14 10:00] LABS: ALBUMIN 2.9 g/dl (3.4-5.0); ANION GAP 12 mmol/L (4-13); BLOOD UREA NITROGEN 61.1 mg/dL (7-18); CO2 24 mmol/L (21-32); GLUCOSE,RANDOM 233 mg/dL (74-106)
[2024-01-14 10:03] LABS: SGOT/AST 21 U/L (15-37); SGPT/ALT 18 U/L (13-61)
[2024-01-14 10:05] LABS: BILIRUBIN,TOTAL 0.6 mg/dL (0.2-1); TOT PROT 6.4 g/dl (6.4-8.2)
[2024-01-14 10:06] LABS: ALK PHOS 85 U/L (45-117)
[2024-01-14 10:12] LABS: CREATININE 13.9 mg/dL (0.55-1.3)
[2024-01-14] MEDS: levETIRAcetam 500 MG/5 ML INJECTION VIAL IVPB SCH (10:44)
[2024-01-14] MEDS: cloNIDine-TTS 0.1 MG/24 HRS PATCH.TDWK TD SCH (13:04)
[2024-01-14] MEDS: BUDESONIDE/FORMETEROL FUMARATE 80/4.5 mcg INHALER IH SCH (13:42)
[2024-01-14 14:56] VITALS: BMI 44.8
[2024-01-14] MEDS ORDERED: SODIUM CHLORIDE 250 ML IV PRN (15:14)
[2024-01-14 18:45] LABS: OPIATES, URI NEGATIVE (NEGATIVE); PHENCYCLIDINE,URINE NEGATIVE (NEGATIVE); URINE BARBITURATES NEGATIVE (NEGATIVE); URINE BENZODIAZEPINES NEGATIVE (NEGATIVE)
[2024-01-14 18:46] LABS: METHADONE, UR NEGATIVE (NEGATIVE)
[2024-01-14 18:50] LABS: COCAINE, UR NEGATIVE (NEGATIVE); URINE AMPHETAMINES NEGATIVE (NEGATIVE)
[2024-01-14] MEDS: ACETAMINOPHEN 1000 MG/100 ML BAG IVPB ONE (23:46)
[2024-01-15 07:45] LABS: BASO % 0.4 % (0-2.0); EOS % 0.1 % (0-4.5); HEMATOCRIT 30.7 % (32.4-45.2); HEMOGLOBIN 10.2 GM/dL (10.7-15.3); LYMPH % 15.8 % (8-40); MCHC 33.2 g/dl (32.0-36.0); MEAN CELL VOLUME 93.3 fl (80-96); MEAN PLT VOLUME 7.8 fl (7.5-11.1); MONO % 8.8 % (3.8-10.2); NEUT % 74.9 % (42.8-82.8); PLATELET COUNT 237 10^3/uL (134-434); RBC 3.29 M/mm3 (3.60-5.2); RDW 18.3 % (11.6-15.6); WHITE BLOOD COUNT 10.4 K/mm3 (4.0-10.0)
[2024-01-15 07:48] LABS: CHLORIDE 97 mmol/L (98-107); POTASSIUM 4.6 mmol/L (3.5-5.1); SODIUM 133 mmol/L (136-145)
[2024-01-15 07:54] LABS: CALCIUM 7.8 mg/dL (8.5-10.1); GLUCOSE,RANDOM 240 mg/dL (74-106)
[2024-01-15 07:55] LABS: ALBUMIN 2.9 g/dl (3.4-5.0); ANION GAP 13 mmol/L (4-13); BLOOD UREA NITROGEN 71.5 mg/dL (7-18); CO2 23 mmol/L (21-32); MAGNESIUM 1.9 mg/dL (1.8-2.4)
[2024-01-15 07:56] LABS: SGOT/AST 15 U/L (15-37)
[2024-01-15 07:57] LABS: PHOSPHOROUS 5.4 mg/dL (2.5-4.9); SGPT/ALT 12 U/L (13-61)
[2024-01-15 07:58] LABS: BILIRUBIN,TOTAL 0.3 mg/dL (0.2-1)
[2024-01-15 07:59] LABS: ALK PHOS 82 U/L (45-117)
[2024-01-15 08:04] LABS: CREATININE 15.2 mg/dL (0.55-1.3)
[2024-01-15] MEDS ORDERED: SODIUM CHLORIDE 250 ML IV PRN (13:29)
[2024-01-15] MEDS: HEPARIN NA (PORCINE) 5,000 UNITS/ML 1ML VIAL IVPUSH ONE (17:37)
[2024-01-15] MEDS: HEPARIN NA (PORCINE) 5,000 UNITS/ML 1ML VIAL IVPUSH SCH (17:37)
[2024-01-15] MEDS: predniSONE 20 MG TABLET (UD) PO SCH (18:32)
[2024-01-15 19:50] VITALS: BP 167/102; PULSE 102; RESP 19; TEMP 98.5
== END 2024-01-15 17:30 | disposition home or self-care (01) | DRG 141 ==
LOC: JER 17:07 → JERBED 01-12 00:38 → OBSVTOIN 01-12 00:38 → UNDOADMOB 01-12 00:38 → INTOOBSV 01-12 00:38 → J4W 01-12 13:56 → JERBED 01-12 13:56 → J4W 01-14 11:45 → OBSVTOIN 01-14 11:45
PROVIDERS: ADMIT Internal Medicine; ATTEND Nurse Practitioner Acute Care
PROC: 5A1D70Z Performance of Urinary Filtration, Intermittent, Less than 6 Hours Per Day (ICD-10-PCS; principal; 2024-01-15)
DX: J45.901 Unspecified asthma with (acute) exacerbation (principal); U07.1 COVID-19; I67.4 Hypertensive encephalopathy; E11.22 Type 2 diabetes mellitus with diabetic chronic kidney disease; E66.01 Morbid (severe) obesity due to excess calories; E87.5 Hyperkalemia; I12.0 Hypertensive chronic kidney disease with stage 5 chronic kidney disease or end stage renal disease; N18.6 End stage renal disease; Z68.42 Body mass index [BMI] 45.0-49.9, adult; E78.5 Hyperlipidemia, unspecified; F12.90 Cannabis use, unspecified, uncomplicated; F17.210 Nicotine dependence, cigarettes, uncomplicated; F31.9 Bipolar disorder, unspecified; G40.909 Epilepsy, unspecified, not intractable, without status epilepticus; I16.1 Hypertensive emergency; K21.9 Gastro-esophageal reflux disease without esophagitis; Z99.2 Dependence on renal dialysis
CPT/HCPCS: 36415; 36600; 70450-TC; 71045-TC-FY; 80053; 80177; 80307; 82803; 82962; 83735; 84100; 84484; 84703; 85025; 85610; 85730; 93005; 93010; 94640; 99285-25; J0131; J1644; J2997

== ENCOUNTER 2024-01-17 18:36 | Inpatient (IN) | payer OTHER ==
[2024-01-17] MEDS ORDERED: hydrALAZINE HCL 50 MG TABLET (FP) ONE (20:16)
[2024-01-17] MEDS: hydrALAZINE HCL 50 MG TABLET (FP) PO ONE (20:23)
[2024-01-17 20:24] LABS: BASO % 0.7 % (0-2.0); EOS % 0.2 % (0-4.5); HEMATOCRIT 39.6 % (32.4-45.2); HEMOGLOBIN 12.8 GM/dL (10.7-15.3); LYMPH % 18.5 % (8-40); MCH 30.5 pg (25.7-33.7); MCHC 32.5 g/dl (32.0-36.0); MEAN CELL VOLUME 93.8 fl (80-96); MEAN PLT VOLUME 7.6 fl (7.5-11.1); MONO % 7.5 % (3.8-10.2); NEUT % 73.1 % (42.8-82.8); PLATELET COUNT 209 10^3/uL (134-434); RBC 4.22 M/mm3 (3.60-5.2); RDW 18.9 % (11.6-15.6); WHITE BLOOD COUNT 10.3 K/mm3 (4.0-10.0)
[2024-01-17 20:33] LABS: INR 0.96 (0.83-1.09); PROTHROMBIN TIME (PATIENT) 11.1 SEC (9.7-13.0)
[2024-01-17 20:52] LABS: CHLORIDE 104 mmol/L (98-107); SODIUM 141 mmol/L (136-145)
[2024-01-17 20:54] LABS: ANION GAP 10 mmol/L (4-13); CALCIUM 8.4 mg/dL (8.5-10.1); CO2 27 mmol/L (21-32); GLUCOSE,RANDOM 161 mg/dL (74-106); MAGNESIUM 2.2 mg/dL (1.8-2.4)
[2024-01-17 20:55] LABS: ALBUMIN 3.3 g/dl (3.4-5.0)
[2024-01-17 20:57] LABS: SGPT/ALT 19 U/L (13-61)
[2024-01-17 20:58] LABS: SGOT/AST 13 U/L (15-37)
[2024-01-17 20:59] LABS: BILIRUBIN,TOTAL 0.4 mg/dL (0.2-1); TOT PROT 6.8 g/dl (6.4-8.2)
[2024-01-17 21:00] LABS: ALK PHOS 95 U/L (45-117)
[2024-01-17 21:01] LABS: BLOOD UREA NITROGEN 41.4 mg/dL (7-18)
[2024-01-17] MEDS ORDERED: hydrALAZINE HCL 20 MG/ML VIAL ONE (22:32)
[2024-01-17] MEDS: hydrALAZINE HCL 20 MG/ML VIAL IVPUSH ONE (22:38)
[2024-01-17] MEDS ORDERED: levETIRAcetam 500 MG TABLET (FP) PO SCH (23:45)
[2024-01-18] MEDS: hydrALAZINE HCL 50 MG TABLET (FP) PO SCH ×3 (05:30→20:41)
[2024-01-18] MEDS: INSULIN ASPART SLIDING SCALE (NOVOLOG) 1 VIAL SQ SCH ×2 (06:04→21:59)
[2024-01-18] MEDS: ACETAMINOPHEN 325 MG TABLET (FP) PO ONE (06:17)
[2024-01-18] MEDS: TAMSULOSIN HCL 0.4 MG CAP PO SCH (08:26)
[2024-01-18] MEDS: LORATADINE 10 MG TABLET PO SCH (09:26)
[2024-01-18] MEDS: amLODIPine BESYLATE 10 MG TABLET (FP) PO SCH (09:26)
[2024-01-18] MEDS: LOSARTAN POTASSIUM 50 MG TABLET PO SCH (09:26)
[2024-01-18] MEDS: levETIRAcetam 500 MG TABLET (FP) PO SCH ×2 (09:26→23:19)
[2024-01-18] MEDS: ESCITALOPRAM OXALATE 10 MG TABLET PO SCH (09:26)
[2024-01-18] MEDS: TOPIRAMATE 25 MG TABLET PO SCH ×2 (09:26→23:23)
[2024-01-18] MEDS: PANTOPRAZOLE 40 MG TABLET PO SCH (09:26)
[2024-01-18 10:03] LABS: BASO % 0.6 % (0-2.0); HEMATOCRIT 40.4 % (32.4-45.2); LYMPH % 26.4 % (8-40); MCH 30.4 pg (25.7-33.7); MCHC 32.2 g/dl (32.0-36.0); MEAN CELL VOLUME 94.5 fl (80-96); MEAN PLT VOLUME 7.8 fl (7.5-11.1); MONO % 9.1 % (3.8-10.2); NEUT % 62.9 % (42.8-82.8); PLATELET COUNT 207 10^3/uL (134-434); RBC 4.27 M/mm3 (3.60-5.2); RDW 19.2 % (11.6-15.6); WHITE BLOOD COUNT 8.6 K/mm3 (4.0-10.0)
[2024-01-18 10:22] LABS: CHLORIDE 105 mmol/L (98-107); POTASSIUM 4.2 mmol/L (3.5-5.1); SODIUM 140 mmol/L (136-145)
[2024-01-18 10:30] LABS: CALCIUM 8.2 mg/dL (8.5-10.1)
[2024-01-18 10:31] LABS: ALBUMIN 3.1 g/dl (3.4-5.0); ANION GAP 7 mmol/L (4-13); BLOOD UREA NITROGEN 49.1 mg/dL (7-18); CO2 28 mmol/L (21-32); GLUCOSE,RANDOM 133 mg/dL (74-106); MAGNESIUM 2.1 mg/dL (1.8-2.4)
[2024-01-18 10:34] LABS: PHOSPHOROUS 5.3 mg/dL (2.5-4.9); SGOT/AST 16 U/L (15-37); SGPT/ALT 16 U/L (13-61)
[2024-01-18 10:35] LABS: TOT PROT 6.5 g/dl (6.4-8.2)
[2024-01-18 10:36] LABS: BILIRUBIN,TOTAL 0.4 mg/dL (0.2-1)
[2024-01-18 10:37] LABS: ALK PHOS 103 U/L (45-117)
[2024-01-18 10:43] LABS: CREATININE 12.2 mg/dL (0.55-1.3)
[2024-01-18] MEDS: ARIPiprazole 15 MG TABLET PO SCH (11:31)
[2024-01-18] MEDS ORDERED: LABETALOL HCL 20 MG/4 ML VIAL IVPUSH PRN ×3 (11:57→18:56)
[2024-01-18] MEDS ORDERED: MAG HYDROX/AL HYDROX/SIMETH 30 ML UNIT-DOSE CUP PO PRN ×2 (12:00→18:56)
[2024-01-18] MEDS ORDERED: LIDOCAINE HCL 1%, 10 MG/ML (20ML VIAL) ONE (14:35)
[2024-01-18] MEDS ORDERED: HEPARIN NA (PORCINE) 5,000 UNITS/ML 1ML VIAL ONE (14:36)
[2024-01-18] MEDS ORDERED: ACETAMINOPHEN 325 MG TABLET (FP) PO PRN (14:37)
[2024-01-18] MEDS: ACETAMINOPHEN 325 MG TABLET (FP) PO PRN ×2 (15:52→23:41)
[2024-01-18] MEDS ORDERED: SODIUM CHLORIDE 250 ML IV PRN ×2 (16:51→18:56)
[2024-01-18] MEDS ORDERED: ONDANSETRON 4 MG/2 ML VIAL IVPUSH PRN (17:56)
[2024-01-18] MEDS ORDERED: PROMETHAZINE HCL 25 MG/1 ML VIAL IVPB PRN ×2 (17:56→18:56)
[2024-01-18] MEDS ORDERED: SODIUM CHLORIDE 1,000 ML IV SCH ×2 (18:00→18:56)
[2024-01-18] MEDS: ceFAZolin SODIUM 1 GM VIAL IVPB ONE (18:25)
[2024-01-18] MEDS: LIDOCAINE HCL 1%, 10 MG/ML (20ML VIAL) INF ONE (18:32)
[2024-01-18] MEDS ORDERED: hydrALAZINE HCL 20 MG/ML VIAL ONE (20:13)
[2024-01-18] MEDS: hydrALAZINE HCL 20 MG/ML VIAL IVPUSH ONE ×2 (20:17→21:35)
[2024-01-18] MEDS ORDERED: ATORVASTATIN CA 20 MG TABLET (FP) PO SCH (22:00)
[2024-01-18] MEDS ORDERED: MONTELUKAST NA 10 MG TABLET PO SCH (22:00)
[2024-01-18] MEDS ORDERED: MUPIROCIN 2% TOPICAL OINTMENT FOR DECOLONIZATION NS SCH ×2 (22:00)
[2024-01-18] MEDS ORDERED: levETIRAcetam 500 MG TABLET (FP) PO SCH (22:00)
[2024-01-18] MEDS ORDERED: CHLORHEXIDINE GLUCONATE 4% CLEANSER FOR DECOLONIZATION TP SCH ×2 (22:00)
[2024-01-18] MEDS: ONDANSETRON 4 MG/2 ML VIAL IVPUSH PRN (22:10)
[2024-01-18] MEDS: NICARDIPINE 25 MG in DEXTROSE 5%-WATER - 240 ML IVPB SCH (23:03)
[2024-01-18] MEDS: ATORVASTATIN CA 20 MG TABLET (FP) PO SCH (23:19)
[2024-01-18] MEDS: MONTELUKAST NA 10 MG TABLET PO SCH (23:19)
[2024-01-19] MEDS ORDERED: LABETALOL HCL 20 MG/4 ML VIAL IVPUSH PRN (01:15)
[2024-01-19] MEDS ORDERED: MAG HYDROX/AL HYDROX/SIMETH 30 ML UNIT-DOSE CUP PO PRN (01:15)
[2024-01-19] MEDS: hydrALAZINE HCL 50 MG TABLET (FP) PO SCH (05:53)
[2024-01-19] MEDS: ACETAMINOPHEN 325 MG TABLET (FP) PO PRN (05:54)
[2024-01-19] MEDS: INSULIN ASPART SLIDING SCALE (NOVOLOG) 1 VIAL SQ SCH (06:30)
[2024-01-19 06:53] LABS: BASO % 0.5 % (0-2.0); EOS % 1.2 % (0-4.5); HEMATOCRIT 37.9 % (32.4-45.2); HEMOGLOBIN 11.8 GM/dL (10.7-15.3); LYMPH % 27.2 % (8-40); MCH 29.5 pg (25.7-33.7); MCHC 31.2 g/dl (32.0-36.0); MEAN CELL VOLUME 94.7 fl (80-96); MEAN PLT VOLUME 8.3 fl (7.5-11.1); MONO % 8.3 % (3.8-10.2); NEUT % 62.8 % (42.8-82.8); PLATELET COUNT 226 10^3/uL (134-434); RDW 18.8 % (11.6-15.6)
[2024-01-19 06:59] LABS: CHLORIDE 103 mmol/L (98-107); POTASSIUM 4.2 mmol/L (3.5-5.1); SODIUM 138 mmol/L (136-145)
[2024-01-19 07:02] LABS: CALCIUM 7.6 mg/dL (8.5-10.1)
[2024-01-19 07:03] LABS: ANION GAP 9 mmol/L (4-13); BLOOD UREA NITROGEN 54.2 mg/dL (7-18); CO2 27 mmol/L (21-32); GLUCOSE,RANDOM 143 mg/dL (74-106); MAGNESIUM 1.9 mg/dL (1.8-2.4)
[2024-01-19 07:06] LABS: PHOSPHOROUS 5.8 mg/dL (2.5-4.9); SGOT/AST 13 U/L (15-37); SGPT/ALT 12 U/L (13-61)
[2024-01-19 07:07] LABS: BILIRUBIN,TOTAL 0.4 mg/dL (0.2-1)
[2024-01-19 07:09] LABS: ALK PHOS 81 U/L (45-117); CREATININE 13.9 mg/dL (0.55-1.3)
[2024-01-19] MEDS ORDERED: TAMSULOSIN HCL 0.4 MG CAP PO SCH (08:30)
[2024-01-19] MEDS: HEPARIN NA (PORCINE) 5,000 UNITS/ML 1ML VIAL SQ SCH (09:27)
[2024-01-19] MEDS: amLODIPine BESYLATE 10 MG TABLET (FP) PO SCH (09:28)
[2024-01-19] MEDS: levETIRAcetam 500 MG TABLET (FP) PO SCH ×2 (09:28→11:11)
[2024-01-19] MEDS: LOSARTAN POTASSIUM 50 MG TABLET PO SCH (09:28)
[2024-01-19] MEDS: TAMSULOSIN HCL 0.4 MG CAP PO SCH (09:28)
[2024-01-19] MEDS: ESCITALOPRAM OXALATE 10 MG TABLET PO SCH (09:28)
[2024-01-19] MEDS: PANTOPRAZOLE 40 MG TABLET PO SCH (09:29)
[2024-01-19] MEDS: ARIPiprazole 15 MG TABLET PO SCH (09:29)
[2024-01-19] MEDS: LORATADINE 10 MG TABLET PO SCH (09:29)
[2024-01-19] MEDS: TOPIRAMATE 25 MG TABLET PO SCH (09:29)
[2024-01-19] MEDS: MUPIROCIN 2% TOPICAL OINTMENT FOR DECOLONIZATION NS SCH (09:30)
[2024-01-19] MEDS ORDERED: ARIPiprazole 15 MG TABLET PO SCH (10:00)
[2024-01-19] MEDS ORDERED: ESCITALOPRAM OXALATE 10 MG TABLET PO SCH (10:00)
[2024-01-19] MEDS ORDERED: LOSARTAN POTASSIUM 50 MG TABLET PO SCH (10:00)
[2024-01-19] MEDS ORDERED: LORATADINE 10 MG TABLET PO SCH (10:00)
[2024-01-19] MEDS ORDERED: amLODIPine BESYLATE 10 MG TABLET (FP) PO SCH (10:00)
[2024-01-19] MEDS ORDERED: PANTOPRAZOLE 40 MG TABLET PO SCH (10:00)
[2024-01-19] MEDS ORDERED: INSULIN (NOVOLOG) ASPART 100 UNITS/ML 10ML VIAL ONE ×3 (11:08→15:35)
[2024-01-19] MEDS ORDERED: levETIRAcetam 500 MG TABLET (FP) PO SCH ×2 (12:00)
[2024-01-19] MEDS: LABETALOL HCL 5 MG/1 ML (100MG/20 ML VIAL) IVPUSH PRN (12:57)
[2024-01-19] MEDS ORDERED: cloNIDine-TTS 0.1 MG/24 HRS PATCH.TDWK TD SCH (13:30)
[2024-01-19] MEDS: NICARDIPINE 25 MG in DEXTROSE 5%-WATER - 240 ML IVPB SCH (13:40)
[2024-01-19] MEDS: LIDOCAINE 4% PATCH TP ONE (14:50)
[2024-01-19] MEDS: cloNIDine-TTS 0.3 MG /24 HRS PATCH.TDWK TD SCH (15:23)
[2024-01-19] MEDS ORDERED: HEPARIN NA (PORCINE) 5,000 UNITS/ML 1ML VIAL IVPUSH ONE ×2 (16:51)
[2024-01-19] MEDS ORDERED: HEPARIN NA (PORCINE) 5,000 UNITS/ML 1ML VIAL IVPUSH SCH ×2 (17:00)
[2024-01-19] MEDS: ATORVASTATIN CA 20 MG TABLET (FP) PO SCH (21:46)
[2024-01-19] MEDS: MONTELUKAST NA 10 MG TABLET PO SCH (21:47)
[2024-01-19] MEDS: CHLORHEXIDINE GLUCONATE 4% CLEANSER FOR DECOLONIZATION TP SCH (21:54)
[2024-01-19] MEDS: LIDOCAINE PATCH REMOVAL MC SCH (21:56)
[2024-01-20] MEDS ORDERED: INSULIN (NOVOLOG) ASPART 100 UNITS/ML 10ML VIAL ONE (06:16)
[2024-01-20 08:59] LABS: HEMATOCRIT 32.3 % (32.4-45.2); HEMOGLOBIN 10.5 GM/dL (10.7-15.3); MCH 30.3 pg (25.7-33.7); MCHC 32.4 g/dl (32.0-36.0); MEAN CELL VOLUME 93.6 fl (80-96); MEAN PLT VOLUME 8.1 fl (7.5-11.1); PLATELET COUNT 173 10^3/uL (134-434); RBC 3.45 M/mm3 (3.60-5.2); RDW 18.8 % (11.6-15.6); WHITE BLOOD COUNT 6.9 K/mm3 (4.0-10.0)
[2024-01-20 09:25] LABS: CHLORIDE 104 mmol/L (98-107); POTASSIUM 3.9 mmol/L (3.5-5.1); SODIUM 134 mmol/L (136-145)
[2024-01-20 09:27] LABS: ANION GAP 9 mmol/L (4-13); BLOOD UREA NITROGEN 59.3 mg/dL (7-18); CO2 22 mmol/L (21-32); GLUCOSE,RANDOM 177 mg/dL (74-106)
[2024-01-20 09:35] LABS: CALCIUM 6.8 mg/dL (8.5-10.1); CREATININE 15.2 mg/dL (0.55-1.3)
[2024-01-20] MEDS ORDERED: LIDOCAINE HCL 1%, 10 MG/ML (20ML VIAL) ONE (12:49)
[2024-01-20] MEDS ORDERED: MIDAZOLAM HCL 2 MG/2 ML SINGLE DOSE VIAL ONE ×2 (16:56→17:00)
[2024-01-20] MEDS ORDERED: FENTANYL CITRATE/PF 50 MCG/ML VIAL ONE (16:56)
[2024-01-20] MEDS ORDERED: ceFAZolin SODIUM 1 GM VIAL ONE (17:02)
[2024-01-20] MEDS: LIDOCAINE HCL 1%, 10 MG/ML (50 mL VIAL) INF ONE (18:37)
[2024-01-20] MEDS: HEPARIN NA (PORCINE) 1,000 UNITS/ML 10ML M-D VIAL SQ ONE (18:41)
[2024-01-20] MEDS ORDERED: BACITRACIN ZINC 15 GM TUBE TOPICAL OINTMENT ONE (18:43)
[2024-01-20] MEDS: ceFAZolin SODIUM 1 GM VIAL IVPB ONE (18:47)
[2024-01-20] MEDS: HEPARIN NA (PORCINE) 5,000 UNITS/ML 1ML VIAL SQ ONE (18:47)
[2024-01-20] MEDS: FENTANYL CITRATE/PF 50 MCG/ML VIAL IVPUSH ONE (20:02)
[2024-01-20] MEDS ORDERED: SODIUM CHLORIDE 250 ML IV PRN ×2 (20:28→20:30)
[2024-01-20] MEDS: HEPARIN NA (PORCINE) 5,000 UNITS/ML 1ML VIAL IVPUSH ONE (20:41)
[2024-01-20] MEDS: HEPARIN NA (PORCINE) 5,000 UNITS/ML 1ML VIAL IVPUSH SCH (20:41)
[2024-01-20] MEDS: oxyCODONE HCL 5 MG TABLET PO PRN (23:10)
[2024-01-21 06:54] LABS: CHLORIDE 102 mmol/L (98-107); SODIUM 140 mmol/L (136-145)
[2024-01-21 06:56] LABS: ALBUMIN 2.5 g/dl (3.4-5.0); ANION GAP 11 mmol/L (4-13); CALCIUM 7.5 mg/dL (8.5-10.1); CO2 27 mmol/L (21-32); GLUCOSE,RANDOM 126 mg/dL (74-106)
[2024-01-21 06:57] LABS: BLOOD UREA NITROGEN 39.8 mg/dL (7-18)
[2024-01-21 06:59] LABS: PHOSPHOROUS 4.9 mg/dL (2.5-4.9)
[2024-01-21 07:00] LABS: SGOT/AST 9 U/L (15-37)
[2024-01-21 07:01] LABS: BILIRUBIN,TOTAL 0.4 mg/dL (0.2-1); TOT PROT 5.4 g/dl (6.4-8.2)
[2024-01-21 07:02] LABS: ALK PHOS 71 U/L (45-117)
[2024-01-21 07:30] LABS: CREATININE 11.3 mg/dL (0.55-1.3); SGPT/ALT < 6 U/L (13-61)
[2024-01-21] MEDS: oxyCODONE HCL 5 MG TABLET PO ONE (07:39)
[2024-01-21] MEDS: ACETAMINOPHEN 325 MG TABLET (FP) PO PRN (09:26)
[2024-01-21] MEDS ORDERED: MAG HYDROX/AL HYDROX/SIMETH 30 ML UNIT-DOSE CUP PO PRN ×2 (09:33→22:47)
[2024-01-21] MEDS ORDERED: SODIUM CHLORIDE 250 ML IV PRN ×2 (09:33)
[2024-01-21] MEDS ORDERED: cloNIDine-TTS 0.1 MG/24 HRS PATCH.TDWK TD SCH (10:00)
[2024-01-21] MEDS: ARIPiprazole 15 MG TABLET PO SCH (10:23)
[2024-01-21] MEDS: HEPARIN NA (PORCINE) 5,000 UNITS/ML 1ML VIAL SQ SCH (10:23)
[2024-01-21] MEDS: LORATADINE 10 MG TABLET PO SCH (10:24)
[2024-01-21] MEDS: amLODIPine BESYLATE 10 MG TABLET (FP) PO SCH (10:24)
[2024-01-21] MEDS: ESCITALOPRAM OXALATE 10 MG TABLET PO SCH (10:24)
[2024-01-21] MEDS: LOSARTAN POTASSIUM 50 MG TABLET PO SCH (10:24)
[2024-01-21] MEDS: levETIRAcetam 500 MG TABLET (FP) PO SCH (10:24)
[2024-01-21] MEDS: MUPIROCIN 2% TOPICAL OINTMENT FOR DECOLONIZATION NS SCH (10:25)
[2024-01-21] MEDS: TOPIRAMATE 25 MG TABLET PO SCH (10:25)
[2024-01-21] MEDS: NICARDIPINE 25 MG in DEXTROSE 5%-WATER - 240 ML IVPB SCH (10:25)
[2024-01-21] MEDS: PANTOPRAZOLE 40 MG TABLET PO SCH (10:25)
[2024-01-21] MEDS ORDERED: INSULIN (NOVOLOG) ASPART 100 UNITS/ML 10ML VIAL ONE (11:56)
[2024-01-21] MEDS: INSULIN ASPART SLIDING SCALE (NOVOLOG) 1 VIAL SQ SCH (11:59)
[2024-01-21] MEDS: HYDROmorphone HCl 2 MG/ML VIAL IVPUSH STA (11:59)
[2024-01-21] MEDS: LABETALOL HCL 5 MG/1 ML (100MG/20 ML VIAL) IVPUSH PRN (12:03)
[2024-01-21] MEDS: hydrALAZINE HCL 50 MG TABLET (FP) PO SCH (15:23)
[2024-01-21] MEDS: cloNIDine-TTS 0.3 MG /24 HRS PATCH.TDWK TD STA (20:03)
[2024-01-21] MEDS: MONTELUKAST NA 10 MG TABLET PO SCH (21:40)
[2024-01-21] MEDS: ATORVASTATIN CA 20 MG TABLET (FP) PO SCH (21:40)
[2024-01-21] MEDS: LIDOCAINE PATCH REMOVAL MC SCH (21:41)
[2024-01-21] MEDS: CHLORHEXIDINE GLUCONATE 4% CLEANSER FOR DECOLONIZATION TP SCH (21:42)
[2024-01-21] MEDS ORDERED: ACETAMINOPHEN 325 MG TABLET (FP) PO PRN (22:47)
[2024-01-22] MEDS: oxyCODONE HCL 5 MG TABLET PO PRN ×2 (01:00→22:49)
[2024-01-22] MEDS: hydrALAZINE HCL 50 MG TABLET (FP) PO SCH ×2 (05:54→22:27)
[2024-01-22] MEDS: INSULIN ASPART SLIDING SCALE (NOVOLOG) 1 VIAL SQ SCH ×2 (06:04→17:34)
[2024-01-22] MEDS ORDERED: TAMSULOSIN HCL 0.4 MG CAP PO SCH (08:30)
[2024-01-22 08:42] LABS: BASO % 0.6 % (0-2.0); EOS % 3.1 % (0-4.5); HEMOGLOBIN 10.1 GM/dL (10.7-15.3); LYMPH % 24.7 % (8-40); MCHC 31.7 g/dl (32.0-36.0); MEAN CELL VOLUME 94.6 fl (80-96); MEAN PLT VOLUME 8.4 fl (7.5-11.1); MONO % 15.5 % (3.8-10.2); NEUT % 56.1 % (42.8-82.8); PLATELET COUNT 181 10^3/uL (134-434); RBC 3.38 M/mm3 (3.60-5.2); RDW 18.2 % (11.6-15.6); WHITE BLOOD COUNT 5.7 K/mm3 (4.0-10.0)
[2024-01-22] MEDS: EPOETIN ALFA-EPBX 10,000 UNIT/ML VIAL SQ ONE (09:36)
[2024-01-22] MEDS: HEPARIN NA (PORCINE) 5,000 UNITS/ML 1ML VIAL IVPUSH SCH (09:36)
[2024-01-22] MEDS: amLODIPine BESYLATE 10 MG TABLET (FP) PO SCH (09:38)
[2024-01-22] MEDS: HEPARIN NA (PORCINE) 5,000 UNITS/ML 1ML VIAL IVPUSH ONE (09:38)
[2024-01-22] MEDS: ESCITALOPRAM OXALATE 10 MG TABLET PO SCH (09:38)
[2024-01-22] MEDS: LORATADINE 10 MG TABLET PO SCH (09:39)
[2024-01-22] MEDS: TOPIRAMATE 25 MG TABLET PO SCH ×2 (09:40→22:28)
[2024-01-22] MEDS: PANTOPRAZOLE 40 MG TABLET PO SCH (09:40)
[2024-01-22] MEDS: levETIRAcetam 500 MG TABLET (FP) PO SCH ×3 (09:40→22:28)
[2024-01-22] MEDS: LOSARTAN POTASSIUM 50 MG TABLET PO SCH (09:40)
[2024-01-22] MEDS: ARIPiprazole 15 MG TABLET PO SCH (09:44)
[2024-01-22] MEDS: TAMSULOSIN HCL 0.4 MG CAP PO SCH (09:45)
[2024-01-22] MEDS: HEPARIN NA (PORCINE) 5,000 UNITS/ML 1ML VIAL SQ SCH ×2 (09:47→22:27)
[2024-01-22 09:58] LABS: ALBUMIN 2.3 g/dl (3.4-5.0); ALK PHOS 64 U/L (45-117); ANION GAP 12 mmol/L (4-13); BILIRUBIN,TOTAL 0.4 mg/dL (0.2-1); BLOOD UREA NITROGEN 44.5 mg/dL (7-18); CALCIUM 7.9 mg/dL (8.5-10.1); CHLORIDE 101 mmol/L (98-107); CO2 26 mmol/L (21-32); CREATININE 12.5 mg/dL (0.55-1.3); GLUCOSE,RANDOM 146 mg/dL (74-106); PHOSPHOROUS 5.8 mg/dL (2.5-4.9); POTASSIUM 4.1 mmol/L (3.5-5.1); SGOT/AST 9 U/L (15-37); SGPT/ALT < 6 U/L (13-61); SODIUM 139 mmol/L (136-145); TOT PROT 5.2 g/dl (6.4-8.2)
[2024-01-22] MEDS ORDERED: MUPIROCIN 2% TOPICAL OINTMENT FOR DECOLONIZATION NS SCH (10:00)
[2024-01-22] MEDS ORDERED: POVIDONE-IODINE OINTMENT 10% - 28.4 GM TUBE ONE (11:54)
[2024-01-22] MEDS ORDERED: HEPARIN NA (PORCINE) 5,000 UNITS/ML 1ML VIAL ONE (11:54)
[2024-01-22] MEDS ORDERED: PAPAVERINE HCL 30 MG/1 ML 10 ML VIAL NR ONE (11:54)
[2024-01-22] MEDS ORDERED: LIDOCAINE HCL 1%, 10 MG/ML (20ML VIAL) ONE (11:54)
[2024-01-22] MEDS ORDERED: levETIRAcetam 500 MG TABLET (FP) PO SCH (12:00)
[2024-01-22] MEDS ORDERED: LIDOCAINE HCL/PF 2% SDV 5ML VIAL ONE (12:40)
[2024-01-22] MEDS ORDERED: FENTANYL CITRATE/PF 50 MCG/ML VIAL ONE (12:41)
[2024-01-22] MEDS ORDERED: PROPOFOL 20 ML ONE (12:41)
[2024-01-22] MEDS ORDERED: MIDAZOLAM HCL 2 MG/2 ML SINGLE DOSE VIAL ONE (12:41)
[2024-01-22] MEDS ORDERED: SODIUM CHLORIDE 250 ML IV PRN ×2 (13:00→15:19)
[2024-01-22] MEDS ORDERED: ceFAZolin SODIUM 1 GM VIAL ONE (13:11)
[2024-01-22] MEDS ORDERED: DEXAMETHASONE SOD PHOSPHATE 4 MG/1 ML VIAL ONE (13:11)
[2024-01-22] MEDS: ceFAZolin SODIUM 1 GM VIAL IVPB ONE (13:15)
[2024-01-22] MEDS: POVIDONE-IODINE OINTMENT 10% - 28.4 GM TUBE TP ONE (13:58)
[2024-01-22] MEDS ORDERED: ONDANSETRON 4 MG/2 ML VIAL ONE (14:36)
[2024-01-22] MEDS ORDERED: KETOROLAC TROMETHAMINE 30 MG/1 ML VIAL ONE (14:36)
[2024-01-22] MEDS ORDERED: ONDANSETRON 4 MG/2 ML VIAL IVPUSH PRN ×2 (14:52→15:19)
[2024-01-22] MEDS ORDERED: PROMETHAZINE HCL 25 MG/1 ML VIAL IVPB PRN ×2 (14:52→15:19)
[2024-01-22] MEDS: ACETAMINOPHEN 1000 MG/100 ML BAG IVPB ONE (15:13)
[2024-01-22] MEDS ORDERED: MAG HYDROX/AL HYDROX/SIMETH 30 ML UNIT-DOSE CUP PO PRN (15:19)
[2024-01-22] MEDS ORDERED: ACETAMINOPHEN 325 MG TABLET (FP) PO PRN (15:19)
[2024-01-22] MEDS ORDERED: CHLORHEXIDINE GLUCONATE 4% CLEANSER FOR DECOLONIZATION TP SCH (22:00)
[2024-01-22] MEDS ORDERED: ATORVASTATIN CA 20 MG TABLET (FP) PO SCH (22:00)
[2024-01-22] MEDS ORDERED: MONTELUKAST NA 10 MG TABLET PO SCH (22:00)
[2024-01-22] MEDS ORDERED: LIDOCAINE PATCH REMOVAL MC SCH (22:00)
[2024-01-22] MEDS: ATORVASTATIN CA 20 MG TABLET (FP) PO SCH (22:28)
[2024-01-22] MEDS: MONTELUKAST NA 10 MG TABLET PO SCH (22:28)
[2024-01-23] MEDS: ACETAMINOPHEN 1000 MG/100 ML BAG IVPB ONE (07:24)
[2024-01-23] MEDS: LACTATED RINGERS SOLUTION 1,000 ML IV SCH (07:24)
[2024-01-23 09:31] LABS: EOS % 0.5 % (0-4.5); MCH 29.8 pg (25.7-33.7); MCHC 31.4 g/dl (32.0-36.0); MEAN CELL VOLUME 94.8 fl (80-96); MEAN PLT VOLUME 8.9 fl (7.5-11.1); MONO % 13.8 % (3.8-10.2); NEUT % 62.7 % (42.8-82.8); PLATELET COUNT 202 10^3/uL (134-434); WHITE BLOOD COUNT 8.2 K/mm3 (4.0-10.0)
[2024-01-23] MEDS: LOSARTAN POTASSIUM 50 MG TABLET PO SCH (09:54)
[2024-01-23] MEDS: TAMSULOSIN HCL 0.4 MG CAP PO SCH (09:54)
[2024-01-23] MEDS: PANTOPRAZOLE 40 MG TABLET PO SCH (09:55)
[2024-01-23] MEDS: ESCITALOPRAM OXALATE 10 MG TABLET PO SCH (09:55)
[2024-01-23] MEDS: LORATADINE 10 MG TABLET PO SCH (09:56)
[2024-01-23 09:57] LABS: CHLORIDE 97 mmol/L (98-107); POTASSIUM 4.3 mmol/L (3.5-5.1); SODIUM 137 mmol/L (136-145)
[2024-01-23] MEDS: amLODIPine BESYLATE 10 MG TABLET (FP) PO SCH (09:58)
[2024-01-23 10:02] VITALS: BP 141/82; PULSE 70; RESP 20; TEMP 98.5
[2024-01-23 10:04] LABS: ANION GAP 10 mmol/L (4-13); CO2 30 mmol/L (21-32); MAGNESIUM 2.1 mg/dL (1.8-2.4)
[2024-01-23 10:07] LABS: ALBUMIN 2.7 g/dl (3.4-5.0); BLOOD UREA NITROGEN 31.6 mg/dL (7-18); CALCIUM 8.4 mg/dL (8.5-10.1); GLUCOSE,RANDOM 166 mg/dL (74-106); SGOT/AST 10 U/L (15-37)
[2024-01-23 10:10] LABS: ALK PHOS 79 U/L (45-117); BILIRUBIN,TOTAL 0.2 mg/dL (0.2-1); TOT PROT 6.3 g/dl (6.4-8.2)
[2024-01-23 10:25] LABS: CREATININE 9.7 mg/dL (0.55-1.3); SGPT/ALT < 6 U/L (13-61)
[2024-01-23] MEDS: ARIPiprazole 15 MG TABLET PO SCH (10:42)
[2024-01-23 14:19] VITALS: BMI 43.0
[2024-01-24] MEDS ORDERED: levETIRAcetam 500 MG TABLET (FP) PO SCH (12:00)
[2024-01-26] MEDS ORDERED: cloNIDine-TTS 0.3 MG /24 HRS PATCH.TDWK TD SCH ×3 (15:00)
== END 2024-01-23 13:47 | disposition home or self-care (01) | DRG 180 ==
LOC: JER 18:36 → JERBED 22:06 → J5S 01-18 00:54 → UNDODISOB 01-18 12:24 → OBSVTOIN 01-18 22:02 → JICU 01-18 22:10 → J5S 01-21 22:43
PROVIDERS: ADMIT Internal Medicine Pulmonary Disease; ATTEND Internal Medicine
PROC: 05HD33Z Insertion of Infusion Device into Right Cephalic Vein, Percutaneous Approach (ICD-10-PCS; 2024-01-18)
PROC: 05HY33Z Insertion of Infusion Device into Upper Vein, Percutaneous Approach (ICD-10-PCS; 2024-01-18)
PROC: 05PYX3Z Removal of Infusion Device from Upper Vein, External Approach (ICD-10-PCS; 2024-01-18)
PROC: 05HY33Z Insertion of Infusion Device into Upper Vein, Percutaneous Approach (ICD-10-PCS; 2024-01-18)
PROC: 05PYX3Z Removal of Infusion Device from Upper Vein, External Approach (ICD-10-PCS; 2024-01-20)
PROC: 05HY33Z Insertion of Infusion Device into Upper Vein, Percutaneous Approach (ICD-10-PCS; 2024-01-20)
PROC: 3E03317 Introduction of Other Thrombolytic into Peripheral Vein, Percutaneous Approach (ICD-10-PCS; 2024-01-20)
PROC: 5A1D70Z Performance of Urinary Filtration, Intermittent, Less than 6 Hours Per Day (ICD-10-PCS; 2024-01-22)
PROC: 031809D Bypass Left Brachial Artery to Upper Arm Vein with Autologous Venous Tissue, Open Approach (ICD-10-PCS; principal; 2024-01-22 13:00)
DX: I16.0 Hypertensive urgency (principal); T82.41XA Breakdown (mechanical) of vascular dialysis catheter, initial encounter; I12.0 Hypertensive chronic kidney disease with stage 5 chronic kidney disease or end stage renal disease; N18.6 End stage renal disease; E66.01 Morbid (severe) obesity due to excess calories; Z68.41 Body mass index [BMI] 40.0-44.9, adult; E11.9 Type 2 diabetes mellitus without complications; E78.5 Hyperlipidemia, unspecified; G47.33 Obstructive sleep apnea (adult) (pediatric); J45.909 Unspecified asthma, uncomplicated; Y83.9 Surgical procedure, unspecified as the cause of abnormal reaction of the patient, or of later complication, without mention of misadventure at the time of the procedure; Z99.2 Dependence on renal dialysis
CPT/HCPCS: 36415; 71045-TC-FY; 76000-TC-FY; 80048; 80053; 82962; 83735; 84100; 84703; 85025; 85027; 85610; 85730; 86850; 86900; 86901; 87086; 87340; 93005; 93010; 94660; 94760; 97116-GP; 97161-GP; 99285-25; C1750; C1769; G0378; J0131; J1644; J2997; Q5106

== ENCOUNTER 2024-02-13 03:41 | Emergency (ER) | payer OTHER ==
[2024-02-13 03:51] VITALS: RESP 18; BMI 42.7
[2024-02-13] MEDS ORDERED: ACETAMINOPHEN INJECTION 100 ML IVPB ONE ×2 (04:48→10:02)
[2024-02-13] MEDS ORDERED: ONDANSETRON 4 MG/2 ML VIAL ONE ×2 (04:48→10:02)
[2024-02-13] MEDS: ONDANSETRON 4 MG/2 ML VIAL IVPUSH ONE ×2 (05:01→10:07)
[2024-02-13] MEDS: SODIUM CHLORIDE 0.9% 500 ML INFUS.BAG IV ONE (05:02)
[2024-02-13] MEDS: ACETAMINOPHEN 1000 MG/100 ML BAG IVPB ONE ×2 (05:02→10:07)
[2024-02-13] MEDS: SODIUM CHLORIDE 0.9% 1000 ML INFUS.BAG IV ONE (05:02)
[2024-02-13 05:46] LABS: CHLORIDE 99 mmol/L (98-107); POTASSIUM 3.9 mmol/L (3.5-5.1); SODIUM 138 mmol/L (136-145)
[2024-02-13 05:48] LABS: CALCIUM 8.5 mg/dL (8.5-10.1)
[2024-02-13 05:49] LABS: ALBUMIN 3.6 g/dl (3.4-5.0); ANION GAP 10 mmol/L (4-13); BLOOD UREA NITROGEN 35.1 mg/dL (7-18); CO2 29 mmol/L (21-32); GLUCOSE,RANDOM 165 mg/dL (74-106)
[2024-02-13 05:52] LABS: SGOT/AST 17 U/L (15-37); SGPT/ALT 17 U/L (13-61)
[2024-02-13 05:53] LABS: BILIRUBIN,TOTAL 0.7 mg/dL (0.2-1); TOT PROT 7.6 g/dl (6.4-8.2)
[2024-02-13 05:54] LABS: ALK PHOS 138 U/L (45-117)
[2024-02-13] MEDS ORDERED: LABETALOL HCL 20 MG/4 ML VIAL ONE (05:54)
[2024-02-13] MEDS: LABETALOL HCL 5 MG/1 ML (100MG/20 ML VIAL) IVPUSH ONE (06:02)
[2024-02-13 06:18] LABS: HEMATOCRIT 46.4 % (32.4-45.2); HEMOGLOBIN 14.7 GM/dL (10.7-15.3); MCH 29.7 pg (25.7-33.7); MCHC 31.6 g/dl (32.0-36.0); MEAN CELL VOLUME 94.1 fl (80-96); MEAN PLT VOLUME 7.9 fl (7.5-11.1); PLATELET COUNT 286 10^3/uL (134-434); RBC 4.93 M/mm3 (3.60-5.2); RDW 19.2 % (11.6-15.6)
[2024-02-13 06:20] LABS: CREATININE 9.1 mg/dL (0.55-1.3)
[2024-02-13 13:13] VITALS: BP 170/94; PULSE 105; TEMP 98.4
== END 2024-02-13 13:36 | disposition home or self-care (01) ==
LOC: JER 03:41
PROC: 3E030NZ Introduction of Analgesics, Hypnotics, Sedatives into Peripheral Vein, Open Approach (ICD-10-PCS; principal; 2024-02-13)
PROC: 3E030GC Introduction of Other Therapeutic Substance into Peripheral Vein, Open Approach (ICD-10-PCS; 2024-02-13)
PROC: 3E030GC Introduction of Other Therapeutic Substance into Peripheral Vein, Open Approach (ICD-10-PCS; 2024-02-13)
PROC: 3E030GC Introduction of Other Therapeutic Substance into Peripheral Vein, Open Approach (ICD-10-PCS; 2024-02-13)
PROC: 3E030GC Introduction of Other Therapeutic Substance into Peripheral Vein, Open Approach (ICD-10-PCS; 2024-02-13)
DX: R11.2 Nausea with vomiting, unspecified (principal); R10.84 Generalized abdominal pain; R07.9 Chest pain, unspecified; R06.02 Shortness of breath; R00.0 Tachycardia, unspecified
CPT/HCPCS: 36415; 73502-TC-RT-FY; 73552-TC-RT-FY; 74176-TC; 80053; 82010; 83690; 83735; 84484; 84702; 85027; 93005; 93010; 99285-25; J0131

== ENCOUNTER 2024-04-03 11:52 | Inpatient (IN) | payer OTHER ==
[2024-04-03] MEDS ORDERED: ONDANSETRON 4 MG/2 ML VIAL ONE (12:47)
[2024-04-03] MEDS ORDERED: FAMOTIDINE 20 MG/50 ML IVPB 20 MG/50 ML MG IVPB ONE (12:47)
[2024-04-03] MEDS: ONDANSETRON 4 MG/2 ML VIAL IVPUSH ONE ×2 (12:54→16:35)
[2024-04-03] MEDS: FAMOTIDINE 20 MG/50 ML IVPB 20 MG/50 ML MG IVPB ONE (12:54)
[2024-04-03 12:58] LABS: INR 0.84 (0.83-1.09); PROTHROMBIN TIME (PATIENT) 9.7 SEC (9.7-13.0)
[2024-04-03 13:00] LABS: BASO % 0.8 % (0-2.0); EOS % 1.5 % (0-4.5); HEMATOCRIT 45.8 % (32.4-45.2); HEMOGLOBIN 14.8 GM/dL (10.7-15.3); LYMPH % 18.7 % (8-40); MCH 29.4 pg (25.7-33.7); MCHC 32.3 g/dl (32.0-36.0); MEAN PLT VOLUME 7.7 fl (7.5-11.1); MONO % 5.4 % (3.8-10.2); NEUT % 73.6 % (42.8-82.8); PLATELET COUNT 212 10^3/uL (134-434); RBC 5.03 M/mm3 (3.60-5.2); RDW 17.2 % (11.6-15.6); WHITE BLOOD COUNT 13.2 K/mm3 (4.0-10.0)
[2024-04-03 13:01] LABS: ACTIVATED PTT 22.9 SECONDS (25.2-36.5)
[2024-04-03 13:11] LABS: CHLORIDE 105 mmol/L (98-107); POTASSIUM 5.8 mmol/L (3.5-5.1); SODIUM 138 mmol/L (136-145)
[2024-04-03 13:12] LABS: CALCIUM 9.3 mg/dL (8.5-10.1)
[2024-04-03 13:13] LABS: ALBUMIN 4.3 g/dl (3.4-5.0); ANION GAP 12 mmol/L (4-13); BLOOD UREA NITROGEN 56.5 mg/dL (7-18); CO2 21 mmol/L (21-32); GLUCOSE,RANDOM 164 mg/dL (74-106)
[2024-04-03 13:16] LABS: SGOT/AST 29 U/L (15-37); SGPT/ALT 41 U/L (13-61)
[2024-04-03 13:17] LABS: BILIRUBIN,TOTAL 0.6 mg/dL (0.2-1)
[2024-04-03 13:18] LABS: TOT PROT 8.3 g/dl (6.4-8.2)
[2024-04-03 13:21] LABS: N-TERMINAL BNP 5990.1 pg/ml (5-125)
[2024-04-03 13:22] LABS: ALK PHOS 121 U/L (45-117); CREATININE 12.4 mg/dL (0.55-1.3)
[2024-04-03] MEDS ORDERED: SODIUM CHLORIDE 250 ML IV PRN ×2 (13:42→13:51)
[2024-04-03] MEDS ORDERED: amLODIPine BESYLATE 5 MG TABLET (FP) ONE (15:38)
[2024-04-03] MEDS ORDERED: LABETALOL HCL 5 MG/1 ML (100MG/20 ML VIAL) ONE (15:38)
[2024-04-03] MEDS ORDERED: METOCLOPRAMIDE HCL INJECTION 10 MG/2 ML VIAL ONE (15:38)
[2024-04-03] MEDS ORDERED: ACETAMINOPHEN INJECTION 100 ML IVPB ONE (15:39)
[2024-04-03] MEDS: LABETALOL HCL 5 MG/1 ML (100MG/20 ML VIAL) IVPUSH ONE ×2 (15:52→16:35)
[2024-04-03] MEDS: ACETAMINOPHEN 1000 MG/100 ML BAG IVPB ONE (15:52)
[2024-04-03] MEDS: METOCLOPRAMIDE HCL INJECTION 10 MG/2 ML VIAL IVPUSH ONE (15:52)
[2024-04-03] MEDS: amLODIPine BESYLATE 5 MG TABLET (FP) PO ONE (15:52)
[2024-04-03] MEDS: hydrALAZINE HCL 20 MG/ML VIAL IVPUSH ONE (15:56)
[2024-04-03] MEDS ORDERED: MAG HYDROX/AL HYDROX/SIMETH 30 ML UNIT-DOSE CUP PO PRN (18:37)
[2024-04-03 20:37] LABS: CHLORIDE 108 mmol/L (98-107); POTASSIUM 5.1 mmol/L (3.5-5.1); SODIUM 140 mmol/L (136-145)
[2024-04-03 20:38] LABS: CALCIUM 8.4 mg/dL (8.5-10.1)
[2024-04-03 20:39] LABS: ANION GAP 15 mmol/L (4-13); BLOOD UREA NITROGEN 58.9 mg/dL (7-18); CO2 17 mmol/L (21-32); GLUCOSE,RANDOM 230 mg/dL (74-106); MAGNESIUM 1.9 mg/dL (1.8-2.4)
[2024-04-03 20:42] LABS: PHOSPHOROUS 4.3 mg/dL (2.5-4.9)
[2024-04-03 20:45] LABS: CREATININE 12.5 mg/dL (0.55-1.3)
[2024-04-03] MEDS: TRIMETHOBENZAMIDE HCL 200MG/2ML INJ IM PRN (21:23)
[2024-04-03] MEDS: hydrALAZINE HCL 50 MG TABLET (FP) PO SCH (21:56)
[2024-04-03] MEDS: HEPARIN NA (PORCINE) 5,000 UNITS/ML 1ML VIAL SQ SCH (21:58)
[2024-04-03] MEDS: INSULIN ASPART SLIDING SCALE (NOVOLOG) 1 VIAL SQ SCH (21:59)
[2024-04-03] MEDS ORDERED: CHLORHEXIDINE GLUCONATE 4% CLEANSER FOR DECOLONIZATION TP SCH (22:00)
[2024-04-03] MEDS: ATORVASTATIN CA 20 MG TABLET (FP) PO SCH (22:00)
[2024-04-03] MEDS ORDERED: hydrALAZINE HCL 50 MG TABLET (FP) PO SCH (22:00)
[2024-04-03] MEDS ORDERED: MUPIROCIN 2% TOPICAL OINTMENT FOR DECOLONIZATION NS SCH (22:00)
[2024-04-03] MEDS ORDERED: levETIRAcetam 500 MG TABLET (FP) PO SCH (22:00)
[2024-04-03] MEDS: SODIUM ZIRCONIUM CYCLOSILICATE (LOKELMA) 5 GM PACKET PO SCH (22:03)
[2024-04-03] MEDS: MONTELUKAST NA 10 MG TABLET PO SCH (22:03)
[2024-04-03] MEDS: PANTOPRAZOLE SODIUM 40 MG VIAL IVPUSH ONE (22:04)
[2024-04-03] MEDS: TOPIRAMATE 25 MG TABLET PO SCH (22:04)
[2024-04-03] MEDS: GABAPENTIN 300 MG CAPSULE PO SCH (22:21)
[2024-04-03] MEDS: levETIRAcetam 500 MG/5 ML INJECTION VIAL IVPB SCH (22:46)
[2024-04-04] MEDS ORDERED: MAG HYDROX/AL HYDROX/SIMETH 30 ML UNIT-DOSE CUP PO PRN (04:39)
[2024-04-04] MEDS ORDERED: TRIMETHOBENZAMIDE HCL 200MG/2ML INJ IM PRN (04:39)
[2024-04-04] MEDS ORDERED: SODIUM CHLORIDE 250 ML IV PRN (04:39)
[2024-04-04] MEDS: MUPIROCIN 2% TOPICAL OINTMENT FOR DECOLONIZATION NS SCH ×2 (05:23→09:45)
[2024-04-04] MEDS: CHLORHEXIDINE GLUCONATE 4% CLEANSER FOR DECOLONIZATION TP SCH ×2 (05:24→21:49)
[2024-04-04] MEDS: hydrALAZINE HCL 50 MG TABLET (FP) PO SCH (05:57)
[2024-04-04] MEDS: HEPARIN NA (PORCINE) 5,000 UNITS/ML 1ML VIAL SQ SCH (05:59)
[2024-04-04] MEDS: INSULIN ASPART SLIDING SCALE (NOVOLOG) 1 VIAL SQ SCH (06:02)
[2024-04-04 06:59] LABS: BASO % 0.7 % (0-2.0); EOS % 1.3 % (0-4.5); HEMATOCRIT 38.5 % (32.4-45.2); HEMOGLOBIN 12.6 GM/dL (10.7-15.3); LYMPH % 25.2 % (8-40); MCH 29.8 pg (25.7-33.7); MCHC 32.8 g/dl (32.0-36.0); MEAN CELL VOLUME 90.8 fl (80-96); MEAN PLT VOLUME 7.4 fl (7.5-11.1); MONO % 8.8 % (3.8-10.2); PLATELET COUNT 192 10^3/uL (134-434); RBC 4.24 M/mm3 (3.60-5.2); WHITE BLOOD COUNT 11.1 K/mm3 (4.0-10.0)
[2024-04-04 07:17] LABS: CHLORIDE 109 mmol/L (98-107); POTASSIUM 4.7 mmol/L (3.5-5.1); SODIUM 141 mmol/L (136-145)
[2024-04-04 07:20] LABS: CALCIUM 8.5 mg/dL (8.5-10.1)
[2024-04-04 07:21] LABS: ALBUMIN 3.5 g/dl (3.4-5.0); ANION GAP 9 mmol/L (4-13); BLOOD UREA NITROGEN 64.8 mg/dL (7-18); CO2 23 mmol/L (21-32); GLUCOSE,RANDOM 96 mg/dL (74-106); MAGNESIUM 2.1 mg/dL (1.8-2.4)
[2024-04-04 07:23] LABS: SGPT/ALT 30 U/L (13-61)
[2024-04-04 07:24] LABS: PHOSPHOROUS 5.3 mg/dL (2.5-4.9); SGOT/AST 17 U/L (15-37)
[2024-04-04 07:25] LABS: TOT PROT 6.6 g/dl (6.4-8.2)
[2024-04-04 07:31] LABS: ALK PHOS 89 U/L (45-117); CREATININE 13.4 mg/dL (0.55-1.3)
[2024-04-04] MEDS ORDERED: levETIRAcetam 500 MG TABLET (FP) PO ONE (09:00)
[2024-04-04] MEDS: METOCLOPRAMIDE HCL 10 MG TABLET (FP) PO SCH (09:23)
[2024-04-04] MEDS: GABAPENTIN 300 MG CAPSULE PO SCH (09:23)
[2024-04-04] MEDS: SODIUM ZIRCONIUM CYCLOSILICATE (LOKELMA) 5 GM PACKET PO SCH (09:23)
[2024-04-04] MEDS: TOPIRAMATE 25 MG TABLET PO SCH (09:24)
[2024-04-04] MEDS: amLODIPine BESYLATE 10 MG TABLET (FP) PO SCH (09:24)
[2024-04-04] MEDS: ESCITALOPRAM OXALATE 20 MG TABLET PO SCH (09:25)
[2024-04-04] MEDS: ACETAMINOPHEN 325 MG TABLET (FP) PO PRN (09:43)
[2024-04-04] MEDS ORDERED: TOPIRAMATE 25 MG TABLET PO SCH (10:00)
[2024-04-04] MEDS ORDERED: amLODIPine BESYLATE 5 MG TABLET (FP) PO SCH (10:00)
[2024-04-04] MEDS ORDERED: ESCITALOPRAM OXALATE 20 MG TABLET PO SCH (10:00)
[2024-04-04] MEDS: MONTELUKAST NA 10 MG TABLET PO SCH (21:22)
[2024-04-04] MEDS: cloNIDine-TTS 0.1 MG/24 HRS PATCH.TDWK TD SCH (21:22)
[2024-04-04] MEDS: ATORVASTATIN CA 20 MG TABLET (FP) PO SCH (21:23)
[2024-04-04] MEDS: levETIRAcetam 250 MG TABLET PO ONE (23:44)
[2024-04-04] MEDS: levETIRAcetam 500 MG TABLET (FP) PO ONE (23:44)
[2024-04-05] MEDS: METOCLOPRAMIDE HCL 10 MG TABLET (FP) PO SCH (06:16)
[2024-04-05] MEDS ORDERED: cloNIDine-TTS 0.1 MG/24 HRS PATCH.TDWK TD SCH (07:00)
[2024-04-05] MEDS: levETIRAcetam 500 MG TABLET (FP) PO SCH (10:00)
[2024-04-05 13:17] LABS: BASO % 0.6 % (0-2.0); EOS % 4.7 % (0-4.5); HEMATOCRIT 37.3 % (32.4-45.2); HEMOGLOBIN 12.2 GM/dL (10.7-15.3); LYMPH % 33.4 % (8-40); MCH 29.9 pg (25.7-33.7); MCHC 32.7 g/dl (32.0-36.0); MEAN CELL VOLUME 91.3 fl (80-96); MEAN PLT VOLUME 7.8 fl (7.5-11.1); MONO % 8.6 % (3.8-10.2); NEUT % 52.7 % (42.8-82.8); PLATELET COUNT 153 10^3/uL (134-434); RBC 4.09 M/mm3 (3.60-5.2); WHITE BLOOD COUNT 6.8 K/mm3 (4.0-10.0)
[2024-04-05 13:37] LABS: CHLORIDE 103 mmol/L (98-107); POTASSIUM 4.7 mmol/L (3.5-5.1); SODIUM 143 mmol/L (136-145)
[2024-04-05 13:39] LABS: CALCIUM 7.8 mg/dL (8.5-10.1)
[2024-04-05 13:40] LABS: ALBUMIN 2.8 g/dl (3.4-5.0); ANION GAP 11 mmol/L (4-13); CO2 28 mmol/L (21-32); GLUCOSE,RANDOM 112 mg/dL (74-106)
[2024-04-05 13:42] LABS: PHOSPHOROUS 4.3 mg/dL (2.5-4.9); SGPT/ALT 17 U/L (13-61)
[2024-04-05 13:43] LABS: SGOT/AST 12 U/L (15-37)
[2024-04-05 13:44] LABS: BILIRUBIN,TOTAL 0.4 mg/dL (0.2-1); TOT PROT 5.9 g/dl (6.4-8.2)
[2024-04-05 13:45] LABS: ALK PHOS 74 U/L (45-117); BLOOD UREA NITROGEN 35.1 mg/dL (7-18); CREATININE 9.8 mg/dL (0.55-1.3)
[2024-04-05] MEDS ORDERED: SODIUM CHLORIDE 250 ML IV PRN (15:09)
[2024-04-07 07:52] LABS: CHLORIDE 100 mmol/L (98-107); POTASSIUM 4.5 mmol/L (3.5-5.1); SODIUM 137 mmol/L (136-145)
[2024-04-07 07:56] LABS: ALBUMIN 2.9 g/dl (3.4-5.0); ANION GAP 7 mmol/L (4-13); BLOOD UREA NITROGEN 35.6 mg/dL (7-18); CALCIUM 7.5 mg/dL (8.5-10.1); CO2 29 mmol/L (21-32); GLUCOSE,RANDOM 127 mg/dL (74-106); MAGNESIUM 1.8 mg/dL (1.8-2.4)
[2024-04-07 07:59] LABS: SGOT/AST 23 U/L (15-37); SGPT/ALT 27 U/L (13-61)
[2024-04-07 08:01] LABS: BILIRUBIN,TOTAL 0.3 mg/dL (0.2-1); TOT PROT 5.6 g/dl (6.4-8.2)
[2024-04-07 08:02] LABS: ALK PHOS 76 U/L (45-117)
[2024-04-07 08:07] LABS: BASO % 0.6 % (0-2.0); EOS % 6.2 % (0-4.5); HEMATOCRIT 34.9 % (32.4-45.2); HEMOGLOBIN 11.5 GM/dL (10.7-15.3); LYMPH % 41.3 % (8-40); MCH 29.8 pg (25.7-33.7); MEAN CELL VOLUME 90.3 fl (80-96); MEAN PLT VOLUME 7.8 fl (7.5-11.1); MONO % 8.6 % (3.8-10.2); NEUT % 43.3 % (42.8-82.8); PLATELET COUNT 122 10^3/uL (134-434); RBC 3.86 M/mm3 (3.60-5.2); RDW 16.3 % (11.6-15.6); WHITE BLOOD COUNT 5.7 K/mm3 (4.0-10.0)
[2024-04-07 08:09] LABS: CREATININE 9.4 mg/dL (0.55-1.3)
[2024-04-07] MEDS ORDERED: cloNIDine-TTS 0.1 MG/24 HRS PATCH.TDWK TD SCH ×2 (10:00)
[2024-04-08 07:04] LABS: CHLORIDE 99 mmol/L (98-107); POTASSIUM 4.8 mmol/L (3.5-5.1); SODIUM 136 mmol/L (136-145)
[2024-04-08 07:06] LABS: CALCIUM 7.7 mg/dL (8.5-10.1); GLUCOSE,RANDOM 164 mg/dL (74-106)
[2024-04-08 07:07] LABS: ANION GAP 8 mmol/L (4-13); BLOOD UREA NITROGEN 52.1 mg/dL (7-18); CO2 29 mmol/L (21-32)
[2024-04-08 07:08] LABS: MAGNESIUM 1.8 mg/dL (1.8-2.4)
[2024-04-08 07:10] LABS: PHOSPHOROUS 5.4 mg/dL (2.5-4.9); SGOT/AST 24 U/L (15-37); SGPT/ALT 31 U/L (13-61)
[2024-04-08 07:11] LABS: BILIRUBIN,TOTAL 0.3 mg/dL (0.2-1)
[2024-04-08 07:13] LABS: ALK PHOS 83 U/L (45-117)
[2024-04-08 07:17] LABS: CREATININE 11.5 mg/dL (0.55-1.3)
[2024-04-08 07:57] LABS: BASO % 0.4 % (0-2.0); EOS % 6.1 % (0-4.5); HEMATOCRIT 34.9 % (32.4-45.2); HEMOGLOBIN 11.2 GM/dL (10.7-15.3); LYMPH % 41.5 % (8-40); MCH 29.4 pg (25.7-33.7); MCHC 32.2 g/dl (32.0-36.0); MEAN CELL VOLUME 91.4 fl (80-96); MEAN PLT VOLUME 8.2 fl (7.5-11.1); MONO % 7.2 % (3.8-10.2); NEUT % 44.8 % (42.8-82.8); PLATELET COUNT 140 10^3/uL (134-434); RBC 3.82 M/mm3 (3.60-5.2); RDW 16.4 % (11.6-15.6); WHITE BLOOD COUNT 6.4 K/mm3 (4.0-10.0)
[2024-04-08] MEDS ORDERED: SODIUM CHLORIDE 250 ML IV PRN (11:46)
[2024-04-08] MEDS: POLYETHYLENE GLYCOL (HEALTHYLAX) 3350 17 GM PACKET PO PRN (21:04)
[2024-04-09 07:32] LABS: BASO % 0.4 % (0-2.0); EOS % 3.2 % (0-4.5); HEMATOCRIT 32.9 % (32.4-45.2); HEMOGLOBIN 10.9 GM/dL (10.7-15.3); LYMPH % 25.6 % (8-40); MCH 29.7 pg (25.7-33.7); MCHC 33.1 g/dl (32.0-36.0); MEAN CELL VOLUME 89.7 fl (80-96); MEAN PLT VOLUME 8.4 fl (7.5-11.1); MONO % 5.5 % (3.8-10.2); NEUT % 65.3 % (42.8-82.8); PLATELET COUNT 153 10^3/uL (134-434); RBC 3.67 M/mm3 (3.60-5.2); RDW 16.1 % (11.6-15.6); WHITE BLOOD COUNT 8.9 K/mm3 (4.0-10.0)
[2024-04-09 07:40] LABS: CHLORIDE 97 mmol/L (98-107); POTASSIUM 4.8 mmol/L (3.5-5.1); SODIUM 133 mmol/L (136-145)
[2024-04-09 07:44] LABS: ALBUMIN 2.8 g/dl (3.4-5.0); BLOOD UREA NITROGEN 69.8 mg/dL (7-18); GLUCOSE,RANDOM 137 mg/dL (74-106)
[2024-04-09 07:46] LABS: ANION GAP 10 mmol/L (4-13); CALCIUM 7.9 mg/dL (8.5-10.1); CO2 26 mmol/L (21-32); SGOT/AST 24 U/L (15-37); SGPT/ALT 34 U/L (13-61)
[2024-04-09 07:49] LABS: ALK PHOS 73 U/L (45-117); BILIRUBIN,TOTAL 0.3 mg/dL (0.2-1); TOT PROT 5.6 g/dl (6.4-8.2)
[2024-04-09 08:00] LABS: CREATININE 12.9 mg/dL (0.55-1.3)
[2024-04-09] MEDS: HEPARIN NA (PORCINE) 5,000 UNITS/ML 1ML VIAL IVPUSH ONE (08:30)
[2024-04-09] MEDS ORDERED: TRIMETHOBENZAMIDE HCL 200MG/2ML INJ IM PRN ×2 (09:57→18:44)
[2024-04-09] MEDS ORDERED: ACETAMINOPHEN 325 MG TABLET (FP) PO PRN ×2 (09:57→18:44)
[2024-04-09] MEDS: SODIUM ZIRCONIUM CYCLOSILICATE (LOKELMA) 5 GM PACKET PO SCH (12:56)
[2024-04-09] MEDS: TOPIRAMATE 25 MG TABLET PO SCH ×2 (12:58→22:05)
[2024-04-09] MEDS: GABAPENTIN 300 MG CAPSULE PO SCH ×2 (12:59→22:05)
[2024-04-09] MEDS: ESCITALOPRAM OXALATE 20 MG TABLET PO SCH (12:59)
[2024-04-09] MEDS: INSULIN ASPART SLIDING SCALE (NOVOLOG) 1 VIAL SQ SCH ×2 (13:02→22:06)
[2024-04-09] MEDS: amLODIPine BESYLATE 10 MG TABLET (FP) PO SCH (13:02)
[2024-04-09] MEDS ORDERED: hydrALAZINE HCL 50 MG TABLET (FP) PO SCH ×2 (14:00)
[2024-04-09] MEDS: HEPARIN NA (PORCINE) 5,000 UNITS/ML 1ML VIAL SQ SCH (15:38)
[2024-04-09] MEDS ORDERED: LIDOCAINE HCL 1%, 10 MG/ML (20ML VIAL) ONE (16:09)
[2024-04-09] MEDS ORDERED: HEPARIN NA (PORCINE) 5,000 UNITS/ML 1ML VIAL ONE (16:09)
[2024-04-09] MEDS: ceFAZolin SODIUM 1 GM VIAL IVPB ONE ×2 (17:21→17:35)
[2024-04-09] MEDS ORDERED: FENTANYL CITRATE/PF 50 MCG/ML VIAL ONE (17:21)
[2024-04-09] MEDS ORDERED: PROPOFOL 20 ML ONE (17:21)
[2024-04-09] MEDS ORDERED: SUCCINYLCHOLINE CHLORIDE 200 MG/10 ML SYRINGE ONE (17:21)
[2024-04-09] MEDS ORDERED: MIDAZOLAM HCL 2 MG/2 ML SINGLE DOSE VIAL ONE (17:21)
[2024-04-09] MEDS: LIDOCAINE HCL 1%, 10 MG/ML (20ML VIAL) INF ONE ×2 (17:31)
[2024-04-09] MEDS ORDERED: levETIRAcetam 500 MG/5 ML INJECTION VIAL IVPB ONE (18:44)
[2024-04-09] MEDS ORDERED: POLYETHYLENE GLYCOL (HEALTHYLAX) 3350 17 GM PACKET PO PRN (18:44)
[2024-04-09] MEDS: LACTATED RINGERS SOLUTION 1,000 ML IV SCH ×2 (20:36→20:42)
[2024-04-09] MEDS: levETIRAcetam 500 MG/5 ML INJECTION VIAL IVPB ONE (20:42)
[2024-04-09] MEDS ORDERED: ATORVASTATIN CA 20 MG TABLET (FP) PO SCH (22:00)
[2024-04-09] MEDS ORDERED: MONTELUKAST NA 10 MG TABLET PO SCH (22:00)
[2024-04-09] MEDS: levETIRAcetam 500 MG TABLET (FP) PO SCH (22:06)
[2024-04-09] MEDS: MONTELUKAST NA 10 MG TABLET PO SCH (22:06)
[2024-04-09] MEDS: ATORVASTATIN CA 20 MG TABLET (FP) PO SCH (22:06)
[2024-04-10] MEDS: METOCLOPRAMIDE HCL 10 MG TABLET (FP) PO SCH (06:20)
[2024-04-10 09:48] LABS: HEMATOCRIT 31.2 % (32.4-45.2); HEMOGLOBIN 10.2 GM/dL (10.7-15.3); MCH 29.3 pg (25.7-33.7); MCHC 32.6 g/dl (32.0-36.0); MEAN CELL VOLUME 89.9 fl (80-96); MEAN PLT VOLUME 8.1 fl (7.5-11.1); PLATELET COUNT 157 10^3/uL (134-434); RBC 3.47 M/mm3 (3.60-5.2); RDW 16.5 % (11.6-15.6); WHITE BLOOD COUNT 8.5 K/mm3 (4.0-10.0)
[2024-04-10] MEDS: LOSARTAN POTASSIUM 50 MG TABLET PO SCH (09:50)
[2024-04-10] MEDS: ESCITALOPRAM OXALATE 20 MG TABLET PO SCH (09:50)
[2024-04-10] MEDS: amLODIPine BESYLATE 10 MG TABLET (FP) PO SCH (09:50)
[2024-04-10 10:14] LABS: CHLORIDE 94 mmol/L (98-107); POTASSIUM 4.6 mmol/L (3.5-5.1); SODIUM 131 mmol/L (136-145)
[2024-04-10 10:19] LABS: GLUCOSE,RANDOM 333 mg/dL (74-106)
[2024-04-10 10:20] LABS: ALBUMIN 3.1 g/dl (3.4-5.0); ANION GAP 10 mmol/L (4-13); BLOOD UREA NITROGEN 60.6 mg/dL (7-18); CO2 28 mmol/L (21-32)
[2024-04-10 10:23] LABS: SGPT/ALT 30 U/L (13-61)
[2024-04-10 10:24] LABS: BILIRUBIN,TOTAL 0.3 mg/dL (0.2-1); SGOT/AST 18 U/L (15-37); TOT PROT 6.3 g/dl (6.4-8.2)
[2024-04-10 10:26] LABS: ALK PHOS 83 U/L (45-117)
[2024-04-10 10:30] LABS: CREATININE 10.5 mg/dL (0.55-1.3)
[2024-04-10 10:37] VITALS: BP 130/65; PULSE 92; RESP 22; TEMP 98.8
[2024-04-10] MEDS: SODIUM ZIRCONIUM CYCLOSILICATE (LOKELMA) 5 GM PACKET PO SCH (12:05)
[2024-04-10] MEDS: INSULIN (LEVEMIR) 100 UNITS/ML UNITS SQ ONE (12:16)
[2024-04-10 13:39] VITALS: BMI 44.4
[2024-04-10] MEDS ORDERED: HEPARIN NA (PORCINE) 5,000 UNITS/ML 1ML VIAL SQ SCH (14:00)
[2024-04-11] MEDS ORDERED: cloNIDine-TTS 0.1 MG/24 HRS PATCH.TDWK TD SCH ×2 (20:00)
== END 2024-04-10 14:14 | disposition home health service (06) | DRG 182 ==
LOC: JER 11:52 → JERBED 14:56 → OBSVTOIN 18:21 → J8W 19:45 → JICU 04-04 00:32 → J2W 04-04 20:16 → J4W 04-08 16:29
PROVIDERS: ADMIT Internal Medicine; ATTEND Internal Medicine
PROC: 05HN33Z Insertion of Infusion Device into Left Internal Jugular Vein, Percutaneous Approach (ICD-10-PCS; 2024-04-04)
PROC: B544ZZA Ultrasonography of Left Jugular Veins, Guidance (ICD-10-PCS; 2024-04-04)
PROC: 05HY33Z Insertion of Infusion Device into Upper Vein, Percutaneous Approach (ICD-10-PCS; 2024-04-09)
PROC: B51WZZZ Fluoroscopy of Dialysis Shunt/Fistula (ICD-10-PCS; 2024-04-09)
PROC: 5A1D70Z Performance of Urinary Filtration, Intermittent, Less than 6 Hours Per Day (ICD-10-PCS; 2024-04-09)
PROC: 05LY0ZZ Occlusion of Upper Vein, Open Approach (ICD-10-PCS; principal; 2024-04-09 17:30)
PROC: 05PYX3Z Removal of Infusion Device from Upper Vein, External Approach (ICD-10-PCS; 2024-04-09 17:30)
DX: I16.1 Hypertensive emergency (principal); N18.6 End stage renal disease; Z68.41 Body mass index [BMI] 40.0-44.9, adult; E11.9 Type 2 diabetes mellitus without complications; E66.01 Morbid (severe) obesity due to excess calories; F31.9 Bipolar disorder, unspecified; G40.909 Epilepsy, unspecified, not intractable, without status epilepticus; G47.33 Obstructive sleep apnea (adult) (pediatric); J45.909 Unspecified asthma, uncomplicated; R11.2 Nausea with vomiting, unspecified; I12.0 Hypertensive chronic kidney disease with stage 5 chronic kidney disease or end stage renal disease; I16.0 Hypertensive urgency; T82.590A Other mechanical complication of surgically created arteriovenous fistula, initial encounter; T82.49XA Other complication of vascular dialysis catheter, initial encounter; Y83.9 Surgical procedure, unspecified as the cause of abnormal reaction of the patient, or of later complication, without mention of misadventure at the time of the procedure; Z99.2 Dependence on renal dialysis
CPT/HCPCS: 0241U-QW; 36415; 70450-TC; 71045-TC-FY; 72100-TC-FY; 76000-TC-FY; 80048; 80053; 82962; 83036; 83690; 83735; 83880; 84100; 84484; 84703; 85025; 85027; 85610; 85730; 86803; 87340; 93005; 93010; 93990-TC; 94660; 94760; 97116-GP; 97162-GP; 99285-25; C1750; G0378; J0131; J1644

== ENCOUNTER 2024-05-07 09:14 | Inpatient (IN) | payer OTHER ==
[2024-05-07 10:33] VITALS: BMI 45.7
[2024-05-07 10:55] LABS: VENOUS BASE EXCESS 0.4 mmol/L (-2-2); VENOUS O2 SATURATION 75.1 % (70-80); VENOUS PCO2 25.2 mmHg (38-52); VENOUS PH 7.544 (7.310-7.410)
[2024-05-07 11:12] LABS: CHLORIDE 108 mmol/L (98-107); POTASSIUM 3.7 mmol/L (3.5-5.1); SODIUM 143 mmol/L (136-145)
[2024-05-07 11:15] LABS: CALCIUM 10.3 mg/dL (8.5-10.1); MAGNESIUM 2.1 mg/dL (1.8-2.4)
[2024-05-07 11:16] LABS: ALBUMIN 4.1 g/dl (3.4-5.0); ANION GAP 14 mmol/L (4-13); CO2 21 mmol/L (21-32); GLUCOSE,RANDOM 269 mg/dL (74-106); INR 0.96 (0.83-1.09)
[2024-05-07 11:16] LABS: BASO % 0.5 % (0-2.0); EOS % 0.5 % (0-4.5); HEMATOCRIT 38.2 % (32.4-45.2); HEMOGLOBIN 12.2 GM/dL (10.7-15.3); LYMPH % 12.7 % (8-40); MCH 29.5 pg (25.7-33.7); MCHC 31.8 g/dl (32.0-36.0); MEAN CELL VOLUME 92.7 fl (80-96); MEAN PLT VOLUME 7.1 fl (7.5-11.1); MONO % 3.7 % (3.8-10.2); NEUT % 82.6 % (42.8-82.8); PLATELET COUNT 382 10^3/uL (134-434); RBC 4.13 M/mm3 (3.60-5.2); RDW 18.2 % (11.6-15.6); WHITE BLOOD COUNT 9.6 K/mm3 (4.0-10.0)
[2024-05-07 11:18] LABS: ACTIVATED PTT 29.7 SECONDS (25.2-36.5); SGOT/AST 18 U/L (15-37); SGPT/ALT 19 U/L (13-61)
[2024-05-07 11:19] LABS: PHOSPHOROUS 1.7 mg/dL (2.5-4.9); TOT PROT 7.8 g/dl (6.4-8.2)
[2024-05-07 11:22] LABS: ALK PHOS 111 U/L (45-117)
[2024-05-07 11:23] LABS: CREATININE 9.2 mg/dL (0.55-1.3)
[2024-05-07 11:23] LABS: LACTIC ACID 2.6 mmol/L (0.4-2.0)
[2024-05-07] MEDS ORDERED: MORPHINE SULFATE 2 MG/ML SYRINGE ONE ×4 (11:58→19:04)
[2024-05-07] MEDS ORDERED: ONDANSETRON *ODT* 4 MG TABLET ONE (11:59)
[2024-05-07] MEDS ORDERED: INSULIN REGULAR HUMAN 100 UNITS/ML *VIAL ONE (12:00)
[2024-05-07] MEDS: INSULIN REGULAR HUMAN 100 UNITS/ML *VIAL SQ ONE (12:29)
[2024-05-07] MEDS: ONDANSETRON 4 MG TABLET PO ONE (12:29)
[2024-05-07] MEDS: SODIUM CHLORIDE 1,000 ML IV STA ×2 (15:52→18:22)
[2024-05-07] MEDS: INSULIN REGULAR HUMAN 100 UNITS/ML *VIAL IVPUSH ONE ×2 (16:27→17:57)
[2024-05-07] MEDS ORDERED: ONDANSETRON 4 MG/2 ML VIAL ONE (18:15)
[2024-05-07] MEDS: ONDANSETRON 4 MG/2 ML VIAL IVPUSH ONE (18:22)
[2024-05-07] MEDS: morphine SULFATE 4 MG/ML VIAL IVPUSH ONE (19:12)
[2024-05-07] MEDS ORDERED: PATIENT'S OWN MEDICATION (NON-FORMULARY) (Linaclotide [Linzess] 290 MCG Capsule) PO PRN (22:25)
[2024-05-07] MEDS ORDERED: POLYETHYLENE GLYCOL (HEALTHYLAX) 3350 17 GM PACKET PO PRN (22:25)
[2024-05-07] MEDS ORDERED: TRIMETHOBENZAMIDE HCL 200MG/2ML INJ IM PRN (22:29)
[2024-05-07] MEDS: TOPIRAMATE 25 MG TABLET PO SCH (23:29)
[2024-05-07] MEDS: GABAPENTIN 300 MG CAPSULE PO SCH (23:29)
[2024-05-07] MEDS: PRAMIPEXOLE DIHYDROCHLORIDE 0.25 MG TABLET PO SCH (23:31)
[2024-05-07] MEDS: LOSARTAN POTASSIUM 50 MG TABLET PO ONE (23:32)
[2024-05-07] MEDS: levETIRAcetam 500 MG TABLET (FP) PO SCH (23:32)
[2024-05-07] MEDS: hydrALAZINE HCL 50 MG TABLET (FP) PO SCH (23:32)
[2024-05-08] MEDS: cloNIDine-TTS 0.1 MG/24 HRS PATCH.TDWK TD SCH (00:46)
[2024-05-08] MEDS: amLODIPine BESYLATE 10 MG TABLET (FP) PO ONE (05:00)
[2024-05-08] MEDS: HEPARIN NA (PORCINE) 5,000 UNITS/ML 1ML VIAL SQ SCH (06:07)
[2024-05-08] MEDS: INSULIN ASPART SLIDING SCALE (NOVOLOG) 1 VIAL SQ SCH (06:14)
[2024-05-08 10:24] LABS: BASO % 0.7 % (0-2.0); EOS % 2.7 % (0-4.5); HEMATOCRIT 30.2 % (32.4-45.2); HEMOGLOBIN 9.8 GM/dL (10.7-15.3); LYMPH % 27.8 % (8-40); MCH 30.4 pg (25.7-33.7); MCHC 32.6 g/dl (32.0-36.0); MEAN CELL VOLUME 93.1 fl (80-96); MEAN PLT VOLUME 6.8 fl (7.5-11.1); MONO % 8.3 % (3.8-10.2); NEUT % 60.5 % (42.8-82.8); PLATELET COUNT 278 10^3/uL (134-434); RBC 3.24 M/mm3 (3.60-5.2); RDW 18.8 % (11.6-15.6); WHITE BLOOD COUNT 9.7 K/mm3 (4.0-10.0)
[2024-05-08 10:39] LABS: CHLORIDE 110 mmol/L (98-107); POTASSIUM 3.4 mmol/L (3.5-5.1); SODIUM 144 mmol/L (136-145)
[2024-05-08 10:41] LABS: ANION GAP 8 mmol/L (4-13); CO2 26 mmol/L (21-32); GLUCOSE,RANDOM 89 mg/dL (74-106)
[2024-05-08 10:42] LABS: ALBUMIN 2.9 g/dl (3.4-5.0); BLOOD UREA NITROGEN 34.1 mg/dL (7-18); CALCIUM 8.3 mg/dL (8.5-10.1); MAGNESIUM 2.1 mg/dL (1.8-2.4)
[2024-05-08 10:43] LABS: SGPT/ALT 12 U/L (13-61)
[2024-05-08 10:45] LABS: SGOT/AST 15 U/L (15-37)
[2024-05-08 10:46] LABS: BILIRUBIN,TOTAL 0.7 mg/dL (0.2-1)
[2024-05-08 10:50] LABS: CREATININE 10.5 mg/dL (0.55-1.3)
[2024-05-08 10:56] LABS: ALK PHOS 79 U/L (45-117)
[2024-05-08] MEDS ORDERED: SODIUM CHLORIDE 250 ML IV PRN (11:12)
[2024-05-08] MEDS: ESCITALOPRAM OXALATE 10 MG TABLET PO SCH (12:12)
[2024-05-08] MEDS: PANTOPRAZOLE SODIUM 40 MG VIAL IVPUSH SCH (13:35)
[2024-05-08] MEDS: POLYETHYLENE GLYCOL (HEALTHYLAX) 3350 17 GM PACKET PO SCH (13:53)
[2024-05-08] MEDS: EPOETIN ALFA-EPBX 10,000 UNIT/ML VIAL IVPUSH ONE (17:09)
[2024-05-08] MEDS: amLODIPine BESYLATE 10 MG TABLET (FP) PO SCH (18:17)
[2024-05-08] MEDS: LOSARTAN POTASSIUM 50 MG TABLET PO SCH (18:17)
[2024-05-08] MEDS: ATORVASTATIN CA 20 MG TABLET (FP) PO SCH (21:14)
[2024-05-08] MEDS: MONTELUKAST NA 10 MG TABLET PO SCH (21:15)
[2024-05-08 23:57] LABS: METHADONE, UR NEGATIVE (NEGATIVE); PHENCYCLIDINE,URINE NEGATIVE (NEGATIVE)
[2024-05-08 23:59] LABS: URINE AMPHETAMINES NEGATIVE (NEGATIVE); URINE BARBITURATES NEGATIVE (NEGATIVE); URINE BENZODIAZEPINES NEGATIVE (NEGATIVE)
[2024-05-09 00:07] LABS: COCAINE, UR NEGATIVE (NEGATIVE); OPIATES, URI POSITIVE (NEGATIVE)
[2024-05-09] MEDS: MELATONIN 5 MG TABLETS PO ONE (00:14)
[2024-05-09] MEDS: FAMOTIDINE 10 MG TABLET PO SCH (09:37)
[2024-05-09 11:57] LABS: CHLORIDE 102 mmol/L (98-107); POTASSIUM 3.8 mmol/L (3.5-5.1); SODIUM 137 mmol/L (136-145)
[2024-05-09 12:18] LABS: ANION GAP 8 mmol/L (4-13); BLOOD UREA NITROGEN 30.2 mg/dL (7-18); CALCIUM 8.2 mg/dL (8.5-10.1); CO2 27 mmol/L (21-32); GLUCOSE,RANDOM 129 mg/dL (74-106)
[2024-05-09 12:20] LABS: MAGNESIUM 1.9 mg/dL (1.8-2.4)
[2024-05-09 12:22] LABS: PHOSPHOROUS 3.8 mg/dL (2.5-4.9)
[2024-05-09 12:28] LABS: CREATININE 9.5 mg/dL (0.55-1.3)
[2024-05-09 15:44] VITALS: RESP 18
[2024-05-09] MEDS: LIDOCAINE HCL 1%, 10 MG/ML (20ML VIAL) SQ ONE (16:25)
[2024-05-10] MEDS ORDERED: SODIUM CHLORIDE 250 ML IV PRN (08:42)
[2024-05-10] MEDS: HEPARIN NA (PORCINE) 5,000 UNITS/ML 1ML VIAL IVPUSH ONE (09:20)
[2024-05-10 10:08] LABS: HEMATOCRIT 28.7 % (32.4-45.2); HEMOGLOBIN 9.5 GM/dL (10.7-15.3); MCH 30.6 pg (25.7-33.7); MCHC 33.2 g/dl (32.0-36.0); MEAN CELL VOLUME 92.3 fl (80-96); MEAN PLT VOLUME 7.4 fl (7.5-11.1); PLATELET COUNT 165 10^3/uL (134-434); RBC 3.11 M/mm3 (3.60-5.2); RDW 18.1 % (11.6-15.6); WHITE BLOOD COUNT 2.9 K/mm3 (4.0-10.0)
[2024-05-10] MEDS: HEPARIN NA (PORCINE) 5,000 UNITS/ML 1ML VIAL IVPUSH SCH (10:15)
[2024-05-10] MEDS: EPOETIN ALFA-EPBX 10,000 UNIT/ML VIAL IVPUSH ONE (11:02)
[2024-05-10 12:17] LABS: ALBUMIN 2.9 g/dl (3.4-5.0); ANION GAP 11 mmol/L (4-13); BILIRUBIN,TOTAL 0.3 mg/dL (0.2-1); BLOOD UREA NITROGEN 41.5 mg/dL (7-18); CALCIUM 7.8 mg/dL (8.5-10.1); CHLORIDE 104 mmol/L (98-107); CO2 24 mmol/L (21-32); CREATININE 9.9 mg/dL (0.55-1.3); GLUCOSE,RANDOM 126 mg/dL (74-106); POTASSIUM 3.7 mmol/L (3.5-5.1); SGOT/AST 12 U/L (15-37); SGPT/ALT 13 U/L (13-61); SODIUM 139 mmol/L (136-145)
[2024-05-10 12:18] LABS: ALK PHOS 83 U/L (45-117)
[2024-05-10 12:21] LABS: TOT PROT 5.5 g/dl (6.4-8.2)
[2024-05-10 14:31] VITALS: BP 151/90; PULSE 84; TEMP 99.1
== END 2024-05-10 16:36 | disposition home or self-care (01) | DRG 470 ==
LOC: JER 09:14 → JERBED 18:56 → J5S 23:09
PROVIDERS: ADMIT Internal Medicine
PROC: 5A1D70Z Performance of Urinary Filtration, Intermittent, Less than 6 Hours Per Day (ICD-10-PCS; 2024-05-08)
PROC: 05PYX3Z Removal of Infusion Device from Upper Vein, External Approach (ICD-10-PCS; principal; 2024-05-09)
PROC: 5A1D70Z Performance of Urinary Filtration, Intermittent, Less than 6 Hours Per Day (ICD-10-PCS; 2024-05-10)
DX: I12.0 Hypertensive chronic kidney disease with stage 5 chronic kidney disease or end stage renal disease (principal); N18.6 End stage renal disease; E10.22 Type 1 diabetes mellitus with diabetic chronic kidney disease; R11.2 Nausea with vomiting, unspecified; E10.40 Type 1 diabetes mellitus with diabetic neuropathy, unspecified; G40.909 Epilepsy, unspecified, not intractable, without status epilepticus; E78.5 Hyperlipidemia, unspecified; K59.00 Constipation, unspecified; K80.20 Calculus of gallbladder without cholecystitis without obstruction; K44.9 Diaphragmatic hernia without obstruction or gangrene; K21.9 Gastro-esophageal reflux disease without esophagitis; E66.01 Morbid (severe) obesity due to excess calories; G47.33 Obstructive sleep apnea (adult) (pediatric); Z68.42 Body mass index [BMI] 45.0-49.9, adult; F31.89 Other bipolar disorder; J45.909 Unspecified asthma, uncomplicated; Z99.2 Dependence on renal dialysis; E10.43 Type 1 diabetes mellitus with diabetic autonomic (poly)neuropathy; K31.84 Gastroparesis
CPT/HCPCS: 36415; 71045-TC-FY; 74176-TC; 76705-TC; 80048; 80053; 80307; 82010; 82803; 82962; 83036; 83605; 83690; 83735; 84100; 84484; 84703; 85025; 85027; 85610; 85730; 86705; 86803; 87340; 93005; 93010; 99285-25; J1644; Q5106

== ENCOUNTER 2024-06-03 16:22 | Emergency (ER) | payer OTHER ==
[2024-06-03 16:52] VITALS: BP 127/80; PULSE 69; RESP 18; BMI 41.1
[2024-06-03 16:56] VITALS: TEMP 98.6
== END 2024-06-03 17:52 | disposition home or self-care (01) ==
LOC: JER 16:22
DX: I12.0 Hypertensive chronic kidney disease with stage 5 chronic kidney disease or end stage renal disease (principal); N18.6 End stage renal disease; Z99.2 Dependence on renal dialysis; Z00.01 Encounter for general adult medical examination with abnormal findings
CPT/HCPCS: 82962; 99283-25

== ENCOUNTER 2024-07-09 12:21 | Inpatient (IN) | payer OTHER ==
[2024-07-09 12:29] VITALS: BMI 43.9
[2024-07-09] MEDS ORDERED: ACETAMINOPHEN INJECTION 100 ML ONE (12:57)
[2024-07-09] MEDS ORDERED: ONDANSETRON 4 MG/2 ML VIAL ONE (12:57)
[2024-07-09] MEDS: ONDANSETRON 4 MG/2 ML VIAL IVPB ONE (13:49)
[2024-07-09] MEDS: ACETAMINOPHEN 1000 MG/100 ML BAG IVPB ONE (13:51)
[2024-07-09] MEDS ORDERED: METOCLOPRAMIDE HCL INJECTION 10 MG/2 ML VIAL ONE (14:02)
[2024-07-09] MEDS: METOCLOPRAMIDE HCL INJECTION 10 MG/2 ML VIAL IVPB ONE (14:10)
[2024-07-09 14:42] LABS: BASO % 0.2 % (0-2.0); HEMATOCRIT 47.7 % (32.4-45.2); HEMOGLOBIN 15.5 GM/dL (10.7-15.3); MCH 32.1 pg (25.7-33.7); MCHC 32.5 g/dl (32.0-36.0); MEAN CELL VOLUME 98.7 fl (80-96); MEAN PLT VOLUME 8.6 fl (7.5-11.1); MONO % 5.4 % (3.8-10.2); NEUT % 83.4 % (42.8-82.8); PLATELET COUNT 205 10^3/uL (134-434); RBC 4.83 M/mm3 (3.60-5.2); RDW 14.9 % (11.6-15.6); WHITE BLOOD COUNT 9.7 K/mm3 (4.0-10.0)
[2024-07-09] MEDS ORDERED: MORPHINE SULFATE 2 MG/ML SYRINGE ONE (14:54)
[2024-07-09 14:56] LABS: CHLORIDE 96 mmol/L (98-107); POTASSIUM 4.1 mmol/L (3.5-5.1); SODIUM 137 mmol/L (136-145)
[2024-07-09 14:59] LABS: ALBUMIN 4.2 g/dl (3.4-5.0); ANION GAP 22 mmol/L (4-13); CALCIUM 9.1 mg/dL (8.5-10.1); CO2 19 mmol/L (21-32)
[2024-07-09] MEDS: morphine CARPU-JECT 4 MG/1 ML DISP.SYRIN IVPUSH ONE (14:59)
[2024-07-09 15:00] LABS: BLOOD UREA NITROGEN 48.2 mg/dL (7-18); GLUCOSE,RANDOM 330 mg/dL (74-106)
[2024-07-09 15:02] LABS: SGOT/AST 26 U/L (15-37); SGPT/ALT 53 U/L (13-61)
[2024-07-09 15:04] LABS: TOT PROT 7.8 g/dl (6.4-8.2)
[2024-07-09 15:05] LABS: ALK PHOS 121 U/L (45-117)
[2024-07-09 15:08] LABS: CREATININE 10.8 mg/dL (0.55-1.3)
[2024-07-09 15:14] LABS: BILIRUBIN,TOTAL 0.7 mg/dL (0.2-1)
[2024-07-09] MEDS: SODIUM CHLORIDE 0.9% 500 ML INFUS.BAG IV ONE (15:38)
[2024-07-09] MEDS: INSULIN (NOVOLOG) ASPART 100 UNITS/ML 10ML VIAL SQ ONE (15:39)
[2024-07-09 15:44] LABS: VENOUS BASE EXCESS -1.9 mmol/L (-2-2); VENOUS O2 SATURATION 87.8 % (70-80); VENOUS PCO2 32.5 mmHg (38-52); VENOUS PH 7.433 (7.310-7.410)
[2024-07-09 16:12] LABS: MAGNESIUM 2.2 mg/dL (1.8-2.4)
[2024-07-09 16:15] LABS: PHOSPHOROUS 4.6 mg/dL (2.5-4.9)
[2024-07-09 16:22] LABS: LACTIC ACID 2.5 mmol/L (0.4-2.0)
[2024-07-09 16:44] LABS: HIV INTERPRETATION NEGATIVE (NEGATIVE)
[2024-07-09] MEDS ORDERED: SODIUM CHLORIDE 250 ML IV PRN (16:58)
[2024-07-09] MEDS ORDERED: PATIENT'S OWN MEDICATION (NON-FORMULARY) (Linaclotide [Linzess] 290 MCG Capsule) PO PRN (18:22)
[2024-07-09] MEDS ORDERED: ACETAMINOPHEN 325 MG TABLET (FP) ONE (18:30)
[2024-07-09] MEDS: ACETAMINOPHEN 325 MG TABLET (FP) PO ONE (18:41)
[2024-07-09 19:32] LABS: LACTIC ACID 3.2 mmol/L (0.4-2.0)
[2024-07-09] MEDS ORDERED: TRIMETHOBENZAMIDE HCL 200MG/2ML INJ IM PRN (20:03)
[2024-07-09] MEDS ORDERED: ACETAMINOPHEN 1000 MG/100 ML BAG IVPB PRN (20:04)
[2024-07-09] MEDS: SODIUM CHLORIDE 0.45%/POT 20 MEQ/1,000 ML INFUS.BAG IV SCH (20:04)
[2024-07-09 20:33] LABS: HEMOGLOBIN 12.9 GM/dL (10.7-15.3); MCH 31.6 pg (25.7-33.7); MCHC 32.2 g/dl (32.0-36.0); MEAN CELL VOLUME 98.1 fl (80-96); MEAN PLT VOLUME 7.5 fl (7.5-11.1); PLATELET COUNT 159 10^3/uL (134-434); RBC 4.08 M/mm3 (3.60-5.2); WHITE BLOOD COUNT 10.9 K/mm3 (4.0-10.0)
[2024-07-09 20:52] LABS: CHLORIDE 99 mmol/L (98-107); POTASSIUM 4.2 mmol/L (3.5-5.1); SODIUM 136 mmol/L (136-145)
[2024-07-09 20:53] LABS: CALCIUM 7.9 mg/dL (8.5-10.1)
[2024-07-09 20:54] LABS: ANION GAP 13 mmol/L (4-13); BLOOD UREA NITROGEN 53.4 mg/dL (7-18); CO2 24 mmol/L (21-32); GLUCOSE,RANDOM 197 mg/dL (74-106)
[2024-07-09 21:13] LABS: CREATININE 11.2 mg/dL (0.55-1.3)
[2024-07-09] MEDS ORDERED: GABAPENTIN 300 MG CAPSULE ONE (21:43)
[2024-07-09] MEDS: GABAPENTIN 300 MG CAPSULE PO SCH (21:48)
[2024-07-09] MEDS: PANTOPRAZOLE SODIUM 40 MG VIAL IVPUSH SCH (22:54)
[2024-07-09] MEDS: KETOROLAC TROMETHAMINE 15 MG/ML VIAL IVPUSH ONE (22:54)
[2024-07-09] MEDS: hydrALAZINE HCL 50 MG TABLET (FP) PO SCH (23:02)
[2024-07-09] MEDS: MELATONIN 5 MG TABLETS PO PRN (23:02)
[2024-07-09] MEDS: CHLORHEXIDINE GLUCONATE 4% CLEANSER FOR DECOLONIZATION TP SCH (23:17)
[2024-07-09] MEDS: HEPARIN NA (PORCINE) 5,000 UNITS/ML 1ML VIAL SQ SCH (23:17)
[2024-07-09] MEDS: levETIRAcetam 500 MG TABLET (FP) PO SCH (23:17)
[2024-07-09] MEDS: ATORVASTATIN CA 20 MG TABLET (FP) PO SCH (23:17)
[2024-07-09] MEDS: MUPIROCIN 2% TOPICAL OINTMENT FOR DECOLONIZATION NS SCH (23:18)
[2024-07-09] MEDS: INSULIN ASPART SLIDING SCALE (NOVOLOG) 1 VIAL SQ SCH (23:18)
[2024-07-10] MEDS: LACTATED RINGERS SOLUTION 1,000 ML/1,000 ML INFUS.BAG IV SCH (06:53)
[2024-07-10 08:25] LABS: CHLORIDE 102 mmol/L (98-107); POTASSIUM 4.4 mmol/L (3.5-5.1); SODIUM 137 mmol/L (136-145)
[2024-07-10 08:33] LABS: BLOOD UREA NITROGEN 55.8 mg/dL (7-18); GLUCOSE,RANDOM 101 mg/dL (74-106); PHOSPHOROUS 5.1 mg/dL (2.5-4.9)
[2024-07-10 08:35] LABS: ANION GAP 13 mmol/L (4-13); BILIRUBIN,TOTAL 0.4 mg/dL (0.2-1); CALCIUM 7.8 mg/dL (8.5-10.1); CO2 23 mmol/L (21-32); MAGNESIUM 2.1 mg/dL (1.8-2.4)
[2024-07-10 08:36] LABS: SGPT/ALT 33 U/L (13-61)
[2024-07-10 08:37] LABS: BASO % 0.9 % (0-2.0); EOS % 1.5 % (0-4.5); HEMATOCRIT 38.7 % (32.4-45.2); HEMOGLOBIN 12.5 GM/dL (10.7-15.3); LYMPH % 28.9 % (8-40); MCH 31.9 pg (25.7-33.7); MCHC 32.2 g/dl (32.0-36.0); MEAN PLT VOLUME 8.5 fl (7.5-11.1); MONO % 6.2 % (3.8-10.2); NEUT % 62.5 % (42.8-82.8); PLATELET COUNT 132 10^3/uL (134-434); RBC 3.91 M/mm3 (3.60-5.2); RDW 15.1 % (11.6-15.6); SGOT/AST 20 U/L (15-37); WHITE BLOOD COUNT 9.7 K/mm3 (4.0-10.0)
[2024-07-10 08:56] LABS: ALBUMIN 3.2 g/dl (3.4-5.0); ALK PHOS 84 U/L (45-117); CREATININE 11.9 mg/dL (0.55-1.3); TOT PROT 5.7 g/dl (6.4-8.2)
[2024-07-10] MEDS: INSULIN DRIP - PLEASE ORDER UNDER SETS NR ONE (10:04)
[2024-07-10] MEDS: KETOROLAC TROMETHAMINE 30 MG/1 ML VIAL IM ONE (10:04)
[2024-07-10] MEDS: ESCITALOPRAM OXALATE 20 MG TABLET PO SCH (10:55)
[2024-07-10] MEDS: LOSARTAN POTASSIUM 50 MG TABLET PO SCH (16:30)
[2024-07-10] MEDS: KETOROLAC TROMETHAMINE 15 MG/ML VIAL IVPUSH ONE (16:33)
[2024-07-10] MEDS ORDERED: PATIENT'S OWN MEDICATION (NON-FORMULARY) (Linaclotide [Linzess] 290 MCG) PO PRN (20:33)
[2024-07-10] MEDS ORDERED: TRIMETHOBENZAMIDE HCL 200MG/2ML INJ IM PRN (20:33)
[2024-07-10] MEDS ORDERED: INSULIN (LEVEMIR) 100 UNITS/ML UNITS SQ SCH (22:00)
[2024-07-10] MEDS: GABAPENTIN 300 MG CAPSULE PO SCH (22:47)
[2024-07-10] MEDS: PANTOPRAZOLE SODIUM 40 MG VIAL IVPUSH SCH (22:47)
[2024-07-10] MEDS: hydrALAZINE HCL 50 MG TABLET (FP) PO SCH (22:47)
[2024-07-10] MEDS: ATORVASTATIN CA 20 MG TABLET (FP) PO SCH (22:47)
[2024-07-10] MEDS: levETIRAcetam 500 MG TABLET (FP) PO SCH (22:47)
[2024-07-10] MEDS: INSULIN ASPART SLIDING SCALE (NOVOLOG) 1 VIAL SQ SCH (22:48)
[2024-07-10] MEDS: LIDOCAINE PATCH REMOVAL MC SCH (22:48)
[2024-07-10] MEDS: HEPARIN NA (PORCINE) 5,000 UNITS/ML 1ML VIAL SQ SCH (22:49)
[2024-07-10] MEDS: INSULIN (LEVEMIR) 100 UNITS/ML UNITS SQ SCH (22:50)
[2024-07-11] MEDS: MELATONIN 5 MG TABLETS PO PRN (03:26)
[2024-07-11 04:29] VITALS: RESP 18
[2024-07-11] MEDS: MUPIROCIN 2% TOPICAL OINTMENT FOR DECOLONIZATION NS SCH (08:14)
[2024-07-11] MEDS: CHLORHEXIDINE GLUCONATE 4% CLEANSER FOR DECOLONIZATION TP SCH (08:14)
[2024-07-11 09:25] VITALS: TEMP 97.8
[2024-07-11] MEDS ORDERED: ESCITALOPRAM OXALATE 10 MG TABLET ONE (09:57)
[2024-07-11] MEDS: LIDOCAINE 5% TOPICAL PATCH TP SCH (10:32)
[2024-07-11] MEDS: LOSARTAN POTASSIUM 50 MG TABLET PO SCH (10:34)
[2024-07-11] MEDS: ESCITALOPRAM OXALATE 20 MG TABLET PO SCH (10:34)
[2024-07-11 11:31] LABS: HEMATOCRIT 40.3 % (32.4-45.2); HEMOGLOBIN 13.1 GM/dL (10.7-15.3); MCHC 32.4 g/dl (32.0-36.0); MEAN CELL VOLUME 98.7 fl (80-96); MEAN PLT VOLUME 8.8 fl (7.5-11.1); PLATELET COUNT 135 10^3/uL (134-434); RBC 4.08 M/mm3 (3.60-5.2); RDW 14.6 % (11.6-15.6); WHITE BLOOD COUNT 5.3 K/mm3 (4.0-10.0)
[2024-07-11 11:56] LABS: CHLORIDE 99 mmol/L (98-107); POTASSIUM 3.7 mmol/L (3.5-5.1); SODIUM 138 mmol/L (136-145)
[2024-07-11 12:01] LABS: ALBUMIN 3.2 g/dl (3.4-5.0); CALCIUM 7.5 mg/dL (8.5-10.1)
[2024-07-11 12:02] LABS: ANION GAP 9 mmol/L (4-13); CO2 30 mmol/L (21-32); GLUCOSE,RANDOM 125 mg/dL (74-106)
[2024-07-11 12:05] LABS: PHOSPHOROUS 4.2 mg/dL (2.5-4.9); SGOT/AST 27 U/L (15-37); SGPT/ALT 38 U/L (13-61)
[2024-07-11 12:06] LABS: BILIRUBIN,TOTAL 0.4 mg/dL (0.2-1); TOT PROT 5.9 g/dl (6.4-8.2)
[2024-07-11 12:07] LABS: ALK PHOS 89 U/L (45-117)
[2024-07-11 12:13] LABS: CREATININE 8.7 mg/dL (0.55-1.3)
[2024-07-11 15:01] VITALS: BP 134/74; PULSE 74
== END 2024-07-11 15:56 | disposition home or self-care (01) | DRG 420 ==
LOC: JER 12:21 → JERBED 17:36 → JICU 22:31 → J6S 07-10 20:33
PROVIDERS: ADMIT Internal Medicine Pulmonary Disease; ATTEND Internal Medicine
PROC: 5A1D70Z Performance of Urinary Filtration, Intermittent, Less than 6 Hours Per Day (ICD-10-PCS; principal; 2024-07-09)
DX: E11.10 Type 2 diabetes mellitus with ketoacidosis without coma (principal); I12.0 Hypertensive chronic kidney disease with stage 5 chronic kidney disease or end stage renal disease; K31.84 Gastroparesis; N18.6 End stage renal disease; Z68.41 Body mass index [BMI] 40.0-44.9, adult; E66.9 Obesity, unspecified; E11.22 Type 2 diabetes mellitus with diabetic chronic kidney disease; Z99.2 Dependence on renal dialysis; Z79.4 Long term (current) use of insulin; F31.9 Bipolar disorder, unspecified; G40.909 Epilepsy, unspecified, not intractable, without status epilepticus; I16.0 Hypertensive urgency; E11.43 Type 2 diabetes mellitus with diabetic autonomic (poly)neuropathy; E11.40 Type 2 diabetes mellitus with diabetic neuropathy, unspecified
CPT/HCPCS: 0241U-QW; 36415; 71045-TC-FY; 80048; 80053; 80307; 82010; 82803; 82962; 83605; 83690; 83735; 84100; 84484; 84703; 85025; 85027; 86803; 87040; 87340; 87389; 93005; 93010; 99285-25; J0131; J1644; J3480

== ENCOUNTER 2024-07-29 11:46 | Observation (INO) | payer OTHER ==
[2024-07-29] MEDS ORDERED: ACETAMINOPHEN INJECTION 100 ML ONE (13:54)
[2024-07-29] MEDS ORDERED: METOCLOPRAMIDE HCL INJECTION 10 MG/2 ML VIAL ONE (13:54)
[2024-07-29] MEDS: ACETAMINOPHEN 1000 MG/100 ML BAG IVPB ONE (14:01)
[2024-07-29] MEDS: METOCLOPRAMIDE HCL INJECTION 10 MG/2 ML VIAL IVPUSH ONE (14:02)
[2024-07-29 14:08] LABS: BASO % 0.5 % (0-2.0); HEMATOCRIT 36.7 % (32.4-45.2); LYMPH % 12.1 % (8-40); MCH 31.4 pg (25.7-33.7); MCHC 32.6 g/dl (32.0-36.0); MEAN CELL VOLUME 96.2 fl (80-96); MEAN PLT VOLUME 7.9 fl (7.5-11.1); MONO % 6.5 % (3.8-10.2); NEUT % 80.9 % (42.8-82.8); PLATELET COUNT 252 10^3/uL (134-434); RBC 3.81 M/mm3 (3.60-5.2); RDW 14.6 % (11.6-15.6); VENOUS BASE EXCESS -2.9 mmol/L (-2-2); VENOUS O2 SATURATION 49.8 % (70-80); VENOUS PCO2 39.6 mmHg (38-52); VENOUS PH 7.366 (7.310-7.410); WHITE BLOOD COUNT 9.1 K/mm3 (4.0-10.0)
[2024-07-29] MEDS ORDERED: PIPERACILLIN/TAZOB 2.25 GM 2.25 GM/50 ML BAG IVPB ONE (14:10)
[2024-07-29 14:11] LABS: EPI CELLS >36 /uL (0-25.1); HYALINE CASTS 8 /uL (0-3.1); URINE APPEARANCE CLOUDY; URINE BACTERIA 1349 /uL (0-1359); URINE BILIRUBIN NEGATIVE (NEGATIVE); URINE COLOR YELLOW; URINE GLUCOSE (UA) 1+ (NEGATIVE); URINE KETONE TRACE (NEGATIVE); URINE LEUK ESTERASE NEGATIVE (NEGATIVE); URINE NITRITE NEGATIVE (NEGATIVE); URINE PROTEIN 4+ (NEGATIVE); URINE RBC 95 /uL (0-23.9); URINE WBC 41 /uL (0-25.8)
[2024-07-29] MEDS ORDERED: MAG HYDROX/AL HYDROX/SIMETH 30 ML UNIT-DOSE CUP ONE (14:12)
[2024-07-29 14:13] LABS: INR 1.04 (0.83-1.09); PROTHROMBIN TIME (PATIENT) 11.7 SEC (9.7-13.0)
[2024-07-29] MEDS ORDERED: MAG HYDROX/AL HYDROX/SIMETH 30 ML UNIT-DOSE CUP PO ONE (14:15)
[2024-07-29 14:16] LABS: ACTIVATED PTT 28.5 SECONDS (25.2-36.5)
[2024-07-29] MEDS ORDERED: SODIUM CHLORIDE 250 ML IV PRN (14:17)
[2024-07-29] MEDS: PIPERACILLIN/TAZOB 2.25 GM 2.25 GM in DEXTROSE 5%-WATER - 50 ML IVPB ONE (14:18)
[2024-07-29 14:28] LABS: CHLORIDE 105 mmol/L (98-107); POTASSIUM 4.3 mmol/L (3.5-5.1); SODIUM 142 mmol/L (136-145)
[2024-07-29 14:30] LABS: ANION GAP 14 mmol/L (4-13); BLOOD UREA NITROGEN 66.6 mg/dL (7-18); CALCIUM 8.4 mg/dL (8.5-10.1); CO2 23 mmol/L (21-32)
[2024-07-29 14:31] LABS: ALBUMIN 3.7 g/dl (3.4-5.0); GLUCOSE,RANDOM 227 mg/dL (74-106); MAGNESIUM 2.3 mg/dL (1.8-2.4)
[2024-07-29 14:33] LABS: SGPT/ALT 44 U/L (13-61)
[2024-07-29 14:34] LABS: SGOT/AST 13 U/L (15-37)
[2024-07-29 14:35] LABS: BILIRUBIN,TOTAL 0.5 mg/dL (0.2-1)
[2024-07-29 14:36] LABS: ALK PHOS 121 U/L (45-117)
[2024-07-29 14:38] LABS: CREATININE 13.4 mg/dL (0.55-1.3)
[2024-07-29] MEDS ORDERED: ALBUTEROL SO4 0.083% IH SOL 2.5 MG/3 ML VIAL.NEB. NEB PRN (14:47)
[2024-07-29] MEDS ORDERED: ONDANSETRON 4 MG TABLET PO PRN (14:47)
[2024-07-29] MEDS ORDERED: ONDANSETRON 4 MG/2 ML VIAL IVPUSH PRN (15:18)
[2024-07-29] MEDS ORDERED: MORPHINE SULFATE 2 MG/ML SYRINGE IVPUSH PRN (15:24)
[2024-07-29] MEDS: HEPARIN NA (PORCINE) 5,000 UNITS/ML 1ML VIAL IVPUSH ONE (15:35)
[2024-07-29] MEDS: ACETAMINOPHEN 500 MG TABLET (FP) PO PRN (16:12)
[2024-07-29] MEDS: VANCOMYCIN 1,000 MG in DEXTROSE 5%-WATER - 250 ML IVPB ONE (16:33)
[2024-07-29] MEDS ORDERED: PIPERACILLIN/TAZOB 4.5 GM 4.5 GM in DEXTROSE 5%-WATER 100 ML IVPB SCH (20:00)
[2024-07-29 20:12] VITALS: BMI 40.4
[2024-07-29] MEDS ORDERED: INSULIN (LEVEMIR) 100 UNITS/ML UNITS SQ SCH (22:00)
[2024-07-29] MEDS: ATORVASTATIN CA 20 MG TABLET (FP) PO SCH (22:41)
[2024-07-29] MEDS: hydrALAZINE HCL 50 MG TABLET (FP) PO SCH (22:41)
[2024-07-29] MEDS: MONTELUKAST NA 10 MG TABLET PO SCH (22:41)
[2024-07-29] MEDS: HEPARIN NA (PORCINE) 5,000 UNITS/ML 1ML VIAL SQ SCH (22:42)
[2024-07-29] MEDS: INSULIN (LEVEMIR) 100 UNITS/ML UNITS SQ SCH (22:42)
[2024-07-29] MEDS: PRAMIPEXOLE DIHYDROCHLORIDE 0.5 MG TABLET PO SCH (22:42)
[2024-07-29] MEDS: levETIRAcetam 500 MG TABLET (FP) PO SCH (22:42)
[2024-07-29] MEDS: LIDOCAINE PATCH REMOVAL MC SCH (22:44)
[2024-07-29] MEDS: PIPERACILLIN/TAZOB 4.5 GM 4.5 GM in DEXTROSE 5%-WATER 100 ML IVPB SCH (22:58)
[2024-07-30] MEDS: LIDOCAINE 5% TOPICAL PATCH TP SCH (00:21)
[2024-07-30] MEDS: PANTOPRAZOLE 40 MG TABLET PO SCH (10:01)
[2024-07-30] MEDS: TOPIRAMATE 25 MG TABLET PO SCH (10:01)
[2024-07-30] MEDS: ESCITALOPRAM OXALATE 10 MG TABLET PO SCH (10:01)
[2024-07-30] MEDS: LOSARTAN POTASSIUM 50 MG TABLET PO SCH (10:01)
[2024-07-30] MEDS: ARIPiprazole 2 MG TABLET PO SCH (10:02)
[2024-07-30 12:09] LABS: BASO % 0.6 % (0-2.0); EOS % 1.6 % (0-4.5); HEMATOCRIT 33.6 % (32.4-45.2); HEMOGLOBIN 11.1 GM/dL (10.7-15.3); LYMPH % 30.7 % (8-40); MCH 31.9 pg (25.7-33.7); MCHC 33.2 g/dl (32.0-36.0); MEAN CELL VOLUME 96.1 fl (80-96); MONO % 10.1 % (3.8-10.2); PLATELET COUNT 205 10^3/uL (134-434); RBC 3.49 M/mm3 (3.60-5.2); RDW 14.5 % (11.6-15.6); WHITE BLOOD COUNT 5.6 K/mm3 (4.0-10.0)
[2024-07-30 12:28] LABS: CHLORIDE 101 mmol/L (98-107); POTASSIUM 3.9 mmol/L (3.5-5.1); SODIUM 139 mmol/L (136-145)
[2024-07-30 12:32] LABS: CALCIUM 7.9 mg/dL (8.5-10.1); GLUCOSE,RANDOM 72 mg/dL (74-106)
[2024-07-30 12:34] LABS: ANION GAP 6 mmol/L (4-13); CO2 32 mmol/L (21-32)
[2024-07-30 12:35] LABS: BLOOD UREA NITROGEN 34.8 mg/dL (7-18)
[2024-07-30 12:36] LABS: CREATININE 9.3 mg/dL (0.55-1.3)
[2024-07-30] MEDS ORDERED: SODIUM CHLORIDE 250 ML IV PRN (14:47)
[2024-07-30] MEDS: PIPERACILLIN/TAZOB 2.25 GM 2.25 GM in DEXTROSE 5%-WATER - 50 ML IVPB SCH ×2 (16:51→17:51)
[2024-07-30] MEDS: POLYETHYLENE GLYCOL (HEALTHYLAX) 3350 17 GM PACKET PO SCH (21:27)
[2024-07-30] MEDS ORDERED: PIPERACILLIN/TAZOB 4.5 GM 4.5 GM in DEXTROSE 5%-WATER 100 ML IVPB SCH (22:00)
[2024-07-31 08:57] LABS: BASO % 0.7 % (0-2.0); HEMATOCRIT 34.7 % (32.4-45.2); HEMOGLOBIN 11.2 GM/dL (10.7-15.3); LYMPH % 39.8 % (8-40); MCH 31.5 pg (25.7-33.7); MCHC 32.4 g/dl (32.0-36.0); MEAN CELL VOLUME 97.2 fl (80-96); MEAN PLT VOLUME 8.1 fl (7.5-11.1); MONO % 9.4 % (3.8-10.2); NEUT % 47.1 % (42.8-82.8); PLATELET COUNT 182 10^3/uL (134-434); RBC 3.57 M/mm3 (3.60-5.2); RDW 14.5 % (11.6-15.6); WHITE BLOOD COUNT 5.7 K/mm3 (4.0-10.0)
[2024-07-31 09:13] LABS: CHLORIDE 98 mmol/L (98-107); POTASSIUM 3.8 mmol/L (3.5-5.1); SODIUM 136 mmol/L (136-145)
[2024-07-31 09:32] LABS: ANION GAP 9 mmol/L (4-13); BLOOD UREA NITROGEN 44.2 mg/dL (7-18); CALCIUM 7.2 mg/dL (8.5-10.1); CO2 29 mmol/L (21-32); GLUCOSE,RANDOM 80 mg/dL (74-106)
[2024-07-31 09:35] LABS: SGOT/AST 14 U/L (15-37); SGPT/ALT 27 U/L (13-61)
[2024-07-31 09:36] LABS: BILIRUBIN,TOTAL 0.4 mg/dL (0.2-1); TOT PROT 5.6 g/dl (6.4-8.2)
[2024-07-31 09:38] LABS: ALK PHOS 91 U/L (45-117)
[2024-07-31 09:40] LABS: ALBUMIN 2.9 g/dl (3.4-5.0); CREATININE 11.1 mg/dL (0.55-1.3)
[2024-07-31] MEDS ORDERED: CEFTRIAXONE 1 GM in DEXTROSE 5%-WATER - 50 ML IVPB SCH (10:00)
[2024-07-31] MEDS ORDERED: AZITHROMYCIN IVPB 250 MG in DEXTROSE 5%-WATER - 250 ML IVPB SCH (10:00)
[2024-07-31] MEDS ORDERED: PIPERACILLIN/TAZOBACTAM 2.25 GM VIAL IVPB ONE ×2 (10:49→18:26)
[2024-07-31] MEDS: HEPARIN NA (PORCINE) 5,000 UNITS/ML 1ML VIAL IVPUSH ONE (14:35)
[2024-07-31 14:52] VITALS: RESP 18
[2024-07-31] MEDS: hydrALAZINE HCL 20 MG/ML VIAL IVPUSH PRN (18:33)
[2024-07-31] MEDS: SENNOSIDES 8.8 MG/5 ML SYRUP PO SCH (21:12)
[2024-08-01 08:44] LABS: BASO % 0.7 % (0-2.0); EOS % 2.6 % (0-4.5); HEMATOCRIT 33.2 % (32.4-45.2); HEMOGLOBIN 11.1 GM/dL (10.7-15.3); LYMPH % 34.6 % (8-40); MCHC 33.3 g/dl (32.0-36.0); MEAN CELL VOLUME 96.1 fl (80-96); MEAN PLT VOLUME 7.9 fl (7.5-11.1); MONO % 11.8 % (3.8-10.2); NEUT % 50.3 % (42.8-82.8); PLATELET COUNT 164 10^3/uL (134-434); RBC 3.45 M/mm3 (3.60-5.2); RDW 14.5 % (11.6-15.6); WHITE BLOOD COUNT 5.2 K/mm3 (4.0-10.0)
[2024-08-01 09:13] LABS: CHLORIDE 100 mmol/L (98-107); POTASSIUM 3.9 mmol/L (3.5-5.1); SODIUM 139 mmol/L (136-145)
[2024-08-01 09:18] LABS: CALCIUM 7.1 mg/dL (8.5-10.1)
[2024-08-01 09:19] LABS: ALBUMIN 2.7 g/dl (3.4-5.0); ANION GAP 5 mmol/L (4-13); BLOOD UREA NITROGEN 30.6 mg/dL (7-18); CO2 34 mmol/L (21-32); GLUCOSE,RANDOM 81 mg/dL (74-106); MAGNESIUM 1.8 mg/dL (1.8-2.4)
[2024-08-01 09:22] LABS: CREATININE 8.6 mg/dL (0.55-1.3); SGOT/AST 11 U/L (15-37); SGPT/ALT 23 U/L (13-61)
[2024-08-01 09:24] LABS: BILIRUBIN,TOTAL 0.5 mg/dL (0.2-1); TOT PROT 5.3 g/dl (6.4-8.2)
[2024-08-01 09:25] LABS: ALK PHOS 86 U/L (45-117)
[2024-08-01] MEDS: BISACODYL 5 MG TABLET.DR (FP) PO PRN (10:41)
[2024-08-01] MEDS: ONDANSETRON *ODT* 4 MG TABLET SL PRN (10:42)
[2024-08-01] MEDS ORDERED: SODIUM CHLORIDE 250 ML IV PRN (10:58)
[2024-08-01 15:00] VITALS: BP 134/73; PULSE 69; TEMP 98.4
[2024-08-02] MEDS ORDERED: HEPARIN NA (PORCINE) 5,000 UNITS/ML 1ML VIAL IVPUSH ONE (10:58)
[2024-08-02] MEDS ORDERED: HEPARIN NA (PORCINE) 5,000 UNITS/ML 1ML VIAL IVPUSH SCH (11:00)
== END 2024-08-01 18:33 | disposition home or self-care (01) ==
LOC: JER 11:46 → JERBED 14:55 → J4S 18:27
PROVIDERS: ADMIT Internal Medicine; ATTEND Internal Medicine
PROC: 3E033NZ Introduction of Analgesics, Hypnotics, Sedatives into Peripheral Vein, Percutaneous Approach (ICD-10-PCS; principal; 2024-07-29)
PROC: 3E03329 Introduction of Other Anti-infective into Peripheral Vein, Percutaneous Approach (ICD-10-PCS; 2024-07-29)
PROC: 3E0233Z Introduction of Anti-inflammatory into Muscle, Percutaneous Approach (ICD-10-PCS; 2024-07-29)
PROC: 3E033GC Introduction of Other Therapeutic Substance into Peripheral Vein, Percutaneous Approach (ICD-10-PCS; 2024-07-29)
PROC: 3E013VG Introduction of Insulin into Subcutaneous Tissue, Percutaneous Approach (ICD-10-PCS; 2024-07-29)
PROC: 3E023GC Introduction of Other Therapeutic Substance into Muscle, Percutaneous Approach (ICD-10-PCS; 2024-07-29)
DX: J18.9 Pneumonia, unspecified organism (principal); J45.909 Unspecified asthma, uncomplicated; I12.9 Hypertensive chronic kidney disease with stage 1 through stage 4 chronic kidney disease, or unspecified chronic kidney disease; I45.81 Long QT syndrome; E11.22 Type 2 diabetes mellitus with diabetic chronic kidney disease; G40.909 Epilepsy, unspecified, not intractable, without status epilepticus; Z99.2 Dependence on renal dialysis; F31.9 Bipolar disorder, unspecified; K80.20 Calculus of gallbladder without cholecystitis without obstruction; R10.9 Unspecified abdominal pain; G89.29 Other chronic pain; E66.9 Obesity, unspecified; Z91.013 Allergy to seafood; Z91.030 Bee allergy status; Z87.891 Personal history of nicotine dependence
CPT/HCPCS: 0241U-QW; 36415; 71045-TC-FY; 71250-TC; 74176-TC; 80048; 80053; 81003; 82010; 82803; 82962; 83735; 84443; 84484; 84703; 85025; 85610; 85730; 86704; 87086; 87340; 87517; 93005; 93010; 96365; 96366; 96367; 96372; 96375; 96376; 99285-25; G0378; J0131; J1644; Q0162; Q9963

== ENCOUNTER 2024-08-14 11:43 | Observation (INO) | payer OTHER ==
[2024-08-14 13:34] LABS: VENOUS BASE EXCESS -7.4 mmol/L (-2-2); VENOUS O2 SATURATION 71.7 % (70-80); VENOUS PCO2 35.7 mmHg (38-52); VENOUS PH 7.317 (7.310-7.410)
[2024-08-14 13:43] LABS: BASO % 0.6 % (0-2.0); HEMATOCRIT 41.1 % (32.4-45.2); HEMOGLOBIN 13.3 GM/dL (10.7-15.3); LYMPH % 7.4 % (8-40); MCH 31.3 pg (25.7-33.7); MCHC 32.3 g/dl (32.0-36.0); MEAN CELL VOLUME 96.7 fl (80-96); MEAN PLT VOLUME 8.5 fl (7.5-11.1); MONO % 4.8 % (3.8-10.2); NEUT % 87.2 % (42.8-82.8); PLATELET COUNT 207 10^3/uL (134-434); RBC 4.25 M/mm3 (3.60-5.2); RDW 15.8 % (11.6-15.6); WHITE BLOOD COUNT 10.5 K/mm3 (4.0-10.0)
[2024-08-14] MEDS ORDERED: METOCLOPRAMIDE HCL INJECTION 10 MG/2 ML VIAL ONE (13:53)
[2024-08-14] MEDS ORDERED: ACETAMINOPHEN INJECTION 100 ML ONE (13:53)
[2024-08-14 13:57] LABS: INR 1.01 (0.83-1.09); PROTHROMBIN TIME (PATIENT) 11.6 SEC (9.7-13.0)
[2024-08-14] MEDS: ACETAMINOPHEN 1000 MG/100 ML BAG IVPB ONE (14:02)
[2024-08-14] MEDS: METOCLOPRAMIDE HCL INJECTION 10 MG/2 ML VIAL IVPB ONE (14:02)
[2024-08-14 14:03] LABS: CHLORIDE 109 mmol/L (98-107); POTASSIUM 4.3 mmol/L (3.5-5.1); SODIUM 141 mmol/L (136-145)
[2024-08-14 14:05] LABS: BLOOD UREA NITROGEN 51.4 mg/dL (7-18)
[2024-08-14 14:06] LABS: ALBUMIN 4.1 g/dl (3.4-5.0); ANION GAP 12 mmol/L (4-13); CALCIUM 9.5 mg/dL (8.5-10.1); CO2 20 mmol/L (21-32); GLUCOSE,RANDOM 298 mg/dL (74-106); MAGNESIUM 2.4 mg/dL (1.8-2.4)
[2024-08-14 14:09] LABS: PHOSPHOROUS 3.9 mg/dL (2.5-4.9); SGOT/AST 26 U/L (15-37); SGPT/ALT 54 U/L (13-61)
[2024-08-14 14:10] LABS: BILIRUBIN,TOTAL 0.6 mg/dL (0.2-1); CREATININE 11.6 mg/dL (0.55-1.3); TOT PROT 7.6 g/dl (6.4-8.2)
[2024-08-14 14:21] LABS: ALK PHOS 136 U/L (45-117)
[2024-08-14] MEDS ORDERED: FAMOTIDINE 10 MG/ML VIAL IVPB ONE (14:22)
[2024-08-14] MEDS: FAMOTIDINE 20 MG/50 ML IVPB 20 MG/50 ML MG IVPB ONE (14:29)
[2024-08-14] MEDS: LACTATED RINGERS SOLUTION 1000 ML INFUS.BAG IV ONE (14:29)
[2024-08-14] MEDS ORDERED: MORPHINE SULFATE 2 MG/ML SYRINGE ONE (18:22)
[2024-08-14] MEDS: morphine CARPU-JECT 2 MG/1 ML DISP.SYRIN IVPUSH ONE (18:35)
[2024-08-14 20:56] VITALS: BMI 40.4
[2024-08-14] MEDS: LOSARTAN POTASSIUM 50 MG TABLET PO SCH (22:15)
[2024-08-14] MEDS: hydrALAZINE HCL 50 MG TABLET (FP) PO SCH (22:15)
[2024-08-15] MEDS: HEPARIN NA (PORCINE) 5,000 UNITS/ML 1ML VIAL SQ SCH (00:06)
[2024-08-15] MEDS: levETIRAcetam 500 MG TABLET (FP) PO SCH (00:47)
[2024-08-15] MEDS: CEFTRIAXONE 1 GM in DEXTROSE 5%-WATER - 50 ML IVPB SCH (01:57)
[2024-08-15] MEDS ORDERED: hydrALAZINE HCL 20 MG/ML VIAL IVPUSH ONE (02:21)
[2024-08-15] MEDS: hydrALAZINE HCL 20 MG/ML VIAL IVPB ONE (03:12)
[2024-08-15] MEDS: PANTOPRAZOLE 40 MG TABLET PO SCH (06:29)
[2024-08-15] MEDS ORDERED: INSULIN ASPART SLIDING SCALE (NOVOLOG) 1 VIAL SQ SCH (07:00)
[2024-08-15] MEDS: INSULIN ASPART SLIDING SCALE (NOVOLOG) 1 VIAL SQ SCH (07:03)
[2024-08-15 07:32] LABS: CHLORIDE 112 mmol/L (98-107); POTASSIUM 3.9 mmol/L (3.5-5.1); SODIUM 141 mmol/L (136-145)
[2024-08-15 07:34] LABS: ANION GAP 10 mmol/L (4-13); BLOOD UREA NITROGEN 59.2 mg/dL (7-18); CO2 18 mmol/L (21-32); GLUCOSE,RANDOM 125 mg/dL (74-106)
[2024-08-15 07:48] LABS: CALCIUM 7.8 mg/dL (8.5-10.1); CREATININE 12.2 mg/dL (0.55-1.3)
[2024-08-15] MEDS ORDERED: SODIUM CHLORIDE 250 ML IV PRN (08:38)
[2024-08-15] MEDS: ESCITALOPRAM OXALATE 10 MG TABLET PO SCH (09:49)
[2024-08-15] MEDS: TOPIRAMATE 25 MG TABLET PO SCH (09:49)
[2024-08-15] MEDS: FOLIC ACID 1 MG TABLET (FP) PO SCH (09:49)
[2024-08-15] MEDS: ARIPiprazole 2 MG TABLET PO SCH (09:50)
[2024-08-15 10:51] LABS: GAMMA GLUTAMYL TRANSPEPTIDASE 51 U/L (5-85)
[2024-08-15 10:54] LABS: EOS % 1.7 % (0-4.5); HEMATOCRIT 33.7 % (32.4-45.2); HEMOGLOBIN 11.1 GM/dL (10.7-15.3); MCH 31.7 pg (25.7-33.7); MCHC 33.1 g/dl (32.0-36.0); MEAN CELL VOLUME 95.8 fl (80-96); MEAN PLT VOLUME 8.6 fl (7.5-11.1); MONO % 7.2 % (3.8-10.2); NEUT % 64.1 % (42.8-82.8); PLATELET COUNT 152 10^3/uL (134-434); RBC 3.51 M/mm3 (3.60-5.2); WHITE BLOOD COUNT 7.8 K/mm3 (4.0-10.0)
[2024-08-15] MEDS ORDERED: ACETAMINOPHEN 325 MG TABLET (FP) PO PRN (12:40)
[2024-08-15 14:18] LABS: EPI CELLS >36 /uL (0-25.1); HYALINE CASTS 2 /uL (0-3.1); PH,URINE 5.5 (5.0-8.0); URINE APPEARANCE CLOUDY; URINE BACTERIA 61 /uL (0-1359); URINE BILIRUBIN NEGATIVE (NEGATIVE); URINE COLOR YELLOW; URINE GLUCOSE (UA) TRACE (NEGATIVE); URINE KETONE TRACE (NEGATIVE); URINE LEUK ESTERASE NEGATIVE (NEGATIVE); URINE NITRITE NEGATIVE (NEGATIVE); URINE PROTEIN 3+ (NEGATIVE); URINE RBC 10 /uL (0-23.9); URINE UROBILINOGEN 0.2 mg/dL (0.2-1.0)
[2024-08-15 14:43] LABS: URINE WBC 63.2 /uL (0-25.8)
[2024-08-15 14:44] LABS: COCAINE, UR NEGATIVE (NEGATIVE); METHADONE, UR NEGATIVE (NEGATIVE); URINE BARBITURATES NEGATIVE (NEGATIVE); URINE BENZODIAZEPINES NEGATIVE (NEGATIVE)
[2024-08-15 14:45] LABS: PHENCYCLIDINE,URINE NEGATIVE (NEGATIVE)
[2024-08-15 14:46] LABS: OPIATES, URI POSITIVE (NEGATIVE); URINE AMPHETAMINES NEGATIVE (NEGATIVE)
[2024-08-15] MEDS ORDERED: FLUCONAZOLE 150 MG TABLET PO ONE (15:40)
[2024-08-15] MEDS: ATORVASTATIN CA 20 MG TABLET (FP) PO SCH (22:13)
[2024-08-15] MEDS: MONTELUKAST NA 10 MG TABLET PO SCH (22:13)
[2024-08-15] MEDS: PRAMIPEXOLE DIHYDROCHLORIDE 0.5 MG TABLET PO SCH (22:13)
[2024-08-15] MEDS: INSULIN (LEVEMIR) 100 UNITS/ML UNITS SQ SCH (22:13)
[2024-08-15] MEDS: FLUCONAZOLE 150 MG TABLET PO ONE (23:06)
[2024-08-16 09:19] LABS: BASO % 0.9 % (0-2.0); EOS % 3.3 % (0-4.5); HEMATOCRIT 34.6 % (32.4-45.2); HEMOGLOBIN 11.5 GM/dL (10.7-15.3); LYMPH % 27.6 % (8-40); MCH 31.8 pg (25.7-33.7); MCHC 33.4 g/dl (32.0-36.0); MEAN CELL VOLUME 95.3 fl (80-96); MEAN PLT VOLUME 8.5 fl (7.5-11.1); MONO % 10.4 % (3.8-10.2); NEUT % 57.8 % (42.8-82.8); PLATELET COUNT 130 10^3/uL (134-434); RBC 3.63 M/mm3 (3.60-5.2); RDW 15.6 % (11.6-15.6); WHITE BLOOD COUNT 5.8 K/mm3 (4.0-10.0)
[2024-08-16 09:47] LABS: CHLORIDE 104 mmol/L (98-107); POTASSIUM 3.3 mmol/L (3.5-5.1); SODIUM 139 mmol/L (136-145)
[2024-08-16 10:07] LABS: ANION GAP 6 mmol/L (4-13); CALCIUM 7.7 mg/dL (8.5-10.1); CO2 29 mmol/L (21-32)
[2024-08-16 10:08] LABS: GLUCOSE,RANDOM 84 mg/dL (74-106)
[2024-08-16 10:11] LABS: SGOT/AST 15 U/L (15-37); SGPT/ALT 27 U/L (13-61)
[2024-08-16 10:12] LABS: BILIRUBIN,TOTAL 0.4 mg/dL (0.2-1)
[2024-08-16 10:18] LABS: ALK PHOS 101 U/L (45-117); BLOOD UREA NITROGEN 34.2 mg/dL (7-18); CREATININE 9.5 mg/dL (0.55-1.3); TOT PROT 5.6 g/dl (6.4-8.2)
[2024-08-16] MEDS: cloNIDine-TTS 0.1 MG/24 HRS PATCH.TDWK TD SCH ×2 (12:01→17:26)
[2024-08-16] MEDS: POTASSIUM CHLORIDE ORAL LIQUID 20 MEQ/15 ML PO ONE ×2 (17:25→17:27)
[2024-08-17 09:19] LABS: CHLORIDE 103 mmol/L (98-107); POTASSIUM 3.7 mmol/L (3.5-5.1); SODIUM 138 mmol/L (136-145)
[2024-08-17 09:20] LABS: ANION GAP 9 mmol/L (4-13); BLOOD UREA NITROGEN 53.2 mg/dL (7-18); CALCIUM 7.6 mg/dL (8.5-10.1); CO2 26 mmol/L (21-32); GLUCOSE,RANDOM 131 mg/dL (74-106); MAGNESIUM 1.9 mg/dL (1.8-2.4)
[2024-08-17 09:25] LABS: PHOSPHOROUS 4.9 mg/dL (2.5-4.9)
[2024-08-17 09:30] LABS: CREATININE 11.8 mg/dL (0.55-1.3)
[2024-08-17] MEDS: HEPARIN NA (PORCINE) 5,000 UNITS/ML 1ML VIAL IVPUSH ONE (09:50)
[2024-08-17] MEDS ORDERED: SODIUM CHLORIDE 250 ML IV PRN (09:59)
[2024-08-17] MEDS: HEPARIN NA (PORCINE) 5,000 UNITS/ML 1ML VIAL IVPUSH SCH (10:00)
[2024-08-17 10:13] LABS: HEMATOCRIT 35.1 % (32.4-45.2); HEMOGLOBIN 11.5 GM/dL (10.7-15.3); MCH 31.7 pg (25.7-33.7); MCHC 32.7 g/dl (32.0-36.0); MEAN CELL VOLUME 96.8 fl (80-96); MEAN PLT VOLUME 8.5 fl (7.5-11.1); PLATELET COUNT 126 10^3/uL (134-434); RBC 3.62 M/mm3 (3.60-5.2); RDW 15.1 % (11.6-15.6); WHITE BLOOD COUNT 5.2 K/mm3 (4.0-10.0)
[2024-08-17] MEDS: POLYETHYLENE GLYCOL (HEALTHYLAX) 3350 17 GM PACKET PO SCH (15:23)
[2024-08-17] MEDS: VANCOMYCIN ORAL SOLUTION 125 MG/2.5 ML PO ONE (18:10)
[2024-08-17] MEDS: VANCOMYCIN 250 MG/5 ML ORAL SOLUTION (RESTRICTED TO ID ONLY) PO SCH (18:11)
[2024-08-19 09:56] LABS: BASO % 0.9 % (0-2.0); EOS % 2.5 % (0-4.5); HEMATOCRIT 36.3 % (32.4-45.2); HEMOGLOBIN 12.2 GM/dL (10.7-15.3); LYMPH % 31.6 % (8-40); MCHC 33.5 g/dl (32.0-36.0); MEAN CELL VOLUME 95.5 fl (80-96); MONO % 9.9 % (3.8-10.2); NEUT % 55.1 % (42.8-82.8); PLATELET COUNT 135 10^3/uL (134-434); RDW 15.5 % (11.6-15.6)
[2024-08-19 10:12] LABS: CHLORIDE 99 mmol/L (98-107); POTASSIUM 5.5 mmol/L (3.5-5.1); SODIUM 135 mmol/L (136-145)
[2024-08-19 10:14] LABS: CALCIUM 7.6 mg/dL (8.5-10.1)
[2024-08-19 10:15] LABS: ANION GAP 8 mmol/L (4-13); BLOOD UREA NITROGEN 61.6 mg/dL (7-18); CO2 28 mmol/L (21-32); GLUCOSE,RANDOM 102 mg/dL (74-106)
[2024-08-19] MEDS ORDERED: SODIUM CHLORIDE 250 ML IV PRN (12:57)
[2024-08-20 01:58] VITALS: RESP 18
[2024-08-20 15:35] VITALS: TEMP 98.1
[2024-08-20 15:53] VITALS: BP 120/61; PULSE 62
== END 2024-08-20 16:54 | disposition home or self-care (01) ==
LOC: JER 11:43 → JERBED 14:50 → J7W 19:32
PROVIDERS: ADMIT Internal Medicine; ATTEND Nurse Practitioner Acute Care
PROC: 3E033NZ Introduction of Analgesics, Hypnotics, Sedatives into Peripheral Vein, Percutaneous Approach (ICD-10-PCS; principal; 2024-08-14)
PROC: 3E013VG Introduction of Insulin into Subcutaneous Tissue, Percutaneous Approach (ICD-10-PCS; 2024-08-14)
PROC: 3E03329 Introduction of Other Anti-infective into Peripheral Vein, Percutaneous Approach (ICD-10-PCS; 2024-08-14)
PROC: 3E033GC Introduction of Other Therapeutic Substance into Peripheral Vein, Percutaneous Approach (ICD-10-PCS; 2024-08-14)
DX: E11.22 Type 2 diabetes mellitus with diabetic chronic kidney disease (principal); I12.0 Hypertensive chronic kidney disease with stage 5 chronic kidney disease or end stage renal disease; N18.6 End stage renal disease; Z99.2 Dependence on renal dialysis; Z91.158 Patient's noncompliance with renal dialysis for other reason; G47.33 Obstructive sleep apnea (adult) (pediatric); Z87.891 Personal history of nicotine dependence; J45.909 Unspecified asthma, uncomplicated; J44.9 Chronic obstructive pulmonary disease, unspecified; F31.9 Bipolar disorder, unspecified; Z29.89 Encounter for other specified prophylactic measures; E66.01 Morbid (severe) obesity due to excess calories; R56.9 Unspecified convulsions; Z91.013 Allergy to seafood
CPT/HCPCS: 0241U-QW; 36415; 70450-TC; 71045-TC-FY; 71250-TC; 74176-TC; 76705-TC; 80048; 80053; 80307; 81003; 82607; 82746; 82803; 82962; 82977; 83690; 83735; 84100; 84443; 84484; 84703; 85025; 85027; 85610; 85730; 86850; 86900; 86901; 87040; 87045; 87046; 87086; 87205; 87324; 87449; 87493; 93005; 93010; 96365; 96367; 96372; 96375; 96376; 99285-25; G0378; J0131; J1644

== ENCOUNTER 2024-08-25 17:54 | Inpatient (IN) | payer OTHER ==
[2024-08-25] MEDS ORDERED: MIDAZOLAM HCL 5 MG/1 ML Single Dose Vial ONE (18:11)
[2024-08-25] MEDS ORDERED: METOCLOPRAMIDE HCL INJECTION 10 MG/2 ML VIAL ONE ×2 (18:22→19:24)
[2024-08-25 19:14] LABS: BASO % 0.5 % (0-2.0); EOS % 0.2 % (0-4.5); HEMATOCRIT 45.2 % (32.4-45.2); HEMOGLOBIN 14.3 GM/dL (10.7-15.3); LYMPH % 10.4 % (8-40); MCH 31.2 pg (25.7-33.7); MCHC 31.6 g/dl (32.0-36.0); MEAN CELL VOLUME 98.9 fl (80-96); MEAN PLT VOLUME 9.1 fl (7.5-11.1); MONO % 2.1 % (3.8-10.2); NEUT % 86.8 % (42.8-82.8); PLATELET COUNT 214 10^3/uL (134-434); RBC 4.57 M/mm3 (3.60-5.2); RDW 15.7 % (11.6-15.6); WHITE BLOOD COUNT 9.2 K/mm3 (4.0-10.0)
[2024-08-25] MEDS: MIDAZOLAM HCL 5 MG/1 ML Single Dose Vial IM ONE (19:20)
[2024-08-25] MEDS: METOCLOPRAMIDE HCL INJECTION 10 MG/2 ML VIAL IVPUSH ONE (19:21)
[2024-08-25] MEDS ORDERED: levETIRAcetam 500 MG/5 ML INJECTION VIAL IVPB ONE (19:24)
[2024-08-25 19:29] LABS: VENOUS O2 SATURATION 61.1 % (70-80); VENOUS PCO2 36.4 mmHg (38-52); VENOUS PH 7.264 (7.310-7.410)
[2024-08-25 19:34] LABS: CHLORIDE 104 mmol/L (98-107); SODIUM 134 mmol/L (136-145)
[2024-08-25] MEDS: levETIRAcetam 500 MG/5 ML INJECTION VIAL IVPB ONE (19:34)
[2024-08-25] MEDS: METOCLOPRAMIDE HCL INJECTION 10 MG/2 ML VIAL IVPB ONE (19:35)
[2024-08-25] MEDS ORDERED: niCARdipine HCL 25 MG/10 ML AMPUL IVPB ONE (19:35)
[2024-08-25 19:36] LABS: INR 0.99 (0.83-1.09); PROTHROMBIN TIME (PATIENT) 11.2 SEC (9.7-13.0)
[2024-08-25 19:37] LABS: BLOOD UREA NITROGEN 51.3 mg/dL (7-18); CALCIUM 8.4 mg/dL (8.5-10.1); CO2 22 mmol/L (21-32)
[2024-08-25 19:38] LABS: GLUCOSE,RANDOM 242 mg/dL (74-106)
[2024-08-25 19:39] LABS: ACTIVATED PTT 31.3 SECONDS (25.2-36.5); ANION GAP 9 mmol/L (4-13); POTASSIUM 8.1 mmol/L (3.5-5.1)
[2024-08-25 19:40] LABS: ALBUMIN 4.3 g/dl (3.4-5.0); SGPT/ALT 188 U/L (13-61)
[2024-08-25 19:41] LABS: SGOT/AST 162 U/L (15-37)
[2024-08-25 19:42] LABS: BILIRUBIN,TOTAL 0.7 mg/dL (0.2-1)
[2024-08-25] MEDS: NICARDIPINE 25 MG in DEXTROSE 5%-WATER - 240 ML IVPB SCH (19:52)
[2024-08-25 20:00] LABS: PHOSPHOROUS 4.8 mg/dL (2.5-4.9)
[2024-08-25 20:14] LABS: ALK PHOS 201 U/L (45-117); TOT PROT 8.3 g/dl (6.4-8.2)
[2024-08-25] MEDS ORDERED: PIPERACILLIN/TAZOB 4.5 GM 4.5 GM/100 ML BAG IVPB ONE (22:10)
[2024-08-25] MEDS: PIPERACILLIN/TAZOB 4.5 GM 4.5 GM in DEXTROSE 5%-WATER 100 ML IVPB ONE (22:19)
[2024-08-25] MEDS ORDERED: VANCOMYCIN 1 GRAM (PRE-DOCKED) 1,000 MG/250 ML BAG IVPB ONE ×2 (22:30→22:35)
[2024-08-25] MEDS: VANCOMYCIN 1,000 MG in DEXTROSE 5%-WATER - 250 ML IVPB ONE (22:54)
[2024-08-25 23:10] LABS: CHLORIDE 106 mmol/L (98-107); POTASSIUM 5.5 mmol/L (3.5-5.1); SODIUM 137 mmol/L (136-145)
[2024-08-25 23:12] LABS: CALCIUM 8.2 mg/dL (8.5-10.1)
[2024-08-25 23:13] LABS: ANION GAP 9 mmol/L (4-13); CO2 22 mmol/L (21-32); GLUCOSE,RANDOM 261 mg/dL (74-106)
[2024-08-25 23:31] LABS: CREATININE 12.1 mg/dL (0.55-1.3)
[2024-08-25] MEDS ORDERED: TRIMETHOBENZAMIDE HCL 200MG/2ML INJ IM ONE (23:46)
[2024-08-25] MEDS: TRIMETHOBENZAMIDE HCL 200MG/2ML INJ IM ONE (23:57)
[2024-08-26 02:23] VITALS: BMI 41.7
[2024-08-26] MEDS ORDERED: PATIENT'S OWN MEDICATION (NON-FORMULARY) (Linaclotide [Linzess] 290 MCG Capsule) PO PRN (04:16)
[2024-08-26] MEDS ORDERED: ALBUTEROL SO4 0.083% IH SOL 2.5 MG/3 ML VIAL.NEB. NEB PRN (04:23)
[2024-08-26] MEDS ORDERED: TRIMETHOBENZAMIDE HCL 200MG/2ML INJ IM PRN (04:38)
[2024-08-26] MEDS: HEPARIN NA (PORCINE) 5,000 UNITS/ML 1ML VIAL SQ SCH (06:18)
[2024-08-26] MEDS: hydrALAZINE HCL 50 MG TABLET (FP) PO SCH (06:18)
[2024-08-26] MEDS: INSULIN ASPART SLIDING SCALE (NOVOLOG) 1 VIAL SQ SCH (06:24)
[2024-08-26] MEDS ORDERED: levETIRAcetam 500 MG/5 ML INJECTION VIAL IVPB SCH ×2 (09:00→10:00)
[2024-08-26] MEDS ORDERED: levETIRAcetam 500 MG TABLET (FP) PO SCH (10:00)
[2024-08-26 10:22] LABS: HEMATOCRIT 38.4 % (32.4-45.2); HEMOGLOBIN 12.3 GM/dL (10.7-15.3); MCH 31.1 pg (25.7-33.7); MCHC 31.9 g/dl (32.0-36.0); MEAN CELL VOLUME 97.2 fl (80-96); MEAN PLT VOLUME 8.9 fl (7.5-11.1); PLATELET COUNT 187 10^3/uL (134-434); RBC 3.95 M/mm3 (3.60-5.2); RDW 15.6 % (11.6-15.6); WHITE BLOOD COUNT 11.6 K/mm3 (4.0-10.0)
[2024-08-26] MEDS ORDERED: SODIUM CHLORIDE 250 ML IV PRN (10:40)
[2024-08-26 10:55] LABS: CHLORIDE 109 mmol/L (98-107); POTASSIUM 4.9 mmol/L (3.5-5.1); SODIUM 141 mmol/L (136-145)
[2024-08-26 10:57] LABS: CALCIUM 7.9 mg/dL (8.5-10.1)
[2024-08-26 10:58] LABS: ANION GAP 10 mmol/L (4-13); BLOOD UREA NITROGEN 60.3 mg/dL (7-18); CO2 22 mmol/L (21-32); GLUCOSE,RANDOM 183 mg/dL (74-106); MAGNESIUM 2.1 mg/dL (1.8-2.4)
[2024-08-26 10:59] LABS: ALBUMIN 3.3 g/dl (3.4-5.0)
[2024-08-26 11:01] LABS: PHOSPHOROUS 4.4 mg/dL (2.5-4.9); SGOT/AST 37 U/L (15-37); SGPT/ALT 100 U/L (13-61)
[2024-08-26 11:02] LABS: BILIRUBIN,TOTAL 0.7 mg/dL (0.2-1); CREATININE 13.3 mg/dL (0.55-1.3); TOT PROT 6.3 g/dl (6.4-8.2)
[2024-08-26] MEDS: POLYETHYLENE GLYCOL (HEALTHYLAX) 3350 17 GM PACKET PO SCH (11:02)
[2024-08-26 11:10] LABS: ALK PHOS 135 U/L (45-117)
[2024-08-26] MEDS: LOSARTAN POTASSIUM 50 MG TABLET PO SCH (11:17)
[2024-08-26] MEDS: TOPIRAMATE 25 MG TABLET PO SCH (11:17)
[2024-08-26] MEDS: PANTOPRAZOLE 40 MG TABLET PO SCH (11:18)
[2024-08-26] MEDS: FOLIC ACID 1 MG TABLET (FP) PO SCH (11:18)
[2024-08-26] MEDS: ESCITALOPRAM OXALATE 10 MG TABLET PO SCH (11:18)
[2024-08-26] MEDS: levETIRAcetam 500 MG/5 ML INJECTION VIAL IVPB SCH (11:22)
[2024-08-26] MEDS ORDERED: PIPERACILLIN/TAZOB 2.25 GM 2.25 GM in DEXTROSE 5%-WATER - 50 ML IVPB SCH (12:00)
[2024-08-26] MEDS: ARIPiprazole 2 MG TABLET PO SCH (12:20)
[2024-08-26] MEDS: PIPERACILLIN/TAZOB 2.25 GM 2.25 GM in DEXTROSE 5%-WATER - 50 ML IVPB ONE (14:24)
[2024-08-26] MEDS: VANCOMYCIN/WATER FOR INJ (PEG) 1,000 MG/200 ML BAG IVPB ONE (15:41)
[2024-08-26] MEDS: PRAMIPEXOLE DIHYDROCHLORIDE 0.5 MG TABLET PO SCH (21:47)
[2024-08-26] MEDS: PIPERACILLIN/TAZOB 2.25 GM 2.25 GM/50 ML BAG IVPB SCH (21:51)
[2024-08-26] MEDS: PIPERACILLIN/TAZOB 2.25 GM 2.25 GM in DEXTROSE 5%-WATER - 50 ML IVPB SCH (22:52)
[2024-08-27 08:35] LABS: BASO % 0.9 % (0-2.0); HEMATOCRIT 34.4 % (32.4-45.2); MCHC 32.1 g/dl (32.0-36.0); MEAN CELL VOLUME 96.7 fl (80-96); MEAN PLT VOLUME 8.5 fl (7.5-11.1); MONO % 7.1 % (3.8-10.2); PLATELET COUNT 115 10^3/uL (134-434); RBC 3.55 M/mm3 (3.60-5.2); RDW 15.9 % (11.6-15.6); WHITE BLOOD COUNT 7.5 K/mm3 (4.0-10.0)
[2024-08-27 08:49] LABS: CHLORIDE 103 mmol/L (98-107); SODIUM 141 mmol/L (136-145)
[2024-08-27 08:51] LABS: ALBUMIN 2.9 g/dl (3.4-5.0); ANION GAP 10 mmol/L (4-13); CALCIUM 7.5 mg/dL (8.5-10.1); CO2 28 mmol/L (21-32); GAMMA GLUTAMYL TRANSPEPTIDASE 68 U/L (5-85); GLUCOSE,RANDOM 118 mg/dL (74-106); MAGNESIUM 1.8 mg/dL (1.8-2.4)
[2024-08-27 08:53] LABS: BLOOD UREA NITROGEN 32.2 mg/dL (7-18)
[2024-08-27 08:54] LABS: PHOSPHOROUS 3.6 mg/dL (2.5-4.9); SGOT/AST 25 U/L (15-37); SGPT/ALT 69 U/L (13-61)
[2024-08-27 08:55] LABS: BILIRUBIN,TOTAL 0.6 mg/dL (0.2-1)
[2024-08-27 08:56] LABS: TOT PROT 5.6 g/dl (6.4-8.2)
[2024-08-27 08:57] LABS: CREATININE 9.6 mg/dL (0.55-1.3)
[2024-08-27 09:00] LABS: ALK PHOS 102 U/L (45-117)
[2024-08-27] MEDS ORDERED: SODIUM CHLORIDE 250 ML IV PRN ×2 (14:22)
[2024-08-27] MEDS: PIPERACILLIN/TAZOB 2.25 GM 2.25 GM in DEXTROSE 5%-WATER - 50 ML IVPB SCH (17:08)
[2024-08-27] MEDS: PIPERACILLIN/TAZOB 2.25 GM 2.25 GM/50 ML BAG IVPB SCH (17:31)
[2024-08-28 06:32] LABS: BASO % 0.8 % (0-2.0); HEMATOCRIT 35.1 % (32.4-45.2); HEMOGLOBIN 11.2 GM/dL (10.7-15.3); LYMPH % 35.1 % (8-40); MCHC 32.1 g/dl (32.0-36.0); MEAN CELL VOLUME 96.5 fl (80-96); MEAN PLT VOLUME 8.7 fl (7.5-11.1); MONO % 9.9 % (3.8-10.2); NEUT % 51.2 % (42.8-82.8); PLATELET COUNT 119 10^3/uL (134-434); RBC 3.63 M/mm3 (3.60-5.2); RDW 15.2 % (11.6-15.6); WHITE BLOOD COUNT 6.7 K/mm3 (4.0-10.0)
[2024-08-28] MEDS: HEPARIN NA (PORCINE) 5,000 UNITS/ML 1ML VIAL IVPUSH ONE (13:48)
[2024-08-28 14:14] LABS: HEMATOCRIT 35.6 % (32.4-45.2); HEMOGLOBIN 11.3 GM/dL (10.7-15.3); MCH 30.9 pg (25.7-33.7); MCHC 31.9 g/dl (32.0-36.0); MEAN CELL VOLUME 96.8 fl (80-96); MEAN PLT VOLUME 8.6 fl (7.5-11.1); PLATELET COUNT 125 10^3/uL (134-434); RBC 3.68 M/mm3 (3.60-5.2); RDW 15.1 % (11.6-15.6); WHITE BLOOD COUNT 6.4 K/mm3 (4.0-10.0)
[2024-08-28] MEDS: HEPARIN NA (PORCINE) 5,000 UNITS/ML 1ML VIAL IVPUSH SCH (14:14)
[2024-08-28 17:09] VITALS: RESP 18
[2024-08-28 19:22] VITALS: PULSE 70
[2024-08-28 19:25] VITALS: BP 122/61; TEMP 99
[2024-08-30] MEDS ORDERED: cloNIDine-TTS 0.1 MG/24 HRS PATCH.TDWK TD SCH (07:00)
== END 2024-08-28 22:00 | disposition home or self-care (01) | DRG 137 ==
LOC: JER 17:54 → JERBED 22:08 → J4S 08-26 00:22
PROVIDERS: ADMIT Internal Medicine; ATTEND Internal Medicine
PROC: 5A1D70Z Performance of Urinary Filtration, Intermittent, Less than 6 Hours Per Day (ICD-10-PCS; principal; 2024-08-28)
DX: J69.0 Pneumonitis due to inhalation of food and vomit (principal); J96.01 Acute respiratory failure with hypoxia; N18.6 End stage renal disease; E11.43 Type 2 diabetes mellitus with diabetic autonomic (poly)neuropathy; E87.3 Alkalosis; E87.20 Acidosis, unspecified; R56.9 Unspecified convulsions; E78.5 Hyperlipidemia, unspecified; F31.9 Bipolar disorder, unspecified; I12.9 Hypertensive chronic kidney disease with stage 1 through stage 4 chronic kidney disease, or unspecified chronic kidney disease; I16.0 Hypertensive urgency; J45.909 Unspecified asthma, uncomplicated; R11.2 Nausea with vomiting, unspecified; Z99.2 Dependence on renal dialysis
CPT/HCPCS: 0241U-QW; 36415; 70450-TC; 71045-TC-FY; 71250-TC; 74176-TC; 76705-TC; 80048; 80053; 80177; 80201; 82010; 82550; 82803; 82962; 82977; 83605; 83735; 84100; 84484; 84703; 85025; 85027; 85379; 85610; 85730; 86850; 86900; 86901; 87040; 87070; 87186; 87205; 93005; 93010; 94761; 97116-GP; 97161-GP; 99285-25; J1644

== ENCOUNTER 2024-09-18 15:06 | Observation (INO) | payer OTHER ==
[2024-09-18] MEDS ORDERED: LOSARTAN POTASSIUM 50 MG TABLET ONE (16:19)
[2024-09-18] MEDS ORDERED: ONDANSETRON 4 MG/2 ML VIAL ONE (16:19)
[2024-09-18] MEDS: LOSARTAN POTASSIUM 50 MG TABLET PO ONE (16:42)
[2024-09-18] MEDS: ONDANSETRON 4 MG/2 ML VIAL IVPUSH ONE (17:01)
[2024-09-18 17:04] LABS: BASO % 0.8 % (0-2.0); EOS % 5.4 % (0-4.5); HEMATOCRIT 41.6 % (32.4-45.2); HEMOGLOBIN 13.3 GM/dL (10.7-15.3); LYMPH % 23.3 % (8-40); MCH 30.6 pg (25.7-33.7); MEAN CELL VOLUME 95.8 fl (80-96); MEAN PLT VOLUME 8.3 fl (7.5-11.1); MONO % 7.8 % (3.8-10.2); NEUT % 62.7 % (42.8-82.8); PLATELET COUNT 221 10^3/uL (134-434); RBC 4.35 M/mm3 (3.60-5.2); RDW 15.5 % (11.6-15.6); WHITE BLOOD COUNT 8.3 K/mm3 (4.0-10.0)
[2024-09-18 17:11] LABS: INR 0.9 (0.83-1.09); PROTHROMBIN TIME (PATIENT) 10.2 SEC (9.7-13.0)
[2024-09-18 17:14] LABS: ACTIVATED PTT 28.3 SECONDS (25.2-36.5)
[2024-09-18 17:23] LABS: CHLORIDE 101 mmol/L (98-107); POTASSIUM 7.1 mmol/L (3.5-5.1); SODIUM 135 mmol/L (136-145)
[2024-09-18 17:25] LABS: ANION GAP 6 mmol/L (4-13); BLOOD UREA NITROGEN 44.6 mg/dL (7-18); CO2 28 mmol/L (21-32); GLUCOSE,RANDOM 96 mg/dL (74-106); MAGNESIUM 2.4 mg/dL (1.8-2.4)
[2024-09-18 17:26] LABS: ALBUMIN 3.4 g/dl (3.4-5.0)
[2024-09-18 17:29] LABS: PHOSPHOROUS 2.7 mg/dL (2.5-4.9); SGOT/AST 81 U/L (15-37)
[2024-09-18 17:30] LABS: BILIRUBIN,TOTAL 0.4 mg/dL (0.2-1); CREATININE 11.2 mg/dL (0.55-1.3); SGPT/ALT 34 U/L (13-61); TOT PROT 7.8 g/dl (6.4-8.2)
[2024-09-18 17:31] LABS: ALK PHOS 125 U/L (45-117)
[2024-09-18 18:36] LABS: CHLORIDE 102 mmol/L (98-107); SODIUM 140 mmol/L (136-145)
[2024-09-18 18:38] LABS: ALBUMIN 3.5 g/dl (3.4-5.0); ANION GAP 8 mmol/L (4-13); BLOOD UREA NITROGEN 43.9 mg/dL (7-18); CO2 29 mmol/L (21-32)
[2024-09-18 18:39] LABS: GLUCOSE,RANDOM 75 mg/dL (74-106)
[2024-09-18 18:42] LABS: SGOT/AST 23 U/L (15-37); SGPT/ALT 26 U/L (13-61)
[2024-09-18 18:43] LABS: BILIRUBIN,TOTAL 0.5 mg/dL (0.2-1); CREATININE 11.2 mg/dL (0.55-1.3); TOT PROT 6.9 g/dl (6.4-8.2)
[2024-09-18 18:44] LABS: ALK PHOS 122 U/L (45-117)
[2024-09-18] MEDS ORDERED: morphine SULFATE 4 MG/ML VIAL ONE (19:50)
[2024-09-18] MEDS: morphine CARPU-JECT 4 MG/1 ML DISP.SYRIN IVPUSH ONE (20:00)
[2024-09-18] MEDS: METOPROLOL TARTRATE 50 MG TABLET (FP) PO ONE (21:35)
[2024-09-18 22:33] VITALS: RESP 18
[2024-09-18] MEDS: hydrALAZINE HCL 50 MG TABLET (FP) PO ONE (22:55)
[2024-09-18] MEDS: HEPARIN NA (PORCINE) 5,000 UNITS/ML 1ML VIAL SQ SCH (22:56)
[2024-09-18] MEDS: levETIRAcetam 500 MG TABLET (FP) PO ONE (22:56)
[2024-09-18] MEDS ORDERED: ONDANSETRON 4 MG TABLET PO PRN (23:42)
[2024-09-18] MEDS ORDERED: PATIENT'S OWN MEDICATION (NON-FORMULARY) (Linaclotide [Linzess] 290 MCG Capsule) PO PRN (23:42)
[2024-09-19] MEDS ORDERED: LIDOCAINE 5% TOPICAL PATCH TP PRN (00:27)
[2024-09-19] MEDS ORDERED: ACETAMINOPHEN 325 MG TABLET (FP) PO PRN ×2 (00:28→01:40)
[2024-09-19] MEDS: hydrALAZINE HCL 50 MG TABLET (FP) PO SCH (05:31)
[2024-09-19] MEDS: INSULIN ASPART SLIDING SCALE (NOVOLOG) 1 VIAL SQ SCH (06:11)
[2024-09-19] MEDS: METOCLOPRAMIDE HCL 10 MG TABLET (FP) PO PRN (06:14)
[2024-09-19] MEDS ORDERED: METOCLOPRAMIDE HCL 10 MG TABLET (FP) PO SCH (07:00)
[2024-09-19] MEDS: levETIRAcetam 500 MG TABLET (FP) PO SCH (09:14)
[2024-09-19] MEDS: LOSARTAN POTASSIUM 50 MG TABLET PO SCH (09:14)
[2024-09-19] MEDS: ESCITALOPRAM OXALATE 10 MG TABLET PO SCH (09:14)
[2024-09-19] MEDS: TOPIRAMATE 25 MG TABLET PO SCH (09:14)
[2024-09-19] MEDS: FOLIC ACID 1 MG TABLET (FP) PO SCH (09:14)
[2024-09-19] MEDS: PANTOPRAZOLE 40 MG TABLET PO SCH (09:14)
[2024-09-19] MEDS: POLYETHYLENE GLYCOL (HEALTHYLAX) 3350 17 GM PACKET PO SCH (09:17)
[2024-09-19 09:20] LABS: HEMATOCRIT 37.3 % (32.4-45.2); HEMOGLOBIN 12.1 GM/dL (10.7-15.3); MCH 30.9 pg (25.7-33.7); MCHC 32.4 g/dl (32.0-36.0); MEAN CELL VOLUME 95.4 fl (80-96); MEAN PLT VOLUME 8.2 fl (7.5-11.1); PLATELET COUNT 190 10^3/uL (134-434); RBC 3.91 M/mm3 (3.60-5.2); WHITE BLOOD COUNT 7.3 K/mm3 (4.0-10.0)
[2024-09-19 09:32] LABS: CHLORIDE 98 mmol/L (98-107); SODIUM 135 mmol/L (136-145)
[2024-09-19 09:40] LABS: ANION GAP 9 mmol/L (4-13); BLOOD UREA NITROGEN 51.6 mg/dL (7-18); CALCIUM 7.6 mg/dL (8.5-10.1); CO2 27 mmol/L (21-32); GLUCOSE,RANDOM 119 mg/dL (74-106)
[2024-09-19 09:44] LABS: PHOSPHOROUS 3.3 mg/dL (2.5-4.9); SGOT/AST 17 U/L (15-37); SGPT/ALT 23 U/L (13-61)
[2024-09-19 09:46] LABS: BILIRUBIN,TOTAL 0.4 mg/dL (0.2-1); TOT PROT 5.9 g/dl (6.4-8.2)
[2024-09-19 09:47] LABS: ALK PHOS 104 U/L (45-117)
[2024-09-19 09:51] LABS: CREATININE 12.6 mg/dL (0.55-1.3)
[2024-09-19] MEDS: HEPARIN NA (PORCINE) 5,000 UNITS/ML 1ML VIAL IVPUSH ONE (10:00)
[2024-09-19] MEDS: HEPARIN NA (PORCINE) 5,000 UNITS/ML 1ML VIAL IVPUSH SCH (11:00)
[2024-09-19 13:10] VITALS: BMI 43.4
[2024-09-19] MEDS ORDERED: SODIUM CHLORIDE 250 ML IV PRN (14:00)
[2024-09-19] MEDS: ARIPiprazole 2 MG TABLET PO SCH (21:31)
[2024-09-19] MEDS: INSULIN (LEVEMIR) 100 UNITS/ML UNITS SQ SCH (21:32)
[2024-09-19] MEDS: PRAMIPEXOLE DIHYDROCHLORIDE 0.5 MG TABLET PO SCH (21:33)
[2024-09-19] MEDS: MONTELUKAST NA 10 MG TABLET PO SCH (21:33)
[2024-09-19] MEDS: ATORVASTATIN CA 20 MG TABLET (FP) PO SCH (21:33)
[2024-09-19] MEDS: LIDOCAINE PATCH REMOVAL MC SCH (21:57)
[2024-09-20] MEDS: cloNIDine-TTS 0.1 MG/24 HRS PATCH.TDWK TD SCH (06:22)
[2024-09-20 09:00] VITALS: BP 162/87; PULSE 85; TEMP 98.4
== END 2024-09-20 13:58 | disposition home or self-care (01) ==
LOC: JER 15:06 → JERBED 18:58 → UNDOADMOB 18:58 → OBSVTOIN 20:31 → INTOOBSV 20:31 → J5S 21:23 → JERBED 21:23 → J5S 23:35
PROVIDERS: ADMIT Student in an Organized Health Care Education/Training Program
PROC: 3E033GC Introduction of Other Therapeutic Substance into Peripheral Vein, Percutaneous Approach (ICD-10-PCS; principal; 2024-09-18)
PROC: 3E013VG Introduction of Insulin into Subcutaneous Tissue, Percutaneous Approach (ICD-10-PCS; 2024-09-18)
PROC: 3E033NZ Introduction of Analgesics, Hypnotics, Sedatives into Peripheral Vein, Percutaneous Approach (ICD-10-PCS; 2024-09-18)
PROC: 3E033GC Introduction of Other Therapeutic Substance into Peripheral Vein, Percutaneous Approach (ICD-10-PCS; 2024-09-18)
DX: I16.0 Hypertensive urgency (principal); E11.43 Type 2 diabetes mellitus with diabetic autonomic (poly)neuropathy; E11.22 Type 2 diabetes mellitus with diabetic chronic kidney disease; I12.0 Hypertensive chronic kidney disease with stage 5 chronic kidney disease or end stage renal disease; N18.6 End stage renal disease; Z99.2 Dependence on renal dialysis; J45.909 Unspecified asthma, uncomplicated; K59.00 Constipation, unspecified; K21.9 Gastro-esophageal reflux disease without esophagitis; K44.9 Diaphragmatic hernia without obstruction or gangrene; K31.84 Gastroparesis; F31.9 Bipolar disorder, unspecified; R60.0 Localized edema
CPT/HCPCS: 36415; 70450-TC; 71045-TC-FY; 80053; 82962; 83735; 84100; 84484; 84703; 85025; 85027; 85610; 85730; 86850; 86900; 86901; 93005; 93010; 96372; 96374; 96375; 96376; 99285-25; G0378; J1644

== ENCOUNTER 2024-10-07 11:54 | Observation (INO) | payer OTHER ==
[2024-10-07] MEDS: ACETAMINOPHEN 1000 MG/100 ML BAG IVPB ONE (13:16)
[2024-10-07] MEDS ORDERED: MECLIZINE HCL 25 MG TABLET (FP) ONE (13:17)
[2024-10-07] MEDS ORDERED: ACETAMINOPHEN 325 MG TABLET (FP) ONE (13:17)
[2024-10-07] MEDS: ACETAMINOPHEN 325 MG TABLET (FP) PO ONE (13:30)
[2024-10-07] MEDS: MECLIZINE HCL 25 MG TABLET (FP) PO ONE (13:31)
[2024-10-07] MEDS: BENZONATATE 200 MG CAPSULE PO ONE (14:15)
[2024-10-07 14:52] LABS: BASO % 1.2 % (0-2.0); HEMATOCRIT 34.5 % (32.4-45.2); HEMOGLOBIN 11.2 GM/dL (10.7-15.3); MCH 30.9 pg (25.7-33.7); MCHC 32.4 g/dl (32.0-36.0); MEAN CELL VOLUME 95.2 fl (80-96); MEAN PLT VOLUME 8.4 fl (7.5-11.1); MONO % 4.7 % (3.8-10.2); NEUT % 74.1 % (42.8-82.8); PLATELET COUNT 287 10^3/uL (134-434); RBC 3.62 M/mm3 (3.60-5.2); RDW 15.8 % (11.6-15.6); WHITE BLOOD COUNT 7.8 K/mm3 (4.0-10.0)
[2024-10-07 15:09] LABS: CHLORIDE 103 mmol/L (98-107); POTASSIUM 5.7 mmol/L (3.5-5.1); SODIUM 137 mmol/L (136-145)
[2024-10-07 15:11] LABS: CALCIUM 8.2 mg/dL (8.5-10.1); GLUCOSE,RANDOM 146 mg/dL (74-106)
[2024-10-07 15:12] LABS: ALBUMIN 3.2 g/dl (3.4-5.0); ANION GAP 10 mmol/L (4-13); BLOOD UREA NITROGEN 62.1 mg/dL (7-18); CO2 24 mmol/L (21-32); MAGNESIUM 2.2 mg/dL (1.8-2.4)
[2024-10-07 15:15] LABS: PHOSPHOROUS 3.5 mg/dL (2.5-4.9); SGOT/AST 40 U/L (15-37); SGPT/ALT 41 U/L (13-61)
[2024-10-07] MEDS ORDERED: SODIUM CHLORIDE 250 ML IV PRN (15:15)
[2024-10-07 15:16] LABS: BILIRUBIN,TOTAL 0.5 mg/dL (0.2-1); CREATININE 12.2 mg/dL (0.55-1.3)
[2024-10-07 15:17] LABS: TOT PROT 6.8 g/dl (6.4-8.2)
[2024-10-07 15:18] LABS: ALK PHOS 115 U/L (45-117)
[2024-10-07] MEDS ORDERED: HEPARIN NA (PORCINE) 5,000 UNITS/ML 1ML VIAL IVPUSH SCH (16:00)
[2024-10-07] MEDS ORDERED: HEPARIN NA (PORCINE) 5,000 UNITS/ML 1ML VIAL IVPUSH ONE (16:00)
[2024-10-07] MEDS ORDERED: MORPHINE SULFATE 2 MG/ML SYRINGE ONE (16:20)
[2024-10-07] MEDS: morphine CARPU-JECT 4 MG/1 ML DISP.SYRIN IVPUSH ONE (16:21)
[2024-10-07] MEDS ORDERED: ALBUTEROL SO4 0.083% IH SOL 2.5 MG/3 ML VIAL.NEB. NEB PRN (17:03)
[2024-10-07] MEDS ORDERED: PATIENT'S OWN MEDICATION (NON-FORMULARY) (Linaclotide [Linzess] 290 MCG Capsule) PO PRN (17:03)
[2024-10-08] MEDS ORDERED: levETIRAcetam 500 MG TABLET (FP) PO ONE (00:12)
[2024-10-08] MEDS ORDERED: MONTELUKAST NA 10 MG TABLET ONE (00:12)
[2024-10-08] MEDS ORDERED: hydrALAZINE HCL 50 MG TABLET (FP) ONE (00:12)
[2024-10-08] MEDS ORDERED: ATORVASTATIN CA 20 MG TABLET (FP) ONE (00:12)
[2024-10-08] MEDS ORDERED: INSULIN (LEVEMIR) 100 UNITS/ML UNITS SQ ONE (00:13)
[2024-10-08] MEDS: PRAMIPEXOLE DIHYDROCHLORIDE 0.5 MG TABLET PO SCH (00:19)
[2024-10-08] MEDS: levETIRAcetam 500 MG TABLET (FP) PO SCH (00:19)
[2024-10-08] MEDS: ARIPiprazole 2 MG TABLET PO SCH (00:19)
[2024-10-08] MEDS: ATORVASTATIN CA 20 MG TABLET (FP) PO SCH (00:19)
[2024-10-08] MEDS: MONTELUKAST NA 10 MG TABLET PO SCH (00:20)
[2024-10-08] MEDS: hydrALAZINE HCL 50 MG TABLET (FP) PO SCH (00:20)
[2024-10-08] MEDS: INSULIN (LEVEMIR) 100 UNITS/ML UNITS SQ SCH (00:25)
[2024-10-08] MEDS: ACETAMINOPHEN 500 MG TABLET (FP) PO PRN (00:54)
[2024-10-08 04:07] VITALS: BMI 42.5
[2024-10-08] MEDS: INSULIN ASPART SLIDING SCALE (NOVOLOG) 1 VIAL SQ SCH (06:20)
[2024-10-08] MEDS: LOSARTAN POTASSIUM 50 MG TABLET PO SCH (09:04)
[2024-10-08] MEDS: TOPIRAMATE 25 MG TABLET PO SCH ×2 (09:04→23:13)
[2024-10-08] MEDS: ESCITALOPRAM OXALATE 10 MG TABLET PO SCH (09:04)
[2024-10-08] MEDS: PANTOPRAZOLE 40 MG TABLET PO SCH (09:05)
[2024-10-08] MEDS: FOLIC ACID 1 MG TABLET (FP) PO SCH (09:05)
[2024-10-08] MEDS ORDERED: PATIENT'S OWN MEDICATION (NON-FORMULARY) (Topiramate [Topamax] 50 MG Tablet) PO SCH (10:00)
[2024-10-08] MEDS: HEPARIN NA (PORCINE) 5,000 UNITS/ML 1ML VIAL SQ SCH (11:19)
[2024-10-08] MEDS ORDERED: SODIUM CHLORIDE 250 ML IV PRN (11:51)
[2024-10-08] MEDS: oxyCODONE HCL 5 MG TABLET PO PRN (17:12)
[2024-10-09] MEDS: ACETAMINOPHEN 500 MG TABLET (FP) PO SCH (06:32)
[2024-10-09] MEDS: DEXTROSE 50%-WATER 25 GM/50 ML DISP.SYRIN IVPUSH ONE (07:13)
[2024-10-09] MEDS: METOCLOPRAMIDE HCL INJECTION 10 MG/2 ML VIAL IVPUSH ONE (07:17)
[2024-10-09] MEDS: LABETALOL HCL 20 MG/4 ML VIAL IVPUSH ONE (07:17)
[2024-10-09] MEDS: METOCLOPRAMIDE HCL INJECTION 10 MG/2 ML VIAL IM ONE (08:31)
[2024-10-09] MEDS: PRAMIPEXOLE DIHYDROCHLORIDE 0.25 MG TABLET PO SCH (11:12)
[2024-10-09 11:53] LABS: BASO % 0.3 % (0-2.0); EOS % 2.1 % (0-4.5); HEMATOCRIT 33.8 % (32.4-45.2); LYMPH % 18.4 % (8-40); MCH 30.9 pg (25.7-33.7); MCHC 32.6 g/dl (32.0-36.0); MEAN CELL VOLUME 94.6 fl (80-96); MEAN PLT VOLUME 7.7 fl (7.5-11.1); MONO % 6.5 % (3.8-10.2); NEUT % 72.7 % (42.8-82.8); PLATELET COUNT 258 10^3/uL (134-434); RBC 3.57 M/mm3 (3.60-5.2); RDW 15.6 % (11.6-15.6); WHITE BLOOD COUNT 7.3 K/mm3 (4.0-10.0)
[2024-10-09] MEDS: NIFEdipine E.R. 30 MG TABLET PO SCH (12:04)
[2024-10-09] MEDS: ACETAMINOPHEN 1000 MG/100 ML BAG IVPB SCH (12:04)
[2024-10-09] MEDS: METOCLOPRAMIDE HCL INJECTION 10 MG/2 ML VIAL IVPUSH SCH (12:10)
[2024-10-09 12:36] LABS: CHLORIDE 98 mmol/L (98-107); POTASSIUM 4.6 mmol/L (3.5-5.1); SODIUM 137 mmol/L (136-145)
[2024-10-09 12:42] LABS: ALBUMIN 3.1 g/dl (3.4-5.0); CALCIUM 8.3 mg/dL (8.5-10.1); GLUCOSE,RANDOM 115 mg/dL (74-106)
[2024-10-09 12:43] LABS: ANION GAP 11 mmol/L (4-13); BLOOD UREA NITROGEN 49.5 mg/dL (7-18); CO2 27 mmol/L (21-32)
[2024-10-09 12:45] LABS: SGPT/ALT 25 U/L (13-61)
[2024-10-09 12:46] LABS: CREATININE 11.2 mg/dL (0.55-1.3); SGOT/AST 15 U/L (15-37)
[2024-10-09 12:47] LABS: ALK PHOS 102 U/L (45-117); BILIRUBIN,TOTAL 0.3 mg/dL (0.2-1); TOT PROT 6.2 g/dl (6.4-8.2)
[2024-10-09 12:52] LABS: IRON SERUM 42 ug/dL (50-175)
[2024-10-09 12:53] LABS: TOTAL IRON BINDING CAPACITY 197 ug/dL (250-450)
[2024-10-09] MEDS: hydrALAZINE HCL 50 MG TABLET (FP) PO SCH (21:31)
[2024-10-10 06:24] VITALS: PULSE 87
[2024-10-10] MEDS: METOCLOPRAMIDE HCL INJECTION 10 MG/2 ML VIAL IVPUSH SCH (10:22)
[2024-10-10 13:11] LABS: BASO % 0.7 % (0-2.0); EOS % 4.1 % (0-4.5); HEMATOCRIT 32.8 % (32.4-45.2); HEMOGLOBIN 10.7 GM/dL (10.7-15.3); LYMPH % 27.2 % (8-40); MCH 31.2 pg (25.7-33.7); MCHC 32.5 g/dl (32.0-36.0); MEAN PLT VOLUME 7.6 fl (7.5-11.1); MONO % 10.7 % (3.8-10.2); NEUT % 57.3 % (42.8-82.8); PLATELET COUNT 207 10^3/uL (134-434); RBC 3.42 M/mm3 (3.60-5.2); RDW 16.5 % (11.6-15.6); WHITE BLOOD COUNT 4.9 K/mm3 (4.0-10.0)
[2024-10-10 13:45] LABS: CHLORIDE 99 mmol/L (98-107); POTASSIUM 4.5 mmol/L (3.5-5.1); SODIUM 137 mmol/L (136-145)
[2024-10-10 13:47] LABS: CALCIUM 7.9 mg/dL (8.5-10.1)
[2024-10-10 13:48] LABS: ALBUMIN 2.8 g/dl (3.4-5.0); ANION GAP 8 mmol/L (4-13); BLOOD UREA NITROGEN 33.2 mg/dL (7-18); CO2 30 mmol/L (21-32); GLUCOSE,RANDOM 123 mg/dL (74-106)
[2024-10-10 13:51] LABS: SGOT/AST 16 U/L (15-37); SGPT/ALT 22 U/L (13-61)
[2024-10-10 13:52] LABS: BILIRUBIN,TOTAL 0.3 mg/dL (0.2-1); CREATININE 8.8 mg/dL (0.55-1.3); TOT PROT 5.8 g/dl (6.4-8.2)
[2024-10-10 13:54] LABS: ALK PHOS 101 U/L (45-117)
[2024-10-10] MEDS ORDERED: NIFEdipine E.R 60 MG TABLET PO SCH (14:08)
[2024-10-10 14:12] VITALS: BP 157/104; RESP 16; TEMP 98.4
[2024-10-11] MEDS ORDERED: cloNIDine-TTS 0.1 MG/24 HRS PATCH.TDWK TD SCH (07:00)
== END 2024-10-10 14:50 | disposition home or self-care (01) ==
LOC: JER 11:54 → JERBED 15:40 → J4S 10-08 00:35
PROVIDERS: ADMIT Internal Medicine; ATTEND Internal Medicine
PROC: 3E033NZ Introduction of Analgesics, Hypnotics, Sedatives into Peripheral Vein, Percutaneous Approach (ICD-10-PCS; principal; 2024-10-07)
PROC: 3E0333Z Introduction of Anti-inflammatory into Peripheral Vein, Percutaneous Approach (ICD-10-PCS; 2024-10-07)
PROC: 3E033GC Introduction of Other Therapeutic Substance into Peripheral Vein, Percutaneous Approach (ICD-10-PCS; 2024-10-07)
PROC: 3E013VG Introduction of Insulin into Subcutaneous Tissue, Percutaneous Approach (ICD-10-PCS; 2024-10-07)
DX: I16.0 Hypertensive urgency (principal); E11.22 Type 2 diabetes mellitus with diabetic chronic kidney disease; I12.0 Hypertensive chronic kidney disease with stage 5 chronic kidney disease or end stage renal disease; N18.6 End stage renal disease; Z99.2 Dependence on renal dialysis; J18.9 Pneumonia, unspecified organism; Z79.4 Long term (current) use of insulin; E11.43 Type 2 diabetes mellitus with diabetic autonomic (poly)neuropathy; G40.909 Epilepsy, unspecified, not intractable, without status epilepticus; E78.5 Hyperlipidemia, unspecified; G47.30 Sleep apnea, unspecified; F31.30 Bipolar disorder, current episode depressed, mild or moderate severity, unspecified; J45.909 Unspecified asthma, uncomplicated; H40.9 Unspecified glaucoma; K44.9 Diaphragmatic hernia without obstruction or gangrene; R20.0 Anesthesia of skin; S42.254D Nondisplaced fracture of greater tuberosity of right humerus, subsequent encounter for fracture with routine healing; W19.XXXD Unspecified fall, subsequent encounter
CPT/HCPCS: 0241U-QW; 36415; 70450-TC; 71045-TC-FY; 72125-TC; 73030-TC-RT-FY; 73200-TC-RT; 80053; 82728; 82962; 83540; 83550; 83735; 84100; 84702; 85025; 86705; 86803; 87340; 93005; 93010; 96372; 96374; 96375; 96376; 99285-25; G0378; J0131; J1644

== ENCOUNTER 2024-10-12 12:16 | Observation (INO) | payer OTHER ==
[2024-10-12] MEDS ORDERED: ALBUTEROL SO4 2.5/IPRATROPIUM 0.5 INH SOL 3 ML VIAL.NEB. NEB ONE (13:02)
[2024-10-12] MEDS: ALBUTEROL SO4 2.5/IPRATROPIUM 0.5 INH SOL 3 ML VIAL.NEB. NEB SCH (13:08)
[2024-10-12 14:18] LABS: VENOUS BASE EXCESS 2.4 mmol/L (-2-2); VENOUS O2 SATURATION 88.8 % (70-80); VENOUS PCO2 41.8 mmHg (38-52); VENOUS PH 7.428 (7.310-7.410)
[2024-10-12 14:20] LABS: INR 0.96 (0.83-1.09); PROTHROMBIN TIME (PATIENT) 10.9 SEC (9.7-13.0)
[2024-10-12 14:22] LABS: ACTIVATED PTT 18.8 SECONDS (25.2-36.5)
[2024-10-12 14:31] LABS: CHLORIDE 98 mmol/L (98-107); POTASSIUM 5.2 mmol/L (3.5-5.1); SODIUM 137 mmol/L (136-145)
[2024-10-12 14:33] LABS: CALCIUM 7.8 mg/dL (8.5-10.1)
[2024-10-12 14:35] LABS: ALBUMIN 3.4 g/dl (3.4-5.0); ANION GAP 10 mmol/L (4-13); BLOOD UREA NITROGEN 54.7 mg/dL (7-18); CO2 29 mmol/L (21-32); GLUCOSE,RANDOM 110 mg/dL (74-106); MAGNESIUM 2.1 mg/dL (1.8-2.4)
[2024-10-12 14:37] LABS: SGPT/ALT 22 U/L (13-61)
[2024-10-12 14:38] LABS: BASO % 0.3 % (0-2.0); BILIRUBIN,TOTAL 0.5 mg/dL (0.2-1); EOS % 4.4 % (0-4.5); HEMATOCRIT 33.9 % (32.4-45.2); HEMOGLOBIN 11.1 GM/dL (10.7-15.3); MCH 31.7 pg (25.7-33.7); MCHC 32.8 g/dl (32.0-36.0); MEAN CELL VOLUME 96.8 fl (80-96); MEAN PLT VOLUME 8.3 fl (7.5-11.1); MONO % 5.8 % (3.8-10.2); NEUT % 63.5 % (42.8-82.8); PHOSPHOROUS 5.8 mg/dL (2.5-4.9); PLATELET COUNT 175 10^3/uL (134-434); RDW 16.2 % (11.6-15.6); SGOT/AST 18 U/L (15-37); TOT PROT 6.5 g/dl (6.4-8.2); WHITE BLOOD COUNT 6.5 K/mm3 (4.0-10.0)
[2024-10-12 14:40] LABS: ALK PHOS 110 U/L (45-117)
[2024-10-12 14:43] LABS: CREATININE 13.7 mg/dL (0.55-1.3)
[2024-10-12] MEDS ORDERED: SODIUM CHLORIDE 250 ML IV PRN (15:06)
[2024-10-12] MEDS: hydrALAZINE HCL 20 MG/ML VIAL IVPUSH ONE (15:23)
[2024-10-12 15:28] LABS: HIV INTERPRETATION NEGATIVE (NEGATIVE)
[2024-10-12] MEDS ORDERED: ALBUTEROL SO4 0.083% IH SOL 2.5 MG/3 ML VIAL.NEB. NEB PRN (15:48)
[2024-10-12 16:35] VITALS: RESP 18
[2024-10-12] MEDS: INSULIN (LEVEMIR) 100 UNITS/ML UNITS SQ SCH (21:09)
[2024-10-12] MEDS: hydrALAZINE HCL 50 MG TABLET (FP) PO SCH (21:46)
[2024-10-12] MEDS: levETIRAcetam 500 MG TABLET (FP) PO SCH (21:46)
[2024-10-12] MEDS: MONTELUKAST NA 10 MG TABLET PO SCH (21:46)
[2024-10-12] MEDS: ACETAMINOPHEN 500 MG TABLET (FP) PO PRN (21:46)
[2024-10-12] MEDS: PRAMIPEXOLE DIHYDROCHLORIDE 0.5 MG TABLET PO SCH (21:46)
[2024-10-12] MEDS: POLYETHYLENE GLYCOL (HEALTHYLAX) 3350 17 GM PACKET PO SCH (21:46)
[2024-10-12] MEDS: ATORVASTATIN CA 20 MG TABLET (FP) PO SCH (21:46)
[2024-10-12] MEDS: INSULIN ASPART SLIDING SCALE (NOVOLOG) 1 VIAL SQ SCH (21:55)
[2024-10-13 02:55] VITALS: BMI 41.2
[2024-10-13 04:07] VITALS: PULSE 82
[2024-10-13 08:13] VITALS: BP 144/80; TEMP 98.4
[2024-10-13] MEDS: NIFEdipine E.R. 30 MG TABLET PO SCH (09:06)
[2024-10-13] MEDS: ESCITALOPRAM OXALATE 10 MG TABLET PO SCH (09:06)
[2024-10-13] MEDS: LOSARTAN POTASSIUM 50 MG TABLET PO SCH (09:06)
[2024-10-13] MEDS: TOPIRAMATE 25 MG TABLET PO SCH (09:07)
[2024-10-13] MEDS: PANTOPRAZOLE 40 MG TABLET PO SCH (09:07)
[2024-10-13] MEDS: ARIPiprazole 2 MG TABLET PO SCH (09:07)
[2024-10-13] MEDS: FOLIC ACID 1 MG TABLET (FP) PO SCH (09:07)
[2024-10-18] MEDS ORDERED: cloNIDine-TTS 0.1 MG/24 HRS PATCH.TDWK TD SCH (07:00)
== END 2024-10-13 10:25 | disposition home or self-care (01) ==
LOC: JER 12:16 → JERBED 14:26 → J6S 20:15
PROVIDERS: ADMIT Student in an Organized Health Care Education/Training Program; ATTEND Internal Medicine
PROC: 3E0F7SF Introduction of Other Gas into Respiratory Tract, Via Natural or Artificial Opening (ICD-10-PCS; principal; 2024-10-12)
DX: I16.0 Hypertensive urgency (principal); E11.22 Type 2 diabetes mellitus with diabetic chronic kidney disease; I12.0 Hypertensive chronic kidney disease with stage 5 chronic kidney disease or end stage renal disease; N18.6 End stage renal disease; Z99.2 Dependence on renal dialysis; Z79.4 Long term (current) use of insulin; G40.909 Epilepsy, unspecified, not intractable, without status epilepticus; J45.909 Unspecified asthma, uncomplicated; R11.0 Nausea; E78.5 Hyperlipidemia, unspecified; S42.254D Nondisplaced fracture of greater tuberosity of right humerus, subsequent encounter for fracture with routine healing; W19.XXXD Unspecified fall, subsequent encounter; Z91.158 Patient's noncompliance with renal dialysis for other reason
CPT/HCPCS: 0241U-QW; 36415; 71045-TC-FY; 80053; 82803; 82962; 83735; 84100; 84484; 85025; 85610; 85730; 86803; 87389; 93005; 93010; 94640; 94660; 99285-25; G0378

== ENCOUNTER 2024-10-17 16:38 | Observation (INO) | payer OTHER ==
[2024-10-17] MEDS ORDERED: LORazepam 2 MG/ML SDV VIAL ONE (16:56)
[2024-10-17 18:33] LABS: BASO % 0.6 % (0-2.0); EOS % 9.4 % (0-4.5); HEMATOCRIT 36.2 % (32.4-45.2); HEMOGLOBIN 11.4 GM/dL (10.7-15.3); LYMPH % 16.9 % (8-40); MCH 30.6 pg (25.7-33.7); MCHC 31.5 g/dl (32.0-36.0); MEAN CELL VOLUME 97.2 fl (80-96); MEAN PLT VOLUME 8.2 fl (7.5-11.1); MONO % 8.5 % (3.8-10.2); NEUT % 64.6 % (42.8-82.8); PLATELET COUNT 247 10^3/uL (134-434); RBC 3.72 M/mm3 (3.60-5.2); RDW 16.2 % (11.6-15.6); WHITE BLOOD COUNT 6.1 K/mm3 (4.0-10.0)
[2024-10-17 18:39] LABS: INR 0.96 (0.83-1.09); PROTHROMBIN TIME (PATIENT) 11.1 SEC (9.7-13.0)
[2024-10-17 18:42] LABS: ACTIVATED PTT 29.5 SECONDS (25.2-36.5)
[2024-10-17 18:47] LABS: CHOLESTEROL 103 mg/dL (50-200)
[2024-10-17 18:49] LABS: LDL CHOLESTEROL (ONLY SJRH) 39 mg/dL (5-100)
[2024-10-17 18:51] LABS: CHLORIDE 99 mmol/L (98-107); POTASSIUM 4.5 mmol/L (3.5-5.1); SODIUM 136 mmol/L (136-145)
[2024-10-17 18:51] LABS: HDL CHOLESTEROL 50 mg/dL (40-60)
[2024-10-17 18:53] LABS: ALBUMIN 3.6 g/dl (3.4-5.0); ANION GAP 12 mmol/L (4-13); BLOOD UREA NITROGEN 38.9 mg/dL (7-18); CALCIUM 8.7 mg/dL (8.5-10.1); CO2 26 mmol/L (21-32)
[2024-10-17 18:54] LABS: GLUCOSE,RANDOM 110 mg/dL (74-106)
[2024-10-17 18:56] LABS: SGPT/ALT 30 U/L (13-61)
[2024-10-17 18:57] LABS: SGOT/AST 21 U/L (15-37)
[2024-10-17 18:58] LABS: BILIRUBIN,TOTAL 0.8 mg/dL (0.2-1); TOT PROT 7.1 g/dl (6.4-8.2)
[2024-10-17 18:59] LABS: ALK PHOS 112 U/L (45-117)
[2024-10-17] MEDS ORDERED: ACETAMINOPHEN INJECTION 100 ML ONE (20:24)
[2024-10-17] MEDS: ACETAMINOPHEN 1000 MG/100 ML BAG IVPB ONE (20:28)
[2024-10-17] MEDS ORDERED: ONDANSETRON 4 MG/2 ML VIAL ONE (23:52)
[2024-10-17] MEDS: ONDANSETRON 4 MG/2 ML VIAL IVPUSH ONE (23:55)
[2024-10-18] MEDS ORDERED: LIDOCAINE 4% PATCH TP ONE (00:05)
[2024-10-18] MEDS: LIDOCAINE 5% TOPICAL PATCH TP ONE (00:07)
[2024-10-18] MEDS ORDERED: MORPHINE SULFATE 2 MG/ML SYRINGE ONE (00:53)
[2024-10-18] MEDS ORDERED: hydrALAZINE HCL 50 MG TABLET (FP) ONE (00:53)
[2024-10-18] MEDS ORDERED: levETIRAcetam 500 MG TABLET (FP) PO ONE (00:53)
[2024-10-18] MEDS: levETIRAcetam 500 MG TABLET (FP) PO ONE (00:58)
[2024-10-18] MEDS: hydrALAZINE HCL 50 MG TABLET (FP) PO ONE (00:58)
[2024-10-18] MEDS: LIDOCAINE PATCH REMOVAL MC SCH ×2 (00:58→22:42)
[2024-10-18] MEDS: morphine CARPU-JECT 2 MG/1 ML DISP.SYRIN IVPUSH ONE (00:58)
[2024-10-18] MEDS ORDERED: ALBUTEROL SO4 0.083% IH SOL 2.5 MG/3 ML VIAL.NEB. NEB PRN ×2 (01:44→12:56)
[2024-10-18] MEDS ORDERED: PATIENT'S OWN MEDICATION (NON-FORMULARY) (Linaclotide [Linzess] 290 MCG Capsule) PO PRN (01:44)
[2024-10-18] MEDS ORDERED: ONDANSETRON 4 MG TABLET PO PRN ×2 (01:44→12:56)
[2024-10-18] MEDS: MELATONIN 5 MG TABLETS PO ONE (02:05)
[2024-10-18] MEDS: levETIRAcetam 500 MG/5 ML INJECTION VIAL IVPB ONE ×2 (02:08→03:47)
[2024-10-18] MEDS: hydrALAZINE HCL 20 MG/ML VIAL IVPUSH ONE (02:08)
[2024-10-18 05:43] VITALS: BMI 41.8
[2024-10-18] MEDS ORDERED: hydrALAZINE HCL 50 MG TABLET (FP) PO SCH (06:00)
[2024-10-18] MEDS: INSULIN ASPART SLIDING SCALE (NOVOLOG) 1 VIAL SQ SCH ×2 (06:37→17:57)
[2024-10-18] MEDS ORDERED: cloNIDine-TTS 0.1 MG/24 HRS PATCH.TDWK TD SCH (07:00)
[2024-10-18] MEDS ORDERED: SODIUM CHLORIDE 250 ML IV PRN ×2 (08:36→18:49)
[2024-10-18] MEDS: FOLIC ACID 1 MG TABLET (FP) PO SCH (09:42)
[2024-10-18] MEDS: PRAMIPEXOLE DIHYDROCHLORIDE 0.5 MG TABLET PO SCH ×2 (09:42→22:40)
[2024-10-18] MEDS: POLYETHYLENE GLYCOL (HEALTHYLAX) 3350 17 GM PACKET PO SCH ×2 (09:42→22:42)
[2024-10-18] MEDS: levETIRAcetam 500 MG TABLET (FP) PO SCH ×2 (09:43→22:39)
[2024-10-18] MEDS: ESCITALOPRAM OXALATE 10 MG TABLET PO SCH (09:43)
[2024-10-18] MEDS: TOPIRAMATE 25 MG TABLET PO SCH (09:43)
[2024-10-18] MEDS: PANTOPRAZOLE 40 MG TABLET PO SCH (09:43)
[2024-10-18] MEDS: ACETAMINOPHEN 500 MG TABLET (FP) PO PRN (09:49)
[2024-10-18] MEDS ORDERED: NIFEdipine E.R. 30 MG TABLET PO SCH (10:00)
[2024-10-18] MEDS ORDERED: LOSARTAN POTASSIUM 50 MG TABLET PO SCH (10:00)
[2024-10-18] MEDS: NIFEdipine E.R 60 MG TABLET PO SCH (11:19)
[2024-10-18] MEDS: ARIPiprazole 2 MG TABLET PO SCH (11:26)
[2024-10-18] MEDS ORDERED: PATIENT'S OWN MEDICATION (NON-FORMULARY) (Linaclotide [Linzess] 290 MCG) PO PRN (12:56)
[2024-10-18] MEDS ORDERED: ACETAMINOPHEN 500 MG TABLET (FP) PO PRN (12:56)
[2024-10-18] MEDS ORDERED: oxyCODONE HCL 5 MG TABLET PO PRN (13:35)
[2024-10-18] MEDS: oxyCODONE HCL 5 MG TABLET PO PRN (14:57)
[2024-10-18] MEDS ORDERED: INSULIN (LEVEMIR) 100 UNITS/ML UNITS SQ SCH (22:00)
[2024-10-18] MEDS ORDERED: ATORVASTATIN CA 20 MG TABLET (FP) PO SCH (22:00)
[2024-10-18] MEDS ORDERED: MONTELUKAST NA 10 MG TABLET PO SCH (22:00)
[2024-10-18] MEDS: ATORVASTATIN CA 20 MG TABLET (FP) PO SCH (22:39)
[2024-10-18] MEDS: MONTELUKAST NA 10 MG TABLET PO SCH (22:40)
[2024-10-18] MEDS: INSULIN (LEVEMIR) 100 UNITS/ML UNITS SQ SCH (22:42)
[2024-10-19] MEDS: MELATONIN 5 MG TABLETS PO ONE (01:15)
[2024-10-19] MEDS: TOPIRAMATE 25 MG TABLET PO SCH (09:08)
[2024-10-19] MEDS: FOLIC ACID 1 MG TABLET (FP) PO SCH (09:08)
[2024-10-19] MEDS: PANTOPRAZOLE 40 MG TABLET PO SCH (09:08)
[2024-10-19] MEDS: ARIPiprazole 2 MG TABLET PO SCH (09:08)
[2024-10-19] MEDS: ESCITALOPRAM OXALATE 10 MG TABLET PO SCH (09:09)
[2024-10-19 10:18] LABS: BASO % 0.5 % (0-2.0); EOS % 10.4 % (0-4.5); HEMATOCRIT 33.3 % (32.4-45.2); HEMOGLOBIN 11.1 GM/dL (10.7-15.3); LYMPH % 31.8 % (8-40); MCH 31.6 pg (25.7-33.7); MCHC 33.3 g/dl (32.0-36.0); MEAN CELL VOLUME 95.1 fl (80-96); MEAN PLT VOLUME 7.5 fl (7.5-11.1); MONO % 14.8 % (3.8-10.2); NEUT % 42.5 % (42.8-82.8); PLATELET COUNT 206 10^3/uL (134-434); RDW 15.5 % (11.6-15.6); WHITE BLOOD COUNT 3.9 K/mm3 (4.0-10.0)
[2024-10-19] MEDS ORDERED: oxyCODONE HCL 5 MG TABLET PO PRN (10:48)
[2024-10-19 10:50] LABS: CHLORIDE 97 mmol/L (98-107); POTASSIUM 4.1 mmol/L (3.5-5.1); SODIUM 135 mmol/L (136-145)
[2024-10-19 10:52] LABS: CALCIUM 8.4 mg/dL (8.5-10.1)
[2024-10-19 10:53] LABS: ALBUMIN 3.2 g/dl (3.4-5.0); ANION GAP 10 mmol/L (4-13); BLOOD UREA NITROGEN 38.1 mg/dL (7-18); CO2 28 mmol/L (21-32); GLUCOSE,RANDOM 110 mg/dL (74-106); MAGNESIUM 2.1 mg/dL (1.8-2.4)
[2024-10-19 10:56] LABS: SGOT/AST 17 U/L (15-37); SGPT/ALT 23 U/L (13-61)
[2024-10-19 10:57] LABS: BILIRUBIN,TOTAL 0.3 mg/dL (0.2-1); CREATININE 10.2 mg/dL (0.55-1.3); TOT PROT 6.5 g/dl (6.4-8.2)
[2024-10-19 10:59] LABS: ALK PHOS 108 U/L (45-117)
[2024-10-19] MEDS: ACETAMINOPHEN 325 MG TABLET (FP) PO SCH (16:43)
[2024-10-19] MEDS: oxyCODONE HCL 5 MG TABLET PO PRN (21:29)
[2024-10-19] MEDS ORDERED: SIMETHICONE 80 MG TAB.CHEW (FP) PO PRN (22:48)
[2024-10-20] MEDS ORDERED: LORazepam 2 MG/ML SDV VIAL ONE (01:35)
[2024-10-20] MEDS: dilTIAZem HCL 50 MG/10 ML - 10 ML VIAL IVPUSH ONE ×2 (01:37→02:56)
[2024-10-20] MEDS: dilTIAZem HCL 25 MG/5 ML - 5 ML VIAL IVPUSH ONE (01:45)
[2024-10-20 02:34] LABS: HEMATOCRIT 34.8 % (32.4-45.2); HEMOGLOBIN 11.4 GM/dL (10.7-15.3); MCH 31.3 pg (25.7-33.7); MCHC 32.8 g/dl (32.0-36.0); MEAN CELL VOLUME 95.5 fl (80-96); MEAN PLT VOLUME 7.5 fl (7.5-11.1); PLATELET COUNT 201 10^3/uL (134-434); RBC 3.64 M/mm3 (3.60-5.2); RDW 15.6 % (11.6-15.6); WHITE BLOOD COUNT 4.4 K/mm3 (4.0-10.0)
[2024-10-20] MEDS: ONDANSETRON 4 MG/2 ML VIAL IVPUSH ONE (02:49)
[2024-10-20 02:52] LABS: CHLORIDE 99 mmol/L (98-107); POTASSIUM 4.3 mmol/L (3.5-5.1); SODIUM 136 mmol/L (136-145)
[2024-10-20] MEDS: ACETAMINOPHEN 1000 MG/100 ML BAG IVPB ONE (02:53)
[2024-10-20 02:55] LABS: ALBUMIN 3.4 g/dl (3.4-5.0); ANION GAP 9 mmol/L (4-13); BLOOD UREA NITROGEN 46.1 mg/dL (7-18); CALCIUM 8.6 mg/dL (8.5-10.1); CO2 28 mmol/L (21-32); GLUCOSE,RANDOM 120 mg/dL (74-106)
[2024-10-20 02:58] LABS: SGOT/AST 23 U/L (15-37); SGPT/ALT 24 U/L (13-61)
[2024-10-20 03:00] LABS: BILIRUBIN,TOTAL 0.3 mg/dL (0.2-1)
[2024-10-20 03:01] LABS: ALK PHOS 130 U/L (45-117)
[2024-10-20] MEDS ORDERED: levETIRAcetam 500 MG TABLET (FP) PO SCH (07:38)
[2024-10-20] MEDS: NIFEdipine E.R. 90 MG TABLET PO SCH (11:00)
[2024-10-20] MEDS: cloNIDine HCL 0.1 MG TABLET PO SCH (12:20)
[2024-10-20] MEDS ORDERED: SODIUM CHLORIDE 250 ML IV PRN (13:38)
[2024-10-21 17:53] LABS: BASO % 0.4 % (0-2.0); HEMATOCRIT 31.8 % (32.4-45.2); HEMOGLOBIN 10.6 GM/dL (10.7-15.3); LYMPH % 22.3 % (8-40); MCH 31.5 pg (25.7-33.7); MCHC 33.2 g/dl (32.0-36.0); MEAN CELL VOLUME 94.8 fl (80-96); MEAN PLT VOLUME 7.8 fl (7.5-11.1); NEUT % 59.3 % (42.8-82.8); PLATELET COUNT 213 10^3/uL (134-434); RBC 3.36 M/mm3 (3.60-5.2); RDW 15.3 % (11.6-15.6); WHITE BLOOD COUNT 8.1 K/mm3 (4.0-10.0)
[2024-10-21 18:13] LABS: CHLORIDE 97 mmol/L (98-107); POTASSIUM 4.8 mmol/L (3.5-5.1); SODIUM 132 mmol/L (136-145)
[2024-10-21 18:16] LABS: ALBUMIN 3.2 g/dl (3.4-5.0); ANION GAP 10 mmol/L (4-13); BLOOD UREA NITROGEN 63.4 mg/dL (7-18); CO2 25 mmol/L (21-32); GLUCOSE,RANDOM 99 mg/dL (74-106); MAGNESIUM 2.2 mg/dL (1.8-2.4)
[2024-10-21 18:19] LABS: SGOT/AST 17 U/L (15-37); SGPT/ALT 20 U/L (13-61)
[2024-10-21 18:20] LABS: BILIRUBIN,TOTAL 0.3 mg/dL (0.2-1); TOT PROT 6.4 g/dl (6.4-8.2)
[2024-10-21 18:22] LABS: ALK PHOS 117 U/L (45-117)
[2024-10-21 18:29] LABS: CREATININE 14.6 mg/dL (0.55-1.3)
[2024-10-21 19:11] VITALS: RESP 18
[2024-10-21 19:41] VITALS: BP 128/91; PULSE 88; TEMP 98.1
== END 2024-10-21 20:00 | disposition home or self-care (01) ==
LOC: JER 16:38 → JERBED 18:58 → J6S 10-18 04:22 → J4W 10-18 07:48
PROVIDERS: ADMIT Internal Medicine
PROC: 3E033GC Introduction of Other Therapeutic Substance into Peripheral Vein, Percutaneous Approach (ICD-10-PCS; principal; 2024-10-17)
PROC: 3E033NZ Introduction of Analgesics, Hypnotics, Sedatives into Peripheral Vein, Percutaneous Approach (ICD-10-PCS; 2024-10-17)
DX: I16.0 Hypertensive urgency (principal); E11.22 Type 2 diabetes mellitus with diabetic chronic kidney disease; I12.0 Hypertensive chronic kidney disease with stage 5 chronic kidney disease or end stage renal disease; N18.6 End stage renal disease; Z99.2 Dependence on renal dialysis; F31.9 Bipolar disorder, unspecified; R56.9 Unspecified convulsions; E66.9 Obesity, unspecified; J45.909 Unspecified asthma, uncomplicated
CPT/HCPCS: 0241U-QW; 36415; 70450-TC; 70496-TC; 70498-TC; 71045-TC-FY; 73030-TC-RT-FY; 80053; 80061; 80177; 82550; 82553; 82962; 83036; 83605; 83735; 84146; 84484; 84703; 85025; 85027; 85610; 85730; 86850; 86900; 86901; 93005; 93010; 96374; 96375; 96376; 97116-GP; 97162-GP; 99285-25; G0378; J0131; Q9967

== ENCOUNTER 2024-12-04 10:55 | Observation (INO) | payer OTHER ==
[2024-12-04 11:38] VITALS: BMI 76.6
[2024-12-04 12:31] LABS: BASO % 0.6 % (0-2.0); EOS % 0.5 % (0-4.5); HEMATOCRIT 36.9 % (32.4-45.2); HEMOGLOBIN 12.1 GM/dL (10.7-15.3); MCH 31.6 pg (25.7-33.7); MCHC 32.8 g/dl (32.0-36.0); MEAN CELL VOLUME 96.4 fl (80-96); MEAN PLT VOLUME 7.8 fl (7.5-11.1); MONO % 2.6 % (3.8-10.2); NEUT % 86.3 % (42.8-82.8); PLATELET COUNT 181 10^3/uL (134-434); RBC 3.83 M/mm3 (3.60-5.2); RDW 16.1 % (11.6-15.6); WHITE BLOOD COUNT 9.2 K/mm3 (4.0-10.0)
[2024-12-04 12:42] LABS: INR 0.98 (0.83-1.09); PROTHROMBIN TIME (PATIENT) 10.7 SEC (9.7-13.0)
[2024-12-04 12:45] LABS: ACTIVATED PTT 27.7 SECONDS (25.2-36.5)
[2024-12-04] MEDS ORDERED: SODIUM CHLORIDE 250 ML IV PRN (12:47)
[2024-12-04 12:56] LABS: CHLORIDE 102 mmol/L (98-107); POTASSIUM 4.6 mmol/L (3.5-5.1); SODIUM 138 mmol/L (136-145)
[2024-12-04 12:58] LABS: CALCIUM 8.8 mg/dL (8.5-10.1)
[2024-12-04 12:59] LABS: ALBUMIN 4.1 g/dl (3.4-5.0); ANION GAP 13 mmol/L (4-13); BLOOD UREA NITROGEN 68.4 mg/dL (7-18); CO2 23 mmol/L (21-32); GLUCOSE,RANDOM 260 mg/dL (74-106); MAGNESIUM 2.2 mg/dL (1.8-2.4)
[2024-12-04 13:02] LABS: PHOSPHOROUS 4.5 mg/dL (2.5-4.9); SGOT/AST 43 U/L (15-37); SGPT/ALT 94 U/L (13-61)
[2024-12-04 13:03] LABS: BILIRUBIN,TOTAL 0.6 mg/dL (0.2-1); TOT PROT 8.2 g/dl (6.4-8.2)
[2024-12-04 13:05] LABS: ALK PHOS 143 U/L (45-117)
[2024-12-04 13:07] LABS: CREATININE 11.1 mg/dL (0.55-1.3)
[2024-12-04] MEDS ORDERED: METOPROLOL TARTRATE 5 MG/5 ML VIAL ONE (14:36)
[2024-12-04] MEDS ORDERED: ACETAMINOPHEN INJECTION 100 ML ONE (14:36)
[2024-12-04] MEDS ORDERED: ONDANSETRON 4 MG/2 ML VIAL ONE (14:36)
[2024-12-04] MEDS ORDERED: FAMOTIDINE 20 MG/50 ML IVPB 20 MG/50 ML MG IVPB ONE (14:36)
[2024-12-04] MEDS: FAMOTIDINE 20 MG/50 ML IVPB 20 MG/50 ML MG IVPB ONE (14:49)
[2024-12-04] MEDS: ONDANSETRON 4 MG/2 ML VIAL IVPUSH ONE (14:49)
[2024-12-04] MEDS: ACETAMINOPHEN 1000 MG/100 ML BAG IVPB ONE (14:49)
[2024-12-04] MEDS: METOPROLOL TARTRATE 5 MG/5 ML VIAL IVPUSH ONE (14:49)
[2024-12-04] MEDS: INSULIN ASPART SLIDING SCALE (NOVOLOG) 1 VIAL SQ SCH (18:32)
[2024-12-04] MEDS: hydrALAZINE HCL 20 MG/ML VIAL IVPUSH ONE (19:28)
[2024-12-04] MEDS: CARVEDILOL 6.25 MG TABLET (FP) PO SCH (21:49)
[2024-12-04] MEDS: ATORVASTATIN CA 20 MG TABLET (FP) PO SCH (21:49)
[2024-12-04] MEDS: cloNIDine HCL 0.1 MG TABLET PO SCH (21:49)
[2024-12-04] MEDS: hydrALAZINE HCL 50 MG TABLET (FP) PO SCH (21:50)
[2024-12-04] MEDS: HEPARIN NA (PORCINE) 5,000 UNITS/ML 1ML VIAL SQ SCH (21:50)
[2024-12-04] MEDS: PRAMIPEXOLE DIHYDROCHLORIDE 0.5 MG TABLET PO SCH (21:50)
[2024-12-04] MEDS: TOPIRAMATE 100 MG TABLET PO SCH (21:50)
[2024-12-04] MEDS: levETIRAcetam 500 MG TABLET (FP) PO SCH (21:50)
[2024-12-04] MEDS: LABETALOL HCL 20 MG/4 ML VIAL IVPUSH ONE (21:51)
[2024-12-04] MEDS: ONDANSETRON 4 MG/2 ML VIAL IVPUSH PRN (21:54)
[2024-12-04] MEDS: INSULIN (LEVEMIR) 100 UNITS/ML UNITS SQ SCH (23:12)
[2024-12-04] MEDS: INSULIN GLARGINE (LANTUS) 100 UNITS/ML UNITS SQ SCH (23:33)
[2024-12-05] MEDS: LABETALOL HCL 20 MG/4 ML VIAL IVPUSH ONE (00:31)
[2024-12-05 02:04] VITALS: RESP 20
[2024-12-05 07:43] LABS: HEMATOCRIT 37.5 % (32.4-45.2); HEMOGLOBIN 12.1 GM/dL (10.7-15.3); MCH 31.7 pg (25.7-33.7); MCHC 32.3 g/dl (32.0-36.0); MEAN CELL VOLUME 98.2 fl (80-96); MEAN PLT VOLUME 8.2 fl (7.5-11.1); PLATELET COUNT 144 10^3/uL (134-434); RBC 3.82 M/mm3 (3.60-5.2); RDW 15.6 % (11.6-15.6); WHITE BLOOD COUNT 9.5 K/mm3 (4.0-10.0)
[2024-12-05 07:52] LABS: CHLORIDE 100 mmol/L (98-107); POTASSIUM 3.7 mmol/L (3.5-5.1); SODIUM 141 mmol/L (136-145)
[2024-12-05 07:58] LABS: ALBUMIN 3.8 g/dl (3.4-5.0)
[2024-12-05 07:59] LABS: CALCIUM 8.2 mg/dL (8.5-10.1)
[2024-12-05 08:00] LABS: ANION GAP 11 mmol/L (4-13); CO2 30 mmol/L (21-32); GLUCOSE,RANDOM 155 mg/dL (74-106); MAGNESIUM 2.1 mg/dL (1.8-2.4)
[2024-12-05 08:02] LABS: PHOSPHOROUS 4.5 mg/dL (2.5-4.9)
[2024-12-05 08:03] LABS: BILIRUBIN,TOTAL 0.6 mg/dL (0.2-1); SGOT/AST 22 U/L (15-37); SGPT/ALT 69 U/L (13-61); TOT PROT 7.4 g/dl (6.4-8.2)
[2024-12-05 08:05] LABS: ALK PHOS 135 U/L (45-117)
[2024-12-05 08:10] LABS: CREATININE 9.1 mg/dL (0.55-1.3)
[2024-12-05] MEDS: ESCITALOPRAM OXALATE 20 MG TABLET PO SCH (10:01)
[2024-12-05] MEDS: NIFEdipine E.R. 90 MG TABLET PO SCH (10:01)
[2024-12-05] MEDS: ARIPiprazole 2 MG TABLET PO SCH (10:01)
[2024-12-05] MEDS: PANTOPRAZOLE 20 MG TABLET PO SCH (10:01)
[2024-12-05] MEDS: amLODIPine BESYLATE 5 MG TABLET (FP) PO SCH (10:02)
[2024-12-05] MEDS: LOSARTAN POTASSIUM 50 MG TABLET PO SCH (10:02)
[2024-12-05] MEDS ORDERED: levETIRAcetam 500 MG TABLET (FP) PO SCH (12:17)
[2024-12-05 14:37] VITALS: BP 122/69; PULSE 88; TEMP 98.6
== END 2024-12-05 14:52 | disposition home or self-care (01) ==
LOC: JER 10:55 → JERBED 14:49 → J4W 16:11
PROVIDERS: ADMIT Internal Medicine; ATTEND Internal Medicine
PROC: 3E033NZ Introduction of Analgesics, Hypnotics, Sedatives into Peripheral Vein, Percutaneous Approach (ICD-10-PCS; principal; 2024-12-04)
PROC: 3E013VG Introduction of Insulin into Subcutaneous Tissue, Percutaneous Approach (ICD-10-PCS; 2024-12-04)
PROC: 3E023GC Introduction of Other Therapeutic Substance into Muscle, Percutaneous Approach (ICD-10-PCS; 2024-12-04)
PROC: 3E033NZ Introduction of Analgesics, Hypnotics, Sedatives into Peripheral Vein, Percutaneous Approach (ICD-10-PCS; 2024-12-04)
PROC: 3E033GC Introduction of Other Therapeutic Substance into Peripheral Vein, Percutaneous Approach (ICD-10-PCS; 2024-12-04)
DX: I16.0 Hypertensive urgency (principal); E11.22 Type 2 diabetes mellitus with diabetic chronic kidney disease; I12.0 Hypertensive chronic kidney disease with stage 5 chronic kidney disease or end stage renal disease; E11.40 Type 2 diabetes mellitus with diabetic neuropathy, unspecified; E11.65 Type 2 diabetes mellitus with hyperglycemia; E66.9 Obesity, unspecified; N18.6 End stage renal disease; Z99.2 Dependence on renal dialysis; J44.9 Chronic obstructive pulmonary disease, unspecified; E78.5 Hyperlipidemia, unspecified; F31.9 Bipolar disorder, unspecified; K31.84 Gastroparesis; R60.0 Localized edema
CPT/HCPCS: 0241U-QW; 36415; 70450-TC; 71045-TC-FY; 80053; 82962; 83690; 83735; 83880; 84100; 84484; 85025; 85027; 85610; 85730; 86803; 87340; 93005; 93010; 96365; 96372; 96375; 96376; 99285-25; G0378; J0131; J1644

== ENCOUNTER 2025-07-07 10:51 | Observation (INO) | payer OTHER ==
[2025-07-07 11:23] VITALS: BMI 42.0
[2025-07-07] MEDS: morphine CARPU-JECT 2 MG/1 ML DISP.SYRIN IM ONE ×2 (12:27→13:58)
[2025-07-07] MEDS: morphine CARPU-JECT 4 MG/1 ML DISP.SYRIN IVPUSH ONE ×3 (12:29→23:29)
[2025-07-07] MEDS ORDERED: ONDANSETRON 4 MG/2 ML VIAL ONE (12:32)
[2025-07-07] MEDS ORDERED: ACETAMINOPHEN INJECTION 100 ML ONE (12:32)
[2025-07-07] MEDS: ONDANSETRON 4 MG/2 ML VIAL IVPUSH ONE (12:38)
[2025-07-07] MEDS: ACETAMINOPHEN 1000 MG/100 ML BAG IVPB ONE (12:38)
[2025-07-07 12:46] LABS: ABSOLUTE IMMATURE GRANULOCYTES 0.11 x10^3/uL (0.0-0.031); BASOPHILS # 0.05 x10^3/uL (0.01-0.08); EOSINOPHIL % 0.2 % (0.7-5.8); EOSINOPHILS # 0.03 x10^3/uL (0.04-0.36); MCHC 29.9 g/dl (32.2-35.5); MEAN CELL VOLUME 111.0 fl (79.4-94.8); MEAN PLT VOLUME 10.3 fl (9.4-12.3); MONOCYTE # 0.38 x10^3/uL (0.24-0.86); MONOCYTE % 2.9 % (4.7-12.5); RDW 22.3 % (12.1-16.8)
[2025-07-07 14:03] LABS: GLUCOSE,RANDOM 197 mg/dL (74-106)
[2025-07-07 14:10] LABS: CREATININE 10.73 mg/dL (0.55-1.3)
[2025-07-07 14:35] LABS: HCV DIAGNOSTIC IN-HOUSE W/RFLX NON-REACTIVE (NONREACTIVE); HIV INTERPRETATION NEGATIVE (NEGATIVE)
[2025-07-07] MEDS ORDERED: SODIUM CHLORIDE 250 ML IV PRN (15:05)
[2025-07-07] MEDS ORDERED: LABETALOL HCL 20 MG/4 ML VIAL ONE (17:01)
[2025-07-07] MEDS: LABETALOL HCL 20 MG/4 ML VIAL IVPUSH ONE (17:25)
[2025-07-07 19:36] LABS: GLUCOSE,RANDOM 315 mg/dL (74-106)
[2025-07-07 19:37] LABS: TOT PROT 7.9 g/dl (6.4-8.2)
[2025-07-07 19:38] LABS: CO2 16 mmol/L (21-32)
[2025-07-07 19:39] LABS: ALK PHOS 101 U/L (40-150)
[2025-07-07 19:42] LABS: CREATININE 14.56 mg/dL (0.55-1.3); SGOT/AST 37 U/L (5-34); SGPT/ALT 47 U/L (0-55)
[2025-07-07] MEDS ORDERED: ALBUTEROL SO4 HFA INHALER IH PRN (20:18)
[2025-07-07] MEDS: HEPARIN NA (PORCINE) 5,000 UNITS/ML 1ML VIAL SQ SCH (22:10)
[2025-07-07] MEDS: DIVALPROEX SODIUM 250 MG TABLET E.C. PO SCH (22:10)
[2025-07-07] MEDS: METOCLOPRAMIDE HCL INJECTION 10 MG/2 ML VIAL IVPUSH PRN (22:10)
[2025-07-07] MEDS: ATORVASTATIN CA 20 MG TABLET (FP) PO SCH (22:11)
[2025-07-07] MEDS: CARVEDILOL 6.25 MG TABLET (FP) PO SCH (22:11)
[2025-07-07] MEDS: INSULIN GLARGINE (LANTUS) 100 UNITS/ML UNITS SQ SCH (22:12)
[2025-07-07] MEDS: TOPIRAMATE 100 MG TABLET PO SCH (22:12)
[2025-07-07] MEDS: INSULIN ASPART SLIDING SCALE (NOVOLOG) 1 VIAL SQ SCH (22:12)
[2025-07-07] MEDS ORDERED: morphine CARPU-JECT 2 MG/1 ML DISP.SYRIN IVPUSH PRN (23:51)
[2025-07-08 07:15] VITALS: TEMP 99
[2025-07-08 10:56] LABS: GLUCOSE,RANDOM 156 mg/dL (74-106); TOT PROT 6.8 g/dl (6.4-8.2)
[2025-07-08] MEDS: LOSARTAN POTASSIUM 50 MG TABLET PO SCH (10:56)
[2025-07-08] MEDS: amLODIPine BESYLATE 5 MG TABLET (FP) PO SCH (10:56)
[2025-07-08 10:57] LABS: CO2 27 mmol/L (21-32)
[2025-07-08 10:59] LABS: ALK PHOS 75 U/L (40-150)
[2025-07-08] MEDS: NIFEdipine E.R. 90 MG TABLET PO SCH (10:59)
[2025-07-08] MEDS: PANTOPRAZOLE SODIUM 40 MG VIAL IVPUSH SCH (11:00)
[2025-07-08 11:02] LABS: CREATININE 10.31 mg/dL (0.55-1.3); SGOT/AST 25 U/L (5-34); SGPT/ALT 32 U/L (0-55)
[2025-07-08] MEDS: PANTOPRAZOLE 40 MG TABLET PO SCH (11:04)
[2025-07-08] MEDS: METOCLOPRAMIDE HCL INJECTION 10 MG/2 ML VIAL IVPUSH SCH (11:04)
[2025-07-08 11:08] LABS: ABSOLUTE IMMATURE GRANULOCYTES 0.04 x10^3/uL (0.0-0.031); BASOPHILS # 0.03 x10^3/uL (0.01-0.08); EOSINOPHIL % 0.3 % (0.7-5.8); EOSINOPHILS # 0.03 x10^3/uL (0.04-0.36); MCHC 32.8 g/dl (32.2-35.5); MEAN PLT VOLUME 10.3 fl (9.4-12.3); MONOCYTE # 0.93 x10^3/uL (0.24-0.86); MONOCYTE % 8.3 % (4.7-12.5); RDW 13.6 % (12.1-16.8)
[2025-07-08 11:13] LABS: MEAN CELL VOLUME 100.6 fl (79.4-94.8)
[2025-07-08] MEDS ORDERED: SODIUM CHLORIDE 250 ML IV PRN (12:45)
[2025-07-08 13:28] VITALS: BP 163/88; PULSE 92; RESP 16
[2025-07-08] MEDS: LACTULOSE 20 GM/30 ML UDC (FOR ORAL USE ONLY) PO ONE (14:46)
[2025-07-08] MEDS ORDERED: CALCIUM ACETATE 667 MG CAPSULE (FP) PO SCH (17:30)
== END 2025-07-08 15:42 | disposition home or self-care (01) ==
LOC: JER 10:51 → JERBED 16:44 → J5S 20:11
PROVIDERS: ATTEND Internal Medicine
PROC: 3E033NZ Introduction of Analgesics, Hypnotics, Sedatives into Peripheral Vein, Percutaneous Approach (ICD-10-PCS; principal; 2025-07-07)
PROC: 3E033NZ Introduction of Analgesics, Hypnotics, Sedatives into Peripheral Vein, Percutaneous Approach (ICD-10-PCS; 2025-07-07)
PROC: 3E023GC Introduction of Other Therapeutic Substance into Muscle, Percutaneous Approach (ICD-10-PCS; 2025-07-07)
PROC: 3E013VG Introduction of Insulin into Subcutaneous Tissue, Percutaneous Approach (ICD-10-PCS; 2025-07-07)
PROC: 3E033GC Introduction of Other Therapeutic Substance into Peripheral Vein, Percutaneous Approach (ICD-10-PCS; 2025-07-07)
PROC: 3E023NZ Introduction of Analgesics, Hypnotics, Sedatives into Muscle, Percutaneous Approach (ICD-10-PCS; 2025-07-07)
DX: R11.2 Nausea with vomiting, unspecified (principal); E11.43 Type 2 diabetes mellitus with diabetic autonomic (poly)neuropathy; K31.84 Gastroparesis; I12.0 Hypertensive chronic kidney disease with stage 5 chronic kidney disease or end stage renal disease; E11.22 Type 2 diabetes mellitus with diabetic chronic kidney disease; E87.5 Hyperkalemia; F31.9 Bipolar disorder, unspecified; N18.6 End stage renal disease; Z99.2 Dependence on renal dialysis; J45.909 Unspecified asthma, uncomplicated; K59.00 Constipation, unspecified; Z87.891 Personal history of nicotine dependence
CPT/HCPCS: 36415; 71045-TC-FY; 76937; 80053; 82962; 83690; 83735; 84100; 84484; 85025; 86803; 87389; 93005; 93010; 96372; 96374; 96375; 99285-25; G0378